=== PATIENT | female | born 1975 | race Caucasian/White ===

== ENCOUNTER 2017-02-06 17:07 | Outpatient (RCR) | payer MEDICARE, MEDICAID ==
[~2017-02-06 17:07] MED LIST: AML2.5T PO; ASP81TEC PO; ASPI-875 PO; CLON1TAB3 PO; CLON2TAB16; CLON2TAB3 PO; CODE-54 PO; DCS100C PO; DIVA250T2 PO; DIVA500T15 PO; DOXE25CA2 PO; DOXE25CA46 PO; DOXE50CA3 PO; DVL500TSR; DXPN25C PO; ESTROVEN PO; FLC1T PO; FURO20TA4 PO; HYDR-3454 PO; HYDR118S10 PO; IBUP800T26 PO; LORA1TAB PO; MELO-195 PO; MELO7.5T PO; MULT-974 PO; Nexium; OMEP20CA12 PO; OMEP20TA7 PO; OXYC-12 PO; PHEN120L2 MC; PNT40TEC PO; PREG225C PO; PREG75CA PO; PRM25T; PRM25T PO; RIZA10TA23 PO; SIMV10TA3 PO; SMT80CT PO; SMV10T PO; SUCR1TAB36 PO; TOPI100T PO; TPR100T; TRAM50TA2; TRAM50TA2 PO; TRAZ150T42; TRM50T PO; VNL37.5T PO
== END 2017-05-05 | disposition home or self-care (01) ==
LOC: LAB 17:07
PROVIDERS: ATTEND Family Medicine
DX: R19.7 Diarrhea, unspecified (principal)
CPT/HCPCS: 87449

== ENCOUNTER → 2017-02-07 | Outpatient (CLI) | payer MEDICARE, MEDICAID ==
[~2017-02-07] MED LIST changes: +BARIUM SUSPENSION 2.1% (VANILLA SILQ) 450 ML PO ONE; +CATHETER FLUSH 10 ML SYR IV PRN; +IOHEXOL 350 MG/ML 100 ML (OMNIPAQUE 350) VIAL IV ONE; +NS 100 ML (IVPB) BAG IV ONE
[2017-02-07 16:12] LABS: BLOOD UREA NITROGEN 11 MG/DL (7-18); BUN/CREATININE RATIO 13; CREATININE SERUM 0.85 MG/DL (0.60-1.30); GFR ESTIMATED > 60
--- NOTE | 2017-02-07 18:13 | Diagnostic Imaging Report ---
PROCEDURE: CT abdomen and pelvis with contrast. TECHNIQUE: Multiple contiguous axial images were obtained through the abdomen and pelvis after administration of intravenous contrast. INDICATION: Post bypass and hernia repair, pain. COMPARISON: Study compared to 01/16/2015. FINDINGS: The lung bases are nonacute. The liver is unremarkable. The gallbladder is surgically absent. No perihepatic fluid collection. Spleen is negative. There is no adrenal mass. The pancreas appears unremarkable. There are postoperative changes of a gastric bypass without evidence for a leak or obstruction. Enteric contrast media has reached the colon without extravasation. There is no ascites, abscess, hematoma, fluid collection, pneumatosis, or free air. Urinary tracts are unobstructed. The urinary bladder is unremarkable. No mesenteric or retroperitoneal adenopathy. No acute bony abnormality. IMPRESSION: No fluid collection, inflammatory process, obstructive features, hernia, or acute abnormalities identified. Dictated by: Dictated on workstation # [id number]
--- NOTE | 2017-02-08 15:10 | Physician Query-Final Dx ---
Clinic Account Progress/Dx Physician Query: Please give diagnosis Please specify the location of the patients abd pain (ie RUQ, LUQ, ect..) Date of Service Feb 07, 2017 at 15:29 BRENT LARSEN Feb 08, 2017 15:10
--- NOTE | 2017-02-09 14:32 | Physician Query-Final Dx ---
Clinic Account Progress/Dx Physician Query: Please specify the location of the pts abd pain thank you Date of Service Feb 07, 2017 at 15:29 BRENT LARSEN Feb 09, 2017 14:32
== END ==
LOC: RAD 15:29
PROVIDERS: ATTEND Family Medicine
DX: R10.9 Unspecified abdominal pain (principal); R11.10 Vomiting, unspecified; R19.7 Diarrhea, unspecified; N28.9 Disorder of kidney and ureter, unspecified
CPT/HCPCS: 36415; 74177; 82565; 84520

== ENCOUNTER → 2017-04-19 | Outpatient (CLI) | payer MEDICARE, MEDICAID ==
[~2017-04-19] MED LIST changes: +BARIUM SUSPENSION 105% (LIQUID POLIBAR PLUS) 240 ML/DOSE PO ONE; -BARIUM SUSPENSION 2.1% (VANILLA SILQ) 450 ML PO ONE; +BARIUM SUSPENSION 60% (LIQUID EZ PAQUE) 240 ML DOSE PO ONE; -CATHETER FLUSH 10 ML SYR IV PRN; -IOHEXOL 350 MG/ML 100 ML (OMNIPAQUE 350) VIAL IV ONE; -NS 100 ML (IVPB) BAG IV ONE
--- NOTE | 2017-04-19 11:30 | Diagnostic Imaging Report ---
EXAMINATION: Upper GI study, double contrast. Veneer Splicer image of the abdomen was performed. After the oral administration of gas forming granules, the patient drank thick and thin barium with visualization under fluoroscopy, with spot images taken over the esophagus, stomach and duodenum and followed by overhead images in the chest and abdomen. INDICATION: Abdominal pain. FLUOROSCOPY TIME: One minutes and 58 seconds. FINDINGS: Veneer Splicer images of the abdomen demonstrate small amount of fecal material. Surgical sutures in the upper left quadrant is seen. Surgical clips in the upper right quadrant are noted. The esophagus demonstrates normal caliber with no strictures. The mucosal pattern demonstrates no filling defects, diverticulum or ulceration. There is normal relaxation of the distal sphincter. There is no hiatal hernia. The stomach demonstrates postsurgical changes with a gastrojejunostomy that is widely patent. No filling defect to suggest a mass or evidence of ulcer seen. The jejunal loops are visualized appear unremarkable. IMPRESSION: Patent gastrojejunostomy. No definite abnormality. Dictated by: Dictated on workstation # [id number]
== END ==
LOC: RAD 09:30
PROVIDERS: ATTEND Family Medicine
DX: K21.9 Gastro-esophageal reflux disease without esophagitis (principal)
CPT/HCPCS: 74241

== ENCOUNTER → 2017-04-29 | Outpatient (CLI) | payer MEDICARE, MEDICAID ==
[~2017-04-29] MED LIST changes: -BARIUM SUSPENSION 105% (LIQUID POLIBAR PLUS) 240 ML/DOSE PO ONE; -BARIUM SUSPENSION 60% (LIQUID EZ PAQUE) 240 ML DOSE PO ONE
[2017-04-29 16:34] LABS: MEAN PLATELET VOLUME 11.7 FL (7.4-10.4); RED BLOOD COUNT 3.73 10^6/uL (4.35-5.85); RED CELL DISTRIBUTION WIDTH 13.9 % (10.0-14.5); WHITE BLOOD COUNT 4.9 10^3/uL (4.3-11.0)
[2017-04-29 17:13] LABS: ALANINE AMINOTRANSFERASE 11 U/L (0-55); ALBUMIN 3.3 GM/DL (3.2-4.5); ANION GAP 9 MMOL/L (5-14); ASPARTATE AMINO TRANSFERASE 10 U/L (5-34); BILIRUBIN,TOTAL 0.2 MG/DL (0.1-1.0); BLOOD UREA NITROGEN 15 MG/DL (7-18); BUN/CREATININE RATIO 19 (0-20); CALCIUM 8.2 MG/DL (8.5-10.1); CARBON DIOXIDE 26 MMOL/L (21-32); CHLORIDE 108 MMOL/L (98-107); CREATININE SERUM 0.81 MG/DL (0.60-1.30); GFR ESTIMATED > 60; GLUCOSE 77 MG/DL (70-105); HEMOLYSIS 10 (-100-29); ICTERUS 0.2 (-100-1.9); LIPEMIA 13 (-100-49); POTASSIUM 4.2 MMOL/L (3.6-5.0); SODIUM 143 MMOL/L (135-145); TOTAL PROTEIN 5.5 GM/DL (6.4-8.2)
[2017-04-29 17:32] LABS: THYROID STIMULATING HORMONE 0.22 UIU/ML (0.35-4.94)
== END ==
LOC: LAB 16:13
PROVIDERS: ATTEND Family Medicine
DX: R53.83 Other fatigue (principal)
CPT/HCPCS: 36415; 80053; 84443; 85027

== ENCOUNTER → 2017-05-02 | Outpatient (CLI) | payer MEDICARE, MEDICAID ==
[2017-05-02 16:08] LABS: THYROID STIMULATING HORMONE 0.35 UIU/ML (0.35-4.94)
== END ==
LOC: LAB 14:57
PROVIDERS: ATTEND Family Medicine
DX: E03.9 Hypothyroidism, unspecified (principal)
CPT/HCPCS: 36415; 84439; 84443

== ENCOUNTER → 2017-05-19 | Outpatient (CLI) | payer MEDICARE, MEDICAID ==
[2017-05-19 15:21] LABS: BASOPHILS % (AUTO) 0 % (0-10); EOSINOPHILS # (AUTO) 0.1 10^3/uL (0.0-0.3); EOSINOPHILS % (AUTO) 2 % (0-10); LYMPHOCYTES % (AUTO) 32 % (12-44); MEAN CORPUSCULAR HEMOGLOBIN 30 PG (25-34); MEAN CORPUSCULAR HGB CONC 32 G/DL (32-36); MEAN CORPUSCULAR VOLUME 93 FL (80-99); MEAN PLATELET VOLUME 10.3 FL (7.4-10.4); MONOCYTES # (AUTO) 0.5 X 10^3 (0.0-1.0); MONOCYTES % (AUTO) 8 % (0-12); NEUTROPHILS # (AUTO) 3.6 X 10^3 (1.8-7.8); NEUTROPHILS % (AUTO) 58 % (42-75); PLATELET COUNT 294 10^3/uL (130-400); RED BLOOD COUNT 3.46 10^6/uL (4.35-5.85); RED CELL DISTRIBUTION WIDTH 13.6 % (10.0-14.5); WHITE BLOOD COUNT 6.2 10^3/uL (4.3-11.0)
[2017-05-19 15:36] LABS: ANION GAP 9 MMOL/L (5-14); BLOOD UREA NITROGEN 11 MG/DL (7-18); BUN/CREATININE RATIO 14; CALCIUM 8.6 MG/DL (8.5-10.1); CARBON DIOXIDE 25 MMOL/L (21-32); CHLORIDE 105 MMOL/L (98-107); GFR ESTIMATED > 60; GLUCOSE 95 MG/DL (70-105); POTASSIUM 4.1 MMOL/L (3.6-5.0); SODIUM 139 MMOL/L (135-145)
--- NOTE | 2017-05-19 15:56 | Diagnostic Imaging Report ---
PA and lateral views of the chest. INDICATION: Cough. Weight loss. Congestion. FINDINGS: There is a nodular density seen anteriorly in the mid lung zone noted in the lateral projection. There is no definite correlate on the PA projection. There is a small pleural effusion on the left with left lower lobe infiltrate. The right lung is clear. The heart size is normal. The mediastinum and susy appear unremarkable. There is an old posterior seventh left rib fracture. IMPRESSION: 1. Left lower lobe infiltrate and small effusion. 2. A 1.2 cm nodular density projecting anteriorly is seen only on the lateral view. Further evaluation with CT scan of the chest is recommended. Report was called to Dr. Toni Ramirez at 4:09 p.m., by jeniffer (for MK). Dictated by: Dictated on workstation # [id number]
== END ==
LOC: RAD 14:53
PROVIDERS: ATTEND Family Medicine
DX: R91.8 Other nonspecific abnormal finding of lung field (principal); J90 Pleural effusion, not elsewhere classified
CPT/HCPCS: 36415; 71020; 80048; 85025

== ENCOUNTER → 2017-05-23 | Outpatient (CLI) | payer MEDICARE, MEDICAID ==
[~2017-05-23] MED LIST changes: +CATHETER FLUSH 10 ML SYR IV PRN; +IOHEXOL 350 MG/ML 100 ML (OMNIPAQUE 350) VIAL IV ONE; +NS 100 ML (IVPB) BAG IV ONE
--- NOTE | 2017-05-23 10:13 | Diagnostic Imaging Report ---
PROCEDURE: CT chest with contrast only. TECHNIQUE: Multiple contiguous axial images were obtained through the chest after administration of intravenous contrast. Indication: Followup left lung nodule. Comparison: Chest x-ray 05/19/[address] 04/24/2015. Discussion: Densely calcified granuloma is again noted within the anterior portion of the lingula which accounts for nodular density on the x-ray and is benign. However, there has been development of consolidation within the bilateral lung bases with associated air bronchograms which likely represents pneumonia, however, recommend followup to resolution after appropriate clinical treatment to exclude a true underlying pulmonary nodule, particularly on the right. The thoracic aorta is normal in caliber and configuration. Normal heart size. No pleural or pericardial fluid. The visualized upper abdomen is unremarkable. No pathologically enlarged lymph nodes identified. No acute osseous abnormality identified. Impression: 1. Calcified granuloma within the left lung accounts for nodular density on chest x-ray, benign. This is unchanged from the previous CT in 2014. 2. Dense consolidation is now present within the bilateral lower lungs, most consistent with pneumonia. However, recommend followup to resolution after appropriate clinical treatment to exclude an underlying pulmonary nodule. Dictated by: Dictated on workstation # [id number]
== END ==
LOC: RAD 08:54
PROVIDERS: ATTEND Family Medicine
DX: R91.8 Other nonspecific abnormal finding of lung field (principal); J84.10 Pulmonary fibrosis, unspecified
CPT/HCPCS: 71260

== ENCOUNTER → 2017-06-09 | Outpatient (CLI) | payer MEDICARE, MEDICAID ==
[~2017-06-09] MED LIST changes: +ACET-2469 PO; -CATHETER FLUSH 10 ML SYR IV PRN; +HYDR-3816 PO; -IOHEXOL 350 MG/ML 100 ML (OMNIPAQUE 350) VIAL IV ONE; -NS 100 ML (IVPB) BAG IV ONE; +PROP20TA5 PO
--- NOTE | 2017-06-09 17:10 | Diagnostic Imaging Report ---
INDICATION: Pneumonia. PA and lateral views of the chest are obtained. Comparison is made to study of 05/19/2017. FINDINGS: Heart size and pulmonary vascularity are within normal limits. There is no evidence of pneumothorax or consolidation. There has been apparent resolution of left basilar infiltrate when compared to previous study. Retrosternal calcification has a similar appearance. IMPRESSION: 1. Resolution of left basilar pneumonia since previous study. Calcification in the retrosternal region may be related to previous granulomatous disease or possible hamartoma. 2. There is no evidence of new abnormality. Dictated by: Dictated on workstation # [id number]
== END ==
LOC: RAD 14:46
PROVIDERS: ATTEND Family Medicine
DX: J18.9 Pneumonia, unspecified organism (principal)
CPT/HCPCS: 71020

== ENCOUNTER 2017-06-16 12:03 | Outpatient (CLI) | payer MEDICARE, MEDICAID ==
[~2017-06-16] VITALS: Ht 160 cm; Wt 50.8 kg
[~2017-06-16 12:03] MED LIST changes: -ACET-2469 PO; -HYDR-3816 PO; -PROP20TA5 PO
[2017-06-16 12:11] VITALS: BP 103/64
[2017-06-16] MEDS ORDERED: ACET-2469 PO (12:18)
[2017-06-16] MEDS ORDERED: PROP20TA5 PO (12:18)
== END 2017-06-16 12:30 | disposition home or self-care (01) ==
LOC: PREOP 12:03
PROVIDERS: ATTEND Orthopaedic Surgery
DX: Z01.818 Encounter for other preprocedural examination (principal); S83.241A Other tear of medial meniscus, current injury, right knee, initial encounter; X58.XXXA Exposure to other specified factors, initial encounter; Y99.8 Other external cause status
CPT/HCPCS: 87081

== ENCOUNTER 2017-06-22 07:00 | Day surgery (SDC) | payer MEDICARE, MEDICAID ==
--- NOTE | 2017-06-15 12:36 | HISTORY AND PHYSICAL ---
DATE OF SERVICE: 06/22/2017 HISTORY: The patient is a 42-year-old female with longstanding right knee pain. She reports progressive activity limitations because of the knee. She has a known arthrosis of her right knee, but does not desire total knee arthroplasty. She reports catching and locking. She reports no giving way. Due to functional impairment and failure to improve with conservative measures, the patient has elected to proceed with surgical intervention. REVIEW OF SYSTEMS: No chest pain, no shortness of breath, no dysuria. PAST MEDICAL HISTORY: Congestive heart failure, fibromyalgia, osteoarthritis, tension headaches, anemia, reflux. PAST SURGICAL HISTORY: Right knee arthroscopy, abdominal wall herniorrhaphy, bariatric surgery, cardiac catheterization, cholecystectomy, hysterectomy, tubal ligation, lipoma excision, cyst excision. FAMILY HISTORY: Significant for cancer and heart disease. PRIMARY CARE PROVIDER: Toni Ramirez DO MEDICATIONS: Depakote, Klonopin, tramadol, Lyrica, aspirin, omeprazole propranolol, ondansetron. ALLERGIES: TAPE. SOCIAL HISTORY: The patient is a regular smoker. She denies alcohol use. PHYSICAL EXAM: GENERAL: The patient is well-developed, well-nourished, in no acute distress. HEENT: Normocephalic, atraumatic. Pupils are equal, round and reactive to light. Oropharynx is clear. NECK: Supple. No lymphadenopathy. LUNGS: Clear to auscultation bilaterally. HEART: Regular rate and rhythm. ABDOMEN: Soft, nontender, nondistended. EXTREMITIES: The right knee demonstrates tenderness along her medial joint line. She has a moderate effusion. She has patellofemoral crepitus. She ambulates with an antalgic gait. She has pain medial and laterally with Alise's. No varus or valgus stress. Negative anterior and posterior drawer. 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 PLAN: Right knee arthroscopy, partial meniscectomy and chondroplasty. The risks, benefits, options, ramifications and recovery were discussed at length with the patient. She understands and wishes to proceed. Job ID: [id number] DocumentID: [id number] Dictated Date: 06/15/2017 12:09:33 Drill Press Operator Numerical Control Date: 06/15/2017 12:35:56 Dictated By: MASSIMO BERNAL MD
[~2017-06-22] VITALS: Ht 160 cm; Wt 50.8 kg
[2017-06-22 07:00] VITALS: BP 106/55
[~2017-06-22 07:00] MED LIST changes: +ACET-2469 PO; +PROP20TA5 PO
[2017-06-22] MEDS ORDERED: LACTATED RINGERS 1,000 ML IV PRN (07:09)
[2017-06-22] MEDS ORDERED: morphine PF (DURAMORPH) 10 MG/10 ML AMP ONE (07:12)
[2017-06-22] MEDS ORDERED: BUPIVACAINE 0.25% 30 ML (SENSORCAINE) VIAL ONE (07:12)
[2017-06-22] MEDS ORDERED: FAMOTIDINE 20MG/2ML IV (PEPCID) IV ONE (07:15)
[2017-06-22] MEDS ORDERED: HYDROcodone/APAP 7.5 MG/325 MG (LORTAB, LORCET PLUS) TABLET PO PRN (07:30)
[2017-06-22] MEDS ORDERED: ceFAZolin 1 GM/NS 50 ML IVPB IV ONE ×2 (07:30)
[2017-06-22] MEDS ORDERED: CATHETER FLUSH 10 ML SYR IV PRN (07:30)
[2017-06-22] MEDS ORDERED: fentaNYL INJECTION 100 MCG/2 ML AMP ONE (07:31)
[2017-06-22] MEDS ORDERED: proPOfol 200 MG/20 ML (DIPRIVAN) VIAL IV ONE (07:31)
[2017-06-22] MEDS ORDERED: MIDAZOLAM 2 MG/2 ML (VERSED) VIAL ONE (07:31)
--- NOTE | 2017-06-22 07:31 | Progress Note-Pre Operative ---
Pre-Operative Progress Note H&P Reviewed The H&P was reviewed, patient examined and no changes noted. Date Seen by Provider: Jun 22, 2017 Time Seen by Provider: 07:25 Date H&P Reviewed: Jun 22, 2017 Time H&P Reviewed: 05:36 Pre-Operative Diagnosis: right knee medial and lateral meniscus tears and chondromalacia MASSIMO BERNAL MD Jun 22, 2017 07:31
--- NOTE | 2017-06-22 07:32 | Progress Note-Post Operative ---
Post-Operative Progess Note Surgeon (s)/Web Design Intern (s) Surgeon MASSIMO BERNAL MD Web Design Intern: Bentley Justice Pre-Operative Diagnosis right knee medial and lateral meniscus tears and chondromalacia Post-Operative Diagnosis right knee medial and lateral meniscus tears and chondromalacia of the medial femoral condyle, medial tibial plateau, patella and trochlea Procedure & Operative Findings Date of Procedure 06/22/17 Procedure Performed/Findings right knee arthroscopic partial medial and lateral meniscectomies and chondroplasty of the medial femoral condyle, medial tibial plateau, patella and trochlea Anesthesia Type GETA Estimated Blood Loss Estimated blood loss (mL): minimal Specimens/Packing Specimens Removed none Packing: none MASSIMO BERNAL MD Jun 22, 2017 07:32
[2017-06-22] MEDS ORDERED: DEXAMETHASONE PF 10 MG/ML (DECADRON) VIAL ONE (08:12)
[2017-06-22] MEDS ORDERED: LACTATED RINGERS 1,000 ML IV ONE (08:16)
[2017-06-22] MEDS ORDERED: SEVOFLURANE (ULTANE) 15 ML INHAL SOLN ONE ×3 (08:16→08:44)
[2017-06-22] MEDS ORDERED: ONDANSETRON 4 MG/2 ML (SDV) Z0FRAN ONE (08:47)
[2017-06-22] MEDS ORDERED: morphine INJ 10 MG/ML 1ML (SYR OR VIAL) IVP PRN (09:15)
[2017-06-22] MEDS ORDERED: morphine INJ 10 MG/ML 1ML (SYR OR VIAL) ONE (09:36)
[2017-06-22 10:05] VITALS: BP 106/55
[2017-06-22] MEDS ORDERED: HYDR-3816 PO (10:26)
[2017-06-22 10:35] VITALS: BP 98/58
--- NOTE | 2017-06-22 11:14 | OPERATIVE REPORT ---
DATE OF SERVICE: PREOPERATIVE DIAGNOSIS: 1. Right knee medial meniscal tear. 2. Right knee lateral meniscal tear. 3. Right knee chondromalacia of the medial femoral condyle. 4. Right knee chondromalacia of the patella. POSTOPERATIVE DIAGNOSIS: 1. Right knee medial meniscal tear. 2. Right knee lateral meniscal tear. 3. Right knee chondromalacia of the medial femoral condyle. 4. Right knee chondromalacia of the patella. 5. Right knee chondromalacia of the medial tibial plateau. 6. Right chondromalacia of the trochlea. PROCEDURES: 1. Right knee arthroscopic partial medial meniscectomy. 2. Right knee arthroscopic partial lateral meniscectomy. 3. Right knee arthroscopic chondroplasty of the medial femoral condyle. 4. Right knee arthroscopic chondroplasty of the medial tibial plateau. 5. Right knee arthroscopic chondroplasty of the patella. 6. Right knee arthroscopic chondroplasty of the trochlea. SURGEON: Erlin Bernal MD. BOILER MAKER: Bentley Justice, who assisted throughout the procedure and closed the incisions. ANESTHESIA: General endotracheal by Dr. Mccabe. TOURNIQUET TIME: Not applicable. ESTIMATED BLOOD LOSS: Minimal. DRAINS: None. COMPLICATIONS: None. POSTOPERATIVE PLAN: Routine arthroscopy protocol. The patient was transported to the recovery room awake and in stable condition. STATEMENT OF MEDICAL NECESSITY: The patient is a 42-year-old female with complaints of right medial and lateral knee pain. The patient underwent an MRI which showed a medial and lateral meniscal tear. In addition, she had arthrosis noted in all 3 compartments. The patient did not desire total knee arthroplasty. She understood that arthroscopy would help with her mechanical symptoms, but would not alleviate her arthritic symptoms and due to functional impairment and failure to improve with conservative measures, the patient elected to proceed with surgical intervention. Examination under anesthesia revealed range of motion 0/0/130. Negative Alondra, negative anterior drawer, negative posterior drawer. No varus or valgus laxity and a negative pivot shift. ARTHROSCOPIC FINDINGS: The patella demonstrated grade 2 chondral flap, essentially a 10 x 10 area. The trochlea demonstrated grade 4 chondral loss in the central portion of the 1:58 OF an 8 x 15 area with surrounding grade 3 chondral flaps at the periphery. The medial and lateral gutters were clear. The ACL was absent. The PCL was intact. The intracondylar notch demonstrated an osteophyte, which was providing stability. The medial compartment demonstrated a degenerative tear of the body of the remnant of the medial meniscus. In addition, there were grade 3 chondral flaps in the femoral condyle in a 15 x 15 area centrally and over the central portion of the tibial plateau in a 15 x 15 area grade 3 chondral flaps. The lateral compartment demonstrated a tear of the body of the lateral meniscus around approximately one-third of the body. There was grade 4 chondral loss over the anterior aspect of the lateral femoral condyle in a 15 x 15 area. PROCEDURE: After risks and benefits of the procedure were discussed and questions were answered, an informed consent was signed and placed on the chart. The operative site was confirmed in the preoperative holding area and initialled by the surgeon. The patient was then transferred to the operating room and after adequate levels of general endotracheal anesthetic were obtained, a timeout was called confirming the operative site. An examination under anesthesia was performed with the above findings noted. The right lower extremity was then prepped and draped in the usual sterile fashion. The knee was injected with 60 mL of fluid and a standard inferolateral portal was placed with the arthroscope under direct visualization. An inferior medial port was created. The menisci and cruciates were carefully probed with the above findings. The unstable chondral flaps on the patella and trochlea were debrided back to a stable edge. The scope was redirected into the lateral compartment where the unstable lateral meniscal tear was debrided with the biter and shaver, removing the proximal one-third of the body. This was carefully probed with no further tear or instability noted. The scope was then redirected into the medial compartment where the unstable chondral flaps of the medial femoral condyle and medial tibial plateau were debrided with a shaver back to a stable edge and the medial meniscus body was debrided with a shaver back to a stable edge. This was carefully probed with no further tearing or instability noted. The knee was copiously irrigated and port sites were closed with 3-0 nylon in simple interrupted fashion. The knee was injected with Duramorph. The portal sites were infiltrated with plan Marcaine. A soft dressing was applied and the patient was transported to the recovery room in awake and stable condition. Job ID: [id number] DocumentID: [id number] Dictated Date: 06/22/2017 08:59:46 Research Development Manager Date: 06/22/2017 11:13:48 Dictated By: ERLIN BERNAL MD
[2017-06-22 11:15] VITALS: BP 110/57
[2017-06-22 11:35] VITALS: BP 110/57
--- NOTE | 2017-06-22 12:11 | Physical Therapy Ortho Eval ---
PT Orthopedic Evaluation Type of Surgery Knee Scope (right) Prior Level of Function Current Living Status: Spouse Subjective Subjective Reports her back has been bothering her so she would like to use a walker. Reports she has had other knee scopes in the past. Entry Into Home: Stairs Without Railing Steps Into Home: 3 Motor Control Motor Control: Motor Control WNL ROM ROM: WFL, except focal deficit (right knee flexion slightly limited) Strength Strength: Gen Weak,No Focal Deficit (right LE grossly 4-/5 ) Transfer Transfers (B, C, W/C) (FIM): 5 Mod indep post treatment. Gait Gait Assistive Device: FWW Weight Bearing Restriction: Weight Bearing/Tolerated Location Restriction: R LE Gait (FIM): 5 Distance (FIM): 3=150 ft Summary/Comments Mod indepw ith FWW post treatment. Education on stairs as well. Education on sequencing and safety on stairs. Treatment Rendered Treatment: Therapeutic Exercises, Gait Train, Step Train Exercise Instruction: Quad Sets, Straight Leg Raise, Heel Slides Assessment/Goals Goal Time Frame: 1 Visit Understands HEP: Yes Safe Ambulation: Yes Plan Treatment Plan: Discharge PT/Family Agrees to Plan: Yes Time Time In: 1115 Time Out: 1135 Total Billed Treatment Time: 20 Billed Treatment Time visit EVL 20 Yes PT/OT Therapy GCodes Therapy Functional Limitation: Physical Therapy Test(s)/Tool used to determine: Level of Assistance Scale Functional Limitation-Current Charge Code: MOBCUR Modifier: CJ Functional Limitation-Goal Charge Code: MOBGOAL Modifier: CI Functional Limitation-D/C Charge Codes: MOBDC Modifier: CI EZEQUIEL LECHUGA PT Jun 22, 2017 12:11
== END 2017-06-22 11:35 | disposition home or self-care (01) ==
LOC: SDC 07:00
PROVIDERS: ATTEND Orthopaedic Surgery
DX: M23.8X1 Other internal derangements of right knee (principal); M22.41 Chondromalacia patellae, right knee; I50.9 Heart failure, unspecified; K21.9 Gastro-esophageal reflux disease without esophagitis; M79.1 Myalgia; Z79.899 Other long term (current) drug therapy

== ENCOUNTER → 2017-06-27 | Outpatient (CLI) | payer MEDICARE, MEDICAID ==
[~2017-06-27] MED LIST changes: +HYDR-3816 PO
--- NOTE | 2017-06-27 17:13 | Diagnostic Imaging Report ---
EXAMINATION: Lumbar spine at 5:12 p.m. INDICATION: Back pain. AP, lateral, and spot lateral views were obtained. There are no previous lumbar spine examinations available for comparison. FINDINGS: On the lateral view, the upper two lumbar vertebrae are obscured by bowel gas and fecal material. There is no sign of a fracture of these vertebrae on the AP view. The other lumbar vertebrae appear to be within normal limits. The intervertebral spaces are fairly well maintained. There is mild narrowing of the disc space at L5-S1. There is no sign of a paraspinal mass. There is sclerosis of both sacroiliac joints. This appearance is similar to the CT abdomen/pelvis exam performed on 02/07/2017. The soft tissues are unremarkable. IMPRESSION: There is no evidence for an acute bony abnormality, although the upper lumbar vertebrae were not well visualized on the lateral view. If concern regarding an underlying abnormality persists, then MRI would be recommended for further study. Dictated by: Dictated on workstation # [id number]
== END ==
LOC: RAD 16:26
PROVIDERS: ATTEND Family Medicine
DX: M54.5 Low back pain (principal)
CPT/HCPCS: 72100

== ENCOUNTER → 2017-08-08 | Outpatient (CLI) | payer MEDICARE, MEDICAID | LOC: LAB 17:51 | PROVIDERS: ATTEND Family Medicine | DX: F31.9 Bipolar disorder, unspecified (principal); F33.9 Major depressive disorder, recurrent, unspecified | CPT/HCPCS: 36415; 80164 ==

== ENCOUNTER → 2017-12-22 | Outpatient (CLI) | payer MEDICARE, MEDICAID ==
[~2017-12-22] MED LIST changes: +HYDR-34 PO; -HYDR-3816 PO
--- NOTE | 2017-12-22 14:12 | Diagnostic Imaging Report ---
INDICATION: Fall with right foot injury. TIME OF EXAM: 02:13 p.m. FINDINGS: There is generalized demineralization of the right foot. The metatarsals appear intact. The phalanges are intact. Mid foot and hind foot are unremarkable. No fractures are seen. IMPRESSION: Generalized demineralization. No acute fracture is detected. Dictated by: Dictated on workstation # [id number]
== END ==
LOC: RAD 13:43
PROVIDERS: ATTEND Family Medicine
DX: S99.921A Unspecified injury of right foot, initial encounter (principal); M81.8 Other osteoporosis without current pathological fracture; W19.XXXA Unspecified fall, initial encounter
CPT/HCPCS: 73630

== ENCOUNTER 2018-08-03 12:55 | Observation (INO) | payer MEDICARE, MEDICAID ==
[~2018-08-03] VITALS: Ht 160 cm; Wt 60.3 kg
[2018-08-03 13:42] LABS: BASOPHILS # (AUTO) 0.1 10^3/uL (0.0-0.1); BASOPHILS % (AUTO) 1 % (0-10); EOSINOPHILS # (AUTO) 0.1 10^3/uL (0.0-0.3); EOSINOPHILS % (AUTO) 3 % (0-10); HEMATOCRIT 32 % (35-52); HEMOGLOBIN 10.1 G/DL (11.5-16.0); LYMPHOCYTES # (AUTO) 1.8 X 10^3 (1.0-4.0); LYMPHOCYTES % (AUTO) 42 % (12-44); MEAN CORPUSCULAR HEMOGLOBIN 29 PG (25-34); MEAN CORPUSCULAR HGB CONC 32 G/DL (32-36); MEAN CORPUSCULAR VOLUME 91 FL (80-99); MONOCYTES # (AUTO) 0.4 X 10^3 (0.0-1.0); MONOCYTES % (AUTO) 9 % (0-12); NEUTROPHILS % (AUTO) 45 % (42-75); PLATELET COUNT 214 10^3/uL (130-400); RED BLOOD COUNT 3.48 10^6/uL (4.35-5.85); RED CELL DISTRIBUTION WIDTH 14.7 % (10.0-14.5); WHITE BLOOD COUNT 4.4 10^3/uL (4.3-11.0)
[2018-08-03 13:57] LABS: FIBRIN DEGRADATION PRODUCTS 0.41 UG/ML (0.00-0.49); INR 0.9 (0.8-1.4); PROTHROMBIN TIME PATIENT 11.9 SEC (12.2-14.7)
[2018-08-03 14:02] LABS: BUN/CREATININE RATIO 14; CALCIUM 8.6 MG/DL (8.5-10.1); CARBON DIOXIDE 29 MMOL/L (21-32); CHLORIDE 106 MMOL/L (98-107); CREATININE SERUM 0.99 MG/DL (0.60-1.30); GFR ESTIMATED > 60; GLUCOSE 91 MG/DL (70-105); MAGNESIUM 2.3 MG/DL (1.8-2.4); POTASSIUM 4.4 MMOL/L (3.6-5.0); SODIUM 140 MMOL/L (135-145)
[2018-08-03 14:03] LABS: ALANINE AMINOTRANSFERASE 10 U/L (0-55); ALBUMIN 3.8 GM/DL (3.2-4.5); ALKALINE PHOSPHATASE 63 U/L (40-136); BILIRUBIN,TOTAL 0.2 MG/DL (0.1-1.0); TOTAL PROTEIN 5.7 GM/DL (6.4-8.2)
[2018-08-03 14:09] LABS: MYOGLOBIN SERUM 33.9 NG/ML (10.0-92.0)
--- NOTE | 2018-08-03 14:23 | Diagnostic Imaging Report ---
INDICATION: Syncope and tremor. PA view of the chest is obtained with comparison made to study of 06/09/2017. FINDINGS: Heart size and pulmonary vascularity are within normal limits, and the lungs are clear, bilaterally. IMPRESSION: Unremarkable chest. Dictated by: Dictated on workstation # [id number]
--- NOTE | 2018-08-03 14:26 | Diagnostic Imaging Report ---
Indication: "Chest pain" Study compared with exam 04/23/2014. There is no intracranial hemorrhage, hydrocephalus, edema, mass, mass effect or evidence for elevated intracranial pressures. Basilar cisterns patent. No sulcal effacement. Orbits, sinuses and calvarium within normal limits. Impression: Stable, unremarkable CT. Dictated by: Dictated on workstation # [id number]
--- NOTE | 2018-08-03 15:50 | ED Chest Pain ---
General Chief Complaint: Chest Pain Stated Complaint: CHEST PAIN Nursing Triage Note: Pt states that she has been having chest pain for the last two days. Pt denies the pain radiates, nausea, or SOB. Pt states that she called her MD and he wanted her seen in the ED. Nursing Sepsis Screen: No Definite Risk Source: patient, old records Exam Limitations: no limitations History of Present Illness Date Seen by Provider: Aug 03, 2018 Time Seen by Provider: 12:58 Initial Comments This patient presents to emergency room with complaint of chest pain. She also reports having an episode of altered mental status and possibly near-syncope on Tuesday. She took a bus to the [employer] when she had this episode. She reports a lapse of memory around the episode. She reports EMS was contacted and advised she be transported to the hospital. She declined transport at that time. For the past week or 2 she has been having intermittent chest pain and has chest pain at present. She also reports having an episode of numbness in her right extremities. That is better now. Patient has a history of NSTEMI. Chart review shows a cardiac catheterization in 2012 demonstrating no obstructive disease. She also had a stress test in 2014 which was normal. Patient continues to smoke. Allergies and Home Medications Allergies Coded Allergies: No Known Drug Allergies (Unverified , 10/26/13) Home Medications Acetaminophen/Diphenhydramine 1 Each Tablet, 2 TAB PO HS PRN for SLEEP, ( Reported) Albuterol Sulfate 18 Gm Hfa.aer.ad, 2 PUFF INH TID PRN for WHEEZING, (Reported) Aspirin 81 Mg Tablet.dr, 81 MG PO HS, (Reported) Clonazepam 1 Mg Tablet, 1 MG PO TID PRN for ANXIETY, (Reported) Cyclobenzaprine HCl 10 Mg Tablet, 10 MG PO TID PRN for MUSCLE SPASMS, (Reported) Divalproex Sodium 250 Mg Tablet.dr, 250 MG PO 1300, (Reported) Divalproex Sodium 500 Mg Tab.er.24h, 500 MG PO BID, (Reported) Escitalopram Oxalate 10 Mg Tablet, 10 MG PO DAILY, (Reported) Gabapentin 300 Mg Capsule, 300 MG PO BID, (Reported) Omeprazole 20 Mg Capsule.dr, 20 MG PO DAILY PRN for HEARTBURN, (Reported) Propranolol HCl 20 Mg Tablet, 20 MG PO TID, (Reported) Tramadol HCl 50 Mg Tablet, 50 MG PO BID PRN for PAIN-MODERATE, (Reported) Patient Home Medication List Home Medication List Reviewed: Yes Review of Systems Review of Systems Constitutional: see HPI EENTM: No Symptoms Reported Respiratory: See HPI Cardiovascular: See HPI Gastrointestinal: No Symptoms Reported Genitourinary: No Symptoms Reported Musculoskeletal: no symptoms reported Skin: no symptoms reported Psychiatric/Neurological: See HPI Endocrine: No Symptoms Reported Hematologic/Lymphatic: No Symptoms Reported Past Vlonnpz-Azbspj-Arseue Hx Past Med/Social Hx: Reviewed and Corrections made Patient Social History Alcohol Use: Denies Use Recreational Drug Use: Yes (THC-OCCASIONAL) Smoking Status: Current Everyday Smoker Type Used: Cigarettes Former Smoker, Quit: Jun 16, 2017 2nd Hand Smoke Exposure: No Recent Foreign Travel: No Contact w/Someone Who Travel: No Recent Infectious Disease Expo: No Recent Hopitalizations: Yes Physical Abuse: No Sexual Abuse: No Mistreated: No Fear: No Immunizations Up To Date Tetanus Booster (TDap): Unknown Date of Pneumonia Vaccine: Sep 17, 2014 Date of Influenza Vaccine: Dec 18, 2015 Seasonal Allergies Seasonal Allergies: No Past Medical History Surgeries: Yes (GASTRIC BYPASS, R knee surgery x4, cyst from scalp, breast lumpectomy) Abdominal (and gastric bypass), Cardiac (cardiac catheterization 2012 with no obstructive disease), Hysterectomy, Tubal Ligation Respiratory: Yes (recent pneumonia xray clear on 06/09) Cardiac: Yes (NEGATIVE HEART CATH, PR JUL 2014 AND APRIL 2015) Heart Attack (NSTEMI) Neurological: Yes (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 CHILDBIRTH IN , OCCASIONAL MEMORY LOSS) Reproductive Disorders: No KILN TENDER History: Hysterectomy Gastrointestinal: Yes Gastroesophageal Reflux Musculoskeletal: Yes (CHRONIC GENERALIZED PAIN) Degenerate Disk Disease, Arthritis, Fibromyalgia Endocrine: No Loss of Vision: Bilateral Hearing Impairment: Denies Cancer: No Psychosocial: Yes Anxiety, Bipolar Integumentary: No Blood Disorders: Yes ("MEDITERRANEAN"--"IRON TRANSFUSION" Q 3 MONTHS, NONE FOR 6 YR) Adverse Reaction/Blood Tranf: No Family Medical History Cancer 03 MOTHER Chest pain 03 FATHER Congestive heart failure 03 MOTHER 09 SISTER Family history: Arthritis 09 SISTER Family history: Cardiovascular disease 03 FATHER 03 MOTHER Family history: Diabetes mellitus 03 FATHER Heart disease 03 MOTHER History of - respiratory disease 03 MOTHER History of drug abuse 03 FATHER Kidney disease 03 FATHER 03 MOTHER 09 SISTER Myocardial infarction 03 FATHER Psychotic disorder 03 FATHER 09 SISTER Heart Disease, CAD Over 55 Years Old Physical Exam Vital Signs Vital Signs - First Documented 08/03/18 12:56 Temp 98.3 Pulse 80 Resp 12 B/P (MAP) 118/77 (91) Pulse Ox 100 O2 Delivery Room Air Capillary Refill : Less Than 3 Seconds Height, Weight, BMI Height: 5'3.00" Weight: 133lbs. 0.0oz. 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, 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 Norm as Tested Skin: Normal Color, Warm/Dry Progress/Results/Core Measures Results/Orders Lab Results Laboratory Tests Test 08/03/18 13:08 Range/Units White Blood Count 4.4 4.3-11.0 10^3/uL Red Blood Count 3.48 L 4.35-5.85 10^6/uL Hemoglobin 10.1 L 11.5-16.0 G/DL Hematocrit 32 L 35-52 % Mean Corpuscular Volume 91 80-99 FL Mean Corpuscular Hemoglobin 29 25-34 PG Mean Corpuscular Hemoglobin Concent 32 32-36 G/DL Red Cell Distribution Width 14.7 H 10.0-14.5 % Platelet Count 214 130-400 10^3/uL Mean Platelet Volume 11.0 H 7.4-10.4 FL Neutrophils (%) (Auto) 45 42-75 % Lymphocytes (%) (Auto) 42 12-44 % Monocytes (%) (Auto) 9 0-12 % Eosinophils (%) (Auto) 3 0-10 % Basophils (%) (Auto) 1 0-10 % Neutrophils # (Auto) 2.0 1.8-7.8 X 10^3 Lymphocytes # (Auto) 1.8 1.0-4.0 X 10^3 Monocytes # (Auto) 0.4 0.0-1.0 X 10^3 Eosinophils # (Auto) 0.1 0.0-0.3 10^3/uL Basophils # (Auto) 0.1 0.0-0.1 10^3/uL Prothrombin Time 11.9 L 12.2-14.7 SEC INR Comment 0.9 0.8-1.4 Activated Partial Thromboplast Time 28 24-35 SEC D-Dimer 0.41 0.00-0.49 UG/ML Sodium Level 140 135-145 MMOL/L Potassium Level 4.4 3.6-5.0 MMOL/L Chloride Level 106 98-107 MMOL/L Carbon Dioxide Level 29 21-32 MMOL/L Anion Gap 5 5-14 MMOL/L Blood Urea Nitrogen 14 7-18 MG/DL Creatinine 0.99 0.60-1.30 MG/DL Estimat Glomerular Filtration Rate > 60 BUN/Creatinine Ratio 14 Glucose Level 91 70-105 MG/DL Calcium Level 8.6 8.5-10.1 MG/DL Corrected Calcium 8.8 8.5-10.1 MG/DL Magnesium Level 2.3 1.8-2.4 MG/DL Total Bilirubin 0.2 0.1-1.0 MG/DL Aspartate Amino Transf (AST/SGOT) 11 5-34 U/L Alanine Aminotransferase (ALT/SGPT) 10 0-55 U/L Alkaline Phosphatase 63 40-136 U/L Myoglobin 33.9 10.0-92.0 NG/ML Troponin I < 0.30 <0.30 NG/ML Total Protein 5.7 L 6.4-8.2 GM/DL Albumin 3.8 3.2-4.5 GM/DL My Orders Orders - DENNYS LE MD Cbc With Automated Diff (08/03/18 13:22) Magnesium (08/03/18 13:22) Chest 1 View, Ap/Pa Only (08/03/18 13:22) Ekg Tracing (08/03/18 13:22) Cardiac Profile 1 (08/03/18 13:22) Comprehensive Metabolic Panel (08/03/18 13:22) Myoglobin Serum (08/03/18 13:22) Protime With Inr (08/03/18 13:22) Partial Thromboplastin Time (08/03/18 13:22) O2 (08/03/18 13:22) Monitor-Rhythm Ecg Trace Only (08/03/18 13:22) Lipid Panel (08/04/18 06:00) Saline Lock/Iv-Start (08/03/18 13:22) Ct Head Wo-R/O Stroke (08/03/18 13:22) Fibrin Degradation Products (08/03/18 13:08) Vital Signs/I&O 08/03/18 12:56 Temp 98.3 Pulse 80 Resp 12 B/P (MAP) 118/77 (91) Pulse Ox 100 O2 Delivery Room Air Blood Pressure Mean: 91 Progress Progress Note : Progress Note Because of the reported near syncopal episode with lapse of memory and right- sided numbness episode she had a few days ago, a CT scan of the head was obtained in addition to the chest pain protocol. CT demonstrated no abnormalities. Patient's chest pain resolved during the course of her ER stay. Nitroglycerin was not administered as her blood pressure was in the low normal range. Patient had taken aspirin 81 mg 5 at home. Because of patient' s history of NSTEMI and her constellation of symptoms over the last couple weeks , admission for observation was felt appropriate. Case was discussed with Dr. García and Dr. Hernandez. Initial ECG Impression Date: Aug 03, 2018 Initial ECG Impression Time: 12:59 Initial ECG Rate: 81 Initial ECG Rhythm: Normal Sinus Initial ECG Impression: Normal Comment Normal sinus rhythm with no ST elevation or depression. No abnormal intervals or axis deviation. Diagnostic Imaging Diagonstic Imaging: Xray Plain Films/CT/US/NM/MRI: chest Comments NAME: ZULEYKA CLRAK [facility] REC#: [id number] PT STATUS: REG ER : 1975 PHYSICIAN: DENNYS LE MD ADMIT DATE: 08/03/18/ER Signed Date of Exam: 08/03/18 CHEST 1 VIEW, AP/PA ONLY INDICATION: Syncope and tremor. PA view of the chest is obtained with comparison made to study of 06/09/2017. FINDINGS: Heart size and pulmonary vascularity are within normal limits, and the lungs are clear, bilaterally. IMPRESSION: Unremarkable chest. Dictated by: Dictated on workstation # [id number] Dict: 08/03/18 1421 Trans: 08/03/18 142 Interpreted by: ADOLPH IBANEZ MD Electronically signed by: ADOLPH IBANEZ MD 08/03/18 1429 Diagonstic Imaging: CT Plain Films/CT/US/NM/MRI: head Comments NAME: ZULEYKA CLARK [facility] REC#: [id number] PT STATUS: REG ER : 1975 PHYSICIAN: DENNYS LE MD ADMIT DATE: 08/03/18/ER Draft Date of Exam:08/03/18 CT HEAD WO-R/O STROKE Indication: "Chest pain" Study compared with exam 04/23/2014. There is no intracranial hemorrhage, hydrocephalus, edema, mass, mass effect or evidence for elevated intracranial pressures. Basilar cisterns patent. No sulcal effacement. Orbits, sinuses and calvarium within normal limits. Impression: Stable, unremarkable CT. Dictated on workstation # [id number] Dict: 08/03/18 1416 Trans: 08/03/18 1425 [facility] [id number] Interpreted by: ADOLPH NIELSON Departure Communication (Admissions) Time/Spoke to Admitting Phy: 15:35 Dr. García Time/Spoke to Consulting Phy: 15:30 Dr. Hernandez Impression Primary Impression: Chest pain Additional Impressions: Right sided numbness recent altered mental status Disposition: ADMITTED INPATIENT Condition: Improved Admissions Decision to Admit Reason: Admit from ER (General) Decision to Admit/Date: Aug 03, 2018 Time/Decision to Admit Time: 15:35 Departure-Patient Inst. Referrals: DEANN GARCÍA DO (PCP/Family) Primary Care Physician Copy Copies To 1: DEANN GARCÍA DO Copies To 2: ORA HERNANDEZ MD [facility] DENNYS LE MD Aug 03, 2018 15:50
--- NOTE | 2018-08-03 15:57 | Consultation-Cardiology ---
HPI-Cardiology Cardiology Consultation: Date of Consultation 08/03/18 Time Seen by a Provider: 16:00 Date of Admission 08-03-18 Attending Physician Admitting Physician Toni Ramirez DO Consulting Physician Juju Hernandez MD HPI: Chief Complaint: Chest pain Ms. Clark is a 43 year old female who has been seen in the ED. She reports she has chronic chest pain and generalized body pain d/t fibromyalgia for which she uses marijuana for breakthrough pain. She reports Tuesday she got on a bus for [employer]. She reports she was told she "passed out" for approx 45 minutes while she was on the bus. She states she does not recall receiving any instructions from the business continuity coordinator regarding her meal voucher and free play. She reports when they got to the [facility] they were unable to "wake her up" . She states they called [facility] to evaluate her. She reports they advised her to go to the hospital, but she refused d/t concerns with transportation home from the hospital. She states she stayed at the [facility], but felt unsteady all day. She reports she was having localized ACW pain, which is mid-sternal and at times would shoot a sharp pain up her chest to her collar bone. She reports once she got home she continued to have the pain. She reports she took her Klonopin and went to bed. She states the pain persisted all day yesterday. No other associated symptoms. She reports she felt tired all day yesterday and just wanted to sleep. Last night she took all her medications including one her husbands muscle relaxers, but she was not able to sleep d/t chest pain. She waited several hours and took another one of his muscle relaxers early this morning. She states she also took 5 baby ASA. She reports her spouse had a difficult time getting her to wake up for her appt with her PCP this morning, but once he was able to wake her up she was having chest pain again. She states she was directed by her PCP to be evaluated in the ED today. She continues to have chest pain which is somewhat worse with palpation of her chest. No syncope, near syncope, dyspnea or LE edema. No n/v/d. No fever or chills. Review of Systems-Cardiology Review of Systems Constitutional: No chills, No fever Eyes: No vision change Ears/Nose/Throat: No epistaxis; throat pain (a) Respiratory: As described under HPI Cardiovascular: As described under HPI Gastrointestinal: No constipation, No diarrhea, No nausea, No vomiting Genitourinary: No dysuria, No hematuria Musculoskeletal: muscle pain Skin: No rash, No ulcerations Psychiatric/Neurological: anxiety; No seizure, No focal weakness, No syncope Hematologic: No bleeding abnormalities [id number] Hx Patient Social History Alcohol Use: Denies Use Recreational Drug Use: Yes (THC-OCCASIONAL) Smoking Status: Current Everyday Smoker Type Used: Cigarettes 2nd Hand Smoke Exposure: No Recent Foreign Travel: No Recent Infectious Disease Expo: No Hospitalization with Isolation: Denies Immunizations Up To Date Tetanus Booster (TDap): Unknown Date of Pneumonia Vaccine: Sep 17, 2014 Date of Influenza Vaccine: Dec 18, 2015 Past Medical History PMH As described under Assessment. Family Medical History Family Medical History: She reports a family history of early coronary artery disease Family History: Cancer 03 MOTHER Chest pain 03 FATHER Congestive heart failure 03 MOTHER 09 SISTER Family history: Arthritis 09 SISTER Family history: Cardiovascular disease 03 FATHER 03 MOTHER Family history: Diabetes mellitus 03 FATHER Heart disease 03 MOTHER History of - respiratory disease 03 MOTHER History of drug abuse 03 FATHER Kidney disease 03 FATHER 03 MOTHER 09 SISTER Myocardial infarction 03 FATHER Psychotic disorder 03 FATHER 09 SISTER Allergies and Home Medications Allergies Coded Allergies: No Known Drug Allergies (Unverified , 10/26/13) Home Medications Acetaminophen/Diphenhydramine 1 Each Tablet, 2 TAB PO HS PRN for SLEEP, ( Reported) Albuterol Sulfate 18 Gm Hfa.aer.ad, 2 PUFF INH TID PRN for WHEEZING, (Reported) Aspirin 81 Mg Tablet.dr, 81 MG PO HS, (Reported) Clonazepam 1 Mg Tablet, 1 MG PO TID PRN for ANXIETY, (Reported) Cyclobenzaprine HCl 10 Mg Tablet, 10 MG PO TID PRN for MUSCLE SPASMS, (Reported) Divalproex Sodium 250 Mg Tablet.dr, 250 MG PO 1300, (Reported) Divalproex Sodium 500 Mg Tab.er.24h, 500 MG PO BID, (Reported) Escitalopram Oxalate 10 Mg Tablet, 10 MG PO DAILY, (Reported) Gabapentin 300 Mg Capsule, 300 MG PO BID, (Reported) Omeprazole 20 Mg Capsule.dr, 20 MG PO DAILY PRN for HEARTBURN, (Reported) Propranolol HCl 20 Mg Tablet, 20 MG PO TID, (Reported) Tramadol HCl 50 Mg Tablet, 50 MG PO BID PRN for PAIN-MODERATE, (Reported) Physical Exam-Cardiology Physical Exam Vital Signs/I&O 08/04/18 08/04/18 08/04/18 08/04/18 04:00 07:00 08:00 08:00 Temp 98.9 97.4 Pulse 69 71 70 Resp 18 16 B/P (MAP) /66 115/66 (82) Pulse Ox 96 99 O2 Delivery Room Air Room Air 08/04/18 00:00 Intake Total 500 ml Balance 500 ml Capillary Refill : Less Than 3 Seconds Constitutional: AAO x 3, well-developed, well-nourished HEENT: PERRL, hearing is well preserved, oral hygience is good Neck: No carotid bruit; carotid pulses are 2 + bilaterally Respiratory: No accessory muscle use, No respiratory distress; chest expansion is symmetric, chest is bilaterally symmetric, lungs clear to auscultation Cardiovascular: regular rate-rhythm; No JVD; S1 and S2 Gastrointestinal: No tender; soft, round, audible bowel sounds Rectal: deferred Extremities: no lower extremity edema bilateral Neurologic/Psychiatric: grossly intact, power is 5/5 both on sides Skin: No rash, No ulcerations Data Review Labs Laboratory Tests 08/03/18 18:30: Troponin I < 0.30 08/04/18 05:50: Troponin I < 0.30, White Blood Count 4.6, Red Blood Count 3.47L, Hemoglobin 10.3L, Hematocrit 32L, Mean Corpuscular Volume 91, Mean Corpuscular Hemoglobin 30, Mean Corpuscular Hemoglobin Concent 33, Red Cell Distribution Width 14.4, Platelet Count 197, Mean Platelet Volume 11.3H, Sodium Level 140, Potassium Level 4.6, Chloride Level 106, Carbon Dioxide Level 26, Anion Gap 8, Blood Urea Nitrogen 13, Creatinine 0.84, Estimat Glomerular Filtration Rate > 60, BUN/ Creatinine Ratio 15, Glucose Level 92, Calcium Level 8.6, Triglycerides Level 100, Cholesterol Level 124, LDL Cholesterol Direct 60, VLDL Cholesterol 20, HDL Cholesterol 48 Radiology NAME: ZULEYKA CLARK [facility] REC#: [id number] PT STATUS: REG ER : 1975 PHYSICIAN: DENNYS LE MD ADMIT DATE: 08/03/18/ER Draft Date of Exam:08/03/18 CT HEAD WO-R/O STROKE Indication: "Chest pain" Study compared with exam 04/23/2014. There is no intracranial hemorrhage, hydrocephalus, edema, mass, mass effect or evidence for elevated intracranial pressures. Basilar cisterns patent. No sulcal effacement. Orbits, sinuses and calvarium within normal limits. Impression: Stable, unremarkable CT. Dictated on workstation # [id number] Dict: 08/03/18 1416 Trans: 08/03/18 1425 CVB [id number] Interpreted by: ADOLPH NIELSON Electronically signed by: NAME: ZULEYKA CLARK [facility] REC#: [id number] PT STATUS: REG ER : 1975 PHYSICIAN: DENNYS LE MD ADMIT DATE: 08/03/18/ER Signed Date of Exam: 08/03/18 CHEST 1 VIEW, AP/PA ONLY INDICATION: Syncope and tremor. PA view of the chest is obtained with comparison made to study of 06/09/2017. FINDINGS: Heart size and pulmonary vascularity are within normal limits, and the lungs are clear, bilaterally. IMPRESSION: Unremarkable chest. Dictated by: Dictated on workstation # [id number] Dict: 08/03/18 1421 Trans: 08/03/18 142 Interpreted by: ADOLPH IBANEZ MD Electronically signed by: ADOLPH IBANEZ MD 08/03/18 1429 ECG Impression ECG Initial ECG Rhythm: Normal Sinus A/P-Cardiology Assessment/Admission Diagnosis Chest pain of undetermined etiology - no evidence of ACS thus far Angiographically normal coronary arteries. Small, acute non-ST elevation myocardial infarction, possible due to a transient coronary spasm, per cardiac cath from July 2013. MPI of August 2015: No evidence of significant myocardial ischemia or infarction. Normal regional wall motion. LVEF 58% Normal global left ventricular systolic function with an ejection fraction of 60 %. Elevated left ventricular diastolic pressure indicative of diastolic dysfunction of the left ventricle per cardiac cath from July 2013. Chronic pain syndrome Chronic migraines Bi-polar disorder Anxiety Tobaccoism- cessation advised Marijuana usage History of gastric bypass surgery several years ago, which was complicated by incisional hernia which required further repair. 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 Nunez of hematology services Normal ventricular systolic function with a LVEF of 55-60%. Mild mitral and tricuspid regurgitation. PASP 30 mmHg per echocardiogram from July 2013. CT Angio of the chest from July 2013 showed heterogenous appearance of left thyroid lobe. We have advised follow up with her primary care physician. Reports history of CVA at the time of chidbir when she was in her 30's. No residual LIZET ROPER Aug 03, 2018 15:57
--- OUTSIDE RECORDS SUMMARY | 2018-08-03 17:02 | XMS REPORT ---
Author Author IVY SALDAÑA [facility] Address [address] [place] [address] Care Team Providers Care Wood Piler Name Role Phone IVY SALDAÑA Unavailable PROBLEMS Type Condition ICD9-CM Code WNI68-RG Code Onset Dates Condition Status SNOMED Code Problem Encounter for long-term (current) use of other medications V58.69 Active 792701767 Problem Abdominal pain, left upper quadrant 789.02 Active 210209421 Problem Diarrhea 787.91 Active 92809749 Problem Painful respiration 786.52 Active 24948295 Problem Acute bronchitis 466.0 Active 46051354 Problem Chest pain, unspecified 786.50 Active 28091101 Problem Acute upper respiratory infections of unspecified site 465.9 Active 23634212 Problem Cough 786.2 Active 26994678 Problem Acute pharyngitis 462 Active 262652431 Problem Unspecified otalgia 388.70 Active 89999857 Problem Acute sinusitis, unspecified 461.9 Active 16178486 Problem Bipolar disorder, unspecified F31.9 Active 62096284 Problem Generalized anxiety disorder F41.1 Active 77965906 Problem Syncope and collapse 780.2 Active 485073919 Problem Other malaise and fatigue 780.79 Active 382000924 Problem Rash and other nonspecific skin eruption 782.1 Active 487897897 Problem Psychic factors associated with diseases classified elsewhere 316 Active 504567628 Problem Dysfunction of Eustachian tube 381.81 Active 38185156 Problem Bipolar disorder, unspecified 296.80 Active 47078451 Problem Other dysfunctions of sleep stages or arousal from sleep 307.47 Active 392875270 Problem Unspecified symptom associated with female genital organs 625.9 Active 175447021 Problem Urinary tract infection, site not specified 599.0 Active 18383584 Problem 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 Active 553978336 Problem Unspecified arthropathy, site unspecified 716.90 Active 653036536 Problem Reflux esophagitis 530.11 Active 768903387 Problem Chronic airway obstruction, not elsewhere classified 496 Active 89001336 Problem Unspecified disorder of kidney and ureter 593.9 Active 317440797 Problem Other and unspecified noninfectious gastroenteritis and colitis 558.9 Active 51323828 ALLERGIES No Information SOCIAL HISTORY Never Assessed PLAN OF CARE Activity Details Follow Up 3 Weeks Reason:BH F/U VITAL SIGNS MEDICATIONS Unknown Medications RESULTS No Results PROCEDURES Procedure Date Ordered Result Body Site [facility] VISIT MENTAL HEALTH ESTAB PT March 28, 2017 Psychotherapy, patient &/family, 30 minutes, established patient March 28, 2017 IMMUNIZATIONS No Known Immunizations
--- OUTSIDE RECORDS SUMMARY | 2018-08-03 17:02 | XMS REPORT ---
Author Author TARI Cifuentes Organization [facility] Address [address] [place] [address] Care Team Providers Care Site Operations Manager Name Role Phone TARI Cifuentes Unavailable PROBLEMS Type Condition ICD9-CM Code QSO14-EO Code Onset Dates Condition Status SNOMED Code Problem Encounter for long-term (current) use of other medications V58.69 Active 221622408 Problem Abdominal pain, left upper quadrant 789.02 Active 615955584 Problem Diarrhea 787.91 Active 75468536 Problem Painful respiration 786.52 Active 16540527 Problem Acute bronchitis 466.0 Active 24975902 Problem Chest pain, unspecified 786.50 Active 78459793 Problem Acute upper respiratory infections of unspecified site 465.9 Active 05033069 Problem Cough 786.2 Active 55899157 Problem Acute pharyngitis 462 Active 452999954 Problem Unspecified otalgia 388.70 Active 29363378 Problem Acute sinusitis, unspecified 461.9 Active 41339383 Problem Bipolar disorder, unspecified F31.9 Active 09956268 Problem Generalized anxiety disorder F41.1 Active 98045083 Problem Syncope and collapse 780.2 Active 710159120 Problem Other malaise and fatigue 780.79 Active 088954520 Problem Rash and other nonspecific skin eruption 782.1 Active 230433369 Problem Psychic factors associated with diseases classified elsewhere 316 Active 255912406 Problem Dysfunction of Eustachian tube 381.81 Active 09988119 Problem Bipolar disorder, unspecified 296.80 Active 17478941 Problem Other dysfunctions of sleep stages or arousal from sleep 307.47 Active 240548001 Problem Unspecified symptom associated with female genital organs 625.9 Active 766088987 Problem Urinary tract infection, site not specified 599.0 Active 06997959 Problem 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 Active 355745061 Problem Unspecified arthropathy, site unspecified 716.90 Active 904194209 Problem Reflux esophagitis 530.11 Active 866355352 Problem Chronic airway obstruction, not elsewhere classified 496 Active 38124133 Problem Unspecified disorder of kidney and ureter 593.9 Active 044919885 Problem Other and unspecified noninfectious gastroenteritis and colitis 558.9 Active 80186001 ALLERGIES No Known Allergies ENCOUNTERS Encounter Location Date Diagnosis [facility] [id number] [place] [address] May, Discomfort of both eyes H57.13 [facility] [id number] [place] [address] 96275[address] 1749 March, Bipolar disorder, unspecified F31.9 and Generalized anxiety disorder F41.1 [facility] [id number] [place] [address]06- 0127 March, Bipolar disorder, unspecified F31.9 and Generalized anxiety disorder F41.1 [facility] [address] [address] Feb, Bipolar disorder, unspecified F31.9 and Generalized anxiety disorder F41.1 [facility] [id number] [place] [address] 99432- 5078 Feb, [facility] [id number] [place] [address]99- 0015 Feb, [facility] [id number] [place] [address] 59899- 2049 Feb, [facility] [id number] [place] [address]61- 4884 Jan, [facility] [id number] [place] [address]75- 6087 Jan, [facility] [id number] [place] [address] 96048- 8628 Jan, [facility] [id number] [place] [address] 49[address]- 6810 Jan, [facility] [id number] [place] [address]30- 7443 18 Jan, 2015 [facility] [place] [facility] [address] [id number] [place] [address] 1600 18 Jan, 2015 [facility] [place] [facility] [address] [facility] [id number] [place] [address] 2185 16 Jan, 2015 [facility] [place] [facility] [address] [facility] [id number] [place] [address] 7867 16 Jan, 2014 [facility] [place] [facility] [address] [facility] [id number] [place] [address]- 0782 10 Jan, 2015 [facility] [place] [facility] [address] [id number] [place] [address]- 2162 10 Jan, 2015 [facility] [place] [facility] [address] [facility] [id number] [place] [address]- 5173 Jan, [facility] [place] [facility] [address] [id number] [place] [address]- 4811 Jan, [facility] [place] [facility] [address] [facility] [id number] [place] [address]- 0583 Dec, 2014 [facility] [place] [facility] [address] [id number] [place] [address]- 8440 Dec, 2014 [facility] [place] [facility] [address] [id number] [place] [address]- 4566 Dec, 2014 [facility] [place] [facility] [address] [id number] [place] [address]- 7279 Dec, 2014 [facility] [place] [facility] [address] [facility] [id number] [place] [address]- 5660 Dec, 2014 [facility] [place] [facility] [address] [facility] [id number] [place] [address]- 5040 Dec, 2014 [facility] [place] [facility] [address] [facility] [id number] [place] [address]- 8536 Nov, [facility] [place] [facility] [address] [facility] [id number] [place] [address]- 4610 Nov, [facility] [place] [facility] [address] [id number] [place] [address]- 6158 Nov, [facility] [place] [facility] [address] [id number] [place] [address]- 2817 Nov, [facility] [place] [facility] [address] [id number] [place] [address]- 1677 Nov, [facility] [place] [facility] [address] [id number] [place] [address]- 0211 Nov, [facility] [place] [facility] [address] [id number] [place] [address]- 5803 Nov, [facility] [place] [facility] [address] [id number] [place] [address]- 5750 Nov, [facility] [place] [facility] [address] [id number] [place] [address]- 8855 Nov, [facility] [place] [facility] [address] [id number] [place] [address]- 6662 Nov, [facility] [place] [facility] [address] [id number] [place] [address]- 9046 Oct, [facility] [place] [facility] [address] [id number] [place] [address]- 9413 Oct, [facility] [place] [facility] [address] [id number] [place] [address]- 7143 Oct, [facility] [place] [facility] [address] [id number] [place] [address]- 9341 Oct, [facility] [place] [facility] [address] [id number] [place] [address]- 7006 Oct, [facility] [place] [facility] [address] [id number] [place] Oct, [facility] [place] [facility] [address] [id number] [place] [address]- 5570 15 Oct, 2014 [facility] [place] [facility] [address] [id number], [place] [address]- 5244 15 Oct, 2014 [facility] [place] [facility] [address] [id number] [place] [address]- 3342 Oct, [facility] [place] [facility] [address] [id number] [place] 3920 Oct, [facility] [place] [facility] [address] [id number] [place] [address]- 0711 Oct, [facility] [place] [facility] [address] [id number] [place] [address]- 6786 Oct, [facility] [place] [facility] [address] [id number] [place] [address]- 2636 Oct, [facility] [place] [facility] [address] [id number] [place] [address]- 1634 Oct, [facility] [place] [facility] [address] [id number] [place] [address]- 0906 Sep, [facility] [place] [facility] [address] [id number] [place] [address]- 3473 14 Sep, 2014 [facility] [place] [facility] [address] [id number] [place] [address]- 6468 14 Sep, 2014 [facility] [place] [facility] [address] [id number] [place] [address]- 6633 14 Sep, 2014 [facility] [place] [facility] [address] [id number], [place] [address]- 4276 Sep, [facility] [place] [facility] [address] [id number], [place] [address]- 8267 Aug, [facility] [place] [facility] [address] [id number] [place] [address]- 6068 28 Aug, 2014 [facility] [place] [facility] [address] [id number] [place] [address]- 3466 16 Aug, 2014 [facility] [place] [facility] [address] [id number] [place] [address]- 7138 16 Aug, 2014 [facility] [place] [facility] [address] [id number] [place] [address]- 0784 14 Aug, 2014 [facility] [place] [facility] [address] [id number] [place] [address]- 4535 14 Aug, 2014 [facility] [place] [facility] [address] [id number] [place] [address]- 6318 13 Aug, 2014 [facility] [place] [facility] [address] [id number] [place] [address]- 9238 13 Aug, 2014 [facility] [place] [facility] [address] [id number] [place] [address]- 8854 13 Aug, 2014 [facility] [place] [facility] [address] [id number] [place] [address]- 3818 13 Aug, 2014 [facility] [place] [facility] [address] [id number] [place] [address]- 4438 27 Jul, 2013 [facility] [place] [facility] [address] [id number] [place] [address]- 3741 27 Jul, 2013 [facility] [place] [facility] [address] [id number] [place] [address]- 4900 24 Jul, 2013 [facility] [place] [facility] [address] [id number] [place] [address]- 7911 24 Jul, 2013 [facility] [place] [facility] [address] [id number] [place] [address]- 4059 22 Jul, 2013 [facility] [place] [facility] [address] [id number] [place] [address]- 2541 22 Jul, 2013 [facility] [place] [facility] [address] [id number] [place] [address]- 2544 13 Jul, 2013 [facility] [place] [facility] [address] [id number] [place] [address]- 2546 13 Jul, 2013 [facility] [place] [facility] [address] [id number] [place] [address]- 2549 12 Jul, 2013 [facility] [place] [facility] [address] [id number] [place] [address]- 6247 12 Jul, 2013 [facility] [place] [facility] [address] [id number] [place] [address]- 0089 12 Jul, 2013 [facility] [place] [facility] [address] [id number] [place] [address]- 6547 Jul, 2013 [facility] [place] [facility] [address] [id number] [place] [address]- 7418 Jul, 2013 [facility] [place] [facility] [address] [id number] [place] [address]- 0517 Jul, 2013 [facility] [place] [facility] [address] [id number] [place] [address]- 4104 Jul, 2013 [facility] [place] [facility] [address] [id number] [place] [address]- 7653 Jul, 2013 [facility] [place] [facility] [address] [id number] [place] [address]- 8917 Jul, [facility] [place] [facility] [address] [id number] [place] [address]- 4038 Jul, [facility] [place] [facility] [address] [id number] [place] [address]- 1810 Jun, [facility] [place] [facility] [address] [id number] [place] [address]- 7788 Jun, [facility] [place] [facility] [address] [id number] [place] [address]- 3596 Jun, [facility] [place] [facility] [address] [id number] [place] [address]- 3968 Jun, [facility] [place] [facility] [address] [id number] [place] [address]- 0630 Jun, [facility] [place] [facility] [address] [id number] [place] [address]- 5791 Jun, [facility] [place] [facility] [address] [id number] [place] [address]- 0627 Jun, [facility] [place] [facility] [address] [id number] [place] [address]- 4303 Jun, [facility] [place] [facility] [address] [id number] [place] [address]- 8774 May, [facility] [place] [facility] [address] [id number] [place] [address]- 2013 May, [facility] [place] [facility] [address] [id number] [place] [address]- 3844 May, [facility] [place] [facility] [address] [id number] [place] [address]- 3592 May, [facility] [place] [facility] [address] [id number] [place] [address]- 9149 May, [facility] [place] [facility] [address] [id number] [place] [address]- 9984 May, [facility] [place] [facility] [address] [id number] [place] [address]- 0227 Apr, [facility] [place] [facility] [address] [id number] [place] [address]- 0139 Apr, [facility] [place] [facility] [address] [id number] [place] [address]- 3995 Apr, [facility] [place] [facility] [address] [id number] [place] [address]- 4993 Apr, [facility] [place] [facility] [address] [id number] [place] [address]- 0956 Apr, [facility] [place] [facility] [address] [id number] [place] [address]- 0927 Apr, [facility] [place] [facility] [address] [id number] [place] [address]- 0573 Apr, [facility] [place] [facility] [address] [id number] [place] [address]- 2762 Apr, [facility] [place] [facility] [address] [id number] [place] [address]- 9181 March, [facility] [place] [facility] [address] [id number] [place] [address]- 9415 March, [facility] [place] [facility] [address] [id number] [place] [address]- 6238 March, [facility] [place] [facility] [address] [id number] [place] [address]- 7594 March, [facility] [place] [facility] [address] [id number] [place] [address]- 8622 March, [facility] [place] [facility] [address] [id number] [place] [address]- 2843 March, [facility] [place] [facility] [address] [id number] [place] [address]- 9184 March, [facility] [place] [facility] [address] [id number] [place] [address]- 8219 March, [facility] [place] [facility] [address] [id number] [place] [address]- 6753 March, [facility] [place] [facility] [address] [id number] [place] [address]- 4807 March, [facility] [place] [facility] [address] [id number] [place] [address]- 0002 Feb, [facility] [place] [facility] [address] [id number] [place] [address]- 1933 Feb, [facility] [place] [facility] [address] [id number] [place] [address]- 1814 Feb, [facility] [place] [facility] [address] [id number] [place] [address]- 2707 Jan, [facility] [place] [facility] [address] [id number] [place] [address]- 0379 Jan, [facility] [place] [facility] [address] [id number] [place] [address]- 3241 Jan, [facility] [place] [facility] [address] [id number] [place] [address]- 1505 Jan, [facility] [address] [facility] [id number] Dec [facility] [address] [id number] [place] [address]- 4636 Dec, [facility] [address] [id number] [place] [address]- 4316 Dec, [facility] [address] [id number] [place] [address]- 0047 Dec, [facility] [address] [id number] [place] [address]- 6242 Dec, [facility] [address] [id number] [place] [address]- 1029 Dec, [facility] [address] [id number] [place] [address]- 0336 Dec, [facility] [address] [id number] [place] [address]- 2621 Dec, [facility] [address] [id number] [place] [address]- 2755 Nov, [facility] [address] [id number] [place] [address]- 4947 Nov, [facility] [address] [id number] [place] [address]- 5904 Nov, [facility] [place] [facility] [address] [id number] [place] [address]- 2866 Nov, [facility] [place] [facility] [address] [id number] [place] [address]- 9935 Nov, [facility] [place] [facility] [address] [id number] [place] [address]- 4644 Nov, [facility] [place] [facility] [address] [id number] [place] [address]- 2508 Nov, [facility] [address] [id number] [place] [address]- 7529 13 Nov, 2013 [facility] [address] [id number] [place] [address]- 1089 13 Nov, 2013 [facility] [address] [id number] [place] [address]- 5031 27 Oct, 2013 [facility] [address] [id number] [place] [address]- 5684 Oct, [facility] [address] [id number] [place] [address]- 6157 24 Oct, 2013 [facility] [address] [id number] [place] [address]- 3796 24 Oct, 2013 [facility] [address] [id number] [place] [address]- 7052 Oct, [facility] [address] [id number] [place] [address]- 3781 16 Oct, 2013 [facility] [address] [id number] [place] [address]- 1790 16 Oct, 2013 [facility] [address] [id number] [place] [address]- 8163 05 Oct, 2013 [facility] [address] [id number] [place] [address]- 5393 05 Oct, 2013 [facility] [address] [id number] [place] [address]- 7868 Oct, [facility] [address] [id number] [place] [address]- 6257 Sep, [facility] [address] [id number] [place] [address]- 2798 Sep, [facility] [address] [id number] [place] [address]- 2922 Sep, [facility] [address] [id number] [place] [address]- 5811 Sep, [facility] [place] [facility] [address] [id number] [place] [address]- 4650 Sep, [facility] [place] [facility] [address] [id number] [place] [address]- 1069 Sep, [facility] [place] [facility] [address] [id number] [place] [address]- 7601 Aug, [facility] [place] [facility] [address] [id number] [place] [address]- 7875 Aug, [facility] [place] [facility] [address] [id number] [place] [address]- 8764 Aug, [facility] [place] [facility] [address] [id number] [place] [address]- 3943 Aug, [facility] [place] [facility] [address] [id number] [place] [address]- 0858 Aug, [facility] [place] [facility] [address] [id number] [place] [address]- 1759 Aug, [facility] [place] [facility] [address] [id number] [place] [address]- 7378 Aug, [facility] [place] [facility] [address] [id number], [place] [address]- 0637 Aug, [facility] [place] [facility] [address] [id number], [place] [address]- 1994 18 Aug, 2013 [facility] [place] [facility] [address] [id number], [place] [address]- 7714 14 Aug, 2013 [facility] [place] [facility] [address] [id number], [place] [address]- 4635 14 Aug, 2013 [facility] [place] [facility] [address] [id number], [place] [address]- 8075 08 Aug, 2013 [facility] [place] [facility] [address] [id number] 9012 07 Aug, 2013 [facility] [place] [facility] [address] [id number], [place] [address]- 7133 Aug, [facility] [place] [facility] [address] [id number] [place] [address] Aug, [facility] [place] [facility] [address] [id number] [place] [address] Jul, [facility] [place] [facility] [address] [id number] [place] [address] Jul, [facility] [place] [facility] [address] [id number] [place] [address] Jul, [facility] [place] [facility] [address] [id number] [place] [address] Jun, [facility] [place] [facility] [address] [id number] [place] [address] Jun, [facility] [place] [facility] [address] [id number] [place] [address] Jun, [facility] [place] [facility] [address] [id number] [place] [address] Jun, [facility] [place] [facility] [address] [id number] [place] [address] May, [facility] [place] [facility] [address] [id number] [place] [address] May, [facility] [place] [facility] [address] [id number] [place] [address] May, [facility] [place] [facility] [address] [id number] [place] [address] May, [facility] [place] [facility] [address] [id number] [place] [address] May, [facility] [place] [facility] [address] [id number] [place] [address] Apr, [facility] [place] [facility] [address] [id number] [place] [address] Apr, [facility] [place] [facility] [address] [id number] [place] [address] Apr, [facility] [address] [id number] [place] [address] Apr, [facility] [address] [id number] [place] [address] March, [facility] [address] [id number] [place] [address] March, [facility] [address] [id number] [place] [address] March, [facility] [address] [id number] [place] [address] March, [facility] [address] [id number] [place] [address] Feb, [facility] [address] [id number] [place] [address] 39[address] Feb, [facility] [address] [id number] [place] [address] Feb, [facility] [address] [id number] [place] [address] Feb, [facility] [address] [id number] [place] [address] Feb, [facility] [address] [id number] [place] [address]298 Feb, [facility] [address] [id number] [place] [address] 39[address] Jan, [facility] [address] [id number] [place] [address] Jan, [facility] [address] [id number] [place] [address] Jan, [facility] [address] [id number] [place] [address] Jan, [facility] [address] [id number] [place] [address]3 21 Jan, 2013 [facility] [place] [facility] [address] [id number] [place] [address] 07 Jan, 2013 [facility] [place] [facility] [address] [id number] [place] [address]- [address] 07 Jan, 2013 [facility] [place] [facility] [address] [id number] [place] [address]- [address] 07 Jan, 2013 [facility] [place] [facility] [address] [id number] [place] [address]- [address] 28 Dec, 2012 [facility] [place] [facility] [address] [id number] [place] [address]- [address] 14 Dec, 2012 [facility] [place] [facility] [address] [id number] [place] [address]- [address] 11 Dec, 2012 [facility] [place] [facility] [address] [id number] [place] [address]- [address] 07 Dec, 2012 [facility] [place] [facility] [address] [id number] [place] [address]- [address] 07 Dec, 2012 [facility] [place] [facility] [address] [id number] [place] [address] 18 Nov, 2012 [facility] [place] [facility] [address] [id number] [place] [address]- [address] 15 Nov, 2012 [facility] [place] [facility] [address] [id number] [place] [address]- [address] Nov, [facility] [place] [facility] [address] [id number] [place] [address] Oct, [facility] [place] [facility] [address] [id number] [place] [address] Oct, [facility] [place] [facility] [address] [facility] [id number] [place] [address] Oct, [facility] [place] [facility] [address] [id number] [place] [address] Oct, [facility] [address] [id number] [place] [address] Sep, [facility] [place] [facility] [address] [id number] [place] [address]- [address]180 Sep, [facility] [address] [id number] [place] [address] 4872 Sep, [facility] [place] [facility] [address] [id number] [place] [address] 1532 Sep, [facility] [place] [facility] [address] [id number] [place] [address]- [address] Sep, [facility] [place] [facility] [address] [id number] [place] [address]- [address] Sep, [facility] [place] [facility] [address] [id number] [place] [address]689 Sep, [facility] [place] [facility] [address] [id number] [place] [address]- [address] Sep, [facility] [place] [facility] [address] [id number] [place] [address]- 1495 Sep, [facility] [place] [facility] [address] [id number] [place] [address] Sep, [facility] [place] [facility] [address] [id number] [place] [address] Sep, [facility] [place] [facility] [address] [id number] [place] [address] Sep, [facility] [place] [facility] [address] [id number] [place] [address] Sep, [facility] [place] [facility] [address] [id number] [place] [address]990 Sep, [facility] [place] [facility] [address] [id number] [place] [address] Sep, [facility] [place] [facility] [address] [id number] [place] [address] 9568 Sep, [facility] [place] [facility] [address] [id number] [place] [address]15 Sep, [facility] [place] [facility] [address] [id number] [place] [address] 1404 Sep, [facility] [place] [facility] [address] [id number] [place] [address] Sep, [facility] [place] [facility] [address] [id number] [place] [address] Sep, [facility] [place] [facility] [address] [id number] [place] [address]097 Aug, [facility] [place] [facility] [address] [facility] [id number] [place] [address] 3416 24 Aug, 2012 [facility] [place] [facility] [address] [id number], [place] [address] Aug, [facility] [place] [facility] [address] [facility] [id number], [place] [address] 24[address] Aug, [facility] [place] [facility] [address] [facility] [id number], [place] [address] Aug, [facility] [place] [facility] [address] [facility] [id number], [place] [address] 18 Aug, 2012 [facility] [place] [facility] [address] [id number], [place] [address] 16 Aug, 2012 [facility] [place] [facility] [address] [facility] [id number], [place] [address] 1510 15 Aug, 2012 [facility] [place] [facility] [address] [facility] [id number], [place] [address] 8938 15 Aug, 2012 [facility] [place] [facility] [address] [facility] [id number][place] [address] 09 Aug, 2012 [facility] [place] [facility] [address] [id number], [place] [address] 08 Aug, 2012 [facility] [place] [facility] [address] [id number] [place] [address]856 20 Jul, 2012 [facility] [place] [facility] [address] [id number] [place] [address]116 07 Jul, 2012 [facility] [place] [facility] [address] [id number] [place] [address] 8366 06 Jul, 2012 [facility] [place] [facility] [address] [id number] [place] [address]- 3788 23 Jun, 2012 [facility] [place] [facility] [address] [id number] [place] [address] 3688 Jun, [facility] [place] [facility] [address] [id number] [place] [address]793 Jun, [facility] [place] [facility] [address] [id number] [place] [address] 0967 Jun, [facility] [place] [facility] [address] [id number] [place] [address] 6[address] 30 May, 2012 [facility] [place] [facility] [address] [id number] [place] [address] 2594 18 May, 2012 [facility] [place] [facility] [address] [id number] [place] [address] 9179 16 May, 2012 [facility] [place] [facility] [address] [id number] [place] [address] 9110 14 May, 2012 [facility] [place] [facility] [address] [id number] [place] [address]- 8485 13 May, 2012 [facility] [place] [facility] [address] [id number] [place] [address]- 9577 11 May, 2012 [facility] [place] [facility] [address] [id number] [place] [address] 5543 09 May, 2012 [facility] [place] [facility] [address] [facility] [id number] [place] [address] 2025 07 Apr, 2012 [facility] [place] [facility] [address] [id number] [place] [address]- 9925 07 Apr, 2012 [facility] [place] [facility] [address] [id number] [place] [address] 0009 Apr, [facility] [place] [facility] [address] [id number] [place] [address] 4149 Apr, [facility] [place] [facility] [address] [id number] [place] [address]- 5769 Apr, [facility] [place] [facility] [address] [id number] [place] [address]- 0022 Apr, [facility] [place] [facility] [address] [id number] [place] [address] 9126 Apr, [facility] [place] [facility] [address] [facility] [id number] [place] [address] 1360 March, [facility] [place] [facility] [address] [id number] [place] [address] 2957 March, [facility] [place] [facility] [address] [id number] [place] [address] 3695 March, [facility] [place] [facility] [address] [id number] [place] [address] 4492 Jan, [facility] [place] [facility] [address] [facility] [id number] [place] [address] 5352 Dec, [facility] [place] [facility] [address] [id number] [place] [address] 1253 Dec, [facility] [place] [facility] [address] [id number] [place] [address]- 3164 Dec, [facility] [place] [facility] [address] [id number] [place] [address]- 6173 Dec, [facility] [place] [facility] [address] [id number] [place] [address] 9018 14 Dec, 2011 [facility] [place] [facility] [address] [id number] [place] [address] 2546 Dec, [facility] [address] [id number] [place] [address] 2655 Nov, [facility] [place] [facility] [address] [id number] [place] [address]- 5306 Nov, [facility] [place] [facility] [address] [id number] [place] [address]- 0099 Nov, [facility] [place] [facility] [address] [id number] [place] [address] 7662 Nov, [facility] [place] [facility] [address] [id number] [place] [address]- 7269 Nov, [facility] [place] [facility] [address] [id number] [place] [address] 5230 Nov, [facility] [address] [id number] [place] [address] 0171 Oct, [facility] [place] [facility] [address] [id number] [place] [address]- 7488 Oct, [facility] [place] [facility] [address] [id number] [place] [address]- 5437 Oct, [facility] [place] [facility] [address] [id number] [place] [address]- 4418 Oct, [facility] [place] [facility] [address] [id number], [place] [address] 1095 Oct, [facility] [place] [facility] [address] [id number] [place] [address]- 2011 Sep, [facility] [place] [facility] [address] [id number] [place] [address]- 7199 Sep, [facility] [place] [facility] [address] [id number] [place] [address]- 4449 Sep, [facility] [place] [facility] [address] [id number] [place] [address]- 5523 Sep, [facility] [place] [facility] [address] [id number] [place] [address]- 6657 15 Sep, 2011 [facility] [place] [facility] [address] [id number] [place] [address]- 8332 15 Sep, 2011 [facility] [place] [facility] [address] [id number] [place] [address]- 7755 Sep, [facility] [place] [facility] [address] [id number] [place] [address]- 1605 Aug, [facility] [place] [facility] [address] [id number] [place] [address]- 5818 Aug, [facility] [place] [facility] [address] [id number] [place] [address], [place] [address]- 9296 Aug, [facility] [place] [facility] [address] [id number] [place] [address]- 8951 Aug, [facility] [place] [facility] [address] [id number] [place] [address]- 4139 Aug, [facility] [place] [facility] [address] [id number] [place] [address]- 2973 14 Aug, 2011 [facility] [place] [facility] [address] [id number] [place] [address]- 9288 Jul, [facility] [place] [facility] [address] [id number] [place] [address]- 4821 15 Jun, 2011 [facility] [place] [facility] [address] [id number] [place] [address]- 9995 Jun, [facility] [place] [facility] [address] [id number] [place] [address]- 0544 Feb, [facility] [place] [facility] [address] [id number] [place] [address]- 9048 Nov, [facility] [place] [facility] [address] [id number] [place] [address]- 9256 Oct, [facility] [place] [facility] [address] [id number] [place] [address]- 5957 Oct, [facility] [address] [id number] [place] [address]- 8942 13 Oct, 2010 [facility] [place] [facility] [address] [id number] [place] [address]- 1816 17 Sep, 2010 [facility] [place] [facility] [address] [id number] [place] [address] 2546 08 Sep, 2010 [facility] [place] [facility] [address] [id number] [place] [address] 2546 18 Aug, 2010 [facility] [place] [facility] [address] [id number] [place] [address]- 7717 May, [facility] [place] [facility] [address] [id number] [place] [address]- 1606 Feb, [facility] [place] [facility] [address] [id number] [place] [address]- 0296 30 Oct, 2009 [facility] [place] [facility] [address] [id number] [place] [address]- 5298 29 Oct, 2009 [facility] [place] [facility] [address] [id number] [place] [address]- 8367 Oct, [facility] [place] [facility] [address] [id number] [place] [address]- 3673 Oct, [facility] [place] [facility] [address] [id number] [place] [address] 2540 Oct, [facility] [place] [facility] [address] [id number] [place] [address] 2546 Oct, [facility] [place] [facility] [address] [id number] [place] [address] 2546 Oct, [facility] [place] [facility] [address] [id number] [place] [address] 2546 24 Sep, 2009 [facility] [place] [facility] [address] [id number] [place] [address] 2547 Sep, [facility] [place] [facility] [address] [id number], [place] [address]- [address]396 Sep, [facility] [address] [facility] [id number], [place] [address] 3148 Aug, [facility] [address] [facility] [id number], [place] [address]- 7967 Aug, [facility] [address] [facility] [id number], [place] [address]- 3420 Aug, [facility] [address] [facility] [id number], [place] [address]- 6272 Aug, [facility] [address] [facility] [id number][place] [address] Aug, [facility] [address] [facility] [id number][place] [address] Jun, IMMUNIZATIONS No Known Immunizations SOCIAL HISTORY Never Assessed REASON FOR VISIT eye infection x3 months has has mrsa in eyes JStrasserRN PLAN OF CARE Activity Details Follow Up prn Reason: VITAL SIGNS Height 64 in 2018-05-25 Temperature 97.9 degrees Fahrenheit 2018-05-25 Heart Rate 72 bpm 2018-05-25 Respiratory Rate 20 2018-05-25 Blood pressure systolic 90 mmHg 2018-05-25 Blood pressure diastolic 60 mmHg 2018-05-25 MEDICATIONS Medication Instructions Dosage Frequency Start Date End Date Duration Status Klonopin 1 mg 1 tablet by Oral route 3 times per day PRN anxiety Nov Active Cane Aug, Active Omeprazole 20 mg take 1 capsule (20 mg) by oral route once daily before a meal Jan, Active Depakote 500 mg 1 tablet by Oral route 2 times per day Oct, Active Lyrica 75 mg 1 capsule by Oral route 3 times per day Jan, Active Omeprazole 20 MG TAKE 1 CAPSULE (20 MG) BY ORAL ROUTE ONCE DAILY BEFORE A MEAL Active Depakote 500 MG 1 TABLET BY ORAL ROUTE 2 TIMES PER DAY Active RESULTS No Results PROCEDURES Procedure Date Ordered Result Body Site [facility] VISIT ESTABLISHED PATIENT May 25, 2018 INSTRUCTIONS MEDICATIONS ADMINISTERED No Known Medications
--- OUTSIDE RECORDS SUMMARY | 2018-08-03 17:06 | XMS REPORT | Continuity of Care Document ---
Author Author [facility] Address Unknown Phone Unavailable Allergies Active Description Code Type Severity Reaction Onset Reported/Identified Relationship to Patient Clinical Status Yes NO KNOWN DRUG ALLERGIES UNKNOWN NO KNOWN DRUG ALLERG Yes hydrocodone Drug Allergy 02/12/2009 Yes hydrocodone Drug Allergy N/A N/A 02/12/2009 Yes No Known Drug Allergies [id number] Drug Allergy Unknown N/A 10/26/2013 Medications There is no data. Problems Date Dx Coded Attending Type Code Diagnosis Diagnosed By 05/22/2008 ANDREINA JOHNS MD 296.80 Mo Bipolar Nos 05/22/2008 ANDREINA JOHNS MD 305.1 TOBACCO ABUSE 05/22/2008 ANDREINA JOHNS MD V25.41 Surveillance Of Contraceptive Pill 05/22/2008 296.80 Mo Bipolar Nos 05/22/2008 305.1 TOBACCO ABUSE 05/22/2008 V25.41 Surveillance Of Contraceptive Pill 05/22/2008 ANDREINA JOHNS MD 296.80 Mo Bipolar Nos 05/22/2008 ANDREINA JOHNS MD 305.1 TOBACCO ABUSE 05/22/2008 ANDREINA JOHNS MD V25.41 Surveillance Of Contraceptive Pill 05/22/2008 WOOD GARCIA DO 296.80 Mo Bipolar Nos 05/22/2008 WOOD GARCIA DO 305.1 TOBACCO ABUSE 05/22/2008 WOOD GARCIA DO V25.41 Surveillance Of Contraceptive Pill 05/22/2008 296.80 Mo Bipolar Nos 05/22/2008 305.1 TOBACCO ABUSE 05/22/2008 V25.41 Surveillance Of Contraceptive Pill 05/22/2008 WOOD GARCIA DO 296.80 Mo Bipolar Nos 05/22/2008 WOOD GARCIA DO 305.1 TOBACCO ABUSE 05/22/2008 WOOD GARCIA DO V25.41 Surveillance Of Contraceptive Pill 05/22/2008 PIPER PRADHAN, IVY Huynh 296.80 Mo Bipolar Nos 05/22/2008 IVY SALDAÑA PHD 305.1 TOBACCO ABUSE 05/22/2008 PIPER PHD, IVY Huynh V25.41 Surveillance Of Contraceptive Pill 05/22/2008 296.80 Mo Bipolar Nos 05/22/2008 305.1 TOBACCO ABUSE 05/22/2008 V25.41 Surveillance Of Contraceptive Pill 05/22/2008 296.80 Mo Bipolar Nos 05/22/2008 305.1 TOBACCO ABUSE 05/22/2008 V25.41 Surveillance Of Contraceptive Pill 05/22/2008 296.80 Mo Bipolar Nos 05/22/2008 305.1 TOBACCO ABUSE 05/22/2008 V25.41 Surveillance Of Contraceptive Pill 05/22/2008 296.80 Mo Bipolar Nos 05/22/2008 305.1 TOBACCO ABUSE 05/22/2008 V25.41 Surveillance Of Contraceptive Pill 05/22/2008 ANDREINA JOHNS MD 296.80 Mo Bipolar Nos 05/22/2008 ANDREINA JOHNS MD 305.1 TOBACCO ABUSE 05/22/2008 ANDREINA JOHNS MD V25.41 Surveillance Of Contraceptive Pill 05/22/2008 WERDER ANGELES SANTANAEN F 296.80 Mo Bipolar Nos 05/22/2008 WERANGELES DOMINGUEZ DOEN F 305.1 TOBACCO ABUSE 05/22/2008 WERANGELES DOMINGUEZ DOEN F V25.41 Surveillance Of Contraceptive Pill 05/22/2008 EM FINE MD 296.80 Mo Bipolar Nos 05/22/2008 EM FINE MD 305.1 TOBACCO ABUSE 05/22/2008 EM FINE MD V25.41 Surveillance Of Contraceptive Pill 05/22/2008 ANDREINA JOHNS MD 296.80 Mo Bipolar Nos 05/22/2008 ANDREINA JOHNS MD 305.1 TOBACCO ABUSE 05/22/2008 ANDREINA JOHNS MD V25.41 Surveillance Of Contraceptive Pill 05/22/2008 ANDREINA JOHNS MD 296.80 Mo Bipolar Nos 05/22/2008 ANDREINA JOHNS MD 305.1 TOBACCO ABUSE 05/22/2008 ANDREINA JOHNS MD V25.41 Surveillance Of Contraceptive Pill 05/22/2008 BRUNO DO CHASE K 296.80 Mo Bipolar Nos 05/22/2008 BRUNO DO CHASE K 305.1 TOBACCO ABUSE 05/22/2008 BRUNO DO CHASE K V25.41 Surveillance Of Contraceptive Pill 05/22/2008 ANDREINA JOHNS MD 296.80 Mo Bipolar Nos 05/22/2008 ANDREINA JOHNS MD 305.1 TOBACCO ABUSE 05/22/2008 ANDREINA JOHNS MD V25.41 Surveillance Of Contraceptive Pill 05/22/2008 EM FINE MD 296.80 Mo Bipolar Nos 05/22/2008 EM FINE MD 305.1 TOBACCO ABUSE 05/22/2008 EM FINE MD V25.41 Surveillance Of Contraceptive Pill 05/22/2008 SABINA BRADSHAW APRN 296.80 Mo Bipolar Nos 05/22/2008 SABINA BRADSHAW APRN 305.1 TOBACCO ABUSE 05/22/2008 SABINA BRADSHAW APRN V25.41 Surveillance Of Contraceptive Pill 05/22/2008 PEPE GROVER APRN R 296.80 Mo Bipolar Nos 05/22/2008 JONATAN GROVER APRNINA R 305.1 TOBACCO ABUSE 05/22/2008 JONATAN GROVER APRNINA R V25.41 Surveillance Of Contraceptive Pill 05/22/2008 ANDREINA JOHNS MD 296.80 Mo Bipolar Nos 05/22/2008 ANDREINA JOHNS MD 305.1 TOBACCO ABUSE 05/22/2008 ANDREINA JOHNS MD V25.41 Surveillance Of Contraceptive Pill 05/22/2008 ANDREINA JOHNS MD 296.80 Mo Bipolar Nos 05/22/2008 ANDREINA JOHNS MD 305.1 TOBACCO ABUSE 05/22/2008 ANDREINA JOHNS MD V25.41 Surveillance Of Contraceptive Pill 05/22/2008 SABINA BRADSHAW APRN 296.80 Mo Bipolar Nos 05/22/2008 SABINA BRADSHAW APRN 305.1 TOBACCO ABUSE 05/22/2008 SABINA BRADSHAW APRN V25.41 Surveillance Of Contraceptive Pill 05/22/2008 KASANDRA JURADO APRN 296.80 Mo Bipolar Nos 05/22/2008 KASANDRA JURADO APRN 305.1 TOBACCO ABUSE 05/22/2008 KASANDRA JURADO APRN V25.41 Surveillance Of Contraceptive Pill 05/22/2008 KASANDRA JURADO APRN 296.80 Mo Bipolar Nos 05/22/2008 KASANDRA JURADO APRN 305.1 TOBACCO ABUSE 05/22/2008 KASANDRA JURADO APRN V25.41 Surveillance Of Contraceptive Pill 05/22/2008 ANDREINA JOHNS MD 296.80 Mo Bipolar Nos 05/22/2008 ANDREINA JOHNS MD 305.1 TOBACCO ABUSE 05/22/2008 ANDREINA JOHNS MD V25.41 Surveillance Of Contraceptive Pill 05/22/2008 CHASE BRUNO DO 296.80 Mo Bipolar Nos 05/22/2008 CHASE BRUNO DO 305.1 TOBACCO ABUSE 05/22/2008 CHASE BRUNO DO V25.41 Surveillance Of Contraceptive Pill 06/26/2008 ANDREINA JOHNS MD 285.9 Anemia Unspecified 06/26/2008 ANDREINA JOHNS MD 611.72 Lump Or Mass In Breast 06/26/2008 285.9 Anemia Unspecified 06/26/2008 611.72 Lump Or Mass In Breast 06/26/2008 ANDREINA JOHNS MD 285.9 Anemia Unspecified 06/26/2008 ANDREINA JOHNS MD 611.72 Lump Or Mass In Breast 06/26/2008 WOOD GARCIA DO F 285.9 Anemia Unspecified 06/26/2008 WOOD GARCIA DO 611.72 Lump Or Mass In Breast 06/26/2008 285.9 Anemia Unspecified 06/26/2008 611.72 Lump Or Mass In Breast 06/26/2008 WOOD GARCIA DO F 285.9 Anemia Unspecified 06/26/2008 WOOD GARCIA DO 611.72 Lump Or Mass In Breast 06/26/2008 PIPER PHD, IVY Huynh 285.9 Anemia Unspecified 06/26/2008 PIPER PHD, IVY Huynh 611.72 Lump Or Mass In Breast 06/26/2008 285.9 Anemia Unspecified 06/26/2008 611.72 Lump Or Mass In Breast 06/26/2008 285.9 Anemia Unspecified 06/26/2008 611.72 Lump Or Mass In Breast 06/26/2008 285.9 Anemia Unspecified 06/26/2008 611.72 Lump Or Mass In Breast 06/26/2008 285.9 Anemia Unspecified 06/26/2008 611.72 Lump Or Mass In Breast 06/26/2008 ANDREINA JOHNS MD 285.9 Anemia Unspecified 06/26/2008 ANDREINA JOHNS MD 611.72 Lump Or Mass In Breast 06/26/2008 WOOD GARCIA DO F 285.9 Anemia Unspecified 06/26/2008 WOOD GARCIA DO 611.72 Lump Or Mass In Breast 06/26/2008 EM FINE MD 285.9 Anemia Unspecified 06/26/2008 EM FINE MD 611.72 Lump Or Mass In Breast 06/26/2008 ANDREINA JOHNS MD 285.9 Anemia Unspecified 06/26/2008 ANDREINA JOHNS MD 611.72 Lump Or Mass In Breast 06/26/2008 ANDREINA JOHNS MD 285.9 Anemia Unspecified 06/26/2008 ANDREINA JOHNS MD 611.72 Lump Or Mass In Breast 06/26/2008 BRUNO DOCHASE K 285.9 Anemia Unspecified 06/26/2008 BRUNO DOCHASE K 611.72 Lump Or Mass In Breast 06/26/2008 ANDREINA JOHNS MD 285.9 Anemia Unspecified 06/26/2008 ANDREINA JOHNS MD 611.72 Lump Or Mass In Breast 06/26/2008 EM FINE MD 285.9 Anemia Unspecified 06/26/2008 EM FINE MD 611.72 Lump Or Mass In Breast 06/26/2008 SABINA BRADSHAW APRN 285.9 Anemia Unspecified 06/26/2008 SABINA BRADSHAW APRN 611.72 Lump Or Mass In Breast 06/26/2008 JONATAN GROVER APRNINA R 285.9 Anemia Unspecified 06/26/2008 REILLY SEGOVIA PEPE R 611.72 Lump Or Mass In Breast 06/26/2008 ANDREINA JOHNS MD 285.9 Anemia Unspecified 06/26/2008 ANDREINA JOHNS MD 611.72 Lump Or Mass In Breast 06/26/2008 ANDREINA JOHNS MD 285.9 Anemia Unspecified 06/26/2008 ANDREINA JOHNS MD 611.72 Lump Or Mass In Breast 06/26/2008 SABINA BRADSHAW APRN 285.9 Anemia Unspecified 06/26/2008 SABINA BRADSHAW APRN 611.72 Lump Or Mass In Breast 06/26/2008 KASANDRA JURADO APRN 285.9 Anemia Unspecified 06/26/2008 KASANDRA JURADO APRN 611.72 Lump Or Mass In Breast 06/26/2008 RHIANNON EXECUTIVE SERVICES ADMINISTRATOR, KASANDRA T 285.9 Anemia Unspecified 06/26/2008 RHIANNON LOTTN, KASANDRA T 611.72 Lump Or Mass In Breast 06/26/2008 ANDREINA JOHNS MD 285.9 Anemia Unspecified 06/26/2008 ANDREINA JOHNS MD 611.72 Lump Or Mass In Breast 06/26/2008 BRUNO DO, CHASE K 285.9 Anemia Unspecified 06/26/2008 BRUNO DO, CHASE K 611.72 Lump Or Mass In Breast 07/12/2008 ANDREINA JOHNS MD 346.90 Migraine Unspecified Without Intractable Migraine 07/12/2008 346.90 Migraine Unspecified Without Intractable Migraine 07/12/2008 ANDREINA JOHNS MD 346.90 Migraine Unspecified Without Intractable Migraine 07/12/2008 WOOD GARCAI DO 346.90 Migraine Unspecified Without Intractable Migraine 07/12/2008 346.90 Migraine Unspecified Without Intractable Migraine 07/12/2008 WOOD GARCIA DO 346.90 Migraine Unspecified Without Intractable Migraine 07/12/2008 PIPER PHD, IVY Huynh 346.90 Migraine Unspecified Without Intractable Migraine 07/12/2008 346.90 Migraine Unspecified Without Intractable Migraine 07/12/2008 346.90 Migraine Unspecified Without Intractable Migraine 07/12/2008 346.90 Migraine Unspecified Without Intractable Migraine 07/12/2008 346.90 Migraine Unspecified Without Intractable Migraine 07/12/2008 ANDREINA JOHNS MD 346.90 Migraine Unspecified Without Intractable Migraine 07/12/2008 WOOD GARCIA DO 346.90 Migraine Unspecified Without Intractable Migraine 07/12/2008 EM FINE MD 346.90 Migraine Unspecified Without Intractable Migraine 07/12/2008 ANDREINA JOHNS MD 346.90 Migraine Unspecified Without Intractable Migraine 07/12/2008 ANDREINA JOHNS MD 346.90 Migraine Unspecified Without Intractable Migraine 07/12/2008 SONNY BRUNO DOA K 346.90 Migraine Unspecified Without Intractable Migraine 07/12/2008 ANDREINA JOHNS MD 346.90 Migraine Unspecified Without Intractable Migraine 07/12/2008 EM FINE MD 346.90 Migraine Unspecified Without Intractable Migraine 07/12/2008 AUGUSTINE LOTTN, SABINA BETHEA 346.90 Migraine Unspecified Without Intractable Migraine 07/12/2008 REILLY EXECUTIVE SERVICES ADMINISTRATOR, PEPE Lopez 346.90 Migraine Unspecified Without Intractable Migraine 07/12/2008 NAT CRUZ, ANDREINA 346.90 Migraine Unspecified Without Intractable Migraine 07/12/2008 ANDREINA JOHNS MD 346.90 Migraine Unspecified Without Intractable Migraine 07/12/2008 AUGUSTINE SEGOVIA, SABINA BETHEA 346.90 Migraine Unspecified Without Intractable Migraine 07/12/2008 RHIANNON SEGOVIA, KASANDRA Aaron 346.90 Migraine Unspecified Without Intractable Migraine 07/12/2008 KASANDRA JURADO APRN 346.90 Migraine Unspecified Without Intractable Migraine 07/12/2008 ANDREINA JOHNS MD 346.90 Migraine Unspecified Without Intractable Migraine 07/12/2008 CHASE BRUNO DO 346.90 Migraine Unspecified Without Intractable Migraine 07/17/2008 ANDREINA JOHNS MD 784.0 headache 07/17/2008 784.0 headache 07/17/2008 NAT CRUZ, ANDREINA 784.0 headache 07/17/2008 WOOD GARCIA DO F 784.0 headache 07/17/2008 784.0 headache 07/17/2008 WOOD GARCIA DO F 784.0 headache 07/17/2008 PIPER PHD, IVY A 784.0 headache 07/17/2008 784.0 headache 07/17/2008 784.0 headache 07/17/2008 784.0 headache 07/17/2008 784.0 headache 07/17/2008 NAT CRUZ, ANDRIENA 784.0 headache 07/17/2008 WOOD GARCIA DO F 784.0 headache 07/17/2008 EM FINE MD 784.0 headache 07/17/2008 NAT CRUZ, ANDREINA 784.0 headache 07/17/2008 NAT CRUZ, ANDREINA 784.0 headache 07/17/2008 CHASE BRUNO DO 784.0 headache 07/17/2008 NAT CRUZ, ANDREINA 784.0 headache 07/17/2008 EM FINE MD 784.0 headache 07/17/2008 AUGUSTINE SEGOVIA, SABINA TINEOH 784.0 headache 07/17/2008 REILLY SEGOVIA, PEPE R 784.0 headache 07/17/2008 ANDREINA JOHNS MD 784.0 headache 07/17/2008 NAT CRUZ, ANDREINA 784.0 headache 07/17/2008 AUGUSTINE SEGOVIA, SABINA BETHEA 784.0 headache 07/17/2008 KASANDRA JURADO APRN T 784.0 headache 07/17/2008 KASANDRA JURADO APRN 784.0 headache 07/17/2008 ANDREINA JOHNS MD 784.0 headache 07/17/2008 CHASE BRUNO DO 784.0 headache 07/18/2008 ANDREINA JOHNS MD V58.69 Medication High Risk 07/18/2008 V58.69 Medication High Risk 07/18/2008 ANDREINA JOHNS MD V58.69 Medication High Risk 07/18/2008 WOOD GARCIA DO V58.69 Medication High Risk 07/18/2008 V58.69 Medication High Risk 07/18/2008 WOOD GARCIA DO F V58.69 Medication High Risk 07/18/2008 PIPER [facility], IVY Huynh V58.69 Medication High Risk 07/18/2008 V58.69 Medication High Risk 07/18/2008 V58.69 Medication High Risk 07/18/2008 V58.69 Medication High Risk 07/18/2008 V58.69 Medication High Risk 07/18/2008 ANDREINA JOHNS MD V58.69 Medication High Risk 07/18/2008 WOOD GARCIA DO V58.69 Medication High Risk 07/18/2008 EM FINE MD V58.69 Medication High Risk 07/18/2008 ANDREINA JOHNS MD V58.69 Medication High Risk 07/18/2008 ANDREINA JOHNS MD V58.69 Medication High Risk 07/18/2008 CHASE BRUNO DO V58.69 Medication High Risk 07/18/2008 ANDREINA JOHNS MD V58.69 Medication High Risk 07/18/2008 EM FINE MD V58.69 Medication High Risk 07/18/2008 AUGUSTINE SEGOVIA SABINA TINEOH V58.69 Medication High Risk 07/18/2008 PEPE GROVER APRN R V58.69 Medication High Risk 07/18/2008 ANDREINA JOHNS MD V58.69 Medication High Risk 07/18/2008 ANDREINA JOHNS MD V58.69 Medication High Risk 07/18/2008 AUGUSTINE SEGOVIA SABINA TINEOH V58.69 Medication High Risk 07/18/2008 KASANDRA JURADO APRN V58.69 Medication High Risk 07/18/2008 KASANDRA JURADO APRN V58.69 Medication High Risk 07/18/2008 ANDREINA JOHNS MD V58.69 Medication High Risk 07/18/2008 CHASE BRUNO DO V58.69 Medication High Risk 08/05/2008 ANDREINA JOHNS MD 599.0 URINARY TRACT INFECTION 08/05/2008 599.0 URINARY TRACT INFECTION 08/05/2008 ANDREINA JOHNS MD 599.0 URINARY TRACT INFECTION 08/05/2008 WOOD GARCIA DO F 599.0 URINARY TRACT INFECTION 08/05/2008 599.0 URINARY TRACT INFECTION 08/05/2008 WOOD GARCIA DO F 599.0 URINARY TRACT INFECTION 08/05/2008 PIPER PRADHAN, IVY Huynh 599.0 URINARY TRACT INFECTION 08/05/2008 599.0 URINARY TRACT INFECTION 08/05/2008 599.0 URINARY TRACT INFECTION 08/05/2008 599.0 URINARY TRACT INFECTION 08/05/2008 599.0 URINARY TRACT INFECTION 08/05/2008 ANDREINA JOHNS MD 599.0 URINARY TRACT INFECTION 08/05/2008 WOOD GARCIA DO F 599.0 URINARY TRACT INFECTION 08/05/2008 EM FINE MD 599.0 URINARY TRACT INFECTION 08/05/2008 ANDREINA JOHNS MD 599.0 URINARY TRACT INFECTION 08/05/2008 ANDREINA JOHNS MD 599.0 URINARY TRACT INFECTION 08/05/2008 CHASE BRUNO DO K 599.0 URINARY TRACT INFECTION 08/05/2008 ANDREINA JOHNS MD 599.0 URINARY TRACT INFECTION 08/05/2008 EM FINE MD 599.0 URINARY TRACT INFECTION 08/05/2008 AUGUSTINE SEGOVIA, SABINA BETHEA 599.0 URINARY TRACT INFECTION 08/05/2008 REILLY SEGOVIA, PEPE Lopez 599.0 URINARY TRACT INFECTION 08/05/2008 ANDREINA JOHNS MD 599.0 URINARY TRACT INFECTION 08/05/2008 ANDREINA JOHNS MD 599.0 URINARY TRACT INFECTION 08/05/2008 AUGUSTINE SEGOVIA, SABINA [place] 599.0 URINARY TRACT INFECTION 08/05/2008 KASANDRA JURADO APRN 599.0 URINARY TRACT INFECTION 08/05/2008 KASANDRA JURADO APRN 599.0 URINARY TRACT INFECTION 08/05/2008 ANDREINA JOHNS MD 599.0 URINARY TRACT INFECTION 08/05/2008 CHASE BRUNO DO 599.0 URINARY TRACT INFECTION 09/24/2008 ANDREINA JOHNS MD 465.9 UPPER RESPIRATORY INFECTION 09/24/2008 465.9 UPPER RESPIRATORY INFECTION 09/24/2008 ANDREINA JOHNS MD 465.9 UPPER RESPIRATORY INFECTION 09/24/2008 WOOD GARCIA DO F 465.9 UPPER RESPIRATORY INFECTION 09/24/2008 465.9 UPPER RESPIRATORY INFECTION 09/24/2008 ANGELES GARCIA DOEN F 465.9 UPPER RESPIRATORY INFECTION 09/24/2008 PIPER PRADHAN, IVY Huynh 465.9 UPPER RESPIRATORY INFECTION 09/24/2008 465.9 UPPER RESPIRATORY INFECTION 09/24/2008 465.9 UPPER RESPIRATORY INFECTION 09/24/2008 465.9 UPPER RESPIRATORY INFECTION 09/24/2008 465.9 UPPER RESPIRATORY INFECTION 09/24/2008 ANDREINA JOHNS MD 465.9 UPPER RESPIRATORY INFECTION 09/24/2008 WOOD GARCIA DO F 465.9 UPPER RESPIRATORY INFECTION 09/24/2008 EM FINE MD 465.9 UPPER RESPIRATORY INFECTION 09/24/2008 ANDREINA JOHNS MD 465.9 UPPER RESPIRATORY INFECTION 09/24/2008 ANDREINA JOHNS MD 465.9 UPPER RESPIRATORY INFECTION 09/24/2008 CHASE BRUNO DO 465.9 UPPER RESPIRATORY INFECTION 09/24/2008 ANDREINA JOHNS MD 465.9 UPPER RESPIRATORY INFECTION 09/24/2008 EM FINE MD 465.9 UPPER RESPIRATORY INFECTION 09/24/2008 SABINA BRADSHAW APRN 465.9 UPPER RESPIRATORY INFECTION 09/24/2008 PEPE GROVER APRN R 465.9 UPPER RESPIRATORY INFECTION 09/24/2008 ANDREINA JOHNS MD 465.9 UPPER RESPIRATORY INFECTION 09/24/2008 ANDREINA JOHNS MD 465.9 UPPER RESPIRATORY INFECTION 09/24/2008 SABINA BRADSHAW APRN 465.9 UPPER RESPIRATORY INFECTION 09/24/2008 KASANDRA JURADO APRN 465.9 UPPER RESPIRATORY INFECTION 09/24/2008 KASANDRA JURADO APRN 465.9 UPPER RESPIRATORY INFECTION 09/24/2008 ANDREINA JOHNS MD 465.9 UPPER RESPIRATORY INFECTION 09/24/2008 CHASE BRUNO DO K 465.9 UPPER RESPIRATORY INFECTION 10/10/2008 ANDREINA JOHNS MD 266.2 B12 DEF W/O ANEMIA 10/10/2008 ANDREINA JOHNS MD V01.9 CONTACT WITH OR EXPOSURE TO UNSPECIFIED COMMUNICABLE DISEASE 10/10/2008 266.2 B12 DEF W/O ANEMIA 10/10/2008 V01.9 CONTACT WITH OR EXPOSURE TO UNSPECIFIED COMMUNICABLE DISEASE 10/10/2008 ANDREINA JOHNS MD 266.2 B12 DEF W/O ANEMIA 10/10/2008 ANDREINA JOHNS MD V01.9 CONTACT WITH OR EXPOSURE TO UNSPECIFIED COMMUNICABLE DISEASE 10/10/2008 WOOD GARCIA DO 266.2 B12 DEF W/O ANEMIA 10/10/2008 WOOD GARCIA DO V01.9 CONTACT WITH OR EXPOSURE TO UNSPECIFIED COMMUNICABLE DISEASE 10/10/2008 266.2 B12 DEF W/O ANEMIA 10/10/2008 V01.9 CONTACT WITH OR EXPOSURE TO UNSPECIFIED COMMUNICABLE DISEASE 10/10/2008 WOOD GARCIA DO 266.2 B12 DEF W/O ANEMIA 10/10/2008 WOOD GARCIA DO V01.9 CONTACT WITH OR EXPOSURE TO UNSPECIFIED COMMUNICABLE DISEASE 10/10/2008 PIPER PRADHAN, IVY Huynh 266.2 B12 DEF W/O ANEMIA 10/10/2008 PIPER PRADHAN, IVY Huynh V01.9 CONTACT WITH OR EXPOSURE TO UNSPECIFIED COMMUNICABLE DISEASE 10/10/2008 266.2 B12 DEF W/O ANEMIA 10/10/2008 V01.9 CONTACT WITH OR EXPOSURE TO UNSPECIFIED COMMUNICABLE DISEASE 10/10/2008 266.2 B12 DEF W/O ANEMIA 10/10/2008 V01.9 CONTACT WITH OR EXPOSURE TO UNSPECIFIED COMMUNICABLE DISEASE 10/10/2008 266.2 B12 DEF W/O ANEMIA 10/10/2008 V01.9 CONTACT WITH OR EXPOSURE TO UNSPECIFIED COMMUNICABLE DISEASE 10/10/2008 266.2 B12 DEF W/O ANEMIA 10/10/2008 V01.9 CONTACT WITH OR EXPOSURE TO UNSPECIFIED COMMUNICABLE DISEASE 10/10/2008 ANDREINA JOHNS MD 266.2 B12 DEF W/O ANEMIA 10/10/2008 ANDREINA JOHNS MD V01.9 CONTACT WITH OR EXPOSURE TO UNSPECIFIED COMMUNICABLE DISEASE 10/10/2008 WOOD GARCIA DO 266.2 B12 DEF W/O ANEMIA 10/10/2008 WOOD GARCIA DO V01.9 CONTACT WITH OR EXPOSURE TO UNSPECIFIED COMMUNICABLE DISEASE 10/10/2008 EM FINE MD 266.2 B12 DEF W/O ANEMIA 10/10/2008 EM FINE MD V01.9 CONTACT WITH OR EXPOSURE TO UNSPECIFIED COMMUNICABLE DISEASE 10/10/2008 ANDREINA JOHNS MD 266.2 B12 DEF W/O ANEMIA 10/10/2008 ANDREINA JOHNS MD V01.9 CONTACT WITH OR EXPOSURE TO UNSPECIFIED COMMUNICABLE DISEASE 10/10/2008 ANDREINA JOHNS MD 266.2 B12 DEF W/O ANEMIA 10/10/2008 ANDREINA JOHNS MD V01.9 CONTACT WITH OR EXPOSURE TO UNSPECIFIED COMMUNICABLE DISEASE 10/10/2008 BRUNO DO, CHASE K 266.2 B12 DEF W/O ANEMIA 10/10/2008 BRUNO DO, CHASE K V01.9 CONTACT WITH OR EXPOSURE TO UNSPECIFIED COMMUNICABLE DISEASE 10/10/2008 ANDREINA JOHNS MD 266.2 B12 DEF W/O ANEMIA 10/10/2008 ANDREINA JOHNS MD V01.9 CONTACT WITH OR EXPOSURE TO UNSPECIFIED COMMUNICABLE DISEASE 10/10/2008 EM FINE MD 266.2 B12 DEF W/O ANEMIA 10/10/2008 EM FINE MD V01.9 CONTACT WITH OR EXPOSURE TO UNSPECIFIED COMMUNICABLE DISEASE 10/10/2008 SABINA BRADSHAW APRN 266.2 B12 DEF W/O ANEMIA 10/10/2008 SABINA BRADSHAW APRN V01.9 CONTACT WITH OR EXPOSURE TO UNSPECIFIED COMMUNICABLE DISEASE 10/10/2008 PEPE GROVER APRN R 266.2 B12 DEF W/O ANEMIA 10/10/2008 PEPE GROVER APRN R V01.9 CONTACT WITH OR EXPOSURE TO UNSPECIFIED COMMUNICABLE DISEASE 10/10/2008 ANDREINA JOHNS MD 266.2 B12 DEF W/O ANEMIA 10/10/2008 ANDREINA JOHNS MD V01.9 CONTACT WITH OR EXPOSURE TO UNSPECIFIED COMMUNICABLE DISEASE 10/10/2008 ANDREINA JOHNS MD 266.2 B12 DEF W/O ANEMIA 10/10/2008 ANDREINA JOHNS MD V01.9 CONTACT WITH OR EXPOSURE TO UNSPECIFIED COMMUNICABLE DISEASE 10/10/2008 SABINA BRADSHAW APRN 266.2 B12 DEF W/O ANEMIA 10/10/2008 SABINA BRADSHAW APRN V01.9 CONTACT WITH OR EXPOSURE TO UNSPECIFIED COMMUNICABLE DISEASE 10/10/2008 KASANDRA JURADO APRN T 266.2 B12 DEF W/O ANEMIA 10/10/2008 KASANDRA JURADO APRN T V01.9 CONTACT WITH OR EXPOSURE TO UNSPECIFIED COMMUNICABLE DISEASE 10/10/2008 KASANDRA JURADO APRN T 266.2 B12 DEF W/O ANEMIA 10/10/2008 KASANDRA JURADO APRN T V01.9 CONTACT WITH OR EXPOSURE TO UNSPECIFIED COMMUNICABLE DISEASE 10/10/2008 ANDREINA JOHNS MD 266.2 B12 DEF W/O ANEMIA 10/10/2008 ANDREINA JOHNS MD V01.9 CONTACT WITH OR EXPOSURE TO UNSPECIFIED COMMUNICABLE DISEASE 10/10/2008 BRUNO DO, CHASE K 266.2 B12 DEF W/O ANEMIA 10/10/2008 BRUNO DO, CHASE K V01.9 CONTACT WITH OR EXPOSURE TO UNSPECIFIED COMMUNICABLE DISEASE 12/04/2008 ANDREINA JOHNS MD 054.10 Herpes Simplex Type Ii 12/04/2008 ANDREINA JOHNS MD 461.9 SINUSITIS ACUTE 12/04/2008 054.10 Herpes Simplex Type Ii 12/04/2008 461.9 SINUSITIS ACUTE 12/04/2008 ANDREINA JOHNS MD 054.10 Herpes Simplex Type Ii 12/04/2008 ANDREINA JOHNS MD 461.9 SINUSITIS ACUTE 12/04/2008 WOOD GARCIA DO 054.10 Herpes Simplex Type Ii 12/04/2008 WOOD GARCIA DO 461.9 SINUSITIS ACUTE 12/04/2008 054.10 Herpes Simplex Type Ii 12/04/2008 461.9 SINUSITIS ACUTE 12/04/2008 WOOD GARCIA DO 054.10 Herpes Simplex Type Ii 12/04/2008 WOOD GARCIA DO 461.9 SINUSITIS ACUTE 12/04/2008 PIPER PRADHAN, IVY Huynh 054.10 Herpes Simplex Type Ii 12/04/2008 IVY SALDAÑA PHD 461.9 SINUSITIS ACUTE 12/04/2008 054.10 Herpes Simplex Type Ii 12/04/2008 461.9 SINUSITIS ACUTE 12/04/2008 054.10 Herpes Simplex Type Ii 12/04/2008 461.9 SINUSITIS ACUTE 12/04/2008 054.10 Herpes Simplex Type Ii 12/04/2008 461.9 SINUSITIS ACUTE 12/04/2008 054.10 Herpes Simplex Type Ii 12/04/2008 461.9 SINUSITIS ACUTE 12/04/2008 ANDREINA JOHNS MD 054.10 Herpes Simplex Type Ii 12/04/2008 ANDREINA JOHNS MD 461.9 SINUSITIS ACUTE 12/04/2008 WOOD GARCIA DO F 054.10 Herpes Simplex Type Ii 12/04/2008 WOOD GARCIA DO F 461.9 SINUSITIS ACUTE 12/04/2008 RODY CRUZ, EM Salgado 054.10 Herpes Simplex Type Ii 12/04/2008 RODY CRUZ, EM Salgado 461.9 SINUSITIS ACUTE 12/04/2008 ANDREINA JOHNS MD 054.10 Herpes Simplex Type Ii 12/04/2008 ANDREINA JOHNS MD 461.9 SINUSITIS ACUTE 12/04/2008 ANDREINA JOHNS MD 054.10 Herpes Simplex Type Ii 12/04/2008 ANDREINA JOHNS MD 461.9 SINUSITIS ACUTE 12/04/2008 CHASE BRUNO DO 054.10 Herpes Simplex Type Ii 12/04/2008 CHASE BRUNO DO 461.9 SINUSITIS ACUTE 12/04/2008 ANDREINA JOHNS MD 054.10 Herpes Simplex Type Ii 12/04/2008 ANDREINA JOHNS MD 461.9 SINUSITIS ACUTE 12/04/2008 EM FINE MD 054.10 Herpes Simplex Type Ii 12/04/2008 EM FINE MD 461.9 SINUSITIS ACUTE 12/04/2008 SABNIA BRADSHAW APRN 054.10 Herpes Simplex Type Ii 12/04/2008 SABINA BRADSHAW APRN 461.9 SINUSITIS ACUTE 12/04/2008 PEPE GROVER APRN R 054.10 Herpes Simplex Type Ii 12/04/2008 PEPE GROVER APRN R 461.9 SINUSITIS ACUTE 12/04/2008 ANDREINA JOHNS MD 054.10 Herpes Simplex Type Ii 12/04/2008 ANDREINA JOHNS MD 461.9 SINUSITIS ACUTE 12/04/2008 ANDREINA JOHNS MD 054.10 Herpes Simplex Type Ii 12/04/2008 ANDREINA JOHNS MD 46Lilian.9 SINUSITIS ACUTE 12/04/2008 AUGUSTINE SEGOVIA SABINA BETHEA 054.10 Herpes Simplex Type Ii 12/04/2008 BRADSHAW LUCA, SABINA BETHEA 461.9 SINUSITIS ACUTE 12/04/2008 RHIANNON SEGOVIA, KASANDRA T 054.10 Herpes Simplex Type Ii 12/04/2008 KASANDRA JURADO APRN T 461.9 SINUSITIS ACUTE 12/04/2008 RHIANNON SEGOVIA, KASANDRA T 054.10 Herpes Simplex Type Ii 12/04/2008 KASANDRA JURADO APRN T 461.9 SINUSITIS ACUTE 12/04/2008 ANDREINA JOHNS MD 054.10 Herpes Simplex Type Ii 12/04/2008 ANDREINA JOHNS MD 461.9 SINUSITIS ACUTE 12/04/2008 CHASE BRUNO DO 054.10 Herpes Simplex Type Ii 12/04/2008 CHASE BRUNO DO 461.9 SINUSITIS ACUTE 02/12/2009 ANDREINA JOHNS MD 845.10 SPRAIN/STRAIN FOOT 02/12/2009 845.10 SPRAIN/ STRAIN FOOT 02/12/2009 ANDREINA JOHNS MD 845.10 SPRAIN/STRAIN FOOT 02/12/2009 WOOD GARCIA DO 845.10 SPRAIN/STRAIN FOOT 02/12/2009 845.10 SPRAIN/ STRAIN FOOT 02/12/2009 WOOD GARCIA DO 845.10 SPRAIN/STRAIN FOOT 02/12/2009 PIPER PHD, IVY Huynh 845.10 SPRAIN/STRAIN FOOT 02/12/2009 845.10 SPRAIN/ STRAIN FOOT 02/12/2009 845.10 SPRAIN/ STRAIN FOOT 02/12/2009 845.10 SPRAIN/ STRAIN FOOT 02/12/2009 845.10 SPRAIN/ STRAIN FOOT 02/12/2009 ANDREINA JOHNS MD 845.10 SPRAIN/STRAIN FOOT 02/12/2009 WOOD GARCIA DO 845.10 SPRAIN/STRAIN FOOT 02/12/2009 EM FINE MD 845.10 SPRAIN/STRAIN FOOT 02/12/2009 ANDREINA JOHNS MD 845.10 SPRAIN/STRAIN FOOT 02/12/2009 ANDREINA JOHNS MD 845.10 SPRAIN/STRAIN FOOT 02/12/2009 CHASE BRUNO DO 845.10 SPRAIN/STRAIN FOOT 02/12/2009 ANDREINA JOHNS MD 845.10 SPRAIN/STRAIN FOOT 02/12/2009 EM FINE MD 845.10 SPRAIN/STRAIN FOOT 02/12/2009 AUGUSTINE SEGOVIA, SABINA BETHEA 845.10 SPRAIN/STRAIN FOOT 02/12/2009 REILLY SEGOVIA, PEPE Lopez 845.10 SPRAIN/STRAIN FOOT 02/12/2009 ANDREINA JOHNS MD 845.10 SPRAIN/STRAIN FOOT 02/12/2009 ANDREINA JOHNS MD 845.10 SPRAIN/STRAIN FOOT 02/12/2009 AUGUSTINE SEGOVIA, SABINA BETHEA 845.10 SPRAIN/STRAIN FOOT 02/12/2009 RHIANNON SEGOVIA, KASANDRA Aaron 845.10 SPRAIN/STRAIN FOOT 02/12/2009 KASANDRA JURADO APRN 845.10 SPRAIN/STRAIN FOOT 02/12/2009 ANDREINA JOHNS MD 845.10 SPRAIN/STRAIN FOOT 02/12/2009 CHASE BRUNO DO 845.10 SPRAIN/STRAIN FOOT 03/14/2009 ANDREINA JOHNS MD 466.0 ACUTE BRONCHITIS 03/14/2009 466.0 ACUTE BRONCHITIS 03/14/2009 NAT CRUZ, ANDREINA 466.0 ACUTE BRONCHITIS 03/14/2009 WOOD GARCIA DO F 466.0 ACUTE BRONCHITIS 03/14/2009 466.0 ACUTE BRONCHITIS 03/14/2009 WOOD GARCIA DO F 466.0 ACUTE BRONCHITIS 03/14/2009 PIPER PHD, IVY Huynh 466.0 ACUTE BRONCHITIS 03/14/2009 466.0 ACUTE BRONCHITIS 03/14/2009 466.0 ACUTE BRONCHITIS 03/14/2009 466.0 ACUTE BRONCHITIS 03/14/2009 466.0 ACUTE BRONCHITIS 03/14/2009 NAT CRUZ, ANDREINA 466.0 ACUTE BRONCHITIS 03/14/2009 WOOD GARCIA DO F 466.0 ACUTE BRONCHITIS 03/14/2009 EM FINE MD 466.0 ACUTE BRONCHITIS 03/14/2009 ANDREINA JOHNS MD 466.0 ACUTE BRONCHITIS 03/14/2009 ANDREINA JOHNS MD 466.0 ACUTE BRONCHITIS 03/14/2009 CHASE BRUNO DO 466.0 ACUTE BRONCHITIS 03/14/2009 NAT CRUZ, ANDREINA 466.0 ACUTE BRONCHITIS 03/14/2009 RODY MD, EM M 466.0 ACUTE BRONCHITIS 03/14/2009 BRADSHAW EXECUTIVE SERVICES ADMINISTRATOR, SABINA BETHEA 466.0 ACUTE BRONCHITIS 03/14/2009 REILLY EXECUTIVE SERVICES ADMINISTRATOR, PEPE R 466.0 ACUTE BRONCHITIS 03/14/2009 ANDREINA JOHNS MD 466.0 ACUTE BRONCHITIS 03/14/2009 ANDREINA JOHNS MD 466.0 ACUTE BRONCHITIS 03/14/2009 BRADSHAW EXECUTIVE SERVICES ADMINISTRATOR, SABINA BETHEA 466.0 ACUTE BRONCHITIS 03/14/2009 RHIANNON EXECUTIVE SERVICES ADMINISTRATOR, KASANDRA T 466.0 ACUTE BRONCHITIS 03/14/2009 RHIANNON SEGOVIA, KASANDRA T 466.0 ACUTE BRONCHITIS 03/14/2009 ANDREINA JOHNS MD 466.0 ACUTE BRONCHITIS 03/14/2009 KIANA DO, CHASE K 466.0 ACUTE BRONCHITIS 04/23/2009 ANDREINA JOHNS MD 296.50 MO BIPOLAR I DEPRESSED UNSPECIFIED 04/23/2009 ANDREINA JOHNS MD 300.21 AN PANIC DIS W AGORA 04/23/2009 ANDREINA JONHS MD 316 Pf Psychic Factors Med Cond 04/23/2009 296.50 MO BIPOLAR I DEPRESSED UNSPECIFIED 04/23/2009 300.21 AN PANIC DIS W AGORA 04/23/2009 316 Pf Psychic Factors Med Cond 04/23/2009 ANDREINA JOHNS MD 296.50 MO BIPOLAR I DEPRESSED UNSPECIFIED 04/23/2009 ANDREINA JOHNS MD 300.21 AN PANIC DIS W AGORA 04/23/2009 ANDREINA JOHNS MD 316 Pf Psychic Factors Med Cond 04/23/2009 WOOD GARCIA DO 296.50 MO BIPOLAR I DEPRESSED UNSPECIFIED 04/23/2009 WOOD GARCIA DO 300.21 AN PANIC DIS W AGORA 04/23/2009 WOOD GARCIA DO 316 Pf Psychic Factors Med Cond 04/23/2009 296.50 MO BIPOLAR I DEPRESSED UNSPECIFIED 04/23/2009 300.21 AN PANIC DIS W AGORA 04/23/2009 316 Pf Psychic Factors Med Cond 04/23/2009 WOOD GARCIA DO F 296.50 MO BIPOLAR I DEPRESSED UNSPECIFIED 04/23/2009 WOOD GARCIA DO F 300.21 AN PANIC DIS W AGORA 04/23/2009 WOOD GARCIA DO F 316 Pf Psychic Factors Med Cond 04/23/2009 PIPER PRADHAN, IVY Huynh 296.50 MO BIPOLAR I DEPRESSED UNSPECIFIED 04/23/2009 PIPER PRADHAN, IVY Huynh 300.21 AN PANIC DIS W AGORA 04/23/2009 PIPER PRADHAN, IVY A 316 Pf Psychic Factors Med Cond 04/23/2009 296.50 MO BIPOLAR I DEPRESSED UNSPECIFIED 04/23/2009 300.21 AN PANIC DIS W AGORA 04/23/2009 316 Pf Psychic Factors Med Cond 04/23/2009 296.50 MO BIPOLAR I DEPRESSED UNSPECIFIED 04/23/2009 300.21 AN PANIC DIS W AGORA 04/23/2009 316 Pf Psychic Factors Med Cond 04/23/2009 296.50 MO BIPOLAR I DEPRESSED UNSPECIFIED 04/23/2009 300.21 AN PANIC DIS W AGORA 04/23/2009 316 Pf Psychic Factors Med Cond 04/23/2009 296.50 MO BIPOLAR I DEPRESSED UNSPECIFIED 04/23/2009 300.21 AN PANIC DIS W AGORA 04/23/2009 316 Pf Psychic Factors Med Cond 04/23/2009 ANDREINA JOHNS MD 296.50 MO BIPOLAR I DEPRESSED UNSPECIFIED 04/23/2009 ANDREINA JOHNS MD 300.21 AN PANIC DIS W AGORA 04/23/2009 ANDREINA JOHNS MD 316 Pf Psychic Factors Med Cond 04/23/2009 WOOD GARCIA DO F 296.50 MO BIPOLAR I DEPRESSED UNSPECIFIED 04/23/2009 WOOD GARCIA DO F 300.21 AN PANIC DIS W AGORA 04/23/2009 WOOD GARCIA DO F 316 Pf Psychic Factors Med Cond 04/23/2009 EM FINE MD 296.50 MO BIPOLAR I DEPRESSED UNSPECIFIED 04/23/2009 EM FINE MD 300.21 AN PANIC DIS W AGORA 04/23/2009 EM FINE MD 316 Pf Psychic Factors Med Cond 04/23/2009 ANDREINA JOHNS MD 296.50 MO BIPOLAR I DEPRESSED UNSPECIFIED 04/23/2009 ANDREINA JOHNS MD 300.21 AN PANIC DIS W AGORA 04/23/2009 ANDREINA JOHNS MD 316 Pf Psychic Factors Med Cond 04/23/2009 ANDREINA JOHNS MD 296.50 MO BIPOLAR I DEPRESSED UNSPECIFIED 04/23/2009 ANDREINA JOHNS MD 300.21 AN PANIC DIS W AGORA 04/23/2009 ANDREINA JOHNS MD 316 Pf Psychic Factors Med Cond 04/23/2009 BRUNO DO, CHASE K 296.50 MO BIPOLAR I DEPRESSED UNSPECIFIED 04/23/2009 BRUNO DO, CHASE K 300.21 AN PANIC DIS W AGORA 04/23/2009 KIANA SANTANA, CHASE K 316 Pf Psychic Factors Med Cond 04/23/2009 ANDREINA JOHNS MD 296.50 MO BIPOLAR I DEPRESSED UNSPECIFIED 04/23/2009 ANDREINA JOHNS MD 300.21 AN PANIC DIS W AGORA 04/23/2009 ANDREINA JOHNS MD 316 Pf Psychic Factors Med Cond 04/23/2009 EM FINE MD 296.50 MO BIPOLAR I DEPRESSED UNSPECIFIED 04/23/2009 EM FINE MD 300.21 AN PANIC DIS W AGORA 04/23/2009 EM FINE MD 316 Pf Psychic Factors Med Cond 04/23/2009 SABINA BRADSHAW APRN 296.50 MO BIPOLAR I DEPRESSED UNSPECIFIED 04/23/2009 SABINA BRADSHAW APRN 300.21 AN PANIC DIS W AGORA 04/23/2009 SABINA BRADSHAW APRN 316 Pf Psychic Factors Med Cond 04/23/2009 PEPE GROVER APRN R 296.50 MO BIPOLAR I DEPRESSED UNSPECIFIED 04/23/2009 JONATAN GROVER APRNINA R 300.21 AN PANIC DIS W AGORA 04/23/2009 JONATAN GROVER APRNINA R 316 Pf Psychic Factors Med Cond 04/23/2009 ANDREINA JOHNS MD 296.50 MO BIPOLAR I DEPRESSED UNSPECIFIED 04/23/2009 ANDREINA JOHNS MD 300.21 AN PANIC DIS W AGORA 04/23/2009 ANDREINA JOHNS MD 316 Pf Psychic Factors Med Cond 04/23/2009 ANDREINA JOHNS MD 296.50 MO BIPOLAR I DEPRESSED UNSPECIFIED 04/23/2009 ANDREINA JOHNS MD 300.21 AN PANIC DIS W AGORA 04/23/2009 ANDREINA JOHNS MD 316 Pf Psychic Factors Med Cond 04/23/2009 SABINA BRADSHAW APRN 296.50 MO BIPOLAR I DEPRESSED UNSPECIFIED 04/23/2009 SABINA BRADSHAW APRN 300.21 AN PANIC DIS W AGORA 04/23/2009 SABINA BRADSHAW APRN 316 Pf Psychic Factors Med Cond 04/23/2009 KASANDRA JURADO APRN 296.50 MO BIPOLAR I DEPRESSED UNSPECIFIED 04/23/2009 KASANDRA JURADO APRN 300.21 AN PANIC DIS W AGORA 04/23/2009 KASANDRA JURADO APRN 316 Pf Psychic Factors Med Cond 04/23/2009 KASANDRA JURADO APRN 296.50 MO BIPOLAR I DEPRESSED UNSPECIFIED 04/23/2009 KASANDRA JURADO APRN 300.21 AN PANIC DIS W AGORA 04/23/2009 KASANDRA JURADO APRN 316 Pf Psychic Factors Med Cond 04/23/2009 ANDREINA JOHNS MD 296.50 MO BIPOLAR I DEPRESSED UNSPECIFIED 04/23/2009 ANDREINA JOHNS MD 300.21 AN PANIC DIS W AGORA 04/23/2009 ANDREINA JOHNS MD 316 Pf Psychic Factors Med Cond 04/23/2009 BRUNO , CHASE K 296.50 MO BIPOLAR I DEPRESSED UNSPECIFIED 04/23/2009 BRUNO DO, CHASE K 300.21 AN PANIC DIS W AGORA 04/23/2009 BRUNO DO, CHASE K 316 Pf Psychic Factors Med Cond 05/14/2009 ANDREINA JOHNS MD 719.41 PAIN IN JOINT INVOLVING SHOULDER REGION 05/14/2009 ANDREINA JOHNS MD 724.5 BACKACHE UNSPECIFIED 05/14/2009 719.41 PAIN IN JOINT INVOLVING SHOULDER REGION 05/14/2009 724.5 BACKACHE UNSPECIFIED 05/14/2009 ANDREINA JOHNS MD 719.41 PAIN IN JOINT INVOLVING SHOULDER REGION 05/14/2009 ANDREINA JOHNS MD 724.5 BACKACHE UNSPECIFIED 05/14/2009 WOOD GARCIA DO 719.41 PAIN IN JOINT INVOLVING SHOULDER REGION 05/14/2009 WOOD GARCIA DO 724.5 BACKACHE UNSPECIFIED 05/14/2009 719.41 PAIN IN JOINT INVOLVING SHOULDER REGION 05/14/2009 724.5 BACKACHE UNSPECIFIED 05/14/2009 WOOD GARCIA DO 719.41 PAIN IN JOINT INVOLVING SHOULDER REGION 05/14/2009 WOOD GARCIA DO 724.5 BACKACHE UNSPECIFIED 05/14/2009 PIPER PRADHAN, IVY Huynh 719.41 PAIN IN JOINT INVOLVING SHOULDER REGION 05/14/2009 PIPER PRADHAN, IVY Huynh 724.5 BACKACHE UNSPECIFIED 05/14/2009 719.41 PAIN IN JOINT INVOLVING SHOULDER REGION 05/14/2009 724.5 BACKACHE UNSPECIFIED 05/14/2009 719.41 PAIN IN JOINT INVOLVING SHOULDER REGION 05/14/2009 724.5 BACKACHE UNSPECIFIED 05/14/2009 719.41 PAIN IN JOINT INVOLVING SHOULDER REGION 05/14/2009 724.5 BACKACHE UNSPECIFIED 05/14/2009 719.41 PAIN IN JOINT INVOLVING SHOULDER REGION 05/14/2009 724.5 BACKACHE UNSPECIFIED 05/14/2009 ANDREINA JOHNS MD 719.41 PAIN IN JOINT INVOLVING SHOULDER REGION 05/14/2009 ANDREINA JOHNS MD 724.5 BACKACHE UNSPECIFIED 05/14/2009 WOOD GARCIA DO 719.41 PAIN IN JOINT INVOLVING SHOULDER REGION 05/14/2009 WOOD GARCIA DO 724.5 BACKACHE UNSPECIFIED 05/14/2009 EM FINE MD 719.41 PAIN IN JOINT INVOLVING SHOULDER REGION 05/14/2009 EM FINE MD 724.5 BACKACHE UNSPECIFIED 05/14/2009 ANDREINA JOHNS MD 719.41 PAIN IN JOINT INVOLVING SHOULDER REGION 05/14/2009 ANDREINA JOHNS MD 724.5 BACKACHE UNSPECIFIED 05/14/2009 ANDREINA JOHNS MD 719.41 PAIN IN JOINT INVOLVING SHOULDER REGION 05/14/2009 ANDREINA JOHNS MD 724.5 BACKACHE UNSPECIFIED 05/14/2009 CHASE BRUNO DO 719.41 PAIN IN JOINT INVOLVING SHOULDER REGION 05/14/2009 CHASE BRUNO DO 724.5 BACKACHE UNSPECIFIED 05/14/2009 ANDREINA JOHNS MD 719.41 PAIN IN JOINT INVOLVING SHOULDER REGION 05/14/2009 ANDREINA JOHNS MD 724.5 BACKACHE UNSPECIFIED 05/14/2009 EM FINE MD 719.41 PAIN IN JOINT INVOLVING SHOULDER REGION 05/14/2009 EM FINE MD 724.5 BACKACHE UNSPECIFIED 05/14/2009 SABINA BRADSHAW APRN 719.41 PAIN IN JOINT INVOLVING SHOULDER REGION 05/14/2009 SABINA BRADSHAW APRN 724.5 BACKACHE UNSPECIFIED 05/14/2009 PEPE GROVER APRN 719.41 PAIN IN JOINT INVOLVING SHOULDER REGION 05/14/2009 PEPE GROVER APRN 724.5 BACKACHE UNSPECIFIED 05/14/2009 ANDREINA JOHNS MD 719.41 PAIN IN JOINT INVOLVING SHOULDER REGION 05/14/2009 ANDREINA JOHNS MD 724.5 BACKACHE UNSPECIFIED 05/14/2009 ANDREINA JOHNS MD 719.41 PAIN IN JOINT INVOLVING SHOULDER REGION 05/14/2009 ADNREINA JOHNS MD 724.5 BACKACHE UNSPECIFIED 05/14/2009 AUGUSTINE SEGOVIA SABINA LAKE 719.41 PAIN IN JOINT INVOLVING SHOULDER REGION 05/14/2009 AUGUSTINE SEGOVIA SABINA BETHEA 724.5 BACKACHE UNSPECIFIED 05/14/2009 KASANDRA JURADO APRN 719.41 PAIN IN JOINT INVOLVING SHOULDER REGION 05/14/2009 KASANDRA JURADO APRN 724.5 BACKACHE UNSPECIFIED 05/14/2009 KASANDRA JURADO APRN 719.41 PAIN IN JOINT INVOLVING SHOULDER REGION 05/14/2009 KASANDRA JURADO APRN 724.5 BACKACHE UNSPECIFIED 05/14/2009 ANDREINA JOHNS MD 719.41 PAIN IN JOINT INVOLVING SHOULDER REGION 05/14/2009 ANDREINA JOHNS MD 724.5 BACKACHE UNSPECIFIED 05/14/2009 CHASE BRUNO DO 719.41 PAIN IN JOINT INVOLVING SHOULDER REGION 05/14/2009 CHASE BRUNO DO 724.5 BACKACHE UNSPECIFIED 06/17/2009 ANDREINA JOHNS MD 535.50 GASTRITIS UNSPEC 06/17/2009 535.50 GASTRITIS UNSPEC 06/17/2009 ANDREINA JOHNS MD 535.50 GASTRITIS UNSPEC 06/17/2009 WOOD GARCIA DO 535.50 GASTRITIS UNSPEC 06/17/2009 535.50 GASTRITIS UNSPEC 06/17/2009 WOOD GARCIA DO 535.50 GASTRITIS UNSPEC 06/17/2009 PIPER PHD, IVY Huynh 535.50 GASTRITIS UNSPEC 06/17/2009 535.50 GASTRITIS UNSPEC 06/17/2009 535.50 GASTRITIS UNSPEC 06/17/2009 535.50 GASTRITIS UNSPEC 06/17/2009 535.50 GASTRITIS UNSPEC 06/17/2009 ANDREINA JOHNS MD 535.50 GASTRITIS UNSPEC 06/17/2009 WOOD GARCIA DO 535.50 GASTRITIS UNSPEC 06/17/2009 RODY CRUZ, EM Salgado 535.50 GASTRITIS UNSPEC 06/17/2009 ANDREINA JOHNS MD 535.50 GASTRITIS UNSPEC 06/17/2009 ANDREINA JOHNS MD 535.50 GASTRITIS UNSPEC 06/17/2009 CHASE BRUNO DO 535.50 GASTRITIS UNSPEC 06/17/2009 ANDREINA JOHNS MD 535.50 GASTRITIS UNSPEC 06/17/2009 RODY CRUZ, EM Salgado 535.50 GASTRITIS UNSPEC 06/17/2009 AUGUSTINE SEGOVIA, SABINA BETHEA 535.50 GASTRITIS UNSPEC 06/17/2009 REILLY SEGOVIA, PEPE R 535.50 GASTRITIS UNSPEC 06/17/2009 ANDREINA JOHNS MD 535.50 GASTRITIS UNSPEC 06/17/2009 ANDREINA JOHNS MD 535.50 GASTRITIS UNSPEC 06/17/2009 AUGUSTINE SEGOVIA, SABINA BETHEA 535.50 GASTRITIS UNSPEC 06/17/2009 RHIANNON SEGOVIA, KASANDRA Aaron 535.50 GASTRITIS UNSPEC 06/17/2009 RHIANNON SEGOVIA, KASANDRA Aaron 535.50 GASTRITIS UNSPEC 06/17/2009 ANDREINA JOHNS MD 535.50 GASTRITIS UNSPEC 06/17/2009 KIANA DOCHASE 535.50 GASTRITIS UNSPEC 07/04/2009 ANDREINA JOHNS MD 296.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 I MIXED UNSPECIFIED 07/04/2009 296.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 I MIXED UNSPECIFIED 07/04/2009 ANDREINA JOHNS MD 296.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 I MIXED UNSPECIFIED 07/04/2009 WOOD GARCIA DO 296.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 I MIXED UNSPECIFIED 07/04/2009 296.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 I MIXED UNSPECIFIED 07/04/2009 WOOD GARCIA DO 296.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 I MIXED UNSPECIFIED 07/04/2009 [facility] PHD, IVY Huynh 296.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 I MIXED UNSPECIFIED 07/04/2009 296.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 I MIXED UNSPECIFIED 07/04/2009 296.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 I MIXED UNSPECIFIED 07/04/2009 296.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 I MIXED UNSPECIFIED 07/04/2009 296.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 I MIXED UNSPECIFIED 07/04/2009 ANDREINA JOHNS MD 296.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 I MIXED UNSPECIFIED 07/04/2009 WOOD GARCIA DO 296.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 I MIXED UNSPECIFIED 07/04/2009 EM FINE MD 296.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 I MIXED UNSPECIFIED 07/04/2009 ANDREINA JOHNS MD 296.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 I MIXED UNSPECIFIED 07/04/2009 ANDREINA JOHNS MD 296.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 I MIXED UNSPECIFIED 07/04/2009 BRUNO DO, CHASE K 296.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 I MIXED UNSPECIFIED 07/04/2009 ANDREINA JOHNS MD 296.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 I MIXED UNSPECIFIED 07/04/2009 EM FINE MD 296.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 I MIXED UNSPECIFIED 07/04/2009 AUGUSTINE EXECUTIVE SERVICES ADMINISTRATOR, SABINA BETHEA 296.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 I MIXED UNSPECIFIED 07/04/2009 REILLY EXECUTIVE SERVICES ADMINISTRATOR, PEPE R 296.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 I MIXED UNSPECIFIED 07/04/2009 ANDREINA JOHNS MD 296.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 I MIXED UNSPECIFIED 07/04/2009 ANDREINA JOHNS MD 296.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 I MIXED UNSPECIFIED 07/04/2009 AUGUSTINE SEGOVIA, SABINA BETHEA 296.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 I MIXED UNSPECIFIED 07/04/2009 RHIANNON EXECUTIVE SERVICES ADMINISTRATOR, KASANDRA T 296.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 I MIXED UNSPECIFIED 07/04/2009 KASANDRA JURADO APRN 296.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 I MIXED UNSPECIFIED 07/04/2009 ANDREINA JOHNS MD 296.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 I MIXED UNSPECIFIED 07/04/2009 CHASE BRUNO DO K 296.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 I MIXED UNSPECIFIED 08/06/2009 ANDREINA JOHNS MD 296.9 MOOD DIS NOS 08/06/2009 ANDREINA JOHNS MD 338.4 Chronic Pain Syndrome 08/06/2009 296.9 MOOD DIS NOS 08/06/2009 338.4 Chronic Pain Syndrome 08/06/2009 ANDREINA JOHNS MD 296.9 MOOD DIS NOS 08/06/2009 ANDREINA JOHNS MD 338.4 Chronic Pain Syndrome 08/06/2009 WOOD GARCIA DO 296.9 MOOD DIS NOS 08/06/2009 WOOD GARCIA DO 338.4 Chronic Pain Syndrome 08/06/2009 296.9 MOOD DIS NOS 08/06/2009 338.4 Chronic Pain Syndrome 08/06/2009 WOOD GARCIA DO 296.9 MOOD DIS NOS 08/06/2009 WOOD GARCIA DO F 338.4 Chronic Pain Syndrome 08/06/2009 PIPER PRADHAN, IVY Huynh 296.9 MOOD DIS NOS 08/06/2009 PIPER PRADHAN, IVY Huynh 338.4 Chronic Pain Syndrome 08/06/2009 296.9 MOOD DIS NOS 08/06/2009 338.4 Chronic Pain Syndrome 08/06/2009 296.9 MOOD DIS NOS 08/06/2009 338.4 Chronic Pain Syndrome 08/06/2009 296.9 MOOD DIS NOS 08/06/2009 338.4 Chronic Pain Syndrome 08/06/2009 296.9 MOOD DIS NOS 08/06/2009 338.4 Chronic Pain Syndrome 08/06/2009 ANDREINA JOHNS MD 296.9 MOOD DIS NOS 08/06/2009 ANDREINA JOHNS MD 338.4 Chronic Pain Syndrome 08/06/2009 WERDER DO, WOOD F 296.9 MOOD DIS NOS 08/06/2009 WERDER DO, WOOD F 338.4 Chronic Pain Syndrome 08/06/2009 EM FINE MD 296.9 MOOD DIS NOS 08/06/2009 EM FINE MD 338.4 Chronic Pain Syndrome 08/06/2009 ANDREINA JOHNS MD 296.9 MOOD DIS NOS 08/06/2009 ANDREINA JOHNS MD 338.4 Chronic Pain Syndrome 08/06/2009 ANDREINA JOHNS MD 296.9 MOOD DIS NOS 08/06/2009 ANDREINA JOHNS MD 338.4 Chronic Pain Syndrome 08/06/2009 BRUNO DO, CHASE K 296.9 MOOD DIS NOS 08/06/2009 BRUNO DO, CHASE K 338.4 Chronic Pain Syndrome 08/06/2009 ANDREINA JOHNS MD 296.9 MOOD DIS NOS 08/06/2009 ANDREINA JOHNS MD 338.4 Chronic Pain Syndrome 08/06/2009 EM FINE MD 296.9 MOOD DIS NOS 08/06/2009 EM FINE MD 338.4 Chronic Pain Syndrome 08/06/2009 SABINA BRADSHAW APRN 296.9 MOOD DIS NOS 08/06/2009 BRADSHAW APRN, SABINA BETHEA 338.4 Chronic Pain Syndrome 08/06/2009 REILLY SEGOVIA PEPE R 296.9 MOOD DIS NOS 08/06/2009 REILLY SEGOVIA PEPE R 338.4 Chronic Pain Syndrome 08/06/2009 ANDREINA JOHNS MD 296.9 MOOD DIS NOS 08/06/2009 ANDREINA JOHNS MD 338.4 Chronic Pain Syndrome 08/06/2009 ANDREINA JOHNS MD 296.9 MOOD DIS NOS 08/06/2009 ANDREINA JOHNS MD 338.4 Chronic Pain Syndrome 08/06/2009 AUGUSTINE LOTTN, SABINA BETHEA 296.9 MOOD DIS NOS 08/06/2009 AUGUSTINE EXECUTIVE SERVICES ADMINISTRATOR, SABINA BETHEA 338.4 Chronic Pain Syndrome 08/06/2009 RHIANNON EXECUTIVE SERVICES ADMINISTRATOR, KASANDRA T 296.9 MOOD DIS NOS 08/06/2009 RHIANNON EXECUTIVE SERVICES ADMINISTRATOR, KASANDRA T 338.4 Chronic Pain Syndrome 08/06/2009 RHIANNON EXECUTIVE SERVICES ADMINISTRATOR, KASANDRA T 296.9 MOOD DIS NOS 08/06/2009 RHIANNON EXECUTIVE SERVICES ADMINISTRATOR, KASANDRA T 338.4 Chronic Pain Syndrome 08/06/2009 ANDREINA JOHNS MD 296.9 MOOD DIS NOS 08/06/2009 ANDREINA JOHNS MD 338.4 Chronic Pain Syndrome 08/06/2009 BRUNO DO, CHASE K 296.9 MOOD DIS NOS 08/06/2009 BRUNO DO, CHASE K 338.4 Chronic Pain Syndrome 08/27/2009 ANDREINA JOHNS MD 719.40 Joint Pain, Localized 08/27/2009 719.40 Joint Pain, Localized 08/27/2009 ANDREINA JOHNS MD 719.40 Joint Pain, Localized 08/27/2009 WOOD GARCIA DO F 719.40 Joint Pain, Localized 08/27/2009 719.40 Joint Pain, Localized 08/27/2009 ANGELES GARCIA DOEN F 719.40 Joint Pain, Localized 08/27/2009 PIPER PHD, IVY Huynh 719.40 Joint Pain, Localized 08/27/2009 719.40 Joint Pain, Localized 08/27/2009 719.40 Joint Pain, Localized 08/27/2009 719.40 Joint Pain, Localized 08/27/2009 719.40 Joint Pain, Localized 08/27/2009 ANDREINA JOHNS MD 719.40 Joint Pain, Localized 08/27/2009 WOOD GARCIA DO F 719.40 Joint Pain, Localized 08/27/2009 EM FINE MD 719.40 Joint Pain, Localized 08/27/2009 ANDREINA JOHNS MD 719.40 Joint Pain, Localized 08/27/2009 ANDREINA JOHNS MD 719.40 Joint Pain, Localized 08/27/2009 BRUNO DO, CHASE K 719.40 Joint Pain, Localized 08/27/2009 ANDREINA JOHNS MD 719.40 Joint Pain, Localized 08/27/2009 EM FINE MD 719.40 Joint Pain, Localized 08/27/2009 BRADSHAW EXECUTIVE SERVICES ADMINISTRATOR, SABINA BETHEA 719.40 Joint Pain, Localized 08/27/2009 REILLY SEGOVIA, PEPE Lopez 719.40 Joint Pain, Localized 08/27/2009 ANDREINA JOHNS MD 719.40 Joint Pain, Localized 08/27/2009 ANDREINA JOHNS MD 719.40 Joint Pain, Localized 08/27/2009 BRADSHAW EXECUTIVE SERVICES ADMINISTRATOR, SABINA BETHEA 719.40 Joint Pain, Localized 08/27/2009 RHIANNON EXECUTIVE SERVICES ADMINISTRATOR, KASANDRA T 719.40 Joint Pain, Localized 08/27/2009 RHIANNON EXECUTIVE SERVICES ADMINISTRATOR, KASANDRA T 719.40 Joint Pain, Localized 08/27/2009 ANDREINA JOHNS MD 719.40 Joint Pain, Localized 08/27/2009 CHASE BRUNO DO 719.40 Joint Pain, Localized 11/11/2009 Ot 719.41 11/11/2009 Ot 729.1 11/11/2009 Ot V57.1 12/15/2009 ANDREINA JOHNS MD 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 12/15/2009 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 12/15/2009 ANDREINA JOHNS MD 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 12/15/2009 WOOD GARCIA DO 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 12/15/2009 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 12/15/2009 WOOD GARCIA DO 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 12/15/2009 PIPER PHD, IVY Huynh 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 12/15/2009 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 12/15/2009 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 12/15/2009 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 12/15/2009 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 12/15/2009 ANDREINA JOHNS MD 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 12/15/2009 WOOD GARCIA DO 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 12/15/2009 EM FINE MD 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 12/15/2009 ANDREINA JOHNS MD 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 12/15/2009 ANDREINA JOHNS MD 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 12/15/2009 BRUNO DO, CHASE K 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 12/15/2009 ANDREINA JOHNS MD 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 12/15/2009 RODY CRUZ, EM Salgado 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 12/15/2009 BRADSHAW EXECUTIVE SERVICES ADMINISTRATOR, SABINA BETHEA 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 12/15/2009 REILLY EXECUTIVE SERVICES ADMINISTRATOR, PEPE R 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 12/15/2009 ANDREINA JOHNS MD 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 12/15/2009 ANDREINA JOHNS MD 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 12/15/2009 AUGUSTINE EXECUTIVE SERVICES ADMINISTRATOR, SABINA BETHEA 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 12/15/2009 RHIANNON EXECUTIVE SERVICES ADMINISTRATOR, KASANDRA Aaron 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 12/15/2009 RHIANNON SEGOVIA, KASANDRA Aaron 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 12/15/2009 ANDREINA JOHNS MD 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 12/15/2009 BRUNO DO, CHASE Morris 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 02/12/2010 ANDREINA JOHNS MD 300.01 AN PANIC DIS W/O AGORA 02/12/2010 300.01 AN PANIC DIS W/O AGORA 02/12/2010 ANDREINA JOHNS MD 300.01 AN PANIC DIS W/O AGORA 02/12/2010 WOOD GARCIA DO 300.01 AN PANIC DIS W/O AGORA 02/12/2010 300.01 AN PANIC DIS W/O AGORA 02/12/2010 WOOD GARCIA DO 300.01 AN PANIC DIS W/O AGORA 02/12/2010 PIPER PHD, IVY A 300.01 AN PANIC DIS W/O AGORA 02/12/2010 300.01 AN PANIC DIS W/O AGORA 02/12/2010 300.01 AN PANIC DIS W/O AGORA 02/12/2010 300.01 AN PANIC DIS W/O AGORA 02/12/2010 300.01 AN PANIC DIS W/O AGORA 02/12/2010 ANDREINA JOHNS MD 300.01 AN PANIC DIS W/O AGORA 02/12/2010 WOOD GARCIA DO 300.01 AN PANIC DIS W/O AGORA 02/12/2010 EM FINE MD 300.01 AN PANIC DIS W/O AGORA 02/12/2010 ANDREINA JOHNS MD 300.01 AN PANIC DIS W/O AGORA 02/12/2010 ANDREINA JOHNS MD 300.01 AN PANIC DIS W/O AGORA 02/12/2010 CHASE BRUNO DO 300.01 AN PANIC DIS W/O AGORA 02/12/2010 ANDREINA JOHNS MD 300.01 AN PANIC DIS W/O AGORA 02/12/2010 EM FINE MD 300.01 AN PANIC DIS W/O AGORA 02/12/2010 SBAINA BRADSHAW APRN 300.01 AN PANIC DIS W/O AGORA 02/12/2010 PEPE GROVER APRN 300.01 AN PANIC DIS W/O AGORA 02/12/2010 ANDREINA JOHNS MD 300.01 AN PANIC DIS W/O AGORA 02/12/2010 ANDREINA JOHNS MD 300.01 AN PANIC DIS W/O AGORA 02/12/2010 SABINA BRADSHAW APRN 300.01 AN PANIC DIS W/O AGORA 02/12/2010 KASANDRA JURADO APRN 300.01 AN PANIC DIS W/O AGORA 02/12/2010 KASANDRA JURADO APRN 300.01 AN PANIC DIS W/O AGORA 02/12/2010 ANDREINA JOHNS MD 300.01 AN PANIC DIS W/O AGORA 02/12/2010 CHASE BRUNO DO K 300.01 AN PANIC DIS W/O AGORA 02/16/2010 ANDREINA JOHNS MD 715.16 Osteoarthritis Localized Primary - Knee Right 02/16/2010 715.16 Osteoarthritis Localized Primary - Knee Right 02/16/2010 ANDREINA JOHNS MD 715.16 Osteoarthritis Localized Primary - Knee Right 02/16/2010 WOOD GARCIA DO 715.16 Osteoarthritis Localized Primary - Knee Right 02/16/2010 715.16 Osteoarthritis Localized Primary - Knee Right 02/16/2010 WOOD GARCIA DO 715.16 Osteoarthritis Localized Primary - Knee Right 02/16/2010 PIPER PRADHAN, IVY Huynh 715.16 Osteoarthritis Localized Primary - Knee Right 02/16/2010 715.16 Osteoarthritis Localized Primary - Knee Right 02/16/2010 715.16 Osteoarthritis Localized Primary - Knee Right 02/16/2010 715.16 Osteoarthritis Localized Primary - Knee Right 02/16/2010 715.16 Osteoarthritis Localized Primary - Knee Right 02/16/2010 ANDREINA JOHNS MD 715.16 Osteoarthritis Localized Primary - Knee Right 02/16/2010 WOOD GARCIA DO 715.16 Osteoarthritis Localized Primary - Knee Right 02/16/2010 EM FINE MD 715.16 Osteoarthritis Localized Primary - Knee Right 02/16/2010 ANDREINA JOHNS MD.16 Osteoarthritis Localized Primary - Knee Right 02/16/2010 ANDREINA JOHNS MD5.16 Osteoarthritis Localized Primary - Knee Right 02/16/2010 CHASE BRUNO DO 715.16 Osteoarthritis Localized Primary - Knee Right 02/16/2010 ANDREINA JOHNS MD5.16 Osteoarthritis Localized Primary - Knee Right 02/16/2010 EM FINE MD 715.16 Osteoarthritis Localized Primary - Knee Right 02/16/2010 SABINA BRADSHAW APRN 715.16 Osteoarthritis Localized Primary - Knee Right 02/16/2010 PEPE GROVER APRN 715.16 Osteoarthritis Localized Primary - Knee Right 02/16/2010 ANDREINA JOHNS MD.16 Osteoarthritis Localized Primary - Knee Right 02/16/2010 ANDREINA JOHNS MD.16 Osteoarthritis Localized Primary - Knee Right 02/16/2010 SABINA BRADSHAW APRN 715.16 Osteoarthritis Localized Primary - Knee Right 02/16/2010 KASANDRA JURADO APRN 715.16 Osteoarthritis Localized Primary - Knee Right 02/16/2010 KASANDRA JURADO APRN 715.16 Osteoarthritis Localized Primary - Knee Right 02/16/2010 ANDREINA JOHNS MD 715.16 Osteoarthritis Localized Primary - Knee Right 02/16/2010 CHASE BRUNO DO 715.16 Osteoarthritis Localized Primary - Knee Right 04/27/2010 ANDREINA JOHNS MD 729.1 FIBROMYALGIA 04/27/2010 729.1 FIBROMYALGIA 04/27/2010 ANDREINA JOHNS MD 729.1 FIBROMYALGIA 04/27/2010 WOOD GARCIA DO 729.1 FIBROMYALGIA 04/27/2010 729.1 FIBROMYALGIA 04/27/2010 WOOD GARCIA DO 729.1 FIBROMYALGIA 04/27/2010 PIPER PHD, IVY Huynh 729.1 FIBROMYALGIA 04/27/2010 729.1 FIBROMYALGIA 04/27/2010 729.1 FIBROMYALGIA 04/27/2010 729.1 FIBROMYALGIA 04/27/2010 729.1 FIBROMYALGIA 04/27/2010 NAT CRUZ, ANDREINA 729.1 FIBROMYALGIA 04/27/2010 WOOD GARCIA DO 729.1 FIBROMYALGIA 04/27/2010 EM FINE MD 729.1 FIBROMYALGIA 04/27/2010 NAT CRUZ, ANDREINA 729.1 FIBROMYALGIA 04/27/2010 NAT CRUZ, ANDREINA 729.1 FIBROMYALGIA 04/27/2010 CHASE BRUNO DO 729.1 FIBROMYALGIA 04/27/2010 NAT CRUZ, ANDREINA 729.1 FIBROMYALGIA 04/27/2010 EM FINE MD 729.1 FIBROMYALGIA 04/27/2010 AUGUSTINE SEGOVIA, SABINA BETHEA 729.1 FIBROMYALGIA 04/27/2010 PEPE GROVER APRN 729.1 FIBROMYALGIA 04/27/2010 NAT CRUZ, ANDREINA 729.1 FIBROMYALGIA 04/27/2010 NAT CRUZ, ANDREINA 729.1 FIBROMYALGIA 04/27/2010 AUGUSTINE SEGOVIA, SABINA BETHEA 729.1 FIBROMYALGIA 04/27/2010 KASANDRA JURADO APRN 729.1 FIBROMYALGIA 04/27/2010 KASANDRA JURADO APRN 729.1 FIBROMYALGIA 04/27/2010 NAT CRUZ, ANDREINA 729.1 FIBROMYALGIA 04/27/2010 CHASE BRUNO DO 729.1 FIBROMYALGIA 07/20/2010 ANDREINA JOHNS MD 599.70 Hematuria, Unspecified 07/20/2010 599.70 Hematuria, Unspecified 07/20/2010 ANDREINA JOHNS MD 599.70 Hematuria, Unspecified 07/20/2010 WOOD GARCIA DO 599.70 Hematuria, Unspecified 07/20/2010 599.70 Hematuria, Unspecified 07/20/2010 WOOD GARCIA DO 599.70 Hematuria, Unspecified 07/20/2010 PIPER PHD, IVY Huynh 599.70 Hematuria, Unspecified 07/20/2010 599.70 Hematuria, Unspecified 07/20/2010 599.70 Hematuria, Unspecified 07/20/2010 599.70 Hematuria, Unspecified 07/20/2010 599.70 Hematuria, Unspecified 07/20/2010 NAT CRUZ, ANDREINA 599.70 Hematuria, Unspecified 07/20/2010 WOOD GARCIA DO 599.70 Hematuria, Unspecified 07/20/2010 RODY CRUZ, EM Salgado 599.70 Hematuria, Unspecified 07/20/2010 ANDREINA JOHNS MD 599.70 Hematuria, Unspecified 07/20/2010 ANDREINA JOHNS MD 599.70 Hematuria, Unspecified 07/20/2010 CHASE BRUNO DO 599.70 Hematuria, Unspecified 07/20/2010 ANDREINA JOHNS MD 599.70 Hematuria, Unspecified 07/20/2010 RODY CRUZ, EM Salgado 599.70 Hematuria, Unspecified 07/20/2010 AUGUSTINE SEGOVIA, SABINA [place] 599.70 Hematuria, Unspecified 07/20/2010 REILLY SEGOVIA, PEPE Lopez 599.70 Hematuria, Unspecified 07/20/2010 ANDREINA JOHNS MD 599.70 Hematuria, Unspecified 07/20/2010 ANDREINA JOHNS MD 599.70 Hematuria, Unspecified 07/20/2010 AUGUSTINE SEGOVIA, SABINA BETHEA 599.70 Hematuria, Unspecified 07/20/2010 KASANDRA JURADO APRN 599.70 Hematuria, Unspecified 07/20/2010 KASANDRA JURADO APRN 599.70 Hematuria, Unspecified 07/20/2010 ANDREINA JOHNS MD 599.70 Hematuria, Unspecified 07/20/2010 CHASE BRUNO DO 599.70 Hematuria, Unspecified 11/21/2010 Ot 285.9 11/21/2010 Ot 780.79 11/21/2010 Ot 782.0 11/23/2010 ANDREINA JOHNS MD 287.5 Thrombocytopenia Unspecified 11/23/2010 ANDREINA JOHNS MD 784.59 Other Speech Disturbance 11/23/2010 287.5 Thrombocytopenia Unspecified 11/23/2010 784.59 Other Speech Disturbance 11/23/2010 ANDREINA JOHNS MD 287.5 Thrombocytopenia Unspecified 11/23/2010 ANDREINA JOHNS MD 784.59 Other Speech Disturbance 11/23/2010 WERDER DO, WOOD F 287.5 Thrombocytopenia Unspecified 11/23/2010 WERDER DO, WOOD F 784.59 Other Speech Disturbance 11/23/2010 287.5 Thrombocytopenia Unspecified 11/23/2010 784.59 Other Speech Disturbance 11/23/2010 WERDER DO, WOOD F 287.5 Thrombocytopenia Unspecified 11/23/2010 WERDER DO, WOOD F 784.59 Other Speech Disturbance 11/23/2010 IVY SALDAÑA PHD 287.5 Thrombocytopenia Unspecified 11/23/2010 PIPER PRADHAN, IVY Huynh 784.59 Other Speech Disturbance 11/23/2010 287.5 Thrombocytopenia Unspecified 11/23/2010 784.59 Other Speech Disturbance 11/23/2010 287.5 Thrombocytopenia Unspecified 11/23/2010 784.59 Other Speech Disturbance 11/23/2010 287.5 Thrombocytopenia Unspecified 11/23/2010 784.59 Other Speech Disturbance 11/23/2010 287.5 Thrombocytopenia Unspecified 11/23/2010 784.59 Other Speech Disturbance 11/23/2010 ANDREINA JOHNS MD 287.5 Thrombocytopenia Unspecified 11/23/2010 ANDREINA JOHNS MD 784.59 Other Speech Disturbance 11/23/2010 WERANGELICA DO, WOOD F 287.5 Thrombocytopenia Unspecified 11/23/2010 WERANGELICA DO, WOOD F 784.59 Other Speech Disturbance 11/23/2010 EM FINE MD 287.5 Thrombocytopenia Unspecified 11/23/2010 EM FINE MD 784.59 Other Speech Disturbance 11/23/2010 ANDREINA JOHNS MD 287.5 Thrombocytopenia Unspecified 11/23/2010 ANDREINA JOHNS MD 784.59 Other Speech Disturbance 11/23/2010 ANDREINA JOHNS MD 287.5 Thrombocytopenia Unspecified 11/23/2010 ANDREINA JOHNS MD 784.59 Other Speech Disturbance 11/23/2010 BRUNO DO, CHASE K 287.5 Thrombocytopenia Unspecified 11/23/2010 BRUNO DO, CHASE K 784.59 Other Speech Disturbance 11/23/2010 ANDREINA JOHNS MD 287.5 Thrombocytopenia Unspecified 11/23/2010 ANDREINA JOHNS MD 784.59 Other Speech Disturbance 11/23/2010 EM FINE MD 287.5 Thrombocytopenia Unspecified 11/23/2010 EM FINE MD 784.59 Other Speech Disturbance 11/23/2010 BRADSHAW EXECUTIVE SERVICES ADMINISTRATOR, SABINA BETHEA 287.5 Thrombocytopenia Unspecified 11/23/2010 BRADSHAW EXECUTIVE SERVICES ADMINISTRATOR, SABINA BETHEA 784.59 Other Speech Disturbance 11/23/2010 REILLY EXECUTIVE SERVICES ADMINISTRATOR, PEPE R 287.5 Thrombocytopenia Unspecified 11/23/2010 REILLY EXECUTIVE SERVICES ADMINISTRATOR, PEPE R 784.59 Other Speech Disturbance 11/23/2010 ANDREINA JOHNS MD 287.5 Thrombocytopenia Unspecified 11/23/2010 ANDREINA JOHNS MD 784.59 Other Speech Disturbance 11/23/2010 ANDREINA JOHNS MD 287.5 Thrombocytopenia Unspecified 11/23/2010 ANDREINA JOHNS MD 784.59 Other Speech Disturbance 11/23/2010 AUGUSTINE EXECUTIVE SERVICES ADMINISTRATOR, SABINA BETHEA 287.5 Thrombocytopenia Unspecified 11/23/2010 BRADSHAW EXECUTIVE SERVICES ADMINISTRATOR, SABINA BETHEA 784.59 Other Speech Disturbance 11/23/2010 RHIANNON SEGOVIA KASANDRA T 287.5 Thrombocytopenia Unspecified 11/23/2010 RHIANNON SEGOVIA KASANDRA T 784.59 Other Speech Disturbance 11/23/2010 RHIANNON SEGOVIA KASANDRA T 287.5 Thrombocytopenia Unspecified 11/23/2010 RHIANNON SEGOVIA KASANDRA T 784.59 Other Speech Disturbance 11/23/2010 ANDREINA JOHNS MD 287.5 Thrombocytopenia Unspecified 11/23/2010 ANDREINA JOHNS MD 784.59 Other Speech Disturbance 11/23/2010 BRUNO DO, CHASE K 287.5 Thrombocytopenia Unspecified 11/23/2010 BRUNO DO, CHASE K 784.59 Other Speech Disturbance 01/29/2011 Ot 780.79 01/29/2011 Ot 784.59 01/29/2011 Ot V57.21 02/09/2011 ANDREINA JOHNS MD 703.0 NAIL INGROWN 02/09/2011 703.0 NAIL INGROWN 02/09/2011 ANDREINA JOHNS MD 703.0 NAIL INGROWN 02/09/2011 WOOD GARCIA DO 703.0 NAIL INGROWN 02/09/2011 703.0 NAIL INGROWN 02/09/2011 WOOD GARCIA DO 703.0 NAIL INGROWN 02/09/2011 PIPER PHD, IVY Huynh 703.0 NAIL INGROWN 02/09/2011 703.0 NAIL INGROWN 02/09/2011 703.0 NAIL INGROWN 02/09/2011 703.0 NAIL INGROWN 02/09/2011 703.0 NAIL INGROWN 02/09/2011 NAT CRUZ, ANDREINA 703.0 NAIL INGROWN 02/09/2011 WOOD GARCIA DO 703.0 NAIL INGROWN 02/09/2011 RODY CRUZ, EM Salgado 703.0 NAIL INGROWN 02/09/2011 NAT CRUZ, ANDREINA 703.0 NAIL INGROWN 02/09/2011 NAT CRUZ, ANDREINA 703.0 NAIL INGROWN 02/09/2011 CHASE BRUNO DO 703.0 NAIL INGROWN 02/09/2011 NAT CRUZ, ANDREINA 703.0 NAIL INGROWN 02/09/2011 RODY CRUZ, EM Salgado 703.0 NAIL INGROWN 02/09/2011 BRADSHAW EXECUTIVE SERVICES ADMINISTRATOR, SABINA TINEOH 703.0 NAIL INGROWN 02/09/2011 REILLY EXECUTIVE SERVICES ADMINISTRATOR, PEPE Lopez 703.0 NAIL INGROWN 02/09/2011 NAT CRUZ, ANDREINA 703.0 NAIL INGROWN 02/09/2011 NAT CRUZ, ANDREINA 703.0 NAIL INGROWN 02/09/2011 BRADSHAW EXECUTIVE SERVICES ADMINISTRATOR, SABINA TINEOH 703.0 NAIL INGROWN 02/09/2011 RHIANNON SEGOVIA, KASANDRA Aaron 703.0 NAIL INGROWN 02/09/2011 RHIANNON SEGOVIA, KASANDRA Aaron 703.0 NAIL INGROWN 02/09/2011 NAT CRUZ, ANDREINA 703.0 NAIL INGROWN 02/09/2011 KIANA SANTANA, CHASE Morris 703.0 NAIL INGROWN 03/10/2011 ANDREINA JOHNS MD 682.9 CELLULITIS AND ABSCESS OF UNSPECIFIED SITES 03/10/2011 682.9 CELLULITIS AND ABSCESS OF UNSPECIFIED SITES 03/10/2011 ANDREINA JOHNS MD 682.9 CELLULITIS AND ABSCESS OF UNSPECIFIED SITES 03/10/2011 WOOD GARCIA DO 682.9 CELLULITIS AND ABSCESS OF UNSPECIFIED SITES 03/10/2011 682.9 CELLULITIS AND ABSCESS OF UNSPECIFIED SITES 03/10/2011 WOOD GARCIA DO 682.9 CELLULITIS AND ABSCESS OF UNSPECIFIED SITES 03/10/2011 PIPER PHD, IVY Huynh 682.9 CELLULITIS AND ABSCESS OF UNSPECIFIED SITES 03/10/2011 682.9 CELLULITIS AND ABSCESS OF UNSPECIFIED SITES 03/10/2011 682.9 CELLULITIS AND ABSCESS OF UNSPECIFIED SITES 03/10/2011 682.9 CELLULITIS AND ABSCESS OF UNSPECIFIED SITES 03/10/2011 682.9 CELLULITIS AND ABSCESS OF UNSPECIFIED SITES 03/10/2011 ANDREINA JOHNS MD 682.9 CELLULITIS AND ABSCESS OF UNSPECIFIED SITES 03/10/2011 WOOD GARCIA DO 682.9 CELLULITIS AND ABSCESS OF UNSPECIFIED SITES 03/10/2011 EM FINE MD 682.9 CELLULITIS AND ABSCESS OF UNSPECIFIED SITES 03/10/2011 ANDREINA JOHNS MD 682.9 CELLULITIS AND ABSCESS OF UNSPECIFIED SITES 03/10/2011 ANDREINA JOHNS MD 682.9 CELLULITIS AND ABSCESS OF UNSPECIFIED SITES 03/10/2011 CHASE BRUNO DO 682.9 CELLULITIS AND ABSCESS OF UNSPECIFIED SITES 03/10/2011 ANDREINA JOHNS MD 682.9 CELLULITIS AND ABSCESS OF UNSPECIFIED SITES 03/10/2011 EM FINE MD 682.9 CELLULITIS AND ABSCESS OF UNSPECIFIED SITES 03/10/2011 SABINA BRADSHAW APRN 682.9 CELLULITIS AND ABSCESS OF UNSPECIFIED SITES 03/10/2011 PEPE GROVER APRN 682.9 CELLULITIS AND ABSCESS OF UNSPECIFIED SITES 03/10/2011 ANDREINA JOHNS MD 682.9 CELLULITIS AND ABSCESS OF UNSPECIFIED SITES 03/10/2011 ANDREINA JOHNS MD 682.9 CELLULITIS AND ABSCESS OF UNSPECIFIED SITES 03/10/2011 SABINA BRADSHAW APRN 682.9 CELLULITIS AND ABSCESS OF UNSPECIFIED SITES 03/10/2011 KASANDRA JURADO APRN 682.9 CELLULITIS AND ABSCESS OF UNSPECIFIED SITES 03/10/2011 KASANDRA JURADO APRN 682.9 CELLULITIS AND ABSCESS OF UNSPECIFIED SITES 03/10/2011 ANDREINA JOHNS MD 682.9 CELLULITIS AND ABSCESS OF UNSPECIFIED SITES 03/10/2011 CHASE BRUNO DO 682.9 CELLULITIS AND ABSCESS OF UNSPECIFIED SITES 04/25/2011 Ot 280.9 IRON DEFIC ANEMIA NOS 06/17/2011 ANDREINA JOHNS MD 782.3 EDEMA 06/17/2011 782.3 EDEMA 06/17/2011 NAT CRUZ, ANDREINA 782.3 EDEMA 06/17/2011 WOOD GARCIA DO 782.3 Edema 06/17/2011 782.3 Edema 06/17/2011 RADHA SANTANA, WOOD F 782.3 Edema 06/17/2011 PIPER PHD, IVY Huynh 782.3 Edema 06/17/2011 782.3 Edema 06/17/2011 782.3 Edema 06/17/2011 782.3 Edema 06/17/2011 782.3 Edema 06/17/2011 NAT CRUZ, ANDREINA 782.3 Edema 06/17/2011 WOOD GARCIA DO 782.3 Edema 06/17/2011 RODY CRUZ, EM Salgado 782.3 Edema 06/17/2011 NAT CRUZ, ANDREINA 782.3 Edema 06/17/2011 NAT CRUZ, ANDREINA 782.3 Edema 06/17/2011 CHASE BRUNO DO 782.3 Edema 06/17/2011 NAT CRUZ, ANDREINA 782.3 Edema 06/17/2011 EM FINE MD 782.3 Edema 06/17/2011 AUGUSTINE SEGOVIA, SABINA BETHEA 782.3 Edema 06/17/2011 PEPE GROVER APRN 782.3 Edema 06/17/2011 ANDREINA JOHNS MD 782.3 Edema 06/17/2011 ANDREINA JOHNS MD 782.3 Edema 06/17/2011 AUGUSTINE SEGOVIA, SABINA BETHEA 782.3 Edema 06/17/2011 KASANDRA JURADO APRN 782.3 Edema 06/17/2011 KASANDRA JURADO APRN 782.3 Edema 06/17/2011 ANDREINA JOHNS MD 782.3 Edema 06/17/2011 BRUNO DOCHASE 782.3 Edema 06/17/2011 Ot 729.5 PAIN IN LIMB 06/17/2011 Ot 782.3 EDEMA 07/19/2011 ANDREINA JOHNS MD 462 ACUTE PHARYNGITIS 07/19/2011 462 ACUTE PHARYNGITIS 07/19/2011 ANDREINA JOHNS MD 462 ACUTE PHARYNGITIS 07/19/2011 WOOD GARCIA DO 462 ACUTE PHARYNGITIS 07/19/2011 462 ACUTE PHARYNGITIS 07/19/2011 WOOD GARCIA DO 462 ACUTE PHARYNGITIS 07/19/2011 PIPER PHD, IVY Huynh 462 ACUTE PHARYNGITIS 07/19/2011 462 ACUTE PHARYNGITIS 07/19/2011 462 ACUTE PHARYNGITIS 07/19/2011 462 ACUTE PHARYNGITIS 07/19/2011 462 ACUTE PHARYNGITIS 07/19/2011 ANDREINA JOHNS MD 462 ACUTE PHARYNGITIS 07/19/2011 WOOD GARCIA DO 462 ACUTE PHARYNGITIS 07/19/2011 RODY CRUZ, EM Salgado 462 ACUTE PHARYNGITIS 07/19/2011 NAT CRUZ, ANDREINA 462 ACUTE PHARYNGITIS 07/19/2011 ANDREINA JOHNS MD 462 ACUTE PHARYNGITIS 07/19/2011 CHASE BRUNO DO 462 ACUTE PHARYNGITIS 07/19/2011 ANDREINA JOHNS MD 462 ACUTE PHARYNGITIS 07/19/2011 EM FINE MD 462 ACUTE PHARYNGITIS 07/19/2011 AUGUSTINE SEGOVIA, SABINA BETHEA 462 ACUTE PHARYNGITIS 07/19/2011 JONATAN GROVER APRNINA R 462 ACUTE PHARYNGITIS 07/19/2011 ANDREINA JOHNS MD 462 ACUTE PHARYNGITIS 07/19/2011 ANDREINA JOHNS MD 462 ACUTE PHARYNGITIS 07/19/2011 AUGUSTINE SEGOVIA, SABINA BETHEA 462 ACUTE PHARYNGITIS 07/19/2011 KASANDRA JURADO APRN 46Martha ACUTE PHARYNGITIS 07/19/2011 KASANDRA JURADO APRN 46Martha ACUTE PHARYNGITIS 07/19/2011 ANDREINA JOHNS MD 462 ACUTE PHARYNGITIS 07/19/2011 CHASE BRUNO DO 462 ACUTE PHARYNGITIS 08/29/2011 Ot 280.9 IRON DEFIC ANEMIA NOS 09/21/2011 ANDREINA JOHNS MD 346.00 Migraine With Aura Without Mention Of Intractable Migraine Without Mention Of Status Migrainosus 09/21/2011 ANDREINA JOHNS MD 466.0 Acute Bronchitis 09/21/2011 346.00 Migraine With Aura Without Mention Of Intractable Migraine Without Mention Of Status Migrainosus 09/21/2011 466.0 Acute Bronchitis 09/21/2011 ANDREINA JOHNS MD 346.00 Migraine With Aura Without Mention Of Intractable Migraine Without Mention Of Status Migrainosus 09/21/2011 ANDREINA JOHNS MD 466.0 Acute Bronchitis 09/21/2011 WOOD GARCIA DO F 346.00 Migraine With Aura Without Mention Of Intractable Migraine Without Mention Of Status Migrainosus 09/21/2011 WOOD GARCIA DO F 466.0 Acute Bronchitis 09/21/2011 346.00 Migraine With Aura Without Mention Of Intractable Migraine Without Mention Of Status Migrainosus 09/21/2011 466.0 Acute Bronchitis 09/21/2011 WOOD GARCIA DO F 346.00 Migraine With Aura Without Mention Of Intractable Migraine Without Mention Of Status Migrainosus 09/21/2011 WOOD GARCIA DO F 466.0 Acute Bronchitis 09/21/2011 IVY SALDAÑA PHD 346.00 Migraine With Aura Without Mention Of Intractable Migraine Without Mention Of Status Migrainosus 09/21/2011 IVY SALDAÑA PHD 466.0 Acute Bronchitis 09/21/2011 346.00 Migraine With Aura Without Mention Of Intractable Migraine Without Mention Of Status Migrainosus 09/21/2011 466.0 Acute Bronchitis 09/21/2011 346.00 Migraine With Aura Without Mention Of Intractable Migraine Without Mention Of Status Migrainosus 09/21/2011 466.0 Acute Bronchitis 09/21/2011 346.00 Migraine With Aura Without Mention Of Intractable Migraine Without Mention Of Status Migrainosus 09/21/2011 466.0 Acute Bronchitis 09/21/2011 346.00 Migraine With Aura Without Mention Of Intractable Migraine Without Mention Of Status Migrainosus 09/21/2011 466.0 Acute Bronchitis 09/21/2011 ANDREINA JOHNS MD 346.00 Migraine With Aura Without Mention Of Intractable Migraine Without Mention Of Status Migrainosus 09/21/2011 ANDREINA JOHNS MD 466.0 Acute Bronchitis 09/21/2011 WOOD GARCIA DO F 346.00 Migraine With Aura Without Mention Of Intractable Migraine Without Mention Of Status Migrainosus 09/21/2011 WOOD GARCIA DO F 466.0 Acute Bronchitis 09/21/2011 EM FINE MD 346.00 Migraine With Aura Without Mention Of Intractable Migraine Without Mention Of Status Migrainosus 09/21/2011 EM FINE MD 466.0 Acute Bronchitis 09/21/2011 ANDREINA JOHNS MD 346.00 Migraine With Aura Without Mention Of Intractable Migraine Without Mention Of Status Migrainosus 09/21/2011 NAT CRUZ, ANDREINA 466.0 Acute Bronchitis 09/21/2011 NAT CRUZ, ANDREINA 346.00 Migraine With Aura Without Mention Of Intractable Migraine Without Mention Of Status Migrainosus 09/21/2011 ANDREINA JOHNS MD 466.0 Acute Bronchitis 09/21/2011 BRUNO DO, CHASE K 346.00 Migraine With Aura Without Mention Of Intractable Migraine Without Mention Of Status Migrainosus 09/21/2011 BRUNO DO, CHASE K 466.0 Acute Bronchitis 09/21/2011 ANDREINA JOHNS MD 346.00 Migraine With Aura Without Mention Of Intractable Migraine Without Mention Of Status Migrainosus 09/21/2011 ANDREINA JOHNS MD 466.0 Acute Bronchitis 09/21/2011 EM FINE MD 346.00 Migraine With Aura Without Mention Of Intractable Migraine Without Mention Of Status Migrainosus 09/21/2011 EM FINE MD 466.0 Acute Bronchitis 09/21/2011 AUGUSTINE SEGOVIA SABINA TINEOH 346.00 Migraine With Aura Without Mention Of Intractable Migraine Without Mention Of Status Migrainosus 09/21/2011 SABINA BRADSHAW APRN 466.0 Acute Bronchitis 09/21/2011 REILLY SEGOVIA, PEPE R 346.00 Migraine With Aura Without Mention Of Intractable Migraine Without Mention Of Status Migrainosus 09/21/2011 REILLY SEGOVIA, PEPE R 466.0 Acute Bronchitis 09/21/2011 ANDREINA JOHNS MD 346.00 Migraine With Aura Without Mention Of Intractable Migraine Without Mention Of Status Migrainosus 09/21/2011 ANDREINA JOHNS MD 466.0 Acute Bronchitis 09/21/2011 ANDREINA JOHNS MD 346.00 Migraine With Aura Without Mention Of Intractable Migraine Without Mention Of Status Migrainosus 09/21/2011 ANDREINA JOHNS MD 466.0 Acute Bronchitis 09/21/2011 AUGUSTINE SEGOVIA SABINA TINEOH 346.00 Migraine With Aura Without Mention Of Intractable Migraine Without Mention Of Status Migrainosus 09/21/2011 SABINA BRADSHAW APRN 466.0 Acute Bronchitis 09/21/2011 KASANDRA JURADO APRN T 346.00 Migraine With Aura Without Mention Of Intractable Migraine Without Mention Of Status Migrainosus 09/21/2011 KASANDRA JURADO APRN T 466.0 Acute Bronchitis 09/21/2011 KASANDRA JURADO APRN 346.00 Migraine With Aura Without Mention Of Intractable Migraine Without Mention Of Status Migrainosus 09/21/2011 KASANDRA JURADO APRN Galen 466.0 Acute Bronchitis 09/21/2011 ANDREINA JOHNS MD 346.00 Migraine With Aura Without Mention Of Intractable Migraine Without Mention Of Status Migrainosus 09/21/2011 ANDREINA JOHNS MD 466.0 Acute Bronchitis 09/21/2011 KIANA CHASE K 346.00 Migraine With Aura Without Mention Of Intractable Migraine Without Mention Of Status Migrainosus 09/21/2011 BRUNO CHASE 466.0 Acute Bronchitis 10/15/2011 Ot 530.81 ESOPHAGEAL REFLUX 10/15/2011 Ot 564.00 UNSPEC CONSTIPATION 10/15/2011 Ot V12.72 PERSONAL HISTORY OF COLONIC POLYPS 10/15/2011 Ot V45.86 BARIATRIC SURGERY STATUS 10/15/2011 Ot V64.3 NO PROC FOR REASONS NEC 10/15/2011 Ot V76.51 SCREEN MAL NEOP-COLON 12/20/2011 Ot 311 DEPRESSIVE DISORDER NEC 12/20/2011 Ot 536.8 STOMACH FUNCTION DIS NEC 12/20/2011 Ot 704.41 PILAR CYST 12/20/2011 Ot 706.2 SEBACEOUS CYST 12/20/2011 Ot 716.90 ARTHROPATHY NOS-UNSPEC 12/20/2011 Ot 780.39 OTHER CONVULSIONS 12/20/2011 Ot 787.02 NAUSEA ALONE 12/20/2011 Ot 787.99 OTHER GI SYSTEM SYMPTOMS 12/20/2011 Ot V58.69 OTH MED,LT, CURRENT USE 12/26/2011 Ot 280.9 IRON DEFIC ANEMIA NOS 01/03/2012 ANDREINA JOHNS MD 780.79 Other Malaise And Fatigue 01/03/2012 780.79 Other Malaise And Fatigue 01/03/2012 ANDREINA JOHNS MD 780.79 Other Malaise And Fatigue 01/03/2012 WOOD GARCIA DO 780.79 Other Malaise And Fatigue 01/03/2012 780.79 Other Malaise And Fatigue 01/03/2012 WOOD GARCIA DO 780.79 Other Malaise And Fatigue 01/03/2012 PIPER PHD, IVY Huynh 780.79 Other Malaise And Fatigue 01/03/2012 780.79 Other Malaise And Fatigue 01/03/2012 780.79 Other Malaise And Fatigue 01/03/2012 780.79 Other Malaise And Fatigue 01/03/2012 780.79 Other Malaise And Fatigue 01/03/2012 ANDREINA JOHNS MD 780.79 Other Malaise And Fatigue 01/03/2012 WOOD GARCIA DO 780.79 Other Malaise And Fatigue 01/03/2012 EM FINE MD 780.79 Other Malaise And Fatigue 01/03/2012 ANDREINA JOHNS MD 780.79 Other Malaise And Fatigue 01/03/2012 ANDREINA JOHNS MD 780.79 Other Malaise And Fatigue 01/03/2012 CHASE BRUNO DO 780.79 Other Malaise And Fatigue 01/03/2012 ANDREINA JOHNS MD 780.79 Other Malaise And Fatigue 01/03/2012 EM FINE MD 780.79 Other Malaise And Fatigue 01/03/2012 SABINA BRADSHAW APRN 780.79 Other Malaise And Fatigue 01/03/2012 PEPE GROVER APRN 780.79 Other Malaise And Fatigue 01/03/2012 ANDREINA JOHNS MD 780.79 Other Malaise And Fatigue 01/03/2012 ANDREINA JOHNS MD 780.79 Other Malaise And Fatigue 01/03/2012 SABINA BRADSHAW APRN 780.79 Other Malaise And Fatigue 01/03/2012 KASANDRA JURADO APRN 780.79 Other Malaise And Fatigue 01/03/2012 KASANDRA JURADO APRN 780.79 Other Malaise And Fatigue 01/03/2012 ANDREINA JOHNS MD 780.79 Other Malaise And Fatigue 01/03/2012 CHASE BRUNO DO 780.79 Other Malaise And Fatigue 04/19/2012 Ot 280.9 IRON DEFIC ANEMIA NOS 05/19/2012 ANDREINA JOHNS MD 780.2 Syncope And Collapse 05/19/2012 780.2 Syncope And Collapse 05/19/2012 ANDREINA JOHNS MD 780.2 Syncope And Collapse 05/19/2012 WOOD GARCIA DO 780.2 Syncope And Collapse 05/19/2012 780.2 Syncope And Collapse 05/19/2012 WOOD GARCIA DO 780.2 Syncope And Collapse 05/19/2012 PIPER PRADHAN, IVY Huynh 780.2 Syncope And Collapse 05/19/2012 780.2 Syncope And Collapse 05/19/2012 780.2 Syncope And Collapse 05/19/2012 780.2 Syncope And Collapse 05/19/2012 780.2 Syncope And Collapse 05/19/2012 ANDREINA JOHNS MD 780.2 Syncope And Collapse 05/19/2012 WOOD GARCIA DO 780.2 Syncope And Collapse 05/19/2012 EM FINE MD 780.2 Syncope And Collapse 05/19/2012 ANDREINA JOHNS MD 780.2 Syncope And Collapse 05/19/2012 ANDREINA JOHNS MD 780.2 Syncope And Collapse 05/19/2012 CHASE BRUNO DO 780.2 Syncope And Collapse 05/19/2012 ANDREINA JOHNS MD 780.2 Syncope And Collapse 05/19/2012 EM FINE MD 780.2 Syncope And Collapse 05/19/2012 SABINA BRADSHAW APRN 780.2 Syncope And Collapse 05/19/2012 PEPE GROVER APRN 780.2 Syncope And Collapse 05/19/2012 ANDREINA JOHNS MD 780.2 Syncope And Collapse 05/19/2012 ANDREINA JOHNS MD 780.2 Syncope And Collapse 05/19/2012 SABINA BRADSHAW APRN 780.2 Syncope And Collapse 05/19/2012 KASANDRA JURADO APRN 780.2 Syncope And Collapse 05/19/2012 KASANDRA JURADO APRN 780.2 Syncope And Collapse 05/19/2012 ANDREINA JOHNS MD 780.2 Syncope And Collapse 05/19/2012 CHASE BRUNO DO 780.2 Syncope And Collapse 06/27/2012 Ot 327.26 SLEEP RELATED HYPOVENTILATION/HYPOXEMIA 06/27/2012 Ot 347.00 NARCOLEPSY, WITHOUT CATAPLEXY 08/25/2012 ANDREINA JOHNS MD 599.0 URINARY TRACT INFECTION SITE NOT SPECIFIED 08/25/2012 599.0 URINARY TRACT INFECTION SITE NOT SPECIFIED 08/25/2012 ANDREINA JOHNS MD 599.0 URINARY TRACT INFECTION SITE NOT SPECIFIED 08/25/2012 WOOD GARCIA DO F 599.0 Urinary Tract Infection Site Not Specified 08/25/2012 599.0 Urinary Tract Infection Site Not Specified 08/25/2012 WOOD GARCIA DO F 599.0 Urinary Tract Infection Site Not Specified 08/25/2012 PIPER PRADHAN, IVY Huynh 599.0 Urinary Tract Infection Site Not Specified 08/25/2012 599.0 Urinary Tract Infection Site Not Specified 08/25/2012 599.0 Urinary Tract Infection Site Not Specified 08/25/2012 599.0 Urinary Tract Infection Site Not Specified 08/25/2012 599.0 Urinary Tract Infection Site Not Specified 08/25/2012 ANDREINA JOHNS MD 599.0 Urinary Tract Infection Site Not Specified 08/25/2012 WOOD GARCIA DO F 599.0 Urinary Tract Infection Site Not Specified 08/25/2012 EM FINE MD 599.0 Urinary Tract Infection Site Not Specified 08/25/2012 ANDREINA JOHNS MD 599.0 Urinary Tract Infection Site Not Specified 08/25/2012 ANDREINA JOHNS MD 599.0 Urinary Tract Infection Site Not Specified 08/25/2012 CHASE BRUNO DO 599.0 Urinary Tract Infection Site Not Specified 08/25/2012 ANDREINA JOHNS MD 599.0 Urinary Tract Infection Site Not Specified 08/25/2012 EM FINE MD 599.0 Urinary Tract Infection Site Not Specified 08/25/2012 SABINA BRADSHAW APRN 599.0 Urinary Tract Infection Site Not Specified 08/25/2012 PEPE GROVER APRN 599.0 Urinary Tract Infection Site Not Specified 08/25/2012 ANDREINA JOHNS MD 599.0 Urinary Tract Infection Site Not Specified 08/25/2012 ANDREINA JOHNS MD 599.0 Urinary Tract Infection Site Not Specified 08/25/2012 SABINA BRADSHAW APRN 599.0 Urinary Tract Infection Site Not Specified 08/25/2012 KASANDRA JURADO APRN 599.0 Urinary Tract Infection Site Not Specified 08/25/2012 KASANDRA JURADO APRN 599.0 Urinary Tract Infection Site Not Specified 08/25/2012 ANDREINA JOHNS MD 599.0 Urinary Tract Infection Site Not Specified 08/25/2012 CHASE BRUNO DO 599.0 Urinary Tract Infection Site Not Specified 08/27/2012 Ot 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 08/27/2012 Ot 280.9 IRON DEFIC ANEMIA NOS 08/27/2012 Ot 585.3 CHRONIC KIDNEY DISEASE, STAGE III (MODER 08/27/2012 Ot V45.86 BARIATRIC SURGERY STATUS 08/27/2012 Ot V58.69 OTH MED,LT, CURRENT USE 10/02/2012 ANDREINA JOHNS MD 316 PF PSYCHIC FACTORS MED COND 10/02/2012 316 PF PSYCHIC FACTORS MED COND 10/02/2012 ANDREINA JOHNS MD 316 PF PSYCHIC FACTORS MED COND 10/02/2012 WOOD GARCIA DO F 316 PF PSYCHIC FACTORS MED COND 10/02/2012 316 PF PSYCHIC FACTORS MED COND 10/02/2012 WOOD GARCIA DO F 316 PF PSYCHIC FACTORS MED COND 10/02/2012 PIPER PRADHAN, IVY Huynh 316 PF PSYCHIC FACTORS MED COND 10/02/2012 316 PF PSYCHIC FACTORS MED COND 10/02/2012 316 PF PSYCHIC FACTORS MED COND 10/02/2012 316 PF PSYCHIC FACTORS MED COND 10/02/2012 316 PF PSYCHIC FACTORS MED COND 10/02/2012 ANDREINA JOHNS MD 316 PF PSYCHIC FACTORS MED COND 10/02/2012 WOOD GARCIA DO F 316 PF PSYCHIC FACTORS MED COND 10/02/2012 EM FINE MD 316 PF PSYCHIC FACTORS MED COND 10/02/2012 ANDREINA JOHNS MD 316 PF PSYCHIC FACTORS MED COND 10/02/2012 ANDREINA JOHNS MD 316 PF PSYCHIC FACTORS MED COND 10/02/2012 KIANA SANTANA CHASE K 316 PF PSYCHIC FACTORS MED COND 10/02/2012 ANDREINA JOHNS MD 316 PF PSYCHIC FACTORS MED COND 10/02/2012 EM FINE MD 316 PF PSYCHIC FACTORS MED COND 10/02/2012 SABINA BRADSHAW APRN 316 PF PSYCHIC FACTORS MED COND 10/02/2012 PEPE GROVER APRN 316 PF PSYCHIC FACTORS MED COND 10/02/2012 ANDREINA JOHNS MD 316 PF PSYCHIC FACTORS MED COND 10/02/2012 ANDREINA JOHNS MD 316 PF PSYCHIC FACTORS MED COND 10/02/2012 SABINA BRADSHAW APRN 316 PF PSYCHIC FACTORS MED COND 10/02/2012 KASANDRA JURADO APRN 316 PF PSYCHIC FACTORS MED COND 10/02/2012 KASANDRA JURADO APRN 316 PF PSYCHIC FACTORS MED COND 10/02/2012 ANDREINA JOHNS MD 316 PF PSYCHIC FACTORS MED COND 10/02/2012 CHASE BRUNO DO 316 PF PSYCHIC FACTORS MED COND 12/04/2012 Ot 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 12/04/2012 Ot 280.9 IRON DEFIC ANEMIA NOS 12/04/2012 Ot 585.3 CHRONIC KIDNEY DISEASE, STAGE III (MODER 12/04/2012 Ot V45.86 BARIATRIC SURGERY STATUS 12/04/2012 Ot V58.69 OTH MED,LT, CURRENT USE 12/14/2012 WOOD GARCIA DO 558.9 OTHER AND UNSPECIFIED NONINFECTIOUS GASTROENTERITIS AND COLITIS 12/14/2012 558.9 OTHER AND UNSPECIFIED NONINFECTIOUS GASTROENTERITIS AND COLITIS 12/14/2012 WOOD GARCIA DO 558.9 OTHER AND UNSPECIFIED NONINFECTIOUS GASTROENTERITIS AND COLITIS 12/14/2012 PIPER PHD, IVY Huynh 558.9 OTHER AND UNSPECIFIED NONINFECTIOUS GASTROENTERITIS AND COLITIS 12/14/2012 558.9 OTHER AND UNSPECIFIED NONINFECTIOUS GASTROENTERITIS AND COLITIS 12/14/2012 558.9 OTHER AND UNSPECIFIED NONINFECTIOUS GASTROENTERITIS AND COLITIS 12/14/2012 558.9 OTHER AND UNSPECIFIED NONINFECTIOUS GASTROENTERITIS AND COLITIS 12/14/2012 558.9 OTHER AND UNSPECIFIED NONINFECTIOUS GASTROENTERITIS AND COLITIS 12/14/2012 ANDREINA JOHNS MD 558.9 OTHER AND UNSPECIFIED NONINFECTIOUS GASTROENTERITIS AND COLITIS 12/14/2012 WOOD GARCIA DO 558.9 OTHER AND UNSPECIFIED NONINFECTIOUS GASTROENTERITIS AND COLITIS 12/14/2012 EM FINE MD 558.9 OTHER AND UNSPECIFIED NONINFECTIOUS GASTROENTERITIS AND COLITIS 12/14/2012 ANDREINA JOHNS MD8.9 OTHER AND UNSPECIFIED NONINFECTIOUS GASTROENTERITIS AND COLITIS 12/14/2012 ANDREINA JOHNS MD8.9 OTHER AND UNSPECIFIED NONINFECTIOUS GASTROENTERITIS AND COLITIS 12/14/2012 CHASE BRUNO DO 558.9 OTHER AND UNSPECIFIED NONINFECTIOUS GASTROENTERITIS AND COLITIS 12/14/2012 ANDREINA JOHNS MD 558.9 OTHER AND UNSPECIFIED NONINFECTIOUS GASTROENTERITIS AND COLITIS 12/14/2012 EM FINE MD 558.9 OTHER AND UNSPECIFIED NONINFECTIOUS GASTROENTERITIS AND COLITIS 12/14/2012 AUGUSTINE SEGOVIA, SABINA [place] 558.9 OTHER AND UNSPECIFIED NONINFECTIOUS GASTROENTERITIS AND COLITIS 12/14/2012 PEPE GROVER APRN 558.9 OTHER AND UNSPECIFIED NONINFECTIOUS GASTROENTERITIS AND COLITIS 12/14/2012 ANDREINA JOHNS MD 558.9 OTHER AND UNSPECIFIED NONINFECTIOUS GASTROENTERITIS AND COLITIS 12/14/2012 ANDREINA JOHNS MD 558.9 OTHER AND UNSPECIFIED NONINFECTIOUS GASTROENTERITIS AND COLITIS 12/14/2012 AUGUSTINE SEGOVIA, SABINA TINEOH 558.9 OTHER AND UNSPECIFIED NONINFECTIOUS GASTROENTERITIS AND COLITIS 12/14/2012 KASANDRA JURADO APRN 558.9 OTHER AND UNSPECIFIED NONINFECTIOUS GASTROENTERITIS AND COLITIS 12/14/2012 KASANDRA JURADO APRN 558.9 OTHER AND UNSPECIFIED NONINFECTIOUS GASTROENTERITIS AND COLITIS 12/14/2012 ANDREINA JOHNS MD 558.9 OTHER AND UNSPECIFIED NONINFECTIOUS GASTROENTERITIS AND COLITIS 12/14/2012 CHASE BRUNO DO 558.9 OTHER AND UNSPECIFIED NONINFECTIOUS GASTROENTERITIS AND COLITIS 01/11/2013 WOOD GARCIA DO 307.47 SI DYSSOMNIA NOS 01/11/2013 PIPER PHD, IVY Huynh 307.47 SI DYSSOMNIA NOS 01/11/2013 307.47 SI DYSSOMNIA NOS 01/11/2013 307.47 SI DYSSOMNIA NOS 01/11/2013 307.47 SI DYSSOMNIA NOS 01/11/2013 307.47 SI DYSSOMNIA NOS 01/11/2013 ANDREINA JOHNS MD 307.47 SI DYSSOMNIA NOS 01/11/2013 WOOD GARCIA DO 307.47 SI DYSSOMNIA NOS 01/11/2013 EM FINE MD 307.47 SI DYSSOMNIA NOS 01/11/2013 ANDREINA JOHNS MD 307.47 SI DYSSOMNIA NOS 01/11/2013 ANDREINA JOHNS MD 307.47 SI DYSSOMNIA NOS 01/11/2013 CHASE BRUNO DO 307.47 SI DYSSOMNIA NOS 01/11/2013 ANDREINA JOHNS MD 307.47 SI DYSSOMNIA NOS 01/11/2013 EM FINE MD 307.47 SI DYSSOMNIA NOS 01/11/2013 SABINA BRADSHAW APRN 307.47 SI DYSSOMNIA NOS 01/11/2013 PEPE GROVER APRN R 307.47 SI DYSSOMNIA NOS 01/11/2013 ANDREINA JOHNS MD 307.47 SI DYSSOMNIA NOS 01/11/2013 ANDREINA JOHNS MD 307.47 SI DYSSOMNIA NOS 01/11/2013 SABINA BRADSHAW APRN 307.47 SI DYSSOMNIA NOS 01/11/2013 KASANDRA JURADO APRN 307.47 SI DYSSOMNIA NOS 01/11/2013 KASANDRA JURADO APRN 307.47 SI DYSSOMNIA NOS 01/11/2013 ANDREINA JOHNS MD 307.47 SI DYSSOMNIA NOS 01/11/2013 CHASE BRUNO DO 307.47 SI DYSSOMNIA NOS 01/25/2013 PIPER PHD, IVY A 296.80 MO BIPOLAR NOS 01/25/2013 296.80 MO BIPOLAR NOS 01/25/2013 296.80 MO BIPOLAR NOS 01/25/2013 296.80 MO BIPOLAR NOS 01/25/2013 296.80 MO BIPOLAR NOS 01/25/2013 ANDREINA JOHNS MD 296.80 MO BIPOLAR NOS 01/25/2013 WOOD GARCIA DO 296.80 MO BIPOLAR NOS 01/25/2013 EM FINE MD 296.80 MO BIPOLAR NOS 01/25/2013 ANDREINA JOHNS MD 296.80 MO BIPOLAR NOS 01/25/2013 ANDREINA JOHNS MD 296.80 MO BIPOLAR NOS 01/25/2013 CHASE BRUNO DO 296.80 MO BIPOLAR NOS 01/25/2013 ANDREINA JOHNS MD 296.80 MO BIPOLAR NOS 01/25/2013 EM FINE MD 296.80 MO BIPOLAR NOS 01/25/2013 SABINA BRADSHAW APRN 296.80 MO BIPOLAR NOS 01/25/2013 PEPE GROVER APRN R 296.80 MO BIPOLAR NOS 01/25/2013 ANDREINA JOHNS MD 296.80 MO BIPOLAR NOS 01/25/2013 ANDREINA JOHNS MD 296.80 MO BIPOLAR NOS 01/25/2013 SABINA BRADSHAW APRN 296.80 MO BIPOLAR NOS 01/25/2013 KASANDRA JURADO APRN 296.80 MO BIPOLAR NOS 01/25/2013 KASANDRA JURADO APRN 296.80 MO BIPOLAR NOS 01/25/2013 ANDREINA JOHNS MD 296.80 MO BIPOLAR NOS 01/25/2013 CHASE BRUNO DO 296.80 MO BIPOLAR NOS 04/01/2013 Ot 280.9 IRON DEFIC ANEMIA NOS 06/12/2013 388.70 OTALGIA UNSPECIFIED 06/12/2013 388.70 OTALGIA UNSPECIFIED 06/12/2013 388.70 OTALGIA UNSPECIFIED 06/12/2013 ANDREINA JOHNS MD 388.70 OTALGIA UNSPECIFIED 06/12/2013 WOOD GARCIA DO 388.70 OTALGIA UNSPECIFIED 06/12/2013 RODY CRUZ, EM Salgado 388.70 OTALGIA UNSPECIFIED 06/12/2013 ANDREINA JOHNS MD 388.70 OTALGIA UNSPECIFIED 06/12/2013 ANDREINA JOHNS MD 388.70 OTALGIA UNSPECIFIED 06/12/2013 CHASE BRUNO DO 388.70 OTALGIA UNSPECIFIED 06/12/2013 ANDREINA JOHNS MD 388.70 OTALGIA UNSPECIFIED 06/12/2013 EM FINE MD 388.70 OTALGIA UNSPECIFIED 06/12/2013 AUGUSTINE SEGOVIA, SABINA BETHEA 388.70 OTALGIA UNSPECIFIED 06/12/2013 PEPE GROVER APRN 388.70 OTALGIA UNSPECIFIED 06/12/2013 ANDREINA JOHNS MD 388.70 OTALGIA UNSPECIFIED 06/12/2013 ANDREINA JOHNS MD 388.70 OTALGIA UNSPECIFIED 06/12/2013 SABINA BRADSHAW APRN 388.70 OTALGIA UNSPECIFIED 06/12/2013 KASANDRA JURADO APRN 388.70 OTALGIA UNSPECIFIED 06/12/2013 KASANDRA JURADO APRN 388.70 OTALGIA UNSPECIFIED 06/12/2013 ANDREINA JOHNS MD 388.70 OTALGIA UNSPECIFIED 06/12/2013 CHASE BRUNO DO 388.70 OTALGIA UNSPECIFIED 06/25/2013 593.9 UNSPECIFIED DISORDER OF KIDNEY AND URETER 06/25/2013 593.9 UNSPECIFIED DISORDER OF KIDNEY AND URETER 06/25/2013 ANDREINA JOHNS MD 593.9 UNSPECIFIED DISORDER OF KIDNEY AND URETER 06/25/2013 WOOD GARCIA DO 593.9 UNSPECIFIED DISORDER OF KIDNEY AND URETER 06/25/2013 EM FINE MD 593.9 UNSPECIFIED DISORDER OF KIDNEY AND URETER 06/25/2013 ANDREINA JOHNS MD 593.9 UNSPECIFIED DISORDER OF KIDNEY AND URETER 06/25/2013 ANDREINA JOHNS MD 593.9 UNSPECIFIED DISORDER OF KIDNEY AND URETER 06/25/2013 CHASE BRUNO DO 593.9 UNSPECIFIED DISORDER OF KIDNEY AND URETER 06/25/2013 ANDREINA JOHNS MD 593.9 UNSPECIFIED DISORDER OF KIDNEY AND URETER 06/25/2013 EM FINE MD 593.9 UNSPECIFIED DISORDER OF KIDNEY AND URETER 06/25/2013 SABINA BRADSHAW APRN 593.9 UNSPECIFIED DISORDER OF KIDNEY AND URETER 06/25/2013 PEPE GROVER APRN 593.9 UNSPECIFIED DISORDER OF KIDNEY AND URETER 06/25/2013 ANDREINA JOHNS MD 593.9 UNSPECIFIED DISORDER OF KIDNEY AND URETER 06/25/2013 ANDREINA JOHNS MD 593.9 UNSPECIFIED DISORDER OF KIDNEY AND URETER 06/25/2013 SABINA BRADSHAW APRN 593.9 UNSPECIFIED DISORDER OF KIDNEY AND URETER 06/25/2013 KASANDRA JURADO APRN 593.9 UNSPECIFIED DISORDER OF KIDNEY AND URETER 06/25/2013 KASANDRA JURADO APRN 593.9 UNSPECIFIED DISORDER OF KIDNEY AND URETER 06/25/2013 ANDREINA JOHNS MD 593.9 UNSPECIFIED DISORDER OF KIDNEY AND URETER 06/25/2013 CHASE BRUNO DO 593.9 UNSPECIFIED DISORDER OF KIDNEY AND URETER 07/11/2013 V58.69 MEDICATION HIGH RISK 07/11/2013 ANDREINA JOHNS MD V58.69 MEDICATION HIGH RISK 07/11/2013 WOOD GARCIA DO V58.69 MEDICATION HIGH RISK 07/11/2013 EM FINE MD V58.69 MEDICATION HIGH RISK 07/11/2013 ANDREINA JOHNS MD V58.69 MEDICATION HIGH RISK 07/11/2013 ANDREINA JOHNS MD V58.69 MEDICATION HIGH RISK 07/11/2013 CHASE BRUNO DO V58.69 MEDICATION HIGH RISK 07/11/2013 NAT CRUZ, ANDREINA V58.69 MEDICATION HIGH RISK 07/11/2013 RODY CRUZ, EM Salgado V58.69 MEDICATION HIGH RISK 07/11/2013 AUGUSTINE SEGOVIA, SABINA BETHEA V58.69 MEDICATION HIGH RISK 07/11/2013 REILLY SEGOVIA, PEPE Jessica V58.69 MEDICATION HIGH RISK 07/11/2013 NAT CRUZ, ANDREINA V58.69 MEDICATION HIGH RISK 07/11/2013 ANDREINA JOHNS MD V58.69 MEDICATION HIGH RISK 07/11/2013 AUGUSTINE SEGOVIA, SABINA BETHEA V58.69 MEDICATION HIGH RISK 07/11/2013 RHIANNON SEGOVIA, KASANDRA Aaron V58.69 MEDICATION HIGH RISK 07/11/2013 KASANDRA JURADO APRN V58.69 MEDICATION HIGH RISK 07/11/2013 NAT CRUZ, ANDREINA V58.69 MEDICATION HIGH RISK 07/11/2013 KIANA SANTANA, CHASE Morris V58.69 MEDICATION HIGH RISK 07/31/2013 ANDREINA JOHNS MD Ot 276.1 HYPOSMOLALITY 07/31/2013 ANDREINA JOHNS MD Ot 296.80 BIPOLAR DISORDER, UNSPECIFIED 07/31/2013 ANDREINA JOHNS MD Ot 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 07/31/2013 ANDREINA JOHNS MD Ot 305.1 TOBACCO USE DISORDER 07/31/2013 ANDREINA JOHNS MD Ot 305.20 CANNABIS ABUSE-UNSPEC 07/31/2013 ANDREINA JOHNS MD Ot 346.90 MIGRAINE UNSPECIFIED W/O INTRACT MGRN W/ 07/31/2013 ANDREINA JOHNS MD Ot 401.9 HYPERTENSION NOS 07/31/2013 ANDREINA JOHNS MD Ot 410.71 AC MYOCARDIAL INFARCT,SUBENDO INFARCT,IN 07/31/2013 ANDREINA JOHNS MD Ot 413.9 ANGINA PECTORIS NEC/NOS 07/31/2013 ANDREINA JOHNS MD Ot 427.89 CARDIAC DYSRHYTHMIAS NEC 07/31/2013 ANDREINA JOHNS MD Ot 428.0 CONGESTIVE HEART FAILURE NOS 07/31/2013 ANDREINA JOHNS MD Ot 428.31 ACUTE DIASTOLIC HRT FAILURE 07/31/2013 ANDREINA JOHNS MD Ot 530.81 ESOPHAGEAL REFLUX 07/31/2013 ANDREINA JOHNS MD Ot 729.1 MYALGIA AND MYOSITIS NOS 07/31/2013 ANDREINA JOHNS MD Ot V03.82 PROPHYLACTIC VACC AGAINST STREPTOCOCCUS 07/31/2013 ANDREINA JOHNS MD Ot V45.86 BARIATRIC SURGERY STATUS 08/14/2013 EM FINE MD CHRONIC AIRWAY OBSTRUCTION NOT ELSEWHERE CLASSIFIED 08/14/2013 EM FINE MD 786.50 CHEST PAIN 08/14/2013 ANDREINA JOHNS MD CHRONIC OBSTRUCTIVE PULMONARY DISEASE 08/14/2013 ANDREINA JOHNS MD 786.50 CHEST PAIN 08/14/2013 ANDREINA JOHNS MD CHRONIC OBSTRUCTIVE PULMONARY DISEASE 08/14/2013 ANDREINA JOHNS MD 786.50 CHEST PAIN 08/14/2013 BRUNO DOSONNYA K 496 CHRONIC OBSTRUCTIVE PULMONARY DISEASE 08/14/2013 BRUNO DO, CHASE K 786.50 CHEST PAIN 08/14/2013 ANDREINA JOHNS MD CHRONIC OBSTRUCTIVE PULMONARY DISEASE 08/14/2013 ANDREINA JOHNS MD 786.50 CHEST PAIN 08/14/2013 EM FINE MD [id number] CHRONIC OBSTRUCTIVE PULMONARY DISEASE 08/14/2013 EM FINE MD 786.50 CHEST PAIN 08/14/2013 SABINA BRADSHAW APRN 496 CHRONIC OBSTRUCTIVE PULMONARY DISEASE 08/14/2013 SABINA BRADSHAW APRN 786.50 CHEST PAIN 08/14/2013 PEPE GROVER APRN R 496 CHRONIC OBSTRUCTIVE PULMONARY DISEASE 08/14/2013 PEPE GROVER APRN R 786.50 CHEST PAIN 08/14/2013 ANDREINA JOHNS MD CHRONIC OBSTRUCTIVE PULMONARY DISEASE 08/14/2013 ANDREINA JOHNS MD 786.50 CHEST PAIN 08/14/2013 ANDREINA JOHNS MD CHRONIC OBSTRUCTIVE PULMONARY DISEASE 08/14/2013 ANDREINA JOHNS MD 786.50 CHEST PAIN 08/14/2013 SABINA BRADSHAW APRN 496 CHRONIC OBSTRUCTIVE PULMONARY DISEASE 08/14/2013 SABINA BRADSHAW APRN 786.50 CHEST PAIN 08/14/2013 KASANDRA JURADO APRN 496 CHRONIC OBSTRUCTIVE PULMONARY DISEASE 08/14/2013 KASANDRA JURADO APRN 786.50 CHEST PAIN 08/14/2013 KASANDRA JURADO APRN 496 CHRONIC OBSTRUCTIVE PULMONARY DISEASE 08/14/2013 KASANDRA JURADO APRN 786.50 CHEST PAIN 08/14/2013 ANDREINA JOHNS MD 496 CHRONIC OBSTRUCTIVE PULMONARY DISEASE 08/14/2013 ANDREINA JOHNS MD 786.50 CHEST PAIN 08/14/2013 SONNY BRUNO DOAmina Morris 496 CHRONIC OBSTRUCTIVE PULMONARY DISEASE 08/14/2013 CHASE BRUNO DO K 786.50 CHEST PAIN 08/26/2013 KRISTI PARKS Ot 285.9 ANEMIA NOS 08/26/2013 KRISTI PARKS Ot 287.5 THROMBOCYTOPENIA NOS 09/26/2013 EM FINE MD Ot 282.40 THALASSEMIA, UNSPECIFIED 09/26/2013 EM FINE MD Ot 296.80 BIPOLAR DISORDER, UNSPECIFIED 09/26/2013 EM FINE MD Ot 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 09/26/2013 EM FINE MD Ot 305.1 TOBACCO USE DISORDER 09/26/2013 EM FINE MD Ot 305.20 CANNABIS ABUSE-UNSPEC 09/26/2013 EM FINE MD Ot 308.9 ACUTE STRESS REACT NOS 09/26/2013 EM FINE MD Ot 346.90 MIGRAINE UNSPECIFIED W/O INTRACT MGRN W/ 09/26/2013 EM FINE MD Ot 401.9 HYPERTENSION NOS 09/26/2013 EM FINE MD Ot 412 OLD MYOCARDIAL INFARCT 09/26/2013 EM FINE MD Ot 530.81 ESOPHAGEAL REFLUX 09/26/2013 EM FINE MD Ot 564.09 OTHER CONSTIPATION 09/26/2013 EM FINE MD Ot 593.9 RENAL URETERAL DIS NOS 09/26/2013 EM FINE MD Ot 625.3 DYSMENORRHEA 09/26/2013 EM FINE MD Ot 716.90 ARTHROPATHY NOS-UNSPEC 09/26/2013 EM FINE MD Ot 728.87 MUSCLE WEAKNESS (GENERALIZED) 09/26/2013 EM FINE MD Ot 729.1 MYALGIA AND MYOSITIS NOS 09/26/2013 EM FINE MD Ot 782.0 SKIN SENSATION DISTURB 09/26/2013 EM FINE MD Ot 786.05 SHORTNESS OF BREATH 09/26/2013 EM FINE MD Ot 786.50 CHEST PAIN NOS 09/26/2013 EM FINE MD Ot 789.03 ABDOMINAL PAIN, RIGHT LOWER QUADRANT 09/26/2013 EM FINE MD Ot 789.04 ABDOMINAL PAIN, LEFT LOWER QUADRANT 09/26/2013 EM FINE MD Ot V17.3 FAM HX-ISCHEM HEART DIS 09/26/2013 EM FINE MD Ot V45.86 BARIATRIC SURGERY STATUS 09/26/2013 EM FINE MD, Ot V58.66 LONG-TERM (CURRENT) USE OF ASPIRIN 09/27/2013 ANDREINA JOHNS MD 625.9 PELVIC PAIN 09/27/2013 ANDREINA JOHNS MD 625.9 PELVIC PAIN 09/27/2013 CHASE BRUNO DO 625.9 PELVIC PAIN 09/27/2013 ANDREINA JOHNS MD 625.9 PELVIC PAIN 09/27/2013 EM FINE MD 625.9 PELVIC PAIN 09/27/2013 SABINA BRADSHAW APRN 625.9 PELVIC PAIN 09/27/2013 PEPE GROVER APRN 625.9 PELVIC PAIN 09/27/2013 ANDREINA JOHNS MD 625.9 PELVIC PAIN 09/27/2013 ANDREINA JOHNS MD 625.9 PELVIC PAIN 09/27/2013 SABINA BRADSHAW APRN 625.9 PELVIC PAIN 09/27/2013 KASANDRA JURADO APRN 625.9 PELVIC PAIN 09/27/2013 KASANDRA JURADO APRN 625.9 PELVIC PAIN 09/27/2013 ANDREINA JOHNS MD 625.9 PELVIC PAIN 09/27/2013 CHASE BRUNO DO 625.9 PELVIC PAIN 10/25/2013 MASSIMO ZAMBRANO DO S Ot 620.1 CORPUS LUTEUM CYST 10/25/2013 MASSIMO ZAMBRANO DO Ot 620.2 OVARIAN CYST NEC/NOS 10/25/2013 MASSIMO ZAMBRANO DO Ot 625.9 FEM GENITAL SYMPTOMS NOS 10/25/2013 MASSIMO ZAMBRANO DO Ot 626.8 MENSTRUAL DISORDER NEC 10/26/2013 REY CRUZ, DENNYS Aaron Ot 338.18 OTHER ACUTE POSTOPERATIVE PAIN 11/19/2013 CHASE BRUNO DO 461.9 SINUSITIS ACUTE 11/19/2013 BRUNO DO, CHASE K 466.0 BRONCHITIS, ACUTE 11/19/2013 NAT CRUZ, ANDREINA 461.9 SINUSITIS ACUTE 11/19/2013 NAT CRUZ, ANDREINA 466.0 BRONCHITIS, ACUTE 11/19/2013 EM FINE MD 461.9 SINUSITIS ACUTE 11/19/2013 EM FINE MD 466.0 BRONCHITIS, ACUTE 11/19/2013 AUGUSTINE SEGOVIA, SABINA LAKE 461.9 SINUSITIS ACUTE 11/19/2013 AUGUSTINE SEGOVIA, SABINA BETHEA 466.0 BRONCHITIS, ACUTE 11/19/2013 REILLY SEGOVIA, PEPE R 461.9 SINUSITIS ACUTE 11/19/2013 REILLY SEGOVIA, PEPE R 466.0 BRONCHITIS, ACUTE 11/19/2013 NAT CRUZ, ANDREINA 461.9 SINUSITIS ACUTE 11/19/2013 ANDREINA JOHNS MD 466.0 BRONCHITIS, ACUTE 11/19/2013 NAT CRUZ, ANDREINA 461.9 SINUSITIS ACUTE 11/19/2013 ANDREINA JOHNS MD 466.0 BRONCHITIS, ACUTE 11/19/2013 AUGUSTINE SEGOVIA, SABINA BETHEA 461.9 SINUSITIS ACUTE 11/19/2013 AUGUSTINE SEGOVIA, SABINA BETHEA 466.0 BRONCHITIS, ACUTE 11/19/2013 KASANDRA JURADO APRN 461.9 SINUSITIS ACUTE 11/19/2013 KASANDRA JURADO APRN 466.0 BRONCHITIS, ACUTE 11/19/2013 KASANDRA JURADO APRN 461.9 SINUSITIS ACUTE 11/19/2013 KASANDRA JURADO APRN T 466.0 BRONCHITIS, ACUTE 11/19/2013 ANDREINA JOHNS MD 461.9 SINUSITIS ACUTE 11/19/2013 ANDREINA JOHNS MD 466.0 BRONCHITIS, ACUTE 11/19/2013 BRUNO DO, CHASE K 461.9 SINUSITIS ACUTE 11/19/2013 BRUNO DO, CHASE K 466.0 BRONCHITIS, ACUTE 11/30/2013 ANDREINA JOHNS MD 381.81 DYSFUNCTION OF EUSTACHIAN TUBE 11/30/2013 EM FINE MD 381.81 DYSFUNCTION OF EUSTACHIAN TUBE 11/30/2013 SABINA BRADSHAW APRN 381.81 DYSFUNCTION OF EUSTACHIAN TUBE 11/30/2013 PEPE GROVER APRN R 381.81 DYSFUNCTION OF EUSTACHIAN TUBE 11/30/2013 ANDREINA JOHNS MD 381.81 DYSFUNCTION OF EUSTACHIAN TUBE 11/30/2013 ANDREINA OJHNS MD 381.81 DYSFUNCTION OF EUSTACHIAN TUBE 11/30/2013 SABINA BRADSHAW APRN 381.81 DYSFUNCTION OF EUSTACHIAN TUBE 11/30/2013 KASANDRA JURADO APRN 381.81 DYSFUNCTION OF EUSTACHIAN TUBE 11/30/2013 KASANDRA JURADO APRN 381.81 DYSFUNCTION OF EUSTACHIAN TUBE 11/30/2013 ANDREINA JOHNS MD 381.81 DYSFUNCTION OF EUSTACHIAN TUBE 11/30/2013 KIANA CHASE Arturo 381.81 DYSFUNCTION OF EUSTACHIAN TUBE 12/22/2013 ENEIDA HINES MD Ot 786.50 CHEST PAIN NOS 12/22/2013 ENEIDA HINES MD Ot 786.52 PAINFUL RESPIRATION 01/30/2014 MASSIMO BERNAL MD Ot 296.80 BIPOLAR DISORDER, UNSPECIFIED 01/30/2014 MASSIMO BERNAL MD Ot 305.1 TOBACCO USE DISORDER 01/30/2014 MASSIMO BERNAL MD Ot 412 OLD MYOCARDIAL INFARCT 01/30/2014 MASSIMO BERNAL MD Ot 428.0 CONGESTIVE HEART FAILURE NOS 01/30/2014 MASSIMO BERNAL MD Ot 717.40 DERANG LAT MENISCUS NOS 01/30/2014 MASSIMO BERNAL MD Ot 717.7 CHONDROMALACIA PATELLAE 01/30/2014 MASSIMO BERNAL MD Ot 729.1 MYALGIA AND MYOSITIS NOS 01/30/2014 MASSIMO BERNAL MD Ot 733.92 CHONDROMALACIA 01/30/2014 MASSIMO BERNAL MD Ot V57.1 PHYSICAL THERAPY NEC 01/30/2014 MASSIMO BERNAL MD Ot V58.69 OT MED,LT,CURRENT USE 01/30/2014 MASSIMO BERNAL MD Ot V74.8 SCREEN-BACTERIAL DIS NEC 04/03/2014 PEPE GROVER APRN 786.2 COUGH 04/03/2014 ANDREINA JOHNS MD 786.2 COUGH 04/03/2014 ANDREINA JOHNS MD 786.2 COUGH 04/03/2014 SABINA BRADSHAW APRN 786.2 COUGH 04/03/2014 KASANDRA JURADO APRN 786.2 COUGH 04/03/2014 KASANDRA JRUADO APRN 786.2 COUGH 04/03/2014 ANDREINA JOHNS MD 786.2 COUGH 04/03/2014 BRUNO DO, CHASE K 786.2 COUGH 04/24/2014 ANDREINA JOHNS MD Ot 300.00 ANXIETY STATE NOS 04/24/2014 ANDREINA JOHNS MD Ot 305.1 TOBACCO USE DISORDER 04/24/2014 ANDREINA JOHNS MD Ot 311 DEPRESSIVE DISORDER NEC 04/24/2014 ANDREINA JOHNS MD Ot 564.00 UNSPEC CONSTIPATION 04/24/2014 ANDREINA JOHNS MD Ot 715.90 OSTEOARTHROS NOS-UNSPEC 04/24/2014 ANDREINA JOHNS MD Ot 729.1 MYALGIA AND MYOSITIS NOS 04/24/2014 ANDREINA JOHNS MD Ot 786.59 CHEST PAIN NEC 04/29/2014 ANDREINA JOHNS MD 530.11 REFLUX ESOPHAGITIS 04/29/2014 ANDREINA JOHNS MD 787.91 DIARRHEA 04/29/2014 ANDREINA JOHNS MD 530.11 REFLUX ESOPHAGITIS 04/29/2014 ANDREINA JOHNS MD 787.91 DIARRHEA 04/29/2014 SABINA BRADSHAW APRN 530.11 REFLUX ESOPHAGITIS 04/29/2014 SABINA BRADSHAW APRN 787.91 DIARRHEA 04/29/2014 KASANDRA JURADO APRN 530.11 REFLUX ESOPHAGITIS 04/29/2014 KASANDRA JURADO APRN 787.91 DIARRHEA 04/29/2014 KASANDRA JURADO APRN 530.11 REFLUX ESOPHAGITIS 04/29/2014 KASANDRA JURADO APRN 787.91 DIARRHEA 04/29/2014 ANDREINA JOHNS MD 530.11 REFLUX ESOPHAGITIS 04/29/2014 ANDREINA JOHNS MD7.91 DIARRHEA 04/29/2014 BRUNO DO, CHASE K 530.11 REFLUX ESOPHAGITIS 04/29/2014 BRUNO DO, CHASE K 787.91 DIARRHEA 07/15/2014 SABINA BRADSHAW APRN 465.9 ACUTE UPPER RESPIRATORY INFECTIONS OF UNSPECIFIED SITE 07/15/2014 SABINA BRADSHAW APRN 716.90 UNSPECIFIED ARTHROPATHY SITE UNSPECIFIED 07/15/2014 KASANDRA JURADO APRN 465.9 ACUTE UPPER RESPIRATORY INFECTIONS OF UNSPECIFIED SITE 07/15/2014 KASANDRA JURADO APRN 716.90 UNSPECIFIED ARTHROPATHY SITE UNSPECIFIED 07/15/2014 KASANDRA JURADO APRN 465.9 ACUTE UPPER RESPIRATORY INFECTIONS OF UNSPECIFIED SITE 07/15/2014 KASANDRA JURADO APRN 716.90 UNSPECIFIED ARTHROPATHY SITE UNSPECIFIED 07/15/2014 ANDRIENA JOHNS MD 465.9 ACUTE UPPER RESPIRATORY INFECTIONS OF UNSPECIFIED SITE 07/15/2014 ANDREINA JOHNS MD 716.90 UNSPECIFIED ARTHROPATHY SITE UNSPECIFIED 07/15/2014 CHASE BRUNO DO K 465.9 ACUTE UPPER RESPIRATORY INFECTIONS OF UNSPECIFIED SITE 07/15/2014 SONNY BRUNO DOA K 716.90 UNSPECIFIED ARTHROPATHY SITE UNSPECIFIED 07/20/2014 KASANDRA JURADO APRN 462 PHARYNGITIS ACUTE 07/20/2014 KASANDRA JURADO APRN 462 PHARYNGITIS ACUTE 07/20/2014 ANDREINA JOHNS MD 462 PHARYNGITIS ACUTE 07/20/2014 CHASE BRUNO DO K 462 PHARYNGITIS ACUTE 07/31/2014 KASANDRA JURADO APRN 782.1 RASH 07/31/2014 ANDREINA JOHNS MD 782.1 RASH 07/31/2014 KIANA SANTANA CHASE K 782.1 RASH 12/04/2014 KIANA SANTANA CHASE K 733.81 MALUNION OF FRACTURE 12/04/2014 KIANA SANTANA CHASE K 786.52 PAINFUL RESPIRATION 12/04/2014 KIANA SANTANA CHASE K 789.02 ABDOMINAL PAIN LEFT UPPER QUADRANT 02/06/2015 Ot 789.00 02/21/2015 Ot 789.00 04/11/2015 DEANN GARCÍA DO Ot V76.12 04/21/2015 REGINO CRUZ, AGUILAR Salgado Ot V12.72 PERSONAL HISTORY OF COLONIC POLYPS 04/21/2015 REGINO CRUZ, AGUILAR Salgado Ot V67.09 SURGERY FOLLOW-UP, OTHER SURGERY 04/24/2015 Ot 784.59 04/24/2015 Ot 285.9 04/24/2015 Ot 287.5 04/24/2015 Ot 300.4 04/24/2015 Ot 305.1 04/24/2015 Ot V45.86 04/24/2015 Ot V58.69 04/24/2015 Ot 270.4 04/24/2015 Ot 280.9 04/24/2015 Ot 285.9 04/24/2015 Ot 585.3 04/24/2015 Ot V45.86 04/24/2015 Ot V58.69 04/24/2015 Ot 729.5 04/24/2015 Ot 782.3 04/24/2015 KAVONSANDHYA PLANNING SUPERVISOR Ot 611.71 04/24/2015 KAVON SANDHYA Stephenson PLANNING SUPERVISOR Ot 611.79 04/24/2015 Ot 280.9 04/24/2015 FENECH DO, MASSIMO S Ot 617.9 04/24/2015 FENECH DO, MASSIMO S Ot 620.2 04/24/2015 FENECH DO, MASSIMO S Ot 625.9 04/24/2015 FENECH DO, MASSIMO S Ot 626.2 04/24/2015 FENECH DO, MASSIMO S Ot V72.63 04/24/2015 FENECH DO, MASSIMO S Ot V74.8 04/24/2015 DOLORES CRUZ, MASSIMO P Ot 717.7 04/24/2015 DOLORES CRUZ, MASSIMO Roca Ot V72.84 04/24/2015 Ot 789.00 04/24/2015 GELLENDER DEANN SANTANA Ot V76.12 04/24/2015 GELLENDER DODEANN Ot 285.9 04/24/2015 GELLENDER DEANN SANTANA Ot 716.90 04/24/2015 GELHERNANDODER DEANN SANTANA Ot 782.1 04/24/2015 REGINO CRUZ, AGUILAR Salgado Ot V72.84 04/25/2015 GELHERNANDODER DEANN SANTANA Ot 282.40 THALASSEMIA, UNSPECIFIED 04/25/2015 GELLENDER DEANN SANTANA Ot 296.80 BIPOLAR DISORDER, UNSPECIFIED 04/25/2015 GELLENDER DEANN SANTANA Ot 300.00 ANXIETY STATE NOS 04/25/2015 GELLENDER DEANN SANTANA Ot 305.1 TOBACCO USE DISORDER 04/25/2015 GELLENDER DEANN SANTANA Ot 305.20 CANNABIS ABUSE-UNSPEC 04/25/2015 DEANN GARCÍA DO Ot 338.4 CHRONIC PAIN SYNDROME 04/25/2015 DEANN GARCÍA DO Ot 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 04/25/2015 DEANN GARCÍA DO Ot 397.0 TRICUSPID VALVE DISEASE 04/25/2015 DEANN GARCÍA DO Ot 412 OLD MYOCARDIAL INFARCT 04/25/2015 GELLENDER DO, DEANN Huynh Ot 424.0 MITRAL VALVE DISORDER 04/25/2015 GELLENDER DO, DEANN Huynh Ot 729.1 MYALGIA AND MYOSITIS NOS 04/25/2015 GELLENDER DO, DEANN Huynh Ot 786.59 CHEST PAIN NEC 04/25/2015 GELLENDER DO, DEANN Huynh Ot 789.00 ABDOMINAL PAIN, UNSPECIFIED SITE 04/25/2015 GELLENDER DO, DEANN Huynh Ot V45.86 BARIATRIC SURGERY STATUS 04/30/2015 GELLENDER DO, DEANN Huynh Ot V76.12 05/01/2015 GELLENDER DO, DEANN Huynh Ot 285.9 05/01/2015 GELLENDER DO, DEANN Huynh Ot 716.90 05/01/2015 GELLENDER DO, DEANN uHynh Ot 782.1 05/01/2015 GELLENDER DO, DEANN Huynh Ot 285.9 05/01/2015 GELLENDER DO, DEANN Huynh Ot 716.90 05/01/2015 GELLENDER DO, DEANN Huynh Ot 782.1 05/13/2015 GELLENDER DO, DEANN Huynh Ot V76.12 07/07/2015 REGINO CRUZ, AGUILAR Salgado Ot 530.10 ESOPHAGITIS NOS 09/08/2015 IVELISSE CRUZ FACC, ALI FACP CCDS Ot D64.9 09/08/2015 IVELISSE MCFARLANEC, ALI FACP CCDS Ot F17.200 09/08/2015 IVELISSE MCFARLANEC, ALI FACP CCDS Ot F31.9 09/08/2015 IVELISSE CRUZ FACC, ALI FACP CCDS Ot I10 09/08/2015 IVELISSE MCFARLANEC, ALI FACP CCDS Ot I21.4 09/29/2015 IVELISSE MCFARLANEC, ALI FACP CCDS Ot D64.9 09/29/2015 IVELISSE CRUZ FACC, ALI FACP CCDS Ot F17.200 09/29/2015 IVELISSE CRUZ FACC, ALI FACP CCDS Ot F31.9 09/29/2015 IVELISSE MCFARLANEC, ALI FACP CCDS Ot I10 09/29/2015 IVELISSE MCFARLANEC, ALI FACP CCDS Ot I21.4 10/07/2015 IVELISSE MCFARLANEC, ALI FACP CCDS Ot D64.9 10/07/2015 IVELISSE MCFARLANEC, ALI FACP CCDS Ot F17.200 10/07/2015 IVELISSE CRUZ [facility] [place] [facility] CCDS Ot F31.9 10/07/2015 IVELISSE CRUZ [facility] Ot I10 10/07/2015 IVELISSE CRUZ [facility] Ot I21.4 12/18/2015 REGINO CRUZ, AGUILAR M Ot L72.9 12/18/2015 REGINO CRUZ, AGUILAR M Ot Z01.818 12/18/2015 REGINO CRUZ, AGUILAR M Ot L72.9 12/18/2015 REGINO CRUZ, AGUILAR M Ot Z01.818 12/19/2015 REGINO CRUZ, AGUILAR M Ot L72.3 SEBACEOUS CYST 08/30/2016 Ot 729.5 PAIN IN LIMB 08/30/2016 Ot 782.3 EDEMA 08/30/2016 SANDHYA JACOBSON PLANNING SUPERVISOR Ot 611.71 MASTODYNIA 08/30/2016 SANDHYA JACOBSON PLANNING SUPERVISOR Ot 611.79 SYMPTOMS IN BREAST NEC 08/30/2016 Ot 280.9 IRON DEFIC ANEMIA NOS 08/30/2016 MASSIMO ZAMBRANO DO Ot 617.9 ENDOMETRIOSIS NOS 08/30/2016 MASSIMO ZAMBRANO DO Ot 620.2 OVARIAN CYST NEC/NOS 08/30/2016 MASSIMO ZAMBRANO DO Ot 625.9 FEM GENITAL SYMPTOMS NOS 08/30/2016 MASSIMO ZAMBRANO DO Ot 626.2 EXCESSIVE MENSTRUATION 08/30/2016 MASSIMO ZAMBRANO DO Ot V72.63 PRE-PROCEDURAL LABORATORY EXAMINATION 08/30/2016 MASSIMO ZAMBRANO DO Ot V74.8 SCREEN-BACTERIAL DIS NEC 08/30/2016 DOLORES CRUZ, MASSIMO Roca Ot 717.7 CHONDROMALACIA PATELLAE 08/30/2016 DOLORES CRUZ, MASSIMO Roca Ot V72.84 EXAM PRE-OPERATIVE NOS 08/30/2016 Ot 789.00 ABDOMINAL PAIN, UNSPECIFIED SITE 08/30/2016 DEANN GARCÍA DO Ot V76.12 OTH SCREEN MAMMO-MALIGN NEOPLASM OF NICO 08/30/2016 DEANN GARCÍA DO Ot 285.9 ANEMIA NOS 08/30/2016 DEANN GARCÍA DO Ot 716.90 ARTHROPATHY NOS-UNSPEC 08/30/2016 DEANN GARCÍA DO Ot 782.1 NONSPECIF SKIN ERUPT NEC 08/30/2016 REGINO CRUZ, AGUILAR Salgado Ot V72.84 EXAM PRE-OPERATIVE NOS 08/30/2016 REGINO CRUZ, AGUILAR Salgado Ot V72.84 EXAM PRE-OPERATIVE NOS 08/30/2016 IVELISSE CRUZ FAC, ALI FAC CCDS Ot D64.9 ANEMIA, UNSPECIFIED 08/30/2016 IVELISSE CRUZ FACC, ALI FACP CCDS Ot F17.200 NICOTINE DEPENDENCE, UNSPECIFIED, UNCOMP 08/30/2016 IVELISSE CRUZ FAC, ALI FACP CCDS Ot F31.9 BIPOLAR DISORDER, UNSPECIFIED 08/30/2016 IVELISSE CRUZ FAC, ALI FACP CCDS Ot I10 ESSENTIAL (PRIMARY) HYPERTENSION 08/30/2016 IVELISSE CRU[facility] Ot I21.4 NON-ST ELEVATION (NSTEMI) MYOCARDIAL INF 08/30/2016 REGINO CRUZ, AGUILAR Salgado Ot L72.9 FOLLICULAR CYST OF THE SKIN AND SUBCUTAN 08/30/2016 REGINO CRUZ, AGUILAR Salgado Ot Z01.818 ENCOUNTER FOR OTHER PREPROCEDURAL EXAMIN 08/31/2016 GELLENDER DO, DEANN Huynh Ot R05 COUGH 08/31/2016 GELLENDER DO, DEANN Huynh Ot R50.9 FEVER, UNSPECIFIED 08/31/2016 GELLENDER DO, DEANN Huynh Ot R61 GENERALIZED HYPERHIDROSIS 09/21/2016 GELLENDER DO, DEANN Amina Ot R05 COUGH 09/21/2016 GELLENDER DO, DEANN Huynh Ot R50.9 FEVER, UNSPECIFIED 09/21/2016 GELLENDER DO, DEANN Huynh Ot R61 GENERALIZED HYPERHIDROSIS 09/27/2016 GELLENDER DO, DEANN Amina Ot R05 COUGH 09/27/2016 GELLENDER DO, DEANN Huynh Ot R50.9 FEVER, UNSPECIFIED 09/27/2016 GELLENDER DO, DEANN Huynh Ot R61 GENERALIZED HYPERHIDROSIS 10/28/2016 GELLENDER DO, DEANN Huynh Ot R10.9 UNSPECIFIED ABDOMINAL PAIN 11/19/2016 GELLENDER DO, DEANN Huynh Ot R10.9 UNSPECIFIED ABDOMINAL PAIN 11/26/2016 GELLENDER DO, DEANN Huynh Ot R10.9 UNSPECIFIED ABDOMINAL PAIN 02/07/2017 GELLENDER DO, DEANN Huynh Ot R19.7 DIARRHEA, UNSPECIFIED 02/10/2017 GELLENDER DO, DEANN Huynh Ot N28.9 DISORDER OF KIDNEY AND URETER, UNSPECIFI 02/10/2017 GELLENDER DO, DEANN Huynh Ot R10.9 UNSPECIFIED ABDOMINAL PAIN 02/10/2017 GELLENDER DO, DEANN Huynh Ot R11.10 VOMITING, UNSPECIFIED 02/10/2017 GELLENDER DO, DEANN Huynh Ot R19.7 DIARRHEA, UNSPECIFIED 03/14/2017 GELLENDER DO, DEANN Huynh Ot N28.9 DISORDER OF KIDNEY AND URETER, UNSPECIFI 03/14/2017 GELLENDER DO, DEANN A Ot R10.9 UNSPECIFIED ABDOMINAL PAIN 03/14/2017 GELLENDER DO, DEANN Huynh Ot R11.10 VOMITING, UNSPECIFIED 03/14/2017 GELLENDER DO, DEANN Huynh Ot R19.7 DIARRHEA, UNSPECIFIED 2017 GELLENDER DO, DEANN Huynh Ot R19.7 DIARRHEA, UNSPECIFIED 04/05/2017 GELLENDER DO, DEANN Huynh Ot N28.9 DISORDER OF KIDNEY AND URETER, UNSPECIFI 04/05/2017 GELLENDER DO, DEANN Huynh Ot R10.9 UNSPECIFIED ABDOMINAL PAIN 04/05/2017 GELLENDER DO, DEANN Huynh Ot R11.10 VOMITING, UNSPECIFIED 04/05/2017 GELLENDER DO, DEANN Huynh Ot R19.7 DIARRHEA, UNSPECIFIED 04/07/2017 GELLENDER DO, DEANN Huynh Ot R19.7 DIARRHEA, UNSPECIFIED 04/15/2017 SANDHYA JACOBSON PLANNING SUPERVISOR Ot 611.71 MASTODYNIA 04/15/2017 SANDHYA JACOBSON PLANNING SUPERVISOR Ot 611.79 SYMPTOMS IN BREAST NEC 04/15/2017 Ot 280.9 IRON DEFIC ANEMIA NOS 04/15/2017 MASSIMO ZAMBRANO DO Ot 617.9 ENDOMETRIOSIS NOS 04/15/2017 MASSIMO ZAMBRANO DO Ot 620.2 OVARIAN CYST NEC/NOS 04/15/2017 MASSIMO ZAMBRANO DO Ot 625.9 FEM GENITAL SYMPTOMS NOS 04/15/2017 MASSIMO ZAMBRANO DO Ot 626.2 EXCESSIVE MENSTRUATION 04/15/2017 MASSIMO ZAMBRANO DO Ot V72.63 PRE-PROCEDURAL LABORATORY EXAMINATION 04/15/2017 MASSIMO ZAMBRANO DO Ot V74.8 SCREEN-BACTERIAL DIS NEC 04/15/2017 DOLORES CRUZ, MASSIMO Roca Ot 717.7 CHONDROMALACIA PATELLAE 04/15/2017 DOLORES CRUZ, MASSIMO Roca Ot V72.84 EXAM PRE-OPERATIVE NOS 04/15/2017 Ot 789.00 ABDOMINAL PAIN, UNSPECIFIED SITE 04/15/2017 GELLENDER DO, DEANN Huynh Ot V76.12 OTH SCREEN MAMMO-MALIGN NEOPLASM OF NICO 04/15/2017 GELLENDER DO, DEANN Huynh Ot 285.9 ANEMIA NOS 04/15/2017 GELLENDER DO, DEANN Huynh Ot 716.90 ARTHROPATHY NOS-UNSPEC 04/15/2017 GELLENDER DO, DEANN Huynh Ot 782.1 NONSPECIF SKIN ERUPT NEC 04/15/2017 REGINO CRUZ, AGUILAR Salgado Ot V72.84 EXAM PRE-OPERATIVE NOS 04/15/2017 REGINO CRUZ, AGUILAR Salgado Ot V72.84 EXAM PRE-OPERATIVE NOS 04/15/2017 IVELISSE CRUZ FACC, ALI FACP CCDS Ot D64.9 ANEMIA, UNSPECIFIED 04/15/2017 IVELISSE CRUZ FACC, ALI FACP CCDS Ot F17.200 NICOTINE DEPENDENCE, UNSPECIFIED, UNCOMP 04/15/2017 IVELISSE CRUZ FACC, ALI FACP CCDS Ot F31.9 BIPOLAR DISORDER, UNSPECIFIED 04/15/2017 IVELISSE CRUZ FACC, ALI FACP CCDS Ot I10 ESSENTIAL (PRIMARY) HYPERTENSION 04/15/2017 IVELISSE CRUZ FACC, ALI FACP CCDS Ot I21.4 NON-ST ELEVATION (NSTEMI) MYOCARDIAL INF 04/15/2017 REGINO CRUZ, AGUILAR Salgado Ot L72.9 FOLLICULAR CYST OF THE SKIN AND SUBCUTAN 04/15/2017 REGINO CRUZ, AGUILAR Salgado Ot Z01.818 ENCOUNTER FOR OTHER PREPROCEDURAL EXAMIN 04/15/2017 GELLENDER DO, DEANN Huynh Ot R05 COUGH 04/15/2017 GELLENDER DODEANN Ot R50.9 FEVER, UNSPECIFIED 04/15/2017 GELLENDER DODEANN Ot R61 GENERALIZED HYPERHIDROSIS 04/15/2017 GELLENDER DODEANN Ot R10.9 UNSPECIFIED ABDOMINAL PAIN 04/15/2017 GELLENDER DODEANN Ot R19.7 DIARRHEA, UNSPECIFIED 04/15/2017 GELLENDER DODEANN Ot N28.9 DISORDER OF KIDNEY AND URETER, UNSPECIFI 04/15/2017 GELLENDER DODEANN Ot R10.9 UNSPECIFIED ABDOMINAL PAIN 04/15/2017 GELLENDER DO, DEANN Huynh Ot R11.10 VOMITING, UNSPECIFIED 04/15/2017 GELLENDER DO, DEANN Huynh Ot R19.7 DIARRHEA, UNSPECIFIED 04/21/2017 GELLENDER DO, DEANN Huynh Ot K21.9 GASTRO-ESOPHAGEAL REFLUX DISEASE WITHOUT 05/02/2017 GELLENDER DO, DEANN Huynh Ot R53.83 OTHER FATIGUE 05/05/2017 GELLENDER DO, DEANN Huynh Ot R19.7 DIARRHEA, UNSPECIFIED 05/05/2017 GELLENDER DO, DEANN Huynh Ot R53.83 OTHER FATIGUE 05/12/2017 GELLENDER DO, DEANN Huynh Ot K21.9 GASTRO-ESOPHAGEAL REFLUX DISEASE WITHOUT 05/17/2017 GELLENDER DO, DEANN Huynh Ot K21.9 GASTRO-ESOPHAGEAL REFLUX DISEASE WITHOUT 05/23/2017 GELLENDER DO, DEANN Huynh Ot R53.83 OTHER FATIGUE 05/25/2017 Brokob, Nga A 486 PNEUMONIA, ORGANISM UNSPECIFIED 05/25/2017 Brokob, Nga W 789.04 ABDOMINAL PAIN, LEFT LOWER QUADRANT 05/25/2017 Brokob, Nga A J18.9 PNEUMONIA, UNSPECIFIED ORGANISM 05/25/2017 Brokob, Nga W R10.32 LEFT LOWER QUADRANT PAIN 05/26/2017 GELLENDER DO, DEANN Huynh Ot E03.9 HYPOTHYROIDISM, UNSPECIFIED 05/30/2017 GELLENDER DO, DEANN Huynh Ot R53.83 OTHER FATIGUE 06/03/2017 GELLENDER DO, DEANN Huynh Ot E03.9 HYPOTHYROIDISM, UNSPECIFIED 06/13/2017 GELLENDER DO, DEANN Huynh Ot J90 PLEURAL EFFUSION, NOT ELSEWHERE CLASSIFI 06/13/2017 GELLENDER DO, DEANN Huynh Ot R91.8 OTHER NONSPECIFIC ABNORMAL FINDING OF JABARI 06/16/2017 GELLENDER DO, DEANN Huynh Ot J84.10 PULMONARY FIBROSIS, UNSPECIFIED 06/16/2017 GELLENDER DO, DEANN uHynh Ot R91.8 OTHER NONSPECIFIC ABNORMAL FINDING OF JABARI 06/16/2017 DOLORES CRUZ, MASSIMO Roca Ot S83.241A OTH TEAR OF MEDIAL MENISCUS, CURRENT INJ 06/16/2017 DOLORES CRUZ, MASSIMO Roca Ot X58.XXXA EXPOSURE TO OTHER SPECIFIED FACTORS, INI 06/16/2017 MASSIMO BERNAL MD Ot Y99.8 OTHER EXTERNAL CAUSE STATUS 06/16/2017 MASSIMO BERNAL MD Ot Z01.818 ENCOUNTER FOR OTHER PREPROCEDURAL EXAMIN 06/22/2017 MASSIMO BERNAL MD Ot I50.9 HEART FAILURE, UNSPECIFIED 06/22/2017 MASSIMO BERNAL MD Ot K21.9 GASTRO-ESOPHAGEAL REFLUX DISEASE WITHOUT 06/22/2017 MASSIMO BERNAL MD Ot M22.41 CHONDROMALACIA PATELLAE, RIGHT KNEE 06/22/2017 MASSIMO BERNAL MD Ot M23.8X1 OTHER INTERNAL DERANGEMENTS OF RIGHT KNE 06/22/2017 MASSIMO BERNAL MD Ot M79.1 MYALGIA 06/22/2017 MASSIMO BERNAL MD Ot Z79.899 OTHER [facility] (CURRENT) DRUG THERAPY 06/24/2017 MASSIMO BERNAL MD, Ot I50.9 HEART FAILURE, UNSPECIFIED 06/24/2017 MASSIMO BERNAL MD Ot K21.9 GASTRO-ESOPHAGEAL REFLUX DISEASE WITHOUT 06/24/2017 MASSIMO BERNAL MD Ot M22.41 CHONDROMALACIA PATELLAE, RIGHT KNEE 06/24/2017 MASSIMO BERNAL MD Ot M23.8X1 OTHER INTERNAL DERANGEMENTS OF RIGHT KNE 06/24/2017 MASSIMO BERNAL MD Ot M79.1 MYALGIA 06/24/2017 MASSIMO BERNAL MD Ot Z79.899 OTHER [facility] (CURRENT) DRUG THERAPY 07/01/2017 DEANN GARCÍA DO Ot J90 PLEURAL EFFUSION, NOT ELSEWHERE CLASSIFI 07/01/2017 DEANN GARCÍA DO Ot R91.8 OTHER NONSPECIFIC ABNORMAL FINDING OF JABARI 07/01/2017 DEANN GARCÍA DO Ot J84.10 PULMONARY FIBROSIS, UNSPECIFIED 07/01/2017 DEANN GARCÍA DO Ot R91.8 OTHER NONSPECIFIC ABNORMAL FINDING OF JABARI 07/05/2017 DEANN GARCÍA DO Ot J18.9 PNEUMONIA, UNSPECIFIED ORGANISM 07/06/2017 DEANN GARCÍA DO Ot J18.9 PNEUMONIA, UNSPECIFIED ORGANISM 07/19/2017 DEANN GARCÍA DO Ot M54.5 LOW BACK PAIN 07/26/2017 DEANN GARCÍA DO Ot M54.5 LOW BACK PAIN 08/09/2017 GELLENDER DO, DEANN A Ot F31.9 BIPOLAR DISORDER, UNSPECIFIED 08/09/2017 GELLENDER DO, DEANN A Ot F33.9 MAJOR DEPRESSIVE DISORDER, RECURRENT, UN 09/01/2017 GELLENDER DO, DEANN A Ot F31.9 BIPOLAR DISORDER, UNSPECIFIED 09/01/2017 GELLENDER DO, DEANN A Ot F33.9 MAJOR DEPRESSIVE DISORDER, RECURRENT, UN 09/13/2017 GELLENDER DO, DEANN Huynh Ot F31.9 BIPOLAR DISORDER, UNSPECIFIED 09/13/2017 GELLENDER DO, DEANN A Ot F33.9 MAJOR DEPRESSIVE DISORDER, RECURRENT, UN 12/22/2017 SANDHYA JACOBSON PLANNING SUPERVISOR Ot 611.71 MASTODYNIA 12/22/2017 SANDHYA JACOBSON PLANNING SUPERVISOR Ot 611.79 SYMPTOMS IN BREAST NEC 12/22/2017 Ot 280.9 IRON DEFIC ANEMIA NOS 12/22/2017 MASSIMO ZAMBRANO DO Ot 617.9 ENDOMETRIOSIS NOS 12/22/2017 MASSIMO ZAMBRANO DO Ot 620.2 OVARIAN CYST NEC/NOS 12/22/2017 MASSIMO ZAMBRANO DO Ot 625.9 FEM GENITAL SYMPTOMS NOS 12/22/2017 MASSIMO ZAMBRANO DO Ot 626.2 EXCESSIVE MENSTRUATION 12/22/2017 MASSIMO ZAMBRANO DO Ot V72.63 PRE-PROCEDURAL LABORATORY EXAMINATION 12/22/2017 MASSIMO ZAMBRANO DO Ot V74.8 SCREEN-BACTERIAL DIS NEC 12/22/2017 DOLORES CRUZ, MASSIMO Roca Ot 717.7 CHONDROMALACIA PATELLAE 12/22/2017 DOLORES CRUZ, MASSIMO Roca Ot V72.84 EXAM PRE-OPERATIVE NOS 12/22/2017 Ot 789.00 ABDOMINAL PAIN, UNSPECIFIED SITE 12/22/2017 RICKY SANTANA DEANN Amina Ot V76.12 OTH SCREEN MAMMO-MALIGN NEOPLASM OF NICO 12/22/2017 RICKY SANTANADEANN Ot 285.9 ANEMIA NOS 12/22/2017 SUSANDER DEANN Ot 716.90 ARTHROPATHY NOS-UNSPEC 12/22/2017 RICKY SANTANADEANN Ot 782.1 NONSPECIF SKIN ERUPT NEC 12/22/2017 REGINO CRUZ, AGUILAR Salgado Ot V72.84 EXAM PRE-OPERATIVE NOS 12/22/2017 REGINO CRUZ, AGUILAR Salgado Ot V72.84 EXAM PRE-OPERATIVE NOS 12/22/2017 IVELISSE CRUZ FAC, ALI FACP CCDS Ot D64.9 ANEMIA, UNSPECIFIED 12/22/2017 IVELISSE CRUZ FACC, ALI FACP CCDS Ot F17.200 NICOTINE DEPENDENCE, UNSPECIFIED, UNCOMP 12/22/2017 IVELISSE CRUZ FACC, ALI FACP CCDS Ot F31.9 BIPOLAR DISORDER, UNSPECIFIED 12/22/2017 IVELISSE CRUZ FACC, ALI FACP CCDS Ot I10 ESSENTIAL (PRIMARY) HYPERTENSION 12/22/2017 IVELISSE CRUZ [facility], ALI FACP CCDS Ot I21.4 NON-ST ELEVATION (NSTEMI) MYOCARDIAL INF 12/22/2017 REGINO CRUZ, AGUILAR Salgado Ot L72.9 FOLLICULAR CYST OF THE SKIN AND SUBCUTAN 12/22/2017 REGINO CRUZ, AGUILAR Salgado Ot Z01.818 ENCOUNTER FOR OTHER PREPROCEDURAL EXAMIN 12/22/2017 GELLENDER DO, DEANN Huynh Ot R05 COUGH 12/22/2017 GELLENDER DO, DEANN Huynh Ot R50.9 FEVER, UNSPECIFIED 12/22/2017 GELLENDER DO, DEANN Huynh Ot R61 GENERALIZED HYPERHIDROSIS 12/22/2017 GELLENDER DO, DEANN Huynh Ot R10.9 UNSPECIFIED ABDOMINAL PAIN 12/22/2017 GELLENDER DO, DEANN Huynh Ot N28.9 DISORDER OF KIDNEY AND URETER, UNSPECIFI 12/22/2017 GELLENDER DO, DEANN Huynh Ot R10.9 UNSPECIFIED ABDOMINAL PAIN 12/22/2017 GELLENDER DO, DEANN Huynh Ot R11.10 VOMITING, UNSPECIFIED 12/22/2017 GELLENDER DO, DEANN Huynh Ot R19.7 DIARRHEA, UNSPECIFIED 12/22/2017 GELLENDER DO, DEANN Huynh Ot K21.9 GASTRO-ESOPHAGEAL REFLUX DISEASE WITHOUT 12/22/2017 GELLENDER DO, DEANN Huynh Ot R53.83 OTHER FATIGUE 12/22/2017 GELLENDER DO, DEANN Huynh Ot E03.9 HYPOTHYROIDISM, UNSPECIFIED 12/22/2017 GELLENDER DO, DEANN Huynh Ot R19.7 DIARRHEA, UNSPECIFIED 12/22/2017 GELLENDER DO, DEANN Huynh Ot J90 PLEURAL EFFUSION, NOT ELSEWHERE CLASSIFI 12/22/2017 GELLENDER DO, DEANN Huynh Ot R91.8 OTHER NONSPECIFIC ABNORMAL FINDING OF JABARI 12/22/2017 GELLENDER DO, DEANN Huynh Ot J84.10 PULMONARY FIBROSIS, UNSPECIFIED 12/22/2017 GELLENDER DO, DEANN Huynh Ot R91.8 OTHER NONSPECIFIC ABNORMAL FINDING OF JABARI 12/22/2017 GELLENDER DO, DEANN Huynh Ot J18.9 PNEUMONIA, UNSPECIFIED ORGANISM 12/22/2017 GELLENDER DO, DEANN Huynh Ot M54.5 LOW BACK PAIN 12/22/2017 GELLENDER DO, DEANN Huynh Ot F31.9 BIPOLAR DISORDER, UNSPECIFIED 12/22/2017 GELLENDER DO, DEANN Huynh Ot F33.9 MAJOR DEPRESSIVE DISORDER, RECURRENT, UN 12/23/2017 GELLENDER DO, DEANN Huynh Ot M81.8 OTHER OSTEOPOROSIS WITHOUT CURRENT PATHO 12/23/2017 GELLENDER DO, DEANN Huynh Ot S99.921A UNSPECIFIED INJURY OF RIGHT FOOT, INITIA 12/23/2017 GELLENDER DO, DEANN Huynh Ot W19.XXXA UNSPECIFIED FALL, INITIAL ENCOUNTER 12/29/2017 GELLENDER DO, DEANN Huynh Ot M81.8 OTHER OSTEOPOROSIS WITHOUT CURRENT PATHO 12/29/2017 GELLENDER DO, DEANN Huynh Ot S99.921A UNSPECIFIED INJURY OF RIGHT FOOT, INITIA 12/29/2017 GELLENDER DO, DEANN Huynh Ot W19.XXXA UNSPECIFIED FALL, INITIAL ENCOUNTER 01/30/2018 GELLENDER DO, DEANN Huynh Ot M81.8 OTHER OSTEOPOROSIS WITHOUT CURRENT PATHO 01/30/2018 GELLENDER DO, DEANN Huynh Ot S99.921A UNSPECIFIED INJURY OF RIGHT FOOT, INITIA 01/30/2018 GELLENDER DO, DEANN Huynh Ot W19.XXXA UNSPECIFIED FALL, INITIAL ENCOUNTER 05/02/2018 GELLENDER DO, DEANN Huynh Ot S22.42XD MULTIPLE FX OF RIBS, LEFT SIDE, SUBS FOR 05/23/2018 GELLENDER DO, DEANN Huynh Ot S22.42XD MULTIPLE FX OF RIBS, LEFT SIDE, SUBS FOR 06/06/2018 GELLENDER DO, DEANN Huynh Ot S22.42XD MULTIPLE FX OF RIBS, LEFT SIDE, SUBS FOR Procedures Code Description [place] [address] ROUTINE VENIPUNCTURE 12/14/2012 49982 BMP 12/14/2012 [id number] GFR CALC (RESULT ONLY) 12/14/2012 78851 CBC 12/14/2012 62121 PSYTX PT&/FAMILY 45 MINUTES 01/29/2013 67098 URINE DRUG SCREEN (IN-HOUSE ) 06/25/2013 85639 UA LONG DIP 06/25/2013 37409 ROUTINE VENIPUNCTURE 07/11/2013 46297 URINE DRUG SCREEN (IN-HOUSE ) 07/11/2013 97724 CBC 07/11/2013 24551 CMP 07/11/2013 [id number] GFR CALC (RESULT ONLY) 07/11/2013 12817 VALPROIC ACID / DEPAKOTE 07/11/2013 37.22 LEFT HEART CARDIAC CATH 07/30/2013 88.53 LT HEART ANGIOCARDIOGRAM 07/30/2013 88.56 CORONAR ARTERIOGR-2 CATH 07/30/2013 Obstetric Jonan Justice 08/20/2013 25882 URINE DRUG SCREEN (IN-HOUSE ) 10/11/2013 83874 INFLUENZA A & B (IN-HOUSE) 11/19/2013 OTOLARYNMASSIMO CORTES 12/17/2013 65010 STREP A (IN-HOUSE) 07/20/2014 13623 ROUTINE VENIPUNCTURE 10/09/2014 [id number] GFR CALC (RESULT ONLY) 10/09/2014 88214 CMP 10/09/2014 21936 VALPROIC ACID / DEPAKOTE 10/09/2014 Results Test Result Range Complete blood count (CBC) with automated white blood cell (WBC) differential - 08/30/16 15:13 Blood leukocytes automated count (number/volume) 5.7 10*3/uL 4.3-11.0 Blood erythrocytes automated count (number/volume) 4.19 10*6/uL 4.35-5.85 Venous blood hemoglobin measurement (mass/volume) 12.7 g/dL 11.5-16.0 Blood hematocrit (volume fraction) 38 % 35-52 Automated erythrocyte mean corpuscular volume 91 [foz_us] 80-99 Automated erythrocyte mean corpuscular hemoglobin (mass per erythrocyte) 30 pg 25-34 Automated erythrocyte mean corpuscular hemoglobin concentration measurement ( mass/volume) 33 g/dL 32-36 Automated erythrocyte distribution width ratio 14.2 % 10.0-14.5 Automated blood platelet count (count/volume) 166 10*3/uL 130-400 Automated blood platelet mean volume measurement 11.2 [foz_us] 7.4-10.4 Automated blood neutrophils/100 leukocytes 41 % 42-75 Automated blood lymphocytes/100 leukocytes 49 % 12-44 Blood monocytes/100 leukocytes 6 % 0-12 Automated blood eosinophils/100 leukocytes 2 % 0-10 Automated blood basophils/100 leukocytes 2 % 0-10 Blood neutrophils automated count (number/volume) 2.3 10*3 1.8-7.8 Blood lymphocytes automated count (number/volume) 2.8 10*3 1.0-4.0 Blood monocytes automated count (number/volume) 0.3 10*3 0.0-1.0 Automated eosinophil count 0.1 10*3/uL 0.0-0.3 Automated blood basophil count (count/volume) 0.1 10*3/uL 0.0-0.1 Comprehensive metabolic panel - 08/30/16 15:13 Serum or plasma sodium measurement (moles/volume) 137 mmol/L 135-145 Serum or plasma potassium measurement (moles/volume) 4.3 mmol/L 3.6-5.0 Serum or plasma chloride measurement (moles/volume) 104 mmol/L 98-107 Carbon dioxide 22 mmol/L 21-32 Serum or plasma anion gap determination (moles/volume) 11 mmol/L 5-14 Serum or plasma urea nitrogen measurement (mass/volume) 12 mg/dL 7-18 Serum or plasma creatinine measurement (mass/volume) 0.93 mg/dL 0.60-1.30 Serum or plasma urea nitrogen/creatinine mass ratio 13 NRG Serum or plasma creatinine measurement with calculation of estimated glomerular filtration rate > NRG Serum or plasma glucose measurement (mass/volume) 152 mg/dL 70-105 Serum or plasma calcium measurement (mass/volume) 8.8 mg/dL 8.5-10.1 Serum or plasma total bilirubin measurement (mass/volume) 0.4 mg/dL 0.1-1.0 Serum or plasma alkaline phosphatase measurement (enzymatic activity/volume) 73 U/L 40-136 Serum or plasma aspartate aminotransferase measurement (enzymatic activity/ volume) 12 U/L 5-34 Serum or plasma alanine aminotransferase measurement (enzymatic activity/volume ) 11 U/L 0-55 Serum or plasma protein measurement (mass/volume) 6.5 g/dL 6.4-8.2 Serum or plasma albumin measurement (mass/volume) 4.0 g/dL 3.2-4.5 C DIFFICILE AG + TOXIN A/B. - 02/06/17 17:08 C DIFFICILE AG + TOXIN A/B. TNP [facility] [id number] - 02/07/17 15:42 Serum or plasma urea nitrogen measurement (mass/volume) 11 mg/dL 7-18 Serum or plasma creatinine measurement (mass/volume) 0.85 mg/dL 0.60-1.30 Serum or plasma urea nitrogen/creatinine mass ratio 13 NRG Serum or plasma creatinine measurement with calculation of estimated glomerular filtration rate > NRG Automated blood complete blood count (hemogram) panel - 04/29/17 16:30 Blood leukocytes automated count (number/volume) 4.9 10*3/uL 4.3-11.0 Blood erythrocytes automated count (number/volume) 3.73 10*6/uL 4.35-5.85 Venous blood hemoglobin measurement (mass/volume) 11.3 g/dL 11.5-16.0 Blood hematocrit (volume fraction) 35 % 35-52 Automated erythrocyte mean corpuscular volume 95 [foz_us] 80-99 Automated erythrocyte mean corpuscular hemoglobin (mass per erythrocyte) 30 pg 25-34 Automated erythrocyte mean corpuscular hemoglobin concentration measurement ( mass/volume) 32 g/dL 32-36 Automated erythrocyte distribution width ratio 13.9 % 10.0-14.5 Automated blood platelet count (count/volume) 127 10*3/uL 130-400 Automated blood platelet mean volume measurement 11.7 [foz_us] 7.4-10.4 Comprehensive metabolic panel - 04/29/17 16:30 Serum or plasma sodium measurement (moles/volume) 143 mmol/L 135-145 Serum or plasma potassium measurement (moles/volume) 4.2 mmol/L 3.6-5.0 Serum or plasma chloride measurement (moles/volume) 108 mmol/L 98-107 Carbon dioxide 26 mmol/L 21-32 Serum or plasma anion gap determination (moles/volume) 9 mmol/L 5-14 Serum or plasma urea nitrogen measurement (mass/volume) 15 mg/dL 7-18 Serum or plasma creatinine measurement (mass/volume) 0.81 mg/dL 0.60-1.30 Serum or plasma urea nitrogen/creatinine mass ratio 19 0 -20 Serum or plasma creatinine measurement with calculation of estimated glomerular filtration rate > NRG Serum or plasma glucose measurement (mass/volume) 77 mg/dL 70-105 Serum or plasma calcium measurement (mass/volume) 8.2 mg/dL 8.5-10.1 Serum or plasma total bilirubin measurement (mass/volume) 0.2 mg/dL 0.1-1.0 Serum or plasma alkaline phosphatase measurement (enzymatic activity/volume) 52 U/L 40-136 Serum or plasma aspartate aminotransferase measurement (enzymatic activity/ volume) 10 U/L 5-34 Serum or plasma alanine aminotransferase measurement (enzymatic activity/volume ) 11 U/L 0-55 Serum or plasma protein measurement (mass/volume) 5.5 g/dL 6.4-8.2 Serum or plasma albumin measurement (mass/volume) 3.3 g/dL 3.2-4.5 THYROID STIMULATING HORMONE - 04/29/17 16:30 THYROID STIMULATING HORMONE 0.22 u[iU]/mL 0.35-4.94 THYROID STIMULATING HORMONE - 05/02/17 15:10 THYROID STIMULATING HORMONE 0.35 u[iU]/mL 0.35-4.94 Serum or plasma thyroxine (T4) free measurement (mass/volume) - 05/02/17 15:10 Serum or plasma thyroxine (T4) free measurement (mass/volume) 1.13 ng/dL 0.70-1.48 Complete blood count (CBC) with automated white blood cell (WBC) differential - 05/19/17 15:15 Blood leukocytes automated count (number/volume) 6.2 10*3/uL 4.3-11.0 Blood erythrocytes automated count (number/volume) 3.46 10*6/uL 4.35-5.85 Venous blood hemoglobin measurement (mass/volume) 10.3 g/dL 11.5-16.0 Blood hematocrit (volume fraction) 32 % 35-52 Automated erythrocyte mean corpuscular volume 93 [foz_us] 80-99 Automated erythrocyte mean corpuscular hemoglobin (mass per erythrocyte) 30 pg 25-34 Automated erythrocyte mean corpuscular hemoglobin concentration measurement ( mass/volume) 32 g/dL 32-36 Automated erythrocyte distribution width ratio 13.6 % 10.0-14.5 Automated blood platelet count (count/volume) 294 10*3/uL 130-400 Automated blood platelet mean volume measurement 10.3 [foz_us] 7.4-10.4 Automated blood neutrophils/100 leukocytes 58 % 42-75 Automated blood lymphocytes/100 leukocytes 32 % 12-44 Blood monocytes/100 leukocytes 8 % 0-12 Automated blood eosinophils/100 leukocytes 2 % 0-10 Automated blood basophils/100 leukocytes 0 % 0-10 Blood neutrophils automated count (number/volume) 3.6 10*3 1.8-7.8 Blood lymphocytes automated count (number/volume) 2.0 10*3 1.0-4.0 Blood monocytes automated count (number/volume) 0.5 10*3 0.0-1.0 Automated eosinophil count 0.1 10*3/uL 0.0-0.3 Automated blood basophil count (count/volume) 0.0 10*3/uL 0.0-0.1 Whole blood basic metabolic panel - 05/19/17 15:15 Serum or plasma sodium measurement (moles/volume) 139 mmol/L 135-145 Serum or plasma potassium measurement (moles/volume) 4.1 mmol/L 3.6-5.0 Serum or plasma chloride measurement (moles/volume) 105 mmol/L 98-107 Carbon dioxide 25 mmol/L 21-32 Serum or plasma anion gap determination (moles/volume) 9 mmol/L 5-14 Serum or plasma urea nitrogen measurement (mass/volume) 11 mg/dL 7-18 Serum or plasma creatinine measurement (mass/volume) 0.80 mg/dL 0.60-1.30 Serum or plasma urea nitrogen/creatinine mass ratio 14 NRG Serum or plasma creatinine measurement with calculation of estimated glomerular filtration rate > NRG Serum or plasma glucose measurement (mass/volume) 95 mg/dL 70-105 Serum or plasma calcium measurement (mass/volume) 8.6 mg/dL 8.5-10.1 Mycoplasma - 05/25/17 14:48 Mycoplasma Negative Negative Methicillin resistant Staphylococcus aureus (MRSA) screening culture - 12:24 Methicillin resistant Staphylococcus aureus (MRSA) screening culture NEG NRG Valproic acid - 08/08/17 18:00 Valproic acid 43.7 ug/mL 50.0-100.0 Complete blood count (CBC) with automated white blood cell (WBC) differential - 08/03/18 13:08 Blood leukocytes automated count (number/volume) 4.4 10*3/uL 4.3-11.0 Blood erythrocytes automated count (number/volume) 3.48 10*6/uL 4.35-5.85 Venous blood hemoglobin measurement (mass/volume) 10.1 g/dL 11.5-16.0 Blood hematocrit (volume fraction) 32 % 35-52 Automated erythrocyte mean corpuscular volume 91 [foz_us] 80-99 Automated erythrocyte mean corpuscular hemoglobin (mass per erythrocyte) 29 pg 25-34 Automated erythrocyte mean corpuscular hemoglobin concentration measurement ( mass/volume) 32 g/dL 32-36 Automated erythrocyte distribution width ratio 14.7 % 10.0-14.5 Automated blood platelet count (count/volume) 214 10*3/uL 130-400 Automated blood platelet mean volume measurement 11.0 [foz_us] 7.4-10.4 Automated blood neutrophils/100 leukocytes 45 % 42-75 Automated blood lymphocytes/100 leukocytes 42 % 12-44 Blood monocytes/100 leukocytes 9 % 0-12 Automated blood eosinophils/100 leukocytes 3 % 0-10 Automated blood basophils/100 leukocytes 1 % 0-10 Blood neutrophils automated count (number/volume) 2.0 10*3 1.8-7.8 Blood lymphocytes automated count (number/volume) 1.8 10*3 1.0-4.0 Blood monocytes automated count (number/volume) 0.4 10*3 0.0-1.0 Automated eosinophil count 0.1 10*3/uL 0.0-0.3 Automated blood basophil count (count/volume) 0.1 10*3/uL 0.0-0.1 Comprehensive metabolic panel - 08/03/18 13:08 Serum or plasma sodium measurement (moles/volume) 140 mmol/L 135-145 Serum or plasma potassium measurement (moles/volume) 4.4 mmol/L 3.6-5.0 Serum or plasma chloride measurement (moles/volume) 106 mmol/L 98-107 Carbon dioxide 29 mmol/L 21-32 Serum or plasma anion gap determination (moles/volume) 5 mmol/L 5-14 Serum or plasma urea nitrogen measurement (mass/volume) 14 mg/dL 7-18 Serum or plasma creatinine measurement (mass/volume) 0.99 mg/dL 0.60-1.30 Serum or plasma urea nitrogen/creatinine mass ratio 14 NRG Serum or plasma creatinine measurement with calculation of estimated glomerular filtration rate > NRG Serum or plasma glucose measurement (mass/volume) 91 mg/dL 70-105 Serum or plasma calcium measurement (mass/volume) 8.6 mg/dL 8.5-10.1 Serum or plasma total bilirubin measurement (mass/volume) 0.2 mg/dL 0.1-1.0 Serum or plasma alkaline phosphatase measurement (enzymatic activity/volume) 63 U/L 40-136 Serum or plasma aspartate aminotransferase measurement (enzymatic activity/ volume) 11 U/L 5-34 Serum or plasma alanine aminotransferase measurement (enzymatic activity/volume ) 10 U/L 0-55 Serum or plasma protein measurement (mass/volume) 5.7 g/dL 6.4-8.2 Serum or plasma albumin measurement (mass/volume) 3.8 g/dL 3.2-4.5 CALCIUM CORRECTED 8.8 mg/dL 8.5-10.1 Magnesium - 08/03/18 13:08 Magnesium 2.3 mg/dL 1.8-2.4 Serum or plasma troponin i.cardiac measurement (mass/volume) - 08/03/18 13:08 Serum or plasma troponin i.cardiac measurement (mass/volume) < ng/ mL <0.30 PT panel in platelet poor plasma by coagulation assay - 08/03/18 13:08 Prothrombin time (PT) in platelet poor plasma by coagulation assay 11.9 s 12.2-14.7 INR in platelet poor plasma or blood by coagulation assay 0.9 0.8-1.4 Activated partial thromboplastin time (aPTT) in platelet poor plasma bycoagulation assay - 08/03/18 13:08 Activated partial thromboplastin time (aPTT) in platelet poor plasma bycoagulation assay 28 s 24-35 Fibrin D-dimer FEU measurement in platelet poor plasma (mass/volume) - 13:08 Fibrin D-dimer FEU measurement in platelet poor plasma (mass/volume) 0.41 ug/mL 0.00-0.49 Myoglobin, serum - 08/03/18 13:08 Myoglobin, serum 33.9 ng/mL 10.0-92.0 Encounters ACCT No. Visit Date/Time Discharge Status Pt. Type Provider Facility Loc./Unit Complaint [id number] 12/04/2014 15:17:00 12/04/2014 23:59:59 [facility] Outpatient HELENA CROWDER APRN [id number] 12/04/2014 15:17:00 12/04/2014 23:59:59 [facility] Outpatient CHASE BRUNO DO [id number] 10/09/2014 09:19:00 10/09/2014 23:59:59 [facility] Outpatient ANDREINA JOHNS MD [id number] 07/31/2014 18:09:00 07/31/2014 23:59:59 [facility] Outpatient KASANDRA JURADO APRN [id number] 07/20/2014 10:05:00 07/20/2014 23:59:59 [facility] Outpatient KASANDRA JURADO APRN [id number] 07/15/2014 11:48:00 07/15/2014 23:59:59 [facility] Outpatient SABINA BRADSHAW APRN [id number] 05/16/2014 01:01:00 05/16/2014 23:59:59 CLS Outpatient ANDREINA JOHNS MD [id number] 04/29/2014 14:34:00 04/29/2014 23:59:59 CLS Outpatient ANDREINA JOHNS MD [id number] 04/03/2014 14:49:00 04/03/2014 23:59:59 CLS Outpatient PEPE GROVER APRN Jessica [id number] 01/25/2014 09:01:00 01/25/2014 23:59:59 [facility] Outpatient SABINA BRADSHAW APRN [id number] 12/24/2013 09:07:00 12/24/2013 23:59:59 CLS Outpatient EM FINE MD [id number] 11/30/2013 10:33:00 11/30/2013 23:59:59 CLS Outpatient ANDREINA JOHNS MD [id number] 11/19/2013 18:19:00 11/19/2013 23:59:59 CLS Outpatient CHASE BRUNO DO [id number] 10/11/2013 11:14:00 10/11/2013 23:59:59 CLS Outpatient ANDREINA JOHNS MD [id number] 08/20/2013 15:30:00 08/20/2013 23:59:59 CLS Outpatient ANDREINA JOHNS MD [id number] 08/14/2013 11:29:00 08/14/2013 23:59:59 CLS Outpatient EM FINE MD [id number] 07/11/2013 10:52:00 07/11/2013 23:59:59 CLS Outpatient RADHA SANTANAWOOD [id number] 06/25/2013 14:43:00 06/25/2013 23:59:59 CLS Outpatient ANDREINA JOHNS MD [id number] 01/25/2013 15:47:00 01/25/2013 23:59:59 CLS Outpatient IVY SALDAÑA PHD [id number] 01/11/2013 11:27:00 01/11/2013 23:59:59 CLS Outpatient WOOD GARCIA DO [id number] 12/14/2012 11:48:00 12/14/2012 23:59:59 CLS Outpatient WOOD GARCIA DO [id number] 12/14/2012 10:56:00 12/14/2012 23:59:59 CLS Outpatient [id number] 10/02/2012 15:00:00 10/02/2012 23:59:59 CLS Outpatient [id number] 10/02/2012 15:00:00 10/02/2012 23:59:59 [place] [id number] 08/25/2012 15:28:00 08/25/2012 23:59:59 CLS Outpatient ANDREINA JOHNS MD [id number] 07/11/2013 10:52:00 Document Registration [id number] 06/25/2013 14:43:00 Document Registration [id number] 06/12/2013 14:07:00 Document Registration [id number] 02/19/2013 14:31:00 Document Registration [id number] 05/01/2018 14:29:00 05/01/2018 23:59:59 CLS Outpatient DEANN GARCÍA DO [facility] RAD TRAUMA [id number] 12/22/2017 13:43:00 12/22/2017 23:59:59 CLS Outpatient DEANN GARCÍA DO [facility] RAD FALL HURT RIGHT FOOT [id number] 08/08/2017 17:51:00 08/08/2017 23:59:59 CLS Outpatient DEANN GARCÍA DO [facility] LAB BIPOLAR,DEPRESSION [id number] 06/27/2017 16:26:00 06/27/2017 23:59:59 CLS Outpatient DEANN GARCÍA DO [facility] RAD BACK TRAUMA PAIN [id number] 06/22/2017 07:00:00 06/22/2017 11:35:00 DIS Outpatient DOLORES CRUZ, MASSIMO Roca [facility] SDC RIGHT TORN MEDIAL/ LATERAL MENICUS [id number] 06/16/2017 12:03:00 06/16/2017 12:30:00 DIS Outpatient MASSIMO BERNAL MD [facility] PREOP RIGHT TORN LATERAL/ MEDIAL MENICUS [id number] 06/09/2017 14:46:00 06/09/2017 23:59:59 CLS Outpatient DEANN GARCÍA DO [facility] RAD PNEUMONIA [id number] 06/01/2017 09:30:00 06/01/2017 23:59:59 CLS Preadmit MASSIMO BERNAL MD [facility] SDC RIGHT KNEE TORN MEDIAL/ LATERAL MENISCUS [id number] 05/23/2017 08:54:00 05/23/2017 23:59:59 CLS Outpatient DEANN GARCÍA DO Amina [facility] RAD PULMONARY NODULE [id number] 05/19/2017 14:53:00 05/19/2017 23:59:59 CLS Outpatient DEANN GARCÍA DO [facility] RAD COUGH [id number] 05/06/2017 00:13:00 05/06/2017 23:59:59 CLS Preadmit DEANN GARCÍA DO [facility] LAB DIARRHEA [id number] 02/06/2017 17:07:00 05/05/2017 00:01:00 DIS Outpatient DEANN GARCÍA DO [facility] LAB DIARRHEA [id number] 05/02/2017 14:57:00 05/02/2017 23:59:59 CLS Outpatient DEANN GARCÍA DO [facility] LAB HYPOTHYROID [id number] 04/29/2017 16:13:00 04/29/2017 23:59:59 CLS Outpatient DEANN GARCÍA DO [facility] LAB TIRED [id number] 04/19/2017 09:30:00 04/19/2017 23:59:59 CLS Outpatient DEANN GARCÍA DO [facility] RAD ABD PAIN [id number] 02/07/2017 15:29:00 02/07/2017 23:59:59 CLS Outpatient SUSANTAVARESDEANN Amina [facility] RAD ABD PAIN [id number] 10/28/2016 10:46:00 10/28/2016 23:59:59 CLS Outpatient DEANN GARCÍA DO [facility] RAD ABD PAIN ON LT SIDE [id number] 08/30/2016 15:09:00 08/30/2016 23:59:59 CLS Outpatient DEANN GARCÍA DO [facility] LAB FEVER,COUGH [id number] 12/19/2015 07:38:00 12/19/2015 11:00:00 DIS Outpatient AGUILAR LACY MD [facility] LESION TOP OF SCALP [id number] 12/18/2015 13:30:00 12/18/2015 23:59:59 CLS Outpatient AGUILAR LACY MD [facility] PREOP LESION TOP OF SCALP [id number] 09/04/2015 07:45:00 09/04/2015 23:59:59 CLS Outpatient IVELISSE CRUZ FACC, ORA COX CCDS [facility] CARD HTN,ANEMIA, NSTEMI [id number] 07/07/2015 07:08:00 07/07/2015 10:15:00 DIS Outpatient AGUILAR LACY MD [facility] NON CARDIAC PAIN; HX GASTRIC BYPASS SURGERY [id number] 07/02/2015 06:17:00 07/02/2015 23:59:59 CLS Outpatient AGUILAR LACY MD [facility] PREOP NON CARDIAC PAIN; HX GASTRIC BYPASS SURGERY [id number] 04/24/2015 15:50:00 04/25/2015 10:25:00 DIS Inpatient DEANN GARCÍA DO [facility] CSD CHEST PAIN [id number] 04/21/2015 06:34:00 04/21/2015 09:00:00 DIS Outpatient AGUILAR LACY MD [facility] HX POLYPS [id number] 04/17/2015 06:16:00 04/17/2015 23:59:59 CLS Outpatient AGUILAR ALCY MD [facility] PREOP HX POLYPS [id number] 04/10/2015 14:04:00 04/10/2015 23:59:59 CLS Outpatient DEANN GARCÍA DO Amina [facility] RAD SCREENING [id number] 03/27/2015 15:10:00 03/27/2015 23:59:59 CLS Outpatient LILIANEHERNANDOANGELICA DO DEANN Amina [facility] LAB BUTTERFLY RASH ON NOSE,ANEMIA, [id number] 06/05/2014 12:33:00 06/05/2014 23:59:59 CLS Outpatient [id number] 04/23/2014 18:15:00 04/24/2014 12:00:00 DIS Inpatient ANDREINA JOHNS MD [facility] CSD CHEST PAIN, FACIAL WEAKNESS [id number] 01/30/2014 06:00:00 01/30/2014 10:35:00 DIS Outpatient MASSIMO BERNAL MD [facility] CHONDROMALASIA [id number] 01/29/2014 07:18:00 01/29/2014 23:59:59 CLS Outpatient MASSIMO BERNAL MD [facility] PREOP CHONDROMALSIA [id number] 12/22/2013 09:04:00 12/22/2013 11:28:00 DIS Emergency FLORA CRUZ, ENEIDA Morris [facility] ER CHEST PAIN [id number] 10/26/2013 11:12:00 10/26/2013 13:13:00 DIS Emergency DENNYS LE MD [facility] ER POST OP VAG PAIN [id number] 10/25/2013 08:25:00 10/25/2013 18:55:00 DIS Out[facility] [id number] 10/19/2013 09:01:00 10/19/2013 23:59:59 CLS Outpatient MASSIMO ZAMBRANO DO [facility] PREOP PELVIC PAIN [id number] 09/25/2013 13:40:00 09/26/2013 09:54:00 DIS Inpatient EM FINE MD [facility] CSD CHEST PAIN,ARM NUMBNESS [id number] 05/28/2013 11:25:00 08/26/2013 00:01:00 DIS Outpatient KRISTI PARKS [facility] ONC OV [id number] 07/30/2013 08:45:00 07/31/2013 10:40:00 DIS Inpatient ANDREINA JOHNS MD [facility] ICU CHEST PAIN [id number] 04/11/2013 12:17:00 04/11/2013 23:59:59 CLS Outpatient SANDHYA JACOBSON [employer] [facility] RAD LT BREAST THICKENING [id number] 08/03/2018 13:45:00 Document Registration [id number] 04/24/2015 15:31:00 Document Registration [id number] 04/24/2015 15:31:00 Document Registration [id number] 04/24/2015 15:31:00 Document Registration [id number] 01/16/2015 15:31:00 Document Registration [id number] 08/27/2013 00:00:00 Document Registration [id number] 01/30/2013 14:45:00 Document Registration [id number] 09/11/2012 10:09:00 Document Registration [id number] 06/26/2012 19:51:00 Document Registration [id number] 06/05/2012 09:29:00 Document Registration [id number] 12/20/2011 08:08:00 Document Registration [id number] 10/15/2011 11:05:00 Document Registration [id number] 10/13/2011 13:01:00 Document Registration [id number] 06/18/2011 14:36:00 Document Registration [id number] 06/17/2011 11:47:00 Document Registration [id number] 05/31/2011 10:13:00 Document Registration [id number] 04/23/2011 10:08:00 Document Registration [id number] 01/20/2011 08:37:00 Document Registration [id number] 01/18/2011 13:17:00 Document Registration [id number] 12/17/2010 08:14:00 Document Registration [id number] 11/24/2010 15:59:00 Document Registration [id number] 11/21/2010 17:05:00 Document Registration [id number] 05/25/2017 13:16:00 05/25/2017 16:57:00 [facility] [id number] 05/25/2018 16:20:00 05/25/2018 23:59:59 CLS Outpatient LACEY [id number] 07/07/2015 20:57:10 ACT Document Registration
[2018-08-03 17:15] VITALS: BP 94/51
[2018-08-03] MEDS ORDERED: CATHETER FLUSH 10 ML SYR IV PRN (17:15)
--- NOTE | 2018-08-03 17:23 | Consultation-Cardiology ---
HPI-Cardiology Cardiology Consultation: Date of Consultation 08/03/18 Time Seen by a Provider: 17:00 Date of Admission Attending Physician Toni Ramirez DO Admitting Physician Toni Ramirez DO Consulting Physician ORA OVIEDO MD, MA, FACP, FACC, FSCAI, CCDS HPI: Chief Complaint: CC: Chest pain Ms. Nunes is a 43 year old female who has been seen in the ED. She reports she has chronic chest pain and generalized body pain d/t fibromyalgia for which she uses marijuana for breakthrough pain. She reports Tuesday she got on a bus for [place]. She reports she was told she "passed out" for approx 45 minutes while she was on the bus. She states she does not recall receiving any instructions from the transit bus operator regarding her meal voucher and free play. She reports when they got to the [facility] they were unable to "wake her up" . She states they called [facility] to evaluate her. She reports they advised her to go to the hospital, but she refused d/t concerns with transportation home from the hospital. She states she stayed at the [facility], but felt unsteady all day. She reports she was having localized ACW pain, which is mid-sternal and at times would shoot a sharp pain up her chest to her collar bone. She reports once she got home she continued to have the pain. She reports she took her Klonopin and went to bed. She states the pain persisted all day yesterday. No other associated symptoms. She reports she felt tired all day yesterday and just wanted to sleep. Last night she took all her medications including one her husbands muscle relaxers, but she was not able to sleep d/t chest pain. She waited several hours and took another one of his muscle relaxers early this morning. She states she also took 5 baby ASA. She reports her spouse had a difficult time getting her to wake up for her appt with her PCP this morning, but once he was able to wake her up she was having chest pain again. She states she was directed by her PCP to be evaluated in the ED today. She continues to have chest pain which is somewhat worse with palpation of her chest. No syncope, near syncope, dyspnea or LE edema. No n/v/d. No fever or chills. Review of Systems-Cardiology Review of Systems Constitutional: No chills, No fever Eyes: No vision change Ears/Nose/Throat: No epistaxis; throat pain (a) Respiratory: As described under HPI Cardiovascular: As described under HPI Gastrointestinal: No constipation, No diarrhea, No nausea, No vomiting Genitourinary: No dysuria, No hematuria Musculoskeletal: muscle pain Skin: No rash, No ulcerations Psychiatric/Neurological: anxiety; No seizure, No focal weakness, No syncope Hematologic: No bleeding abnormalities NNU-Yfzghr-Ubxsqo Hx Patient Social History Alcohol Use: Denies Use Recreational Drug Use: Yes (THC-OCCASIONAL) Smoking Status: Current Everyday Smoker Type Used: Cigarettes 2nd Hand Smoke Exposure: No Recent Foreign Travel: No Recent Infectious Disease Expo: No Hospitalization with Isolation: Denies Immunizations Up To Date Tetanus Booster (TDap): Unknown Date of Pneumonia Vaccine: Sep 17, 2014 Date of Influenza Vaccine: Dec 18, 2015 Past Medical History PMH As described under Assessment. Family Medical History Family Medical History: She reports a family history of early coronary artery disease Family History: Cancer 03 MOTHER Chest pain 03 FATHER Congestive heart failure 03 MOTHER 09 SISTER Family history: Arthritis 09 SISTER Family history: Cardiovascular disease 03 FATHER 03 MOTHER Family history: Diabetes mellitus 03 FATHER Heart disease 03 MOTHER History of - respiratory disease 03 MOTHER History of drug abuse 03 FATHER Kidney disease 03 FATHER 03 MOTHER 09 SISTER Myocardial infarction 03 FATHER Psychotic disorder 03 FATHER 09 SISTER Allergies and Home Medications Allergies Coded Allergies: No Known Drug Allergies (Unverified , 10/26/13) Home Medications Acetaminophen/Diphenhydramine 1 Each Tablet, 2 EACH PO HS, (Reported) Aspirin 81 Mg Tablet.dr, 81 MG PO HS, (Reported) Clonazepam 1 Mg Tablet, 1 MG PO TID PRN for ANXIETY, (Reported) Divalproex Sodium 500 Mg Tab.sr.24h, 500 MG PO BID, (Reported) Hydrocodone Bit/Acetaminophen 1 Each Tablet, 1-2 TAB PO Q4H Prescribed by: YADIRA HOLDER on 06/22/17 1026 Omeprazole 20 Mg Tablet.dr, 20 MG PO BID, (Reported) Pregabalin 75 Mg Capsule, 75 MG PO BID, (Reported) Propranolol HCl 20 Mg Tablet, 20 MG PO BID, (Reported) Tramadol Hcl 50 Mg Tab, 1 TAB PO Q6H PRN for PAIN, (Reported) Patient Home Medication List Home Medication List Reviewed: Yes Physical Exam-Cardiology Physical Exam Vital Signs/I&O 08/03/18 08/03/18 12:56 17:02 Temp 98.3 97.4 Pulse 80 78 Resp 12 18 B/P (MAP) 118/77 (91) 122/78 Pulse Ox 100 100 O2 Delivery Room Air Room Air Capillary Refill : Less Than 3 Seconds Constitutional: AAO x 3, well-developed, well-nourished HEENT: PERRL, hearing is well preserved, oral hygience is good Neck: No carotid bruit; carotid pulses are 2 + bilaterally Respiratory: No accessory muscle use, No respiratory distress; chest expansion is symmetric, chest is bilaterally symmetric, lungs clear to auscultation Cardiovascular: regular rate-rhythm; No JVD; S1 and S2 Gastrointestinal: No tender; soft, round, audible bowel sounds Rectal: deferred Extremities: no lower extremity edema bilateral Neurologic/Psychiatric: grossly intact, power is 5/5 both on sides Skin: No rash, No ulcerations Data Review Labs Laboratory Tests 08/03/18 13:08: White Blood Count 4.4, Red Blood Count 3.48L, Hemoglobin 10.1L, Hematocrit 32L, Mean Corpuscular Volume 91, Mean Corpuscular Hemoglobin 29, Mean Corpuscular Hemoglobin Concent 32, Red Cell Distribution Width 14.7H, Platelet Count 214, Mean Platelet Volume 11.0H, Neutrophils (%) (Auto) 45, Lymphocytes (%) (Auto) 42 , Monocytes (%) (Auto) 9, Eosinophils (%) (Auto) 3, Basophils (%) (Auto) 1, Neutrophils # (Auto) 2.0, Lymphocytes # (Auto) 1.8, Monocytes # (Auto) 0.4, Eosinophils # (Auto) 0.1, Basophils # (Auto) 0.1, Prothrombin Time 11.9L, INR Comment 0.9, Activated Partial Thromboplast Time 28, D-Dimer 0.41, Sodium Level 140, Potassium Level 4.4, Chloride Level 106, Carbon Dioxide Level 29, Anion Gap 5, Blood Urea Nitrogen 14, Creatinine 0.99, Estimat Glomerular Filtration Rate > 60, BUN/Creatinine Ratio 14, Glucose Level 91, Calcium Level 8.6, Corrected Calcium 8.8, Magnesium Level 2.3, Total Bilirubin 0.2, Aspartate Amino Transf (AST/SGOT) 11, Alanine Aminotransferase (ALT/SGPT) 10, Alkaline Phosphatase 63, Myoglobin 33.9, Troponin I < 0.30, Total Protein 5.7L, Albumin 3.8 A/P-Cardiology Assessment/Admission Diagnosis Chest pain of undetermined etiology - no evidence of ACS thus far Long episode of (nearly an hour) of syncope/drowsiness on 08/01/18 that may have been related to pain meds (took all her pain meds that day and some from her ) Cardiac cath of July 2013 following NSTEMI: Angiographically normal coronary arteries; small, acute non-ST elevation myocardial infarction, possible due to a transient coronary spasm. MPI of August 2015: No evidence of significant myocardial ischemia or infarction. Normal regional wall motion. LVEF 58% Normal global left ventricular systolic function with an ejection fraction of 60 %. Elevated left ventricular diastolic pressure indicative of diastolic dysfunction of the left ventricle per cardiac cath from July 2013. Chronic pain syndrome Chronic migraines Bi-polar disorder Anxiety Tobaccoism- cessation advised Marijuana usage History of gastric bypass surgery several years ago, which was complicated by incisional hernia which required further repair. 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 Nunez of hematology services Normal ventricular systolic function with a LVEF of 55-60%. Mild mitral and tricuspid regurgitation. PASP 30 mmHg per echocardiogram from July 2013. CT Angio of the chest from July 2013 showed heterogenous appearance of left thyroid lobe. We have advised follow up with her primary care physician. Reports history of CVA at the time of chidbir when she was in her 30's. No residual Discussion and Recomendations * Keep on tele * Serial ECGs and card enzymes * Further recs based on hosp course ORA OVIEDO MD FACP FAC CCDS Aug 03, 2018 17:23
[2018-08-03 17:25] VITALS: BP 107/63
--- OUTSIDE RECORDS SUMMARY | 2018-08-03 17:26 | XMS REPORT | Continuity of Care Document ---
Author Author [facility] Address Unknown Phone Unavailable Allergies Active Description Code Type Severity Reaction Onset Reported/Identified Relationship to Patient Clinical Status Yes NO KNOWN DRUG ALLERGIES UNKNOWN NO KNOWN DRUG ALLERG Yes hydrocodone Drug Allergy 02/12/2009 Yes hydrocodone Drug Allergy N/A N/A 02/12/2009 Yes No Known Drug Allergies [id number] Drug Allergy Unknown N/A 10/26/2013 Medications There [...] MD 296.80 Mo Bipolar Nos 05/22/2008 ANDREINA JOHSN MD 305.1 TOBACCO ABUSE 05/22/2008 ANDREINA JOHNS [...] Lump Or Mass In Breast 06/26/2008 RHIANNON SENIOR TELECOMMUNICATIONS CONSULTANT, KASANDRA T 285.9 Anemia Unspecified 06/26/2008 RHIANNON [...] Migraine Unspecified Without Intractable Migraine 07/12/2008 REILLY SENIOR TELECOMMUNICATIONS CONSULTANT, PEPE Lopez 346.90 Migraine Unspecified Without Intractable [...] WOOD GARCIA DO F 784.0 headache 07/17/2008 ME FINE MD 784.0 headache 07/17/2008 NAT CRUZ, [...] F V58.69 Medication High Risk 07/18/2008 [facility], IVY Huynh V58.69 Medication High Risk [...] EM FINE MD 461.9 SINUSITIS ACUTE 12/04/2008 SABINA BRADSHAW APRN 054.10 Herpes Simplex Type Ii [...] EM M 466.0 ACUTE BRONCHITIS 03/14/2009 BRADSHAW SENIOR TELECOMMUNICATIONS CONSULTANT, SABINA BETHEA 466.0 ACUTE BRONCHITIS 03/14/2009 REILLY SENIOR TELECOMMUNICATIONS CONSULTANT, PEPE R 466.0 ACUTE BRONCHITIS 03/14/2009 ANDREINA JOHNS MD 466.0 ACUTE BRONCHITIS 03/14/2009 ANDREINA JOHNS MD 466.0 ACUTE BRONCHITIS 03/14/2009 BRADSHAW SENIOR TELECOMMUNICATIONS CONSULTANT, SABINA BETHEA 466.0 ACUTE BRONCHITIS 03/14/2009 RHIANNON SENIOR TELECOMMUNICATIONS CONSULTANT, KASANDRA T 466.0 ACUTE BRONCHITIS 03/14/2009 RHIANNON [...] MO BIPOLAR I DEPRESSED UNSPECIFIED 04/23/2009 ANDREINA JONHS MD 300.21 AN PANIC DIS W AGORA [...] PANIC DIS W AGORA 04/23/2009 PIPER PRADHAN, VIY A 316 Pf Psychic Factors Med Cond [...] MO BIPOLAR I DEPRESSED UNSPECIFIED 04/23/2009 SABINA BARDSHAW APRN 300.21 AN PANIC DIS W AGORA [...] REGION 05/14/2009 724.5 BACKACHE UNSPECIFIED 05/14/2009 ANDREINA JOHSN MD 719.41 PAIN IN JOINT INVOLVING SHOULDER [...] ANDREINA JOHNS MD 724.5 BACKACHE UNSPECIFIED 05/14/2009 AUGUSTINE [...] 296.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 I MIXED UNSPECIFIED 07/04/2009 [facility] PHD, IVY Huynh 296.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 I [...] MO BIPOLAR I MIXED UNSPECIFIED 07/04/2009 AUGUSTINE SENIOR TELECOMMUNICATIONS CONSULTANT, SABINA BETHEA 296.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 I MIXED UNSPECIFIED 07/04/2009 REILLY SENIOR TELECOMMUNICATIONS CONSULTANT, PEPE R 296.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 I MIXED UNSPECIFIED 07/04/2009 ANDREINA JOHNS MD 296.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 I MIXED UNSPECIFIED 07/04/2009 ANDREINA JOHNS MD 296.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 I MIXED UNSPECIFIED 07/04/2009 AUGUSTINE SEGOVIA, SABINA BETHEA 296.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 I MIXED UNSPECIFIED 07/04/2009 RHIANNON SENIOR TELECOMMUNICATIONS CONSULTANT, KASANDRA T 296.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 I MIXED [...] BETHEA 296.9 MOOD DIS NOS 08/06/2009 AUGUSTINE SENIOR TELECOMMUNICATIONS CONSULTANT, SABINA BETHEA 338.4 Chronic Pain Syndrome 08/06/2009 RHIANNON SENIOR TELECOMMUNICATIONS CONSULTANT, KASANDRA T 296.9 MOOD DIS NOS 08/06/2009 RHIANNON SENIOR TELECOMMUNICATIONS CONSULTANT, KASANDRA T 338.4 Chronic Pain Syndrome 08/06/2009 RHIANNON SENIOR TELECOMMUNICATIONS CONSULTANT, KASANDRA T 296.9 MOOD DIS NOS 08/06/2009 RHIANNON SENIOR TELECOMMUNICATIONS CONSULTANT, KASANDRA T 338.4 Chronic Pain Syndrome 08/06/2009 [...] MD 719.40 Joint Pain, Localized 08/27/2009 BRADSHAW SENIOR TELECOMMUNICATIONS CONSULTANT, SABINA BETHEA 719.40 Joint Pain, Localized 08/27/2009 REILLY SEGOVIA, PEPE Lopez 719.40 Joint Pain, Localized 08/27/2009 ANDREINA JOHNS MD 719.40 Joint Pain, Localized 08/27/2009 ANDREINA JOHNS MD 719.40 Joint Pain, Localized 08/27/2009 BRADSHAW SENIOR TELECOMMUNICATIONS CONSULTANT, SABINA BETHEA 719.40 Joint Pain, Localized 08/27/2009 RHIANNON SENIOR TELECOMMUNICATIONS CONSULTANT, KASANDRA T 719.40 Joint Pain, Localized 08/27/2009 RHIANNON SENIOR TELECOMMUNICATIONS CONSULTANT, KASANDRA T 719.40 Joint Pain, Localized 08/27/2009 [...] Salgado 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 12/15/2009 BRADSHAW SENIOR TELECOMMUNICATIONS CONSULTANT, SABINA BETHEA 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 12/15/2009 REILLY SENIOR TELECOMMUNICATIONS CONSULTANT, PEPE R 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 12/15/2009 ANDREINA JOHNS MD 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 12/15/2009 ANDREINA JOHNS MD 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 12/15/2009 AUGUSTINE SENIOR TELECOMMUNICATIONS CONSULTANT, SABINA BETHEA 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 12/15/2009 RHIANNON SENIOR TELECOMMUNICATIONS CONSULTANT, KASANDRA Aaron 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 12/15/2009 [...] FINE MD 729.1 FIBROMYALGIA 04/27/2010 NAT CRUZ, ANDRIENA 729.1 FIBROMYALGIA 04/27/2010 NAT CRUZ, ANDREINA 729.1 [...] MD 784.59 Other Speech Disturbance 11/23/2010 BRADSHAW SENIOR TELECOMMUNICATIONS CONSULTANT, SABINA BETHEA 287.5 Thrombocytopenia Unspecified 11/23/2010 BRADSHAW SENIOR TELECOMMUNICATIONS CONSULTANT, SABINA BETHEA 784.59 Other Speech Disturbance 11/23/2010 REILLY SENIOR TELECOMMUNICATIONS CONSULTANT, PEPE R 287.5 Thrombocytopenia Unspecified 11/23/2010 REILLY SENIOR TELECOMMUNICATIONS CONSULTANT, PEPE R 784.59 Other Speech Disturbance 11/23/2010 ANDREINA JOHNS MD 287.5 Thrombocytopenia Unspecified 11/23/2010 ANDREINA JOHNS MD 784.59 Other Speech Disturbance 11/23/2010 ANDREINA JOHNS MD 287.5 Thrombocytopenia Unspecified 11/23/2010 ANDREINA JOHNS MD 784.59 Other Speech Disturbance 11/23/2010 AUGUSTINE SENIOR TELECOMMUNICATIONS CONSULTANT, SABINA BETHEA 287.5 Thrombocytopenia Unspecified 11/23/2010 BRADSHAW SENIOR TELECOMMUNICATIONS CONSULTANT, SABINA BETHEA 784.59 Other Speech Disturbance 11/23/2010 [...] EM Salgado 703.0 NAIL INGROWN 02/09/2011 BRADSHAW SENIOR TELECOMMUNICATIONS CONSULTANT, SABINA TINEOH 703.0 NAIL INGROWN 02/09/2011 REILLY SENIOR TELECOMMUNICATIONS CONSULTANT, PEPE Lopez 703.0 NAIL INGROWN 02/09/2011 NAT CRUZ, ANDREINA 703.0 NAIL INGROWN 02/09/2011 NAT CRUZ, ANDREINA 703.0 NAIL INGROWN 02/09/2011 BRADSHAW SENIOR TELECOMMUNICATIONS CONSULTANT, SABINA TINEOH 703.0 NAIL INGROWN 02/09/2011 RHIANNON [...] PF PSYCHIC FACTORS MED COND 10/02/2012 ANDREINA JOHSN MD 316 PF PSYCHIC FACTORS MED COND [...] SABINA BRADSHAW APRN 388.70 OTALGIA UNSPECIFIED 06/12/2013 KASNADRA JURADO APRN 388.70 OTALGIA UNSPECIFIED 06/12/2013 KASANDRA [...] MD CHRONIC OBSTRUCTIVE PULMONARY DISEASE 08/14/2013 ANDREINA OJHNS MD 786.50 CHEST PAIN 08/14/2013 EM FINE [...] JOHNS MD CHRONIC OBSTRUCTIVE PULMONARY DISEASE 08/14/2013 NADREINA JOHNS MD 786.50 CHEST PAIN 08/14/2013 SABINA [...] KASANDRA JURADO APRN 786.2 COUGH 04/03/2014 KASANDRA JURADO APRN 786.2 COUGH 04/03/2014 ANDREINA JOHNS MD [...] APRN 716.90 UNSPECIFIED ARTHROPATHY SITE UNSPECIFIED 07/15/2014 ANDREINA JOHNS MD 465.9 ACUTE UPPER RESPIRATORY INFECTIONS [...] Ot 729.5 04/24/2015 Ot 782.3 04/24/2015 KAVONSANDHYA SUPERVISOR ELECTRONIC TESTING Ot 611.71 04/24/2015 KAVON SANDHYA Stephenson SUPERVISOR ELECTRONIC TESTING Ot 611.79 04/24/2015 Ot 280.9 04/24/2015 FENECH [...] 05/01/2015 GELLENDER DO, DEANN Huynh Ot 782.1 05/01/2015 GELLENDER DO, DEANN Huynh [...] FACP CCDS Ot F17.200 10/07/2015 IVELISSE CRUZ [facility] CCDS Ot F31.9 10/07/2015 IVELISSE CRUZ [facility] CCDS Ot I10 10/07/2015 IVELISSE CRUZ [facility] CCD[facility] Ot I21.4 12/18/2015 REGINO CRUZ, AGUILAR M Ot L72.9 12/18/2015 REGINO CRUZ, AGUILAR M Ot Z01.818 12/18/2015 REGINO CRUZ, AGUILAR M Ot L72.9 12/18/2015 REGINO CRUZ, AGUILAR M Ot Z01.818 12/19/2015 REGINO CRUZ, AGUILAR M Ot L72.3 SEBACEOUS CYST 08/30/2016 Ot 729.5 PAIN IN LIMB 08/30/2016 Ot 782.3 EDEMA 08/30/2016 SANDHYA JACOBSON SUPERVISOR ELECTRONIC TESTING Ot 611.71 MASTODYNIA 08/30/2016 SANDHYA JACOBSON SUPERVISOR ELECTRONIC TESTING Ot 611.79 SYMPTOMS IN BREAST NEC 08/30/2016 [...] I10 ESSENTIAL (PRIMARY) HYPERTENSION 08/30/2016 IVELISSE CRUZ [facility] CCDS Ot I21.4 NON-ST ELEVATION (NSTEMI) [...] Ot R19.7 DIARRHEA, UNSPECIFIED 04/15/2017 SANDHYA JACOBSON SUPERVISOR ELECTRONIC TESTING Ot 611.71 MASTODYNIA 04/15/2017 SANDHYA JACOBSON SUPERVISOR ELECTRONIC TESTING Ot 611.79 SYMPTOMS IN BREAST NEC 04/15/2017 [...] PULMONARY FIBROSIS, UNSPECIFIED 06/16/2017 GELLENDER DO, DEANN Huyhn Ot R91.8 OTHER NONSPECIFIC ABNORMAL FINDING OF [...] 06/22/2017 MASSIMO BERNAL MD Ot Z79.899 OTHER SHELTER (CURRENT) DRUG THERAPY 06/24/2017 MASSIMO BERNAL MD, Ot I50.9 HEART FAILURE, UNSPECIFIED 06/24/2017 MASSIMO BERNAL MD Ot K21.9 GASTRO-ESOPHAGEAL REFLUX DISEASE WITHOUT 06/24/2017 MASSIMO BERNAL MD Ot M22.41 CHONDROMALACIA PATELLAE, RIGHT KNEE 06/24/2017 MASSIMO BERNAL MD Ot M23.8X1 OTHER INTERNAL DERANGEMENTS OF RIGHT KNE 06/24/2017 MASSIMO BERNAL MD Ot M79.1 MYALGIA 06/24/2017 MASSIMO BERNAL MD Ot Z79.899 OTHER SHELTER (CURRENT) DRUG THERAPY 07/01/2017 DEANN GARCÍA DO [...] DEPRESSIVE DISORDER, RECURRENT, UN 12/22/2017 SANDHYA JACOBSON SUPERVISOR ELECTRONIC TESTING Ot 611.71 MASTODYNIA 12/22/2017 SANDHYA JACOBSON SUPERVISOR ELECTRONIC TESTING Ot 611.79 SYMPTOMS IN BREAST NEC 12/22/2017 [...] I10 ESSENTIAL (PRIMARY) HYPERTENSION 12/22/2017 IVELISSE CRUZ [facility], ALI FACP CCDS Ot I21.4 NON-ST ELEVATION [...] R61 GENERALIZED HYPERHIDROSIS 12/22/2017 GELLENDER DO, DEANN Hunyh Ot R10.9 UNSPECIFIED ABDOMINAL PAIN 12/22/2017 GELLENDER [...] Procedures Code Description [place] [address] ROUTINE VENIPUNCTURE 12/14/2012 59577 BMP 12/14/2012 4936532 GFR CALC (RESULT ONLY) 12/14/2012 91862 CBC 12/14/2012 70227 PSYTX PT&/FAMILY 45 MINUTES 01/29/2013 50330 URINE DRUG SCREEN (IN-HOUSE ) 06/25/2013 01092 UA LONG DIP 06/25/2013 54329 ROUTINE VENIPUNCTURE 07/11/2013 61892 URINE DRUG SCREEN (IN-HOUSE ) 07/11/2013 65875 CBC 07/11/2013 58400 CMP 07/11/2013 1317930 GFR CALC (RESULT ONLY) 07/11/2013 30030 VALPROIC ACID / DEPAKOTE 07/11/2013 37.22 LEFT HEART CARDIAC CATH 07/30/2013 88.53 LT HEART ANGIOCARDIOGRAM 07/30/2013 88.56 CORONAR ARTERIOGR-2 CATH 07/30/2013 Obstetric Jonna Justice 08/20/2013 01602 URINE DRUG SCREEN (IN-HOUSE ) 10/11/2013 46512 INFLUENZA A & B (IN-HOUSE) 11/19/2013 OTOLARYNMASSIMO CORTES 12/17/2013 95124 STREP A (IN-HOUSE) 07/20/2014 24051 ROUTINE VENIPUNCTURE 10/09/2014 6371873 GFR CALC (RESULT ONLY) 10/09/2014 09054 CMP 10/09/2014 57446 VALPROIC ACID / DEPAKOTE 10/09/2014 Results Test [...] C DIFFICILE AG + TOXIN A/B. TNP [facility] [id number] - 02/07/17 15:42 Serum or plasma urea [...] Status Pt. Type Provider Facility Loc./Unit Complaint [id number] 12/04/2014 15:17:00 12/04/2014 23:59:59 [facility] Outpatient HELENA CROWDER APRN [id number] 12/04/2014 15:17:00 12/04/2014 23:59:59 [facility] Outpatient CHASE BRUNO DO [id number] 10/09/2014 09:19:00 10/09/2014 23:59:59 [facility] Outpatient ANDREINA JOHNS MD [id number] 07/31/2014 18:09:00 07/31/2014 23:59:59 [facility] Outpatient KASANDRA JURADO APRN [id number] 07/20/2014 10:05:00 07/20/2014 23:59:59 [facility] Outpatient KASANDRA JURADO APRN [id number] 07/15/2014 11:48:00 07/15/2014 23:59:59 [facility] Outpatient SABINA BRADSHAW APRN [id number] 05/16/2014 01:01:00 05/16/2014 23:59:59 CLS Outpatient ANDREINA JOHNS MD [id number] 04/29/2014 14:34:00 04/29/2014 23:59:59 CLS Outpatient ANDREINA JOHNS MD [id number] 04/03/2014 14:49:00 04/03/2014 23:59:59 CLS Outpatient PEPE GROVER APRN Jessica [id number] 01/25/2014 09:01:00 01/25/2014 23:59:59 [facility] Outpatient SABINA BRADSHAW APRN [id number] 12/24/2013 09:07:00 12/24/2013 23:59:59 CLS Outpatient EM FINE MD [id number] 11/30/2013 10:33:00 11/30/2013 23:59:59 CLS Outpatient ANDREINA JOHNS MD [id number] 11/19/2013 18:19:00 11/19/2013 23:59:59 CLS Outpatient CHASE BRUNO DO [id number] 10/11/2013 11:14:00 10/11/2013 23:59:59 CLS Outpatient ANDREINA JOHNS MD [id number] 08/20/2013 15:30:00 08/20/2013 23:59:59 CLS Outpatient ANDREINA JOHNS MD [id number] 08/14/2013 11:29:00 08/14/2013 23:59:59 CLS Outpatient EM FINE MD [id number] 07/11/2013 10:52:00 07/11/2013 23:59:59 CLS Outpatient RADHA SANTANAWOOD [id number] 06/25/2013 14:43:00 06/25/2013 23:59:59 CLS Outpatient ANDREINA JOHNS MD [id number] 01/25/2013 15:47:00 01/25/2013 23:59:59 CLS Outpatient IVY SALDAÑA PHD [id number] 01/11/2013 11:27:00 01/11/2013 23:59:59 CLS Outpatient WOOD GARCIA DO [id number] 12/14/2012 11:48:00 12/14/2012 23:59:59 CLS Outpatient WOOD GARCIA DO [id number] 12/14/2012 10:56:00 12/14/2012 23:59:59 CLS Outpatient [id number] 10/02/2012 15:00:00 10/02/2012 23:59:59 CLS Outpatient [id number] 10/02/2012 15:00:00 10/02/2012 23:59:59 [place] [id number] 08/25/2012 15:28:00 08/25/2012 23:59:59 CLS Outpatient ANDREINA JOHNS MD [id number] 07/11/2013 10:52:00 Document Registration [id number] 06/25/2013 14:43:00 Document Registration [id number] 06/12/2013 14:07:00 Document Registration [id number] 02/19/2013 14:31:00 Document Registration [id number] 05/01/2018 14:29:00 05/01/2018 23:59:59 CLS Outpatient DEANN GARCÍA DO Via [facility] RAD TRAUMA [id number] 12/22/2017 13:43:00 12/22/2017 23:59:59 CLS Outpatient DEANN GARCÍA DO [facility] RAD FALL HURT RIGHT FOOT [id number] 08/08/2017 17:51:00 08/08/2017 23:59:59 CLS Outpatient DEANN GARCÍA DO [facility] LAB BIPOLAR,DEPRESSION [id number] 06/27/2017 16:26:00 06/27/2017 23:59:59 CLS Outpatient DEANN GARCÍA DO [facility] RAD BACK TRAUMA PAIN [id number] 06/22/2017 07:00:00 06/22/2017 11:35:00 DIS Outpatient DOLORES CRUZ, MASSIMO Roca [facility] SDC RIGHT TORN MEDIAL/ LATERAL MENICUS [id number] 06/16/2017 12:03:00 06/16/2017 12:30:00 DIS Outpatient MASSIMO BERNAL MD [facility] PREOP RIGHT TORN LATERAL/ MEDIAL MENICUS [id number] 06/09/2017 14:46:00 06/09/2017 23:59:59 CLS Outpatient DEANN GARCÍA DO [facility] RAD PNEUMONIA [id number] 06/01/2017 09:30:00 06/01/2017 23:59:59 CLS Preadmit MASSIMO BERNAL MD Via [facility] SDC RIGHT KNEE TORN MEDIAL/ LATERAL MENISCUS [id number] 05/23/2017 08:54:00 05/23/2017 23:59:59 CLS Outpatient DEANN GARCÍA DO Amina [facility] RAD PULMONARY NODULE [id number] 05/19/2017 14:53:00 05/19/2017 23:59:59 CLS Outpatient DEANN GARCÍA DO [facility] RAD COUGH [id number] 05/06/2017 00:13:00 05/06/2017 23:59:59 CLS Preadmit DEANN GARCÍA DO [facility] LAB DIARRHEA [id number] 02/06/2017 17:07:00 05/05/2017 00:01:00 DIS Outpatient DEANN GARCÍA DO [facility] LAB DIARRHEA [id number] 05/02/2017 14:57:00 05/02/2017 23:59:59 CLS Outpatient DEANN GARCÍA DO [facility] LAB HYPOTHYROID [id number] 04/29/2017 16:13:00 04/29/2017 23:59:59 CLS Outpatient DEANN GARCÍA DO [facility] LAB TIRED [id number] 04/19/2017 09:30:00 04/19/2017 23:59:59 CLS Outpatient DEANN GARCÍA DO [facility] RAD ABD PAIN [id number] 02/07/2017 15:29:00 02/07/2017 23:59:59 CLS Outpatient SUSANTAVARESDEANN Amina [facility] RAD ABD PAIN [id number] 10/28/2016 10:46:00 10/28/2016 23:59:59 CLS Outpatient DEANN GARCÍA DO [facility] RAD ABD PAIN ON LT SIDE [id number] 08/30/2016 15:09:00 08/30/2016 23:59:59 CLS Outpatient DEANN GARCÍA DO [facility] LAB FEVER,COUGH [id number] 12/19/2015 07:38:00 12/19/2015 11:00:00 DIS Outpatient AGUILAR LACY MD Via [facility] LESION TOP OF SCALP [id number] 12/18/2015 13:30:00 12/18/2015 23:59:59 CLS Outpatient AGUILAR LACY MD [facility] PREOP LESION TOP OF SCALP [id number] 09/04/2015 07:45:00 09/04/2015 23:59:59 CLS Outpatient IVELISSE CRUZ FACC, ORA COX CCDS [facility] CARD HTN,ANEMIA, NSTEMI [id number] 07/07/2015 07:08:00 07/07/2015 10:15:00 DIS Outpatient AGUILAR LACY MD [facility] NON CARDIAC PAIN; HX GASTRIC BYPASS SURGERY [id number] 07/02/2015 06:17:00 07/02/2015 23:59:59 CLS Outpatient AGUILAR LACY MD [facility] PREOP NON CARDIAC PAIN; HX GASTRIC BYPASS SURGERY [id number] 04/24/2015 15:50:00 04/25/2015 10:25:00 DIS Inpatient DEANN GARCÍA DO [facility] CSD CHEST PAIN [id number] 04/21/2015 06:34:00 04/21/2015 09:00:00 DIS Outpatient AGUILAR LACY MD [facility] HX POLYPS [id number] 04/17/2015 06:16:00 04/17/2015 23:59:59 CLS Outpatient AGUILAR LACY MD [facility] PREOP HX POLYPS [id number] 04/10/2015 14:04:00 04/10/2015 23:59:59 CLS Outpatient DEANN GARCÍA DO Amina [facility] RAD SCREENING [id number] 03/27/2015 15:10:00 03/27/2015 23:59:59 CLS Outpatient LILIANEHERNANDOANGELICA DO DEANN Amina [facility] LAB BUTTERFLY RASH ON NOSE,ANEMIA, [id number] 06/05/2014 12:33:00 06/05/2014 23:59:59 CLS Outpatient [id number] 04/23/2014 18:15:00 04/24/2014 12:00:00 DIS Inpatient ANDREINA JOHNS MD [facility] CSD CHEST PAIN, FACIAL WEAKNESS [id number] 01/30/2014 06:00:00 01/30/2014 10:35:00 DIS Outpatient MASSIMO BERNAL MD [facility] CHONDROMALASIA [id number] 01/29/2014 07:18:00 01/29/2014 23:59:59 CLS Outpatient MASSIMO BERNAL MD [facility] PREOP CHONDROMALSIA [id number] 12/22/2013 09:04:00 12/22/2013 11:28:00 DIS Emergency FLORA CRUZ, ENEIDA Morris [facility] ER CHEST PAIN [id number] 10/26/2013 11:12:00 10/26/2013 13:13:00 DIS Emergency DENNYS LE MD Via [facility] ER POST OP VAG PAIN [id number] 10/25/2013 08:25:00 10/25/2013 18:55:00 DIS [facility] [id number] 10/19/2013 09:01:00 10/19/2013 23:59:59 CLS Outpatient MASSIMO ZAMBRANO DO [facility] PREOP PELVIC PAIN [id number] 09/25/2013 13:40:00 09/26/2013 09:54:00 DIS Inpatient EM FINE MD Via [facility] CSD CHEST PAIN,ARM NUMBNESS [id number] 05/28/2013 11:25:00 08/26/2013 00:01:00 DIS Outpatient KRISTI PARKS [facility] ONC OV [id number] 07/30/2013 08:45:00 07/31/2013 10:40:00 DIS Inpatient ANDREINA JOHNS MD Via [facility] ICU CHEST PAIN [id number] 04/11/2013 12:17:00 04/11/2013 23:59:59 CLS Outpatient SANDHYA JACOBSON Sachin SUPERVISOR ELECTRONIC TESTING Via [facility] RAD LT BREAST THICKENING [id number] 08/03/2018 13:45:00 Document Registration [id number] 04/24/2015 15:31:00 Document Registration [id number] 04/24/2015 15:31:00 Document Registration [id number] 04/24/2015 15:31:00 Document Registration [id number] 01/16/2015 15:31:00 Document Registration [id number] 08/27/2013 00:00:00 Document Registration [id number] 01/30/2013 14:45:00 Document Registration [id number] 09/11/2012 10:09:00 Document Registration [id number] 06/26/2012 19:51:00 Document Registration [id number] 06/05/2012 09:29:00 Document Registration [id number] 12/20/2011 08:08:00 Document Registration [id number] 10/15/2011 11:05:00 Document Registration [id number] 10/13/2011 13:01:00 Document Registration [id number] 06/18/2011 14:36:00 Document Registration [id number] 06/17/2011 11:47:00 Document Registration [id number] 05/31/2011 10:13:00 Document Registration [id number] 04/23/2011 10:08:00 Document Registration [id number] 01/20/2011 08:37:00 Document Registration [id number] 01/18/2011 13:17:00 Document Registration [id number] 12/17/2010 08:14:00 Document Registration [id number] 11/24/2010 15:59:00 Document Registration [id number] 11/21/2010 17:05:00 Document Registration [id number] 05/25/2017 13:16:00 05/25/2017 16:57:00 [facility] [place] [facility] [place] [id number] 05/25/2018 16:20:00 05/25/2018 23:59:59 CLS Outpatient [facility]ACE[id number] 07/07/2015 20:57:10 ACT Document Registration
--- NOTE | 2018-08-03 17:29 | History & Physicial ---
History of Present Illness History of Present Illness Reason for visit/HPI Patient came to the office today complaining of chest pain. Patient complained of numbness down the right hand. Patient stated that she had something sitting on my chest. Patient denied diaphoresis. Patient 2 days ago had a syncope episode downstream. Patient at 3 baby aspirins. Patient sent out to the emergency room and admitted for observation. Family history father age 53 of heart attack. Surgeries tubal ligation, gallbladder, hysterectomy, breast. In gastric bypass surgery. . Date of Admission Aug 03, 2018 at 16:42 Time Seen by a Provider: 17:25 I consulted on this patient on 08/03/18 17:25 Attending Physician Toni García DO Admitting Physician Toni García DO Consult Allergies and Home Medications Allergies Coded Allergies: No Known Drug Allergies (Unverified , 10/26/13) Home Medications Acetaminophen/Diphenhydramine 1 Each Tablet, 2 EACH PO HS, (Reported) Aspirin 81 Mg Tablet.dr, 81 MG PO HS, (Reported) Clonazepam 1 Mg Tablet, 1 MG PO TID PRN for ANXIETY, (Reported) Divalproex Sodium 500 Mg Tab.sr.24h, 500 MG PO BID, (Reported) Hydrocodone Bit/Acetaminophen 1 Each Tablet, 1-2 TAB PO Q4H Prescribed by: YADIRA HOLDER on 06/22/17 1026 Omeprazole 20 Mg Tablet.dr, 20 MG PO BID, (Reported) Pregabalin 75 Mg Capsule, 75 MG PO BID, (Reported) Propranolol HCl 20 Mg Tablet, 20 MG PO BID, (Reported) Tramadol Hcl 50 Mg Tab, 1 TAB PO Q6H PRN for PAIN, (Reported) Patient Home Medication List Home Medication List Reviewed: No Past Xfdyxxc-Seufzx-Dgljbu Hx Patient Social History Employed/Student: unemployed Alcohol Use: Denies Use Recreational Drug Use: Yes (THC-OCCASIONAL) Smoking Status: Current Everyday Smoker Former Smoker, Quit: Jun 16, 2017 Type Used: Cigarettes 2nd Hand Smoke Exposure: No Physical Abuse Screen: No Sexual Abuse: No Recent Foreign Travel: No Contact w/other who traveled: No Recent Hopitalizations: Yes Recent Infectious Disease Expo: No Immunizations Up To Date Tetanus Booster (TDap): Unknown Date of Pneumonia Vaccine: Sep 17, 2014 Date of Influenza Vaccine: Dec 18, 2015 Seasonal Allergies Seasonal Allergies: No Surgeries Yes (GASTRIC BYPASS, R knee surgery x4, cyst from scalp, breast lumpectomy) Hysterectomy, Tubal Ligation Respiratory Yes (recent pneumonia xray clear on 06/09) Currently Using CPAP: No Currently Using BIPAP: No Cardiovascular Yes (NEGATIVE HEART CATH, DC JUL 2014 AND APRIL 2015) Heart Attack Neurological Yes (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 CHILDBIRTH IN , OCCASIONAL MEMORY LOSS) Reproductive System Hx Reproductive Disorders: No 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 Genitourinary No Gastrointestinal Yes Gastroesophageal Reflux Musculoskeletal Yes (CHRONIC GENERALIZED PAIN) Degenerate Disk Disease, Arthritis, Fibromyalgia Endocrine History of Endocrine Disorders: No HEENT Loss of Vision: Bilateral Hearing Impairment: Denies Cancer No Psychosocial History of Psychiatric Problem: Yes Behavioral Health Disorders: Anxiety, Bipolar Integumentary History of Skin or Integumenta: No Blood Transfusions History of Blood Disorders: Yes ("MEDITERRANEAN"--"IRON TRANSFUSION" Q 3 MONTHS , NONE FOR 6 YR) Adverse Reaction to a Blood Tr: No Family Medical History Significant Family History: Heart Disease, CAD Over 55 Years Old Family Hx: Cancer 03 MOTHER Chest pain 03 FATHER Congestive heart failure 03 MOTHER 09 SISTER Family history: Arthritis 09 SISTER Family history: Cardiovascular disease 03 FATHER 03 MOTHER Family history: Diabetes mellitus 03 FATHER Heart disease 03 MOTHER History of - respiratory disease 03 MOTHER History of drug abuse 03 FATHER Kidney disease 03 FATHER 03 MOTHER 09 SISTER Myocardial infarction 03 FATHER Psychotic disorder 03 FATHER 09 SISTER Review of Systems Constitutional: no symptoms reported EENTM: no symptoms reported Respiratory: no symptoms reported Cardiovascular: chest pain Gastrointestinal: no symptoms reported Genitourinary: no symptoms reported : No Physical Exam Vital Signs Vital Signs - First Documented 08/03/18 12:56 Temp 98.3 Pulse 80 Resp 12 B/P (MAP) 118/77 (91) Pulse Ox 100 O2 Delivery Room Air Capillary Refill : Less Than 3 Seconds Height, Weight, BMI Height: 5'3.00" Weight: 133lbs. 0.0oz. [id number]; 19.8 BMI Method:Stated General Appearance: No Apparent Distress, Thin Eyes: Bilateral Eye Normal Inspection HEENT: Normal ENT Inspection Neck: Full Range of Motion, Normal Inspection Respiratory: Lungs Clear, Normal Breath Sounds, No Accessory Muscle Use, No Respiratory Distress, Decreased Breath Sounds Cardiovascular: Regular Rate, Rhythm, No Murmur Gastrointestinal: Non Tender, Soft Assessment/Plan Assessment and Plan Chest pain. Bipolar. Anxiety. Tobaccoism. Migraine headaches. Syncope 2 days ago. History of gastric bypass surgery. History of fibromyalgia Admission Diagnosis Admission Status: Observation Clinical Quality Measures DVT/VTE Risk/Contraindication: Risk Factor Score Per Nursin RFS Level Per Nursing on Admit: 4+=Very High TONI GARCÍA DO Aug 03, 2018 17:29
[2018-08-03] MEDS ORDERED: ENOXAPARIN 40 MG/0.4 ML (LOVENOX) SYR SC SCH (17:30)
[2018-08-03 17:40] VITALS: BP 96/60
[2018-08-03] MEDS ORDERED: FLU QUADRIvalent (5+ YOA) 2018-2019 (AFLURIA) 0.5 ML IM ONE (17:45)
[2018-08-03 17:55] VITALS: BP 111/72
[2018-08-03 18:10] VITALS: BP 105/70
[2018-08-03] MEDS: PROPRANOLOL 20 MG (INDERAL) TABLET PO SCH (20:06)
[2018-08-03 20:13] VITALS: BP 105/68
[2018-08-03] MEDS: CATHETER FLUSH 10 ML SYR IV SCH (21:55)
[2018-08-04] VITALS: BP 100/55
[2018-08-04 04:00] VITALS: BP_DIAS 66
[2018-08-04] MEDS: CATHETER FLUSH 10 ML SYR IV SCH (05:30)
[2018-08-04 06:32] LABS: CHOLESTEROL 124 MG/DL (< 200); HDL CHOLESTEROL 48 MG/DL (40-60); TRIGLYCERIDES 100 MG/DL (<150); VLDL CHOLESTEROL 20 MG/DL (5-40)
--- NOTE | 2018-08-04 06:55 | Progress Note (SOAP) ---
Subjective Time Seen by a Provider: 06:54 Subjective/Events-last exam Patient feeling better this morning. No chest pain this morning. Chest pain went away during the night. Objective Exam Vital Signs Date Time Temp Pulse Resp B/P (MAP) Pulse Ox O2 Delivery O2 Flow Rate FiO2 08/04/18 04:00 98.9 69 18 /66 96 08/04/18 01:00 62 08/04/18 00:00 97.8 66 18 100/55 (70) 97 Room Air 08/03/18 20:13 97.9 73 20 105/68 (80) 98 Room Air 08/03/18 19:00 72 08/03/18 18:10 105/70 (82) 08/03/18 17:55 111/72 (85) 08/03/18 17:40 96/60 (72) 08/03/18 17:25 107/63 (78) 08/03/18 17:15 96.5 76 20 94/51 (65) 97 Room Air 08/03/18 17:14 100 Room Air 08/03/18 17:02 97.4 78 18 122/78 100 Room Air 08/03/18 12:56 98.3 80 12 118/77 (91) 100 Room Air I & O 08/04/18 07:00 Intake Total 1480 ml Output Total 800 ml Balance 680 ml Capillary Refill : Less Than 3 Seconds General Appearance: No Apparent Distress, Thin HEENT: Normal ENT Inspection Neck: Full Range of Motion, Normal Inspection Respiratory: Lungs Clear, No Accessory Muscle Use, No Respiratory Distress Cardiovascular: Regular Rate, Rhythm, No Murmur Gastrointestinal: non tender, soft Results Lab Laboratory Tests 08/03/18 13:08 Laboratory Tests 08/03/18 13:08: White Blood Count 4.4, Red Blood Count 3.48L, Hemoglobin 10.1L, Hematocrit 32L, Mean Corpuscular Volume 91, Mean Corpuscular Hemoglobin 29, Mean Corpuscular Hemoglobin Concent 32, Red Cell Distribution Width 14.7H, Platelet Count 214, Mean Platelet Volume 11.0H, Neutrophils (%) (Auto) 45, Lymphocytes (%) (Auto) 42 , Monocytes (%) (Auto) 9, Eosinophils (%) (Auto) 3, Basophils (%) (Auto) 1, Neutrophils # (Auto) 2.0, Lymphocytes # (Auto) 1.8, Monocytes # (Auto) 0.4, Eosinophils # (Auto) 0.1, Basophils # (Auto) 0.1, Prothrombin Time 11.9L, INR Comment 0.9, Activated Partial Thromboplast Time 28, D-Dimer 0.41, Sodium Level 140, Potassium Level 4.4, Chloride Level 106, Carbon Dioxide Level 29, Anion Gap 5, Blood Urea Nitrogen 14, Creatinine 0.99, Estimat Glomerular Filtration Rate > 60, BUN/Creatinine Ratio 14, Glucose Level 91, Calcium Level 8.6, Corrected Calcium 8.8, Magnesium Level 2.3, Total Bilirubin 0.2, Aspartate Amino Transf (AST/SGOT) 11, Alanine Aminotransferase (ALT/SGPT) 10, Alkaline Phosphatase 63, Myoglobin 33.9, Troponin I < 0.30, Total Protein 5.7L, Albumin 3.8 08/03/18 18:30: Troponin I < 0.30 08/04/18 05:50: Triglycerides Level 100, Cholesterol Level 124, LDL Cholesterol Direct 60, VLDL Cholesterol 20, HDL Cholesterol 48 Assessment/Plan Assessment/Plan Assess & Plan/Chief Complaint Chest pain. Chest pain resolved this morning. 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 Bipolar. Anxiety. Tobaccoism. Migraine headaches. Syncope 2 days ago. History of gastric bypass surgery. History of fibromyalgia DVT/VTE Risk/Contraindication: Risk Factor Score Per Nursin RFS Level Per Nursing on Admit: 4+=Very High DEANN GARCÍA DO Aug 04, 2018 06:55
[2018-08-04] MEDS ORDERED: FLU QUADRIvalent (5+ YOA) 2018-2019 (AFLURIA) 0.5 ML IM ONE (07:58)
[2018-08-04 08:00] VITALS: BP 115/66
[2018-08-04 08:11] LABS: HEMOGLOBIN 10.3 G/DL (11.5-16.0); MEAN PLATELET VOLUME 11.3 FL (7.4-10.4); RED BLOOD COUNT 3.47 10^6/uL (4.35-5.85); RED CELL DISTRIBUTION WIDTH 14.4 % (10.0-14.5); WHITE BLOOD COUNT 4.6 10^3/uL (4.3-11.0)
[2018-08-04] MEDS: PROPRANOLOL 20 MG (INDERAL) TABLET PO SCH (08:15)
[2018-08-04 08:24] LABS: BUN/CREATININE RATIO 15; CALCIUM 8.6 MG/DL (8.5-10.1); CARBON DIOXIDE 26 MMOL/L (21-32); CHLORIDE 106 MMOL/L (98-107); CREATININE SERUM 0.84 MG/DL (0.60-1.30); GFR ESTIMATED > 60; GLUCOSE 92 MG/DL (70-105); POTASSIUM 4.6 MMOL/L (3.6-5.0); SODIUM 140 MMOL/L (135-145)
[2018-08-04] MEDS ORDERED: ASPIRIN E.C. 81 MG (ECOTRIN) TAB PO SCH (09:00)
--- NOTE | 2018-08-04 09:31 | Progress Note-Cardiology ---
Cardiology SOAP Progress Note Subjective: Feels well today. No cp or palp or syncope. No shortness of breath rest. She feels that the episode of 08/01/18 was only because she was exhausted Objective: I&O/Vital Signs 08/04/18 08/04/18 08/04/18 08/04/18 00:00 01:00 04:00 07:00 Temp 97.8 98.9 Pulse 66 62 69 71 Resp 18 18 B/P (MAP) 100/55 (70) /66 Pulse Ox 97 96 O2 Delivery Room Air 08/04/18 08:00 Temp 97.4 Pulse 70 Resp 16 B/P (MAP) 115/66 (82) Pulse Ox 99 O2 Delivery Room Air 08/04/18 00:00 Intake Total 500 ml Balance 500 ml Weight (Pounds): 133 Weight (Ounces): 0.0 Weight (Calculated Kilograms): [id number] Constitutional: AAO x 3, well-developed, well-nourished Respiratory: No accessory muscle use, No respiratory distress; chest expansion is symmetric, chest is bilaterally symmetric, lungs clear to auscultation Cardiovascular: regular rate-rhythm; No JVD; S1 and S2 Gastrointestional: No tender; soft, round, audible bowel sounds Extremities: no lower extremity edema bilateral Neurologic/Psychiatric: grossly intact, power is 5/5 both on sides Skin: No rash, No ulcerations Results/Procedures: Labs Laboratory Tests 08/03/18 13:08: White Blood Count 4.4, Red Blood Count 3.48L, Hemoglobin 10.1L, Hematocrit 32L, Mean Corpuscular Volume 91, Mean Corpuscular Hemoglobin 29, Mean Corpuscular Hemoglobin Concent 32, Red Cell Distribution Width 14.7H, Platelet Count 214, Mean Platelet Volume 11.0H, Neutrophils (%) (Auto) 45, Lymphocytes (%) (Auto) 42 , Monocytes (%) (Auto) 9, Eosinophils (%) (Auto) 3, Basophils (%) (Auto) 1, Neutrophils # (Auto) 2.0, Lymphocytes # (Auto) 1.8, Monocytes # (Auto) 0.4, Eosinophils # (Auto) 0.1, Basophils # (Auto) 0.1, Prothrombin Time 11.9L, INR Comment 0.9, Activated Partial Thromboplast Time 28, D-Dimer 0.41, Sodium Level 140, Potassium Level 4.4, Chloride Level 106, Carbon Dioxide Level 29, Anion Gap 5, Blood Urea Nitrogen 14, Creatinine 0.99, Estimat Glomerular Filtration Rate > 60, BUN/Creatinine Ratio 14, Glucose Level 91, Calcium Level 8.6, Corrected Calcium 8.8, Magnesium Level 2.3, Total Bilirubin 0.2, Aspartate Amino Transf (AST/SGOT) 11, Alanine Aminotransferase (ALT/SGPT) 10, Alkaline Phosphatase 63, Myoglobin 33.9, Troponin I < 0.30, Total Protein 5.7L, Albumin 3.8 08/03/18 18:30: Troponin I < 0.30 08/04/18 05:50: White Blood Count 4.6, Red Blood Count 3.47L, Hemoglobin 10.3L, Hematocrit 32L, Mean Corpuscular Volume 91, Mean Corpuscular Hemoglobin 30, Mean Corpuscular Hemoglobin Concent 33, Red Cell Distribution Width 14.4, Platelet Count 197, Mean Platelet Volume 11.3H, Sodium Level 140, Potassium Level 4.6, Chloride Level 106, Carbon Dioxide Level 26, Anion Gap 8, Blood Urea Nitrogen 13, Creatinine 0.84, Estimat Glomerular Filtration Rate > 60, BUN/Creatinine Ratio 15, Glucose Level 92, Calcium Level 8.6, Troponin I < 0.30, Triglycerides Level 100, Cholesterol Level 124, LDL Cholesterol Direct 60, VLDL Cholesterol 20, HDL Cholesterol 48 A/P: Assessment: Chest pain of undetermined etiology - no evidence of ACS Long episode of (nearly an hour) of syncope/drowsiness on 08/01/18 that may have been related to pain meds (took all her pain meds that day and some from her ) Cardiac cath of July 2013 following NSTEMI: Angiographically normal coronary arteries; small, acute non-ST elevation myocardial infarction, possible due to a transient coronary spasm. MPI of August 2015: No evidence of significant myocardial ischemia or infarction. Normal regional wall motion. LVEF 58% Normal global left ventricular systolic function with an ejection fraction of 60 %. Elevated left ventricular diastolic pressure indicative of diastolic dysfunction of the left ventricle per cardiac cath from July 2013. Chronic pain syndrome Chronic migraines Bi-polar disorder Anxiety Tobaccoism- cessation advised H/o marijuana usage, cessation advised History of gastric bypass surgery several years ago, which was complicated by incisional hernia which required further repair. 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 Nunez of hematology services Normal ventricular systolic function with a LVEF of 55-60%. Mild mitral and tricuspid regurgitation. PASP 30 mmHg per echocardiogram from July 2013. CT Angio of the chest from July 2013 showed heterogenous appearance of left thyroid lobe. We have advised follow up with her primary care physician. 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 No residual Plan: * Risk factor mod reviewed and advised * Outpt f/u advised * Advised to quit smoking immediately and completely * Return to ER in case of recurrent or new symptoms ORA OVIEDO MD FACP FAC CCDS Aug 04, 2018 09:31
[2018-08-04] MEDS ORDERED: ASPI-983 PO (10:01)
[2018-08-04] MEDS ORDERED: CLON1TAB13 PO (10:01)
[2018-08-04] MEDS ORDERED: GABA-488 PO (10:01)
[2018-08-04] MEDS ORDERED: OMEP20CA12 PO (10:01)
[2018-08-04] MEDS ORDERED: ALBU18HF2 INH (10:01)
[2018-08-04] MEDS ORDERED: DIVA-74 PO (10:01)
[2018-08-04] MEDS ORDERED: TRAM50TA2 PO (10:01)
[2018-08-04] MEDS ORDERED: CYCL10TA9 PO (10:01)
[2018-08-04] MEDS ORDERED: ESCI10TA55 PO (10:01)
[2018-08-04] MEDS ORDERED: DIVA500T15 PO (10:01)
--- NOTE | 2018-08-07 07:27 | Clinic Account Progress/Dx ---
Clinic Account Progress/Dx DIAGNOSIS: Time Seen by Provider: 07:26 Chest pain undetermined etiology. Syncope. Drowsiness. Chronic pain syndrome. Chronic migraine. Bipolar. History of gastric bypass surgery DEANN GARCÍA DO Aug 07, 2018 07:27
== END 2018-08-04 10:36 | disposition home or self-care (01) ==
LOC: EDUNIT# 12:55 → ER 12:56 → UNDOADMOB 16:42 → 4TH 16:42 → UNDODISOB 08-04 11:20
PROVIDERS: ADMIT Family Medicine; ATTEND Family Medicine
DX: R07.9 Chest pain, unspecified (principal); R55 Syncope and collapse; R40.0 Somnolence; G89.4 Chronic pain syndrome; G43.909 Migraine, unspecified, not intractable, without status migrainosus; F31.9 Bipolar disorder, unspecified; M79.7 Fibromyalgia; Z98.84 Bariatric surgery status; F17.210 Nicotine dependence, cigarettes, uncomplicated; F12.90 Cannabis use, unspecified, uncomplicated; Z86.73 Personal history of transient ischemic attack (TIA), and cerebral infarction without residual deficits; I25.2 Old myocardial infarction; F41.9 Anxiety disorder, unspecified
CPT/HCPCS: 36415; 70450; 71045; 80048; 80053; 80061; 83735; 83874; 84484; 85025; 85027; 85379; 85610; 85730; 90686; 93005; 93041; G0378

== ENCOUNTER 2018-12-05 07:37 | Day surgery (SDC) | payer MEDICARE, MEDICAID ==
[~2018-12-05] VITALS: Ht 160 cm; Wt 60.3 kg
[2018-12-05] VITALS (10 sets, daily range): BP systolic 106–128; BP diastolic 59–87
[~2018-12-05 07:37] MED LIST changes: +ALBU18HF2 INH; +ASPI-983 PO; +CLON1TAB13 PO; +CYCL10TA9 PO; +DIVA-74 PO; +ESCI10TA55 PO; +GABA-488 PO
[2018-12-05] MEDS ORDERED: LIDOCAINE 1% INJ 20 ML 20 ML VIAL ONE (07:44)
[2018-12-05] MEDS ORDERED: NS IV 1000 ML 1,000 ML ONE (07:44)
[2018-12-05] MEDS ORDERED: HEParin (CATH LAB) 2,000 ML IV ONE (07:44)
[2018-12-05] MEDS ORDERED: NS IV 1000 ML 1,000 ML IV SCH ×2 (07:45→09:53)
--- OUTSIDE RECORDS SUMMARY | 2018-12-05 07:57 | XMS REPORT | Continuity of Care Document ---
Author Author [facility] Address Unknown Phone Unavailable Allergies Active Description Code Type Severity Reaction Onset Reported/Identified Relationship to Patient Clinical Status Yes NO KNOWN DRUG ALLERGIES UNKNOWN NO KNOWN DRUG ALLERG Yes hydrocodone Drug Allergy 02/12/2009 Yes hydrocodone Drug Allergy N/A N/A 02/12/2009 Yes No Known Drug Allergies [id number] Drug Allergy Unknown N/A 10/26/2013 Medications There [...] MD 296.80 Mo Bipolar Nos 05/22/2008 ANDREINA JHONS MD 305.1 TOBACCO ABUSE 05/22/2008 ANDREINA JOHNS [...] 611.72 Lump Or Mass In Breast 06/26/2008 SABIAN BRADSHAW APRN 285.9 Anemia Unspecified 06/26/2008 SABINA BRADSHAW APRN 611.72 Lump Or Mass In Breast 06/26/2008 KASANDRA JURADO APRN 285.9 Anemia Unspecified 06/26/2008 KASANDRA JURADO APRN 611.72 Lump Or Mass In Breast 06/26/2008 RHIANNON TITLE I PARAPROFESSIONAL, KASANDRA T 285.9 Anemia Unspecified 06/26/2008 RHIANNON [...] Migraine Unspecified Without Intractable Migraine 07/12/2008 REILLY TITLE I PARAPROFESSIONAL, PEPE Lopez 346.90 Migraine Unspecified Without Intractable [...] MD 784.0 headache 07/17/2008 784.0 headache 07/17/2008 NTA CRUZ, ANDREINA 784.0 headache 07/17/2008 WOOD GARCIA [...] F V58.69 Medication High Risk 07/18/2008 [facility], IVY Huynh V58.69 Medication High Risk [...] APRN V58.69 Medication High Risk 07/18/2008 ANDREINA OJHNS MD V58.69 Medication High Risk 07/18/2008 CHASE [...] TO UNSPECIFIED COMMUNICABLE DISEASE 10/10/2008 BRUNO DO, CHAES K 266.2 B12 DEF W/O ANEMIA 10/10/2008 [...] BRUNO DO 845.10 SPRAIN/STRAIN FOOT 02/12/2009 ANDREINA JONHS MD 845.10 SPRAIN/STRAIN FOOT 02/12/2009 EM FINE [...] EM M 466.0 ACUTE BRONCHITIS 03/14/2009 BRADSHAW TITLE I PARAPROFESSIONAL, SABINA BETHEA 466.0 ACUTE BRONCHITIS 03/14/2009 REILLY TITLE I PARAPROFESSIONAL, PEPE R 466.0 ACUTE BRONCHITIS 03/14/2009 ANDREINA JOHNS MD 466.0 ACUTE BRONCHITIS 03/14/2009 ANDREINA JOHNS MD 466.0 ACUTE BRONCHITIS 03/14/2009 BRADSHAW TITLE I PARAPROFESSIONAL, SABINA BETHEA 466.0 ACUTE BRONCHITIS 03/14/2009 RHIANNON TITLE I PARAPROFESSIONAL, KASANDRA T 466.0 ACUTE BRONCHITIS 03/14/2009 RHIANNON [...] 296.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 I MIXED UNSPECIFIED 07/04/2009 [facility] PHD, IVY Huynh 296.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 I [...] 296.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 I MIXED UNSPECIFIED 07/04/2009 ADNREINA JOHNS MD 296.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 I MIXED UNSPECIFIED 07/04/2009 ANDREINA JOHNS MD 296.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 I MIXED UNSPECIFIED 07/04/2009 BRUNO DO, CHASE K 296.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 I MIXED UNSPECIFIED 07/04/2009 ANDREINA JOHNS MD 296.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 I MIXED UNSPECIFIED 07/04/2009 EM FINE MD 296.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 I MIXED UNSPECIFIED 07/04/2009 AUGUSTINE TITLE I PARAPROFESSIONAL, SABINA BETHEA 296.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 I MIXED UNSPECIFIED 07/04/2009 REILLY TITLE I PARAPROFESSIONAL, PEPE R 296.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 I MIXED UNSPECIFIED 07/04/2009 ANDREINA JOHNS MD 296.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 I MIXED UNSPECIFIED 07/04/2009 ANDREINA JOHNS MD 296.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 I MIXED UNSPECIFIED 07/04/2009 AUGUSTINE SEGOVIA, SABINA BETHEA 296.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 I MIXED UNSPECIFIED 07/04/2009 RHIANNON TITLE I PARAPROFESSIONAL, KASANDRA T 296.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 I MIXED [...] 08/06/2009 338.4 Chronic Pain Syndrome 08/06/2009 WOOD GACRIA DO 296.9 MOOD DIS NOS 08/06/2009 WOOD [...] BETHEA 296.9 MOOD DIS NOS 08/06/2009 AUGUSTINE TITLE I PARAPROFESSIONAL, SABINA BETHEA 338.4 Chronic Pain Syndrome 08/06/2009 RHIANNON TITLE I PARAPROFESSIONAL, KASANDRA T 296.9 MOOD DIS NOS 08/06/2009 RHIANNON TITLE I PARAPROFESSIONAL, KASANDRA T 338.4 Chronic Pain Syndrome 08/06/2009 RHIANNON TITLE I PARAPROFESSIONAL, KASANDRA T 296.9 MOOD DIS NOS 08/06/2009 RHIANNON TITLE I PARAPROFESSIONAL, KASANDRA T 338.4 Chronic Pain Syndrome 08/06/2009 [...] MD 719.40 Joint Pain, Localized 08/27/2009 BRADSHAW TITLE I PARAPROFESSIONAL, SABINA BETHEA 719.40 Joint Pain, Localized 08/27/2009 REILLY SEGOVIA, PEPE Lopez 719.40 Joint Pain, Localized 08/27/2009 ANDREINA JOHNS MD 719.40 Joint Pain, Localized 08/27/2009 ANDREINA JOHNS MD 719.40 Joint Pain, Localized 08/27/2009 BRADSHAW TITLE I PARAPROFESSIONAL, SABINA BETHEA 719.40 Joint Pain, Localized 08/27/2009 RHIANNON TITLE I PARAPROFESSIONAL, KASANDRA T 719.40 Joint Pain, Localized 08/27/2009 RHIANNON TITLE I PARAPROFESSIONAL, KASANDRA T 719.40 Joint Pain, Localized 08/27/2009 [...] EM Salgado 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 12/15/2009 RBADSHAW TITLE I PARAPROFESSIONAL, SABINA BETHEA 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 12/15/2009 REILLY TITLE I PARAPROFESSIONAL, PEPE R 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 12/15/2009 ANDREINA JOHNS MD 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 12/15/2009 ANDREINA JOHNS MD 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 12/15/2009 AUGUSTINE TITLE I PARAPROFESSIONAL, SABINA BETHEA 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 12/15/2009 RHIANNON TITLE I PARAPROFESSIONAL, KASANDRA Aaron 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 12/15/2009 [...] MD 784.59 Other Speech Disturbance 11/23/2010 BRADSHAW TITLE I PARAPROFESSIONAL, SABINA BETHEA 287.5 Thrombocytopenia Unspecified 11/23/2010 BRADSHAW TITLE I PARAPROFESSIONAL, SABINA BETHEA 784.59 Other Speech Disturbance 11/23/2010 REILLY TITLE I PARAPROFESSIONAL, PEPE R 287.5 Thrombocytopenia Unspecified 11/23/2010 REILLY TITLE I PARAPROFESSIONAL, PEPE R 784.59 Other Speech Disturbance 11/23/2010 ANDREINA JOHNS MD 287.5 Thrombocytopenia Unspecified 11/23/2010 ANDREINA JOHNS MD 784.59 Other Speech Disturbance 11/23/2010 ANDREINA JOHNS MD 287.5 Thrombocytopenia Unspecified 11/23/2010 ANDREINA JOHNS MD 784.59 Other Speech Disturbance 11/23/2010 AUGUSTINE TITLE I PARAPROFESSIONAL, SABINA BETHEA 287.5 Thrombocytopenia Unspecified 11/23/2010 BRADSHAW TITLE I PARAPROFESSIONAL, SAIBNA BETHEA 784.59 Other Speech Disturbance 11/23/2010 RHIANNON [...] EM Salgado 703.0 NAIL INGROWN 02/09/2011 BRADSHAW TITLE I PARAPROFESSIONAL, SABINA TINEOH 703.0 NAIL INGROWN 02/09/2011 REILLY TITLE I PARAPROFESSIONAL, PEPE Lopez 703.0 NAIL INGROWN 02/09/2011 NAT CRUZ, ANDREINA 703.0 NAIL INGROWN 02/09/2011 NAT CRUZ, ANDREINA 703.0 NAIL INGROWN 02/09/2011 BRADSHAW TITLE I PARAPROFESSIONAL, SABINA TINEOH 703.0 NAIL INGROWN 02/09/2011 RHIANNON [...] CELLULITIS AND ABSCESS OF UNSPECIFIED SITES 03/10/2011 ADNREINA JOHNS MD 682.9 CELLULITIS AND ABSCESS OF [...] NAT CRUZ, ANDREINA 782.3 Edema 06/17/2011 EM FNIE MD 782.3 Edema 06/17/2011 AUGUSTINE SEGOVIA, SABINA [...] MD Ot 786.50 CHEST PAIN NOS 09/26/2013 ME FINE MD Ot 789.03 ABDOMINAL PAIN, RIGHT [...] MD Ot 786.50 CHEST PAIN NOS 12/22/2013 NEEIDA HINES MD Ot 786.52 PAINFUL RESPIRATION 01/30/2014 [...] Ot 729.5 04/24/2015 Ot 782.3 04/24/2015 KAVONSANDHYA SPLITTER MACHINE Ot 611.71 04/24/2015 KAVON SANDHYA Stephenson SPLITTER MACHINE Ot 611.79 04/24/2015 Ot 280.9 04/24/2015 FENECH [...] FACP CCDS Ot F17.200 10/07/2015 IVELISSE CRUZ [facility] CCDS Ot F31.9 10/07/2015 IVELISSE CRUZ [facility] CCD[facility] Ot I10 10/07/2015 IVELISSE CRUZ [facility] CCD[facility] Ot I21.4 12/18/2015 REGINO CRUZ, AGUILAR M Ot L72.9 12/18/2015 REGINO CRUZ, AGUILAR M Ot Z01.818 12/18/2015 REGINO CRUZ, AGUILAR M Ot L72.9 12/18/2015 REGINO CRUZ, AGUILAR M Ot Z01.818 12/19/2015 REGINO CRUZ, AGUILAR M Ot L72.3 SEBACEOUS CYST 08/30/2016 Ot 729.5 PAIN IN LIMB 08/30/2016 Ot 782.3 EDEMA 08/30/2016 SANDHYA JACOBSON SPLITTER MACHINE Ot 611.71 MASTODYNIA 08/30/2016 SANDHYA JAOCBSON SPLITTER MACHINE Ot 611.79 SYMPTOMS IN BREAST NEC 08/30/2016 [...] I10 ESSENTIAL (PRIMARY) HYPERTENSION 08/30/2016 IVELISSE CRUZ [facility] CCD[facility] Ot I21.4 NON-ST ELEVATION (NSTEMI) [...] Ot R19.7 DIARRHEA, UNSPECIFIED 04/15/2017 SANDHYA JACOBSON SPLITTER MACHINE Ot 611.71 MASTODYNIA 04/15/2017 SANDHYA JACOBSON SPLITTER MACHINE Ot 611.79 SYMPTOMS IN BREAST NEC 04/15/2017 [...] PULMONARY FIBROSIS, UNSPECIFIED 06/16/2017 GELLENDER DO, DEANN Huynh Ot R91.8 OTHER [...] 06/22/2017 MASSIMO BERNAL MD Ot Z79.899 OTHER MCC (CURRENT) DRUG THERAPY 06/24/2017 MASSIMO BERNAL MD, Ot I50.9 HEART FAILURE, UNSPECIFIED 06/24/2017 MASSIMO BERNAL MD Ot K21.9 GASTRO-ESOPHAGEAL REFLUX DISEASE WITHOUT 06/24/2017 MASSIMO BERNAL MD Ot M22.41 CHONDROMALACIA PATELLAE, RIGHT KNEE 06/24/2017 MASSIMO BERNAL MD Ot M23.8X1 OTHER INTERNAL DERANGEMENTS OF RIGHT KNE 06/24/2017 MASSIMO BERNAL MD Ot M79.1 MYALGIA 06/24/2017 MASSIMO BERNAL MD Ot Z79.899 OTHER MCC (CURRENT) DRUG THERAPY 07/01/2017 DEANN GARCÍA DO [...] DEPRESSIVE DISORDER, RECURRENT, UN 12/22/2017 SANDHYA JACOBSON SPLITTER MACHINE Ot 611.71 MASTODYNIA 12/22/2017 SANDHYA JACOBSON SPLITTER MACHINE Ot 611.79 SYMPTOMS IN BREAST NEC 12/22/2017 [...] I10 ESSENTIAL (PRIMARY) HYPERTENSION 12/22/2017 IVELISSE CRUZ [facility], ALI FACP CCDS Ot I21.4 [...] PULMONARY FIBROSIS, UNSPECIFIED 12/22/2017 GELLENDER DO, DEANN Amina Ot R91.8 OTHER NONSPECIFIC ABNORMAL FINDING OF JABARI 12/22/2017 GELLENDER DO, DEANN Amina Ot J18.9 PNEUMONIA, UNSPECIFIED ORGANISM 12/22/2017 GELLENDER DO, DEANN Amina Ot M54.5 LOW BACK PAIN 12/22/2017 GELLENDER DO, DEANN Huynh Ot F31.9 BIPOLAR DISORDER, UNSPECIFIED 12/22/2017 GELLENDER DO, DEANN Huynh Ot F33.9 MAJOR DEPRESSIVE DISORDER, RECURRENT, UN 12/23/2017 GELLENDER DO, DEANN Huynh Ot M81.8 OTHER OSTEOPOROSIS WITHOUT CURRENT PATHO 12/23/2017 GELLENDER DO, DEANN Amina Ot S99.921A UNSPECIFIED INJURY OF RIGHT FOOT, INITIA 12/23/2017 GELLENDER DO, DEANN Amina Ot W19.XXXA UNSPECIFIED FALL, INITIAL ENCOUNTER 12/29/2017 GELLENDER DO, DEANN Huynh Ot M81.8 OTHER OSTEOPOROSIS WITHOUT CURRENT PATHO 12/29/2017 GELLENDER DO, DEANN Huynh Ot S99.921A UNSPECIFIED INJURY OF RIGHT FOOT, INITIA 12/29/2017 GELLENDER DO, DEANN Huynh Ot W19.XXXA UNSPECIFIED FALL, INITIAL ENCOUNTER 01/30/2018 GELLENDER DO, DEANN Huynh Ot M81.8 OTHER OSTEOPOROSIS WITHOUT CURRENT PATHO 01/30/2018 GELLENDER DO, DEANN Amina Ot S99.921A UNSPECIFIED INJURY OF RIGHT FOOT, INITIA 01/30/2018 GELLENDER DO, DEANN Huynh Ot W19.XXXA UNSPECIFIED FALL, INITIAL ENCOUNTER 05/02/2018 GELLENDER DO, DEANN Amina Ot S22.42XD MULTIPLE FX OF RIBS, LEFT SIDE, SUBS FOR 05/23/2018 GELLENDER DO, DEANN Amina Ot S22.42XD MULTIPLE FX OF RIBS, LEFT SIDE, SUBS FOR 06/06/2018 GELLENDER DO, DEANN Amina Ot S22.42XD MULTIPLE FX OF RIBS, LEFT SIDE, SUBS FOR 08/03/2018 SANDHYA JACOBSON SPLITTER MACHINE Ot 611.71 MASTODYNIA 08/03/2018 SANDHYA JACOBSON SPLITTER MACHINE Ot 611.79 SYMPTOMS IN BREAST NEC 08/03/2018 Ot 280.9 IRON DEFIC ANEMIA NOS 08/03/2018 FENECH DO, MASSIMO S Ot 617.9 ENDOMETRIOSIS NOS 08/03/2018 MASSIMO ZAMBRANO DO Ot 620.2 OVARIAN CYST NEC/NOS 08/03/2018 KENYA SANTANA MASSIMO Stephenson Ot 625.9 FEM GENITAL SYMPTOMS NOS 08/03/2018 MASSIMO ZAMBRANO DO Ot 626.2 EXCESSIVE MENSTRUATION 08/03/2018 KENYA SANTANA MASSIMO Stephenson Ot V72.63 PRE-PROCEDURAL LABORATORY EXAMINATION 08/03/2018 KENYA SANTANA MASSIMO Stephenson Ot V74.8 SCREEN-BACTERIAL DIS NEC 08/03/2018 MASSIMO BERNAL MD Ot 717.7 CHONDROMALACIA PATELLAE 08/03/2018 MASSIMO BERNAL MD Ot V72.84 EXAM PRE-OPERATIVE NOS 08/03/2018 Ot 789.00 ABDOMINAL PAIN, UNSPECIFIED SITE 08/03/2018 DEANN GARCÍA DO Ot V76.12 OTH SCREEN MAMMO-MALIGN NEOPLASM OF NICO 08/03/2018 DEANN GARCÍA DO Ot 285.9 ANEMIA NOS 08/03/2018 DEANN GARCÍA DO Ot 716.90 ARTHROPATHY NOS-UNSPEC 08/03/2018 DEANN GARCÍA DO Ot 782.1 NONSPECIF SKIN ERUPT NEC 08/03/2018 REGINO CRUZ, AGUILAR Salgado Ot V72.84 EXAM PRE-OPERATIVE NOS 08/03/2018 REGINO CRUZ, AGUILAR Salgado Ot V72.84 EXAM PRE-OPERATIVE NOS 08/03/2018 IVELISSE CRUZ FACC, ALI FACP CCDS Ot D64.9 ANEMIA, UNSPECIFIED 08/03/2018 IVELISSE CRUZ FACC, ALI FACP CCDS Ot F17.200 NICOTINE DEPENDENCE, UNSPECIFIED, UNCOMP 08/03/2018 IVELISSE CRUZ FACC, ALI FACP CCDS Ot F31.9 BIPOLAR DISORDER, UNSPECIFIED 08/03/2018 IVELISSE CRUZ FACC, ALI FACP CCDS Ot I10 ESSENTIAL (PRIMARY) HYPERTENSION 08/03/2018 IVELISSE CRUZ FACSamra, ALI FACP CCDS Ot I21.4 NON-ST ELEVATION (NSTEMI) MYOCARDIAL INF 08/03/2018 AGUILAR LACY MD Ot L72.9 FOLLICULAR CYST OF THE SKIN AND SUBCUTAN 08/03/2018 AGUILAR LACY MD Ot Z01.818 ENCOUNTER FOR OTHER PREPROCEDURAL EXAMIN 08/03/2018 DEANN GARCÍA DO Ot R05 COUGH 08/03/2018 GELLENDER DO, DEANN Huynh Ot R50.9 FEVER, UNSPECIFIED 08/03/2018 GELLENDER DO, DEANN Huynh Ot R61 GENERALIZED HYPERHIDROSIS 08/03/2018 GELLENDER DO, EDANN Huynh Ot R10.9 UNSPECIFIED ABDOMINAL PAIN 08/03/2018 GELLENDER DO, DEANN Huynh Ot N28.9 DISORDER OF KIDNEY AND URETER, UNSPECIFI 08/03/2018 GELLENDER DO, DEANN Huynh Ot R10.9 UNSPECIFIED ABDOMINAL PAIN 08/03/2018 GELLENDER DO, DEANN Huynh Ot R11.10 VOMITING, UNSPECIFIED 08/03/2018 GELLENDER DO, DEANN Huynh Ot R19.7 DIARRHEA, UNSPECIFIED 08/03/2018 GELLENDER DO, DEANN Huynh Ot K21.9 GASTRO-ESOPHAGEAL REFLUX DISEASE WITHOUT 08/03/2018 GELLENDER DO, DEANN Huynh Ot R53.83 OTHER FATIGUE 08/03/2018 GELLENDER DO, DEANN Huynh Ot E03.9 HYPOTHYROIDISM, UNSPECIFIED 08/03/2018 GELLENDER DO, DEANN Huynh Ot R19.7 DIARRHEA, UNSPECIFIED 08/03/2018 GELLENDER DO, DEANN Huynh Ot J90 PLEURAL EFFUSION, NOT ELSEWHERE CLASSIFI 08/03/2018 GELLENDER DO, DEANN Huynh Ot R91.8 OTHER NONSPECIFIC ABNORMAL FINDING OF JABARI 08/03/2018 GELLENDER DO, DEANN Huynh Ot J84.10 PULMONARY FIBROSIS, UNSPECIFIED 08/03/2018 GELLENDER DO, DEANN Huynh Ot R91.8 OTHER NONSPECIFIC ABNORMAL FINDING OF JABARI 08/03/2018 GELLENDER DO, DEANN Huynh Ot J18.9 PNEUMONIA, UNSPECIFIED ORGANISM 08/03/2018 GELLENDER DO, DEANN Huynh Ot M54.5 LOW BACK PAIN 08/03/2018 GELLENDER DO, DEANN Huynh Ot F31.9 BIPOLAR DISORDER, UNSPECIFIED 08/03/2018 GELLENDER DO, DEANN Huynh Ot F33.9 MAJOR DEPRESSIVE DISORDER, RECURRENT, UN 08/03/2018 GELLENDER DO, DEANN Huynh Ot M81.8 OTHER OSTEOPOROSIS WITHOUT CURRENT PATHO 08/03/2018 GELLENDER DO, DEANN Huynh Ot S99.921A UNSPECIFIED INJURY OF RIGHT FOOT, INITIA 08/03/2018 GELLENDER DO, DEANN Huynh Ot W19.XXXA UNSPECIFIED FALL, INITIAL ENCOUNTER 08/03/2018 DEANN GARCÍA DO Ot S22.42XD MULTIPLE FX OF RIBS, LEFT SIDE, SUBS FOR 08/03/2018 SANDHYA JACOBSON SPLITTER MACHINE Ot 611.71 MASTODYNIA 08/03/2018 SANDHYA JACOBSON SPLITTER MACHINE Ot 611.79 SYMPTOMS IN BREAST NEC 08/03/2018 Ot 280.9 IRON DEFIC ANEMIA NOS 08/03/2018 FENECH MASSIMO SANTANA S Ot 617.9 ENDOMETRIOSIS NOS 08/03/2018 MASSIMO ZAMBRANO DO Ot 620.2 OVARIAN CYST NEC/NOS 08/03/2018 MASSIMO ZAMBRANO DO S Ot 625.9 FEM GENITAL SYMPTOMS NOS 08/03/2018 KENYA DOMASSIMO S Ot 626.2 EXCESSIVE MENSTRUATION 08/03/2018 MASSIMO ZAMBRANO DO Ot V72.63 PRE-PROCEDURAL LABORATORY EXAMINATION 08/03/2018 MASSIMO ZAMBRANO DO Ot V74.8 SCREEN-BACTERIAL DIS NEC 08/03/2018 MASSIMO BERNAL MD Ot 717.7 CHONDROMALACIA PATELLAE 08/03/2018 MASSIMO BERNAL MD Ot V72.84 EXAM PRE-OPERATIVE NOS 08/03/2018 Ot 789.00 ABDOMINAL PAIN, UNSPECIFIED SITE 08/03/2018 RICKY SANTANADEANN Ot V76.12 OTH SCREEN MAMMO-MALIGN NEOPLASM OF NICO 08/03/2018 RICKY SANTANADEANN Ot 285.9 ANEMIA NOS 08/03/2018 RICKY SANTANADEANN Ot 716.90 ARTHROPATHY NOS-UNSPEC 08/03/2018 RICKY SANTANADEANN Ot 782.1 NONSPECIF SKIN ERUPT NEC 08/03/2018 AGUILAR LACY MD Ot V72.84 EXAM PRE-OPERATIVE NOS 08/03/2018 AGUILAR LACY MD Ot V72.84 EXAM PRE-OPERATIVE NOS 08/03/2018 IVELISSE CRUZ FACC, ALI FACP CCDS Ot D64.9 ANEMIA, UNSPECIFIED 08/03/2018 IVELISSE CRUZ FACC, ALI FACP CCDS Ot F17.200 NICOTINE DEPENDENCE, UNSPECIFIED, UNCOMP 08/03/2018 IVELISSE CRUZ FACC, ALI FACP CCDS Ot F31.9 BIPOLAR DISORDER, UNSPECIFIED 08/03/2018 IVELISSE CRUZ FACC, ALI FACP CCDS Ot I10 ESSENTIAL (PRIMARY) HYPERTENSION 08/03/2018 IVELISSE CRUZ FACC, ORA MCFARLANEP CCDS Ot I21.4 NON-ST ELEVATION (NSTEMI) MYOCARDIAL INF 08/03/2018 REGINO CRUZ, AGUILAR Salgado Ot L72.9 FOLLICULAR CYST OF THE SKIN AND SUBCUTAN 08/03/2018 REGINO CRUZ, AGUILAR Salgado Ot Z01.818 ENCOUNTER FOR OTHER PREPROCEDURAL EXAMIN 08/03/2018 GELLENDER DO, DEANN Huynh Ot R05 COUGH 08/03/2018 GELLENDER DO, DEANN Huynh Ot R50.9 FEVER, UNSPECIFIED 08/03/2018 GELLENDER DO, DEANN Huynh Ot R61 GENERALIZED HYPERHIDROSIS 08/03/2018 GELLENDER DO, DEANN Huynh Ot R10.9 UNSPECIFIED ABDOMINAL PAIN 08/03/2018 GELLENDER DO, DEANN Huynh Ot N28.9 DISORDER OF KIDNEY AND URETER, UNSPECIFI 08/03/2018 GELLENDER DO, DEANN Huynh Ot R10.9 UNSPECIFIED ABDOMINAL PAIN 08/03/2018 GELLENDER DO, DEANN Huynh Ot R11.10 VOMITING, UNSPECIFIED 08/03/2018 GELLENDER DO, DEANN Huynh Ot R19.7 DIARRHEA, UNSPECIFIED 08/03/2018 GELLENDER DO, DEANN Huynh Ot K21.9 GASTRO-ESOPHAGEAL REFLUX DISEASE WITHOUT 08/03/2018 GELLENDER DO, DEANN Huynh Ot R53.83 OTHER FATIGUE 08/03/2018 GELLENDER DO, DEANN Huynh Ot E03.9 HYPOTHYROIDISM, UNSPECIFIED 08/03/2018 GELLENDER DO, DEANN Huynh Ot R19.7 DIARRHEA, UNSPECIFIED 08/03/2018 GELLENDER DO, DEANN Huynh Ot J90 PLEURAL EFFUSION, NOT ELSEWHERE CLASSIFI 08/03/2018 GELLENDER DO, DEANN Huynh Ot R91.8 OTHER NONSPECIFIC ABNORMAL FINDING OF JABARI 08/03/2018 GELLENDER DO, DEANN Huynh Ot J84.10 PULMONARY FIBROSIS, UNSPECIFIED 08/03/2018 GELLENDER DO, DEANN Huynh Ot R91.8 OTHER NONSPECIFIC ABNORMAL FINDING OF JABARI 08/03/2018 GELLENDER DO, DEANN Huyhn Ot J18.9 PNEUMONIA, UNSPECIFIED ORGANISM 08/03/2018 GELLENDER DO, DEANN Huynh Ot M54.5 LOW BACK PAIN 08/03/2018 GELLENDER DO, DEANN Huynh Ot F31.9 BIPOLAR DISORDER, UNSPECIFIED 08/03/2018 GELLENDER DO, DEANN Huynh Ot F33.9 MAJOR DEPRESSIVE DISORDER, RECURRENT, UN 08/03/2018 [facility] DEANN Huynh Ot M81.8 OTHER OSTEOPOROSIS WITHOUT CURRENT PATHO 08/03/2018 [facility] , DEANN Huynh Ot S99.921A UNSPECIFIED INJURY OF RIGHT FOOT, INITIA 08/03/2018 [facility] DEANN Huynh Ot W19.XXXA UNSPECIFIED FALL, INITIAL ENCOUNTER 08/03/2018 RICKY SANTANA, DEANN Huynh Ot S22.42XD MULTIPLE FX OF RIBS, LEFT SIDE, SUBS FOR 08/04/2018 [facility] DEANN Huynh Ot F12.90 CANNABIS USE, UNSPECIFIED, UNCOMPLICATED 08/04/2018 [facility] , DEANN Huynh Ot F17.210 NICOTINE DEPENDENCE, CIGARETTES, UNCOMPL 08/04/2018 [facility], DEANN Huynh Ot F31.9 BIPOLAR DISORDER, UNSPECIFIED 08/04/2018 [facility], DEANN Huynh Ot F41.9 ANXIETY DISORDER, UNSPECIFIED 08/04/2018 [facility], DEANN Huynh Ot G43.909 MIGRAINE, UNSP, NOT INTRACTABLE, WITHOUT 08/04/2018 [facility], DEANN Huynh Ot G89.4 CHRONIC PAIN SYNDROME 08/04/2018 [facility], DEANN Huynh Ot I25.2 OLD MYOCARDIAL INFARCTION 08/04/2018 [facility], DEANN Huynh Ot M79.7 FIBROMYALGIA 08/04/2018 [facility], DEANN Huynh Ot R07.9 CHEST PAIN, UNSPECIFIED 08/04/2018 [facility], DEANN Huynh Ot R40.0 SOMNOLENCE 08/04/2018 [facility] Ot R55 SYNCOPE AND COLLAPSE 08/04/2018 [facility] Ot Z86.73 PRSNL HX OF TIA (TIA), AND CEREB INFRC W 08/04/2018 [facility], DEANN Huynh Ot Z98.84 BARIATRIC SURGERY STATUS 12/02/2018 Ot 280.9 IRON DEFIC ANEMIA NOS 12/02/2018 MASSIMO ZAMBRANO DO Ot 617.9 ENDOMETRIOSIS NOS 12/02/2018 MASSIMO ZAMBRANO DO Ot 620.2 OVARIAN CYST NEC/NOS 12/02/2018 MASSIMO ZAMBRANO DO Ot 625.9 FEM GENITAL SYMPTOMS NOS 12/02/2018 MASSIMO ZAMBRANO DO Ot 626.2 EXCESSIVE MENSTRUATION 12/02/2018 MASSIMO ZAMBRANO DO Ot V72.63 PRE-PROCEDURAL LABORATORY EXAMINATION 12/02/2018 KENYA SANTANA, MASSIMO Stephenson Ot V74.8 SCREEN-BACTERIAL DIS NEC 12/02/2018 DOLORES CRUZ, MASSIMO Roca Ot 717.7 CHONDROMALACIA PATELLAE 12/02/2018 MASSIMO BERNAL MD Ot V72.84 EXAM PRE-OPERATIVE NOS 12/02/2018 Ot 789.00 ABDOMINAL PAIN, UNSPECIFIED SITE 12/02/2018 LILIANEHERNANDODER DEANN SANTANA Ot V76.12 OTH SCREEN MAMMO-MALIGN NEOPLASM OF NICO 12/02/2018 SUSANDER DODEANN Ot 285.9 ANEMIA NOS 12/02/2018 LILIANELENDER DO, DEANN Huynh Ot 716.90 ARTHROPATHY NOS-UNSPEC 12/02/2018 SUSANDER DEANN SANTANA Ot 782.1 NONSPECIF SKIN ERUPT NEC 12/02/2018 REGINO CRUZ, AGUILAR Salgado Ot V72.84 EXAM PRE-OPERATIVE NOS 12/02/2018 REGINO CRUZ, AGUILAR Salgado Ot V72.84 EXAM PRE-OPERATIVE NOS 12/02/2018 IVELISSE CRUZ FACC, ALI FACP CCDS Ot D64.9 ANEMIA, UNSPECIFIED 12/02/2018 IVELISSE CRUZ FACC, ALI FACP CCDS Ot F17.200 NICOTINE DEPENDENCE, UNSPECIFIED, UNCOMP 12/02/2018 IVELISSE CRUZ FACC, ALI FACP CCDS Ot F31.9 BIPOLAR DISORDER, UNSPECIFIED 12/02/2018 IVELISSE CRUZ FACC, ALI FACP CCDS Ot I10 ESSENTIAL (PRIMARY) HYPERTENSION 12/02/2018 IVELISSE CRUZ FACC, ALI FACP CCDS Ot I21.4 NON-ST ELEVATION (NSTEMI) MYOCARDIAL INF 12/02/2018 REGINO CRUZ, AGUILAR Salgado Ot L72.9 FOLLICULAR CYST OF THE SKIN AND SUBCUTAN 12/02/2018 REGINO CRUZ, AGUILAR Salgado Ot Z01.818 ENCOUNTER FOR OTHER PREPROCEDURAL EXAMIN 12/02/2018 DEANN GARCÍA DO Ot R05 COUGH 12/02/2018 GELLENDER DODEANN Ot R50.9 FEVER, UNSPECIFIED 12/02/2018 GELLENDER DODEANN Ot R61 GENERALIZED HYPERHIDROSIS 12/02/2018 GELLENDER DODEANN Ot R10.9 UNSPECIFIED ABDOMINAL PAIN 12/02/2018 GELLENDER DO, DEANN Huynh Ot N28.9 DISORDER OF KIDNEY AND URETER, UNSPECIFI 12/02/2018 GELLENDER DO, DEANN Huynh Ot R10.9 UNSPECIFIED ABDOMINAL PAIN 12/02/2018 GELLENDER DO, DEANN Huynh Ot R11.10 VOMITING, UNSPECIFIED 12/02/2018 GELLENDER DO, DEANN Huynh Ot R19.7 DIARRHEA, UNSPECIFIED 12/02/2018 GELLENDER DO, DENAN Huynh Ot K21.9 GASTRO-ESOPHAGEAL REFLUX DISEASE WITHOUT 12/02/2018 GELLENDER DO, DEANN Huynh Ot R53.83 OTHER FATIGUE 12/02/2018 GELLENDER DO, DEANN Huynh Ot E03.9 HYPOTHYROIDISM, UNSPECIFIED 12/02/2018 GELLENDER DO, DEANN Huynh Ot R19.7 DIARRHEA, UNSPECIFIED 12/02/2018 GELLENDER DO, DEANN Huynh Ot J90 PLEURAL EFFUSION, NOT ELSEWHERE CLASSIFI 12/02/2018 GELLENDER DO, DEANN Huynh Ot R91.8 OTHER NONSPECIFIC ABNORMAL FINDING OF JABARI 12/02/2018 GELLENDER DO, DEANN Huynh Ot J84.10 PULMONARY FIBROSIS, UNSPECIFIED 12/02/2018 GELLENDER DO, DEANN Huynh Ot R91.8 OTHER NONSPECIFIC ABNORMAL FINDING OF JABARI 12/02/2018 GELLENDER DO, DEANN Huynh Ot J18.9 PNEUMONIA, UNSPECIFIED ORGANISM 12/02/2018 GELLENDER DO, DEANN Huynh Ot M54.5 LOW BACK PAIN 12/02/2018 GELLENDER DO, DEANN Huynh Ot F31.9 BIPOLAR DISORDER, UNSPECIFIED 12/02/2018 GELLENDER DO, DEANN Huynh Ot F33.9 MAJOR DEPRESSIVE DISORDER, RECURRENT, UN 12/02/2018 AD[facility] MEDICAL CENTERLENDER DO, DEANN Huynh Ot M81.8 OTHER OSTEOPOROSIS WITHOUT CURRENT PATHO 12/02/2018 GELLENDER DO, DEANN Huynh Ot S99.921A UNSPECIFIED INJURY OF RIGHT FOOT, INITIA 12/02/2018 GELLENDER DODEANN Ot W19.XXXA UNSPECIFIED FALL, INITIAL ENCOUNTER 12/02/2018 [facility]ANN Ot S22.42XD MULTIPLE FX OF RIBS, LEFT SIDE, SUBS FOR 12/02/2018 Ot 280.9 IRON DEFIC ANEMIA NOS 12/02/2018 FENMASSIMO DANIELS DO Ot 617.9 ENDOMETRIOSIS NOS 12/02/2018 MASSIMO ZAMBRANO DO Ot 620.2 OVARIAN CYST NEC/NOS 12/02/2018 KENYA SANTANA MASSIMO Stephenson Ot 625.9 FEM GENITAL SYMPTOMS NOS 12/02/2018 MASSIMO ZAMBRANO DO Ot 626.2 EXCESSIVE MENSTRUATION 12/02/2018 KENYA SANTANA MASSIMO Sachin Ot V72.63 PRE-PROCEDURAL LABORATORY EXAMINATION 12/02/2018 KENYA SANTANA MASSIMO Sachin Ot V74.8 SCREEN-BACTERIAL DIS NEC 12/02/2018 MASSIMO BERNAL MD Ot 717.7 CHONDROMALACIA PATELLAE 12/02/2018 MASSIMO BERNAL MD Ot V72.84 EXAM PRE-OPERATIVE NOS 12/02/2018 Ot 789.00 ABDOMINAL PAIN, UNSPECIFIED SITE 12/02/2018 DEANN GARCÍA DO Ot V76.12 OTH SCREEN MAMMO-MALIGN NEOPLASM OF NICO 12/02/2018 DEANN GARCÍA DO Ot 285.9 ANEMIA NOS 12/02/2018 DEANN GARCÍA DO Ot 716.90 ARTHROPATHY NOS-UNSPEC 12/02/2018 DEANN GARCÍA DO Ot 782.1 NONSPECIF SKIN ERUPT NEC 12/02/2018 REGINO CRUZ, AGUILAR Salgado Ot V72.84 EXAM PRE-OPERATIVE NOS 12/02/2018 AGUILAR LACY MD Ot V72.84 EXAM PRE-OPERATIVE NOS 12/02/2018 IVELISSE RCUZ FACC, ALI FACP CCDS Ot D64.9 ANEMIA, UNSPECIFIED 12/02/2018 IVELISSE CRUZ FACC, ALI FACP CCDS Ot F17.200 NICOTINE DEPENDENCE, UNSPECIFIED, UNCOMP 12/02/2018 IVELISSE CRUZ FACC, ALI FACP CCDS Ot F31.9 BIPOLAR DISORDER, UNSPECIFIED 12/02/2018 IVELISSE CRUZ FACC, ALI FACP CCDS Ot I10 ESSENTIAL (PRIMARY) HYPERTENSION 12/02/2018 IVELISSE CRUZ FACC, ALI FACP CCDS Ot I21.4 NON-ST ELEVATION (NSTEMI) MYOCARDIAL INF 12/02/2018 AGUILAR LACY MD Ot L72.9 FOLLICULAR CYST OF THE SKIN AND SUBCUTAN 12/02/2018 AGUILAR LACY MD Ot Z01.818 ENCOUNTER FOR OTHER PREPROCEDURAL EXAMIN 12/02/2018 DEANN GARCÍA DO Ot R05 COUGH 12/02/2018 DEANN GARCÍA DO Ot R50.9 FEVER, UNSPECIFIED 12/02/2018 GELLENDER DO, DEANN Huynh Ot R61 GENERALIZED HYPERHIDROSIS 12/02/2018 GELLENDER DO, DEANN Huynh Ot R10.9 UNSPECIFIED ABDOMINAL PAIN 12/02/2018 GELLENDER DO, DEANN Huynh Ot N28.9 DISORDER OF KIDNEY AND URETER, UNSPECIFI 12/02/2018 GELLENDER DO, DEANN Huynh Ot R10.9 UNSPECIFIED ABDOMINAL PAIN 12/02/2018 GELLENDER DO, DEANN Huynh Ot R11.10 VOMITING, UNSPECIFIED 12/02/2018 GELLENDER DO, DEANN Huynh Ot R19.7 DIARRHEA, UNSPECIFIED 12/02/2018 GELLENDER DO, DEANN Huynh Ot K21.9 GASTRO-ESOPHAGEAL REFLUX DISEASE WITHOUT 12/02/2018 GELLENDER DO, DEANN Huynh Ot R53.83 OTHER FATIGUE 12/02/2018 GELLENDER DO, DEANN Huynh Ot E03.9 HYPOTHYROIDISM, UNSPECIFIED 12/02/2018 GELLENDER DO, DEANN Huynh Ot R19.7 DIARRHEA, UNSPECIFIED 12/02/2018 GELLENDER DO, DEANN Huynh Ot J90 PLEURAL EFFUSION, NOT ELSEWHERE CLASSIFI 12/02/2018 GELLENDER DO, DEANN Huynh Ot R91.8 OTHER NONSPECIFIC ABNORMAL FINDING OF JABARI 12/02/2018 GELLENDER DO, DEANN Huynh Ot J84.10 PULMONARY FIBROSIS, UNSPECIFIED 12/02/2018 GELLENDER DO, DEANN Huynh Ot R91.8 OTHER NONSPECIFIC ABNORMAL FINDING OF JABARI 12/02/2018 GELLENDER DO, DEANN Huynh Ot J18.9 PNEUMONIA, UNSPECIFIED ORGANISM 12/02/2018 GELLENDER DO, DEANN Huynh Ot M54.5 LOW BACK PAIN 12/02/2018 GELLENDER DO, DEANN Huynh Ot F31.9 BIPOLAR DISORDER, UNSPECIFIED 12/02/2018 GELLENDER DO, DEANN Huynh Ot F33.9 MAJOR DEPRESSIVE DISORDER, RECURRENT, UN 12/02/2018 GELLENDER DO, DEANN Huynh Ot M81.8 OTHER OSTEOPOROSIS WITHOUT CURRENT PATHO 12/02/2018 GELLENDER DO, DEANN Huynh Ot S99.921A UNSPECIFIED INJURY OF RIGHT FOOT, INITIA 12/02/2018 GELLENDER DO, DEANN Huynh Ot W19.XXXA UNSPECIFIED FALL, INITIAL ENCOUNTER 12/02/2018 GELLENDER DO, DEANN Huynh Ot S22.42XD MULTIPLE FX OF RIBS, LEFT SIDE, SUBS FOR Procedures Code [place] [address] ROUTINE VENIPUNCTURE 12/14/2012 09787 BMP 12/14/2012 [id number] GFR CALC (RESULT ONLY) 12/14/2012 15876 CBC 12/14/2012 50833 PSYTX PT&/FAMILY 45 MINUTES 01/29/2013 91414 URINE DRUG SCREEN (IN-HOUSE ) 06/25/2013 24097 UA LONG DIP 06/25/2013 14255 ROUTINE VENIPUNCTURE 07/11/2013 77015 URINE DRUG SCREEN (IN-HOUSE ) 07/11/2013 27367 CBC 07/11/2013 12986 CMP 07/11/2013 [id number] GFR CALC (RESULT ONLY) 07/11/2013 38761 VALPROIC ACID / DEPAKOTE 07/11/2013 37.22 LEFT HEART CARDIAC CATH 07/30/2013 88.53 LT HEART ANGIOCARDIOGRAM 07/30/2013 88.56 CORONAR ARTERIOGR-2 CATH 07/30/2013 Obstetric Jonna Justice 08/20/2013 95944 URINE DRUG SCREEN (IN-HOUSE ) 10/11/2013 20154 INFLUENZA A & B (IN-HOUSE) 11/19/2013 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 TNP [facility] [id number] - 02/07/17 15:42 Serum or plasma urea [...] 08/03/18 13:08 Myoglobin, serum 33.9 ng/mL 10.0-92.0 Serum or plasma troponin i.cardiac measurement (mass/volume) - 08/03/18 18:30 Serum or plasma troponin i.cardiac measurement (mass/volume) < ng/ mL <0.30 Lipid 1996 panel - 08/04/18 05:50 Serum or plasma triglyceride measurement (mass/volume) 100 mg/dL <150 Serum or plasma cholesterol measurement (mass/volume) 124 mg/dL < 200 Serum or plasma cholesterol in HDL measurement (mass/volume) 48 mg/ dL 40-60 Cholesterol in LDL [mass/volume] in serum or plasma by direct assay 60 mg/dL 1-129 Serum or plasma cholesterol in VLDL measurement (mass/volume) 20 mg/ dL 5-40 Automated blood complete blood count (hemogram) panel - 08/04/18 05:50 Blood leukocytes automated count (number/volume) 4.6 10*3/uL 4.3-11.0 Blood erythrocytes automated count (number/volume) 3.47 10*6/uL 4.35-5.85 Venous blood hemoglobin measurement (mass/volume) 10.3 g/dL 11.5-16.0 Blood hematocrit (volume fraction) 32 % 35-52 Automated erythrocyte mean corpuscular volume 91 [foz_us] 80-99 Automated erythrocyte mean corpuscular hemoglobin (mass per erythrocyte) 30 pg 25-34 Automated erythrocyte mean corpuscular hemoglobin concentration measurement ( mass/volume) 33 g/dL 32-36 Automated erythrocyte distribution width ratio 14.4 % 10.0-14.5 Automated blood platelet count (count/volume) 197 10*3/uL 130-400 Automated blood platelet mean volume measurement 11.3 [foz_us] 7.4-10.4 Whole blood basic metabolic panel - 08/04/18 05:50 Serum or plasma sodium measurement (moles/volume) 140 mmol/L 135-145 Serum or plasma potassium measurement (moles/volume) 4.6 mmol/L 3.6-5.0 Serum or plasma chloride measurement (moles/volume) 106 mmol/L 98-107 Carbon dioxide 26 mmol/L 21-32 Serum or plasma anion gap determination (moles/volume) 8 mmol/L 5-14 Serum or plasma urea nitrogen measurement (mass/volume) 13 mg/dL 7-18 Serum or plasma creatinine measurement (mass/volume) 0.84 mg/dL 0.60-1.30 Serum or plasma urea nitrogen/creatinine mass ratio 15 NRG Serum or plasma creatinine measurement with calculation of estimated glomerular filtration rate > NRG Serum or plasma glucose measurement (mass/volume) 92 mg/dL 70-105 Serum or plasma calcium measurement (mass/volume) 8.6 mg/dL 8.5-10.1 Serum or plasma troponin i.cardiac measurement (mass/volume) - 08/04/18 05:50 Serum or plasma troponin i.cardiac measurement (mass/volume) < ng/ mL <0.30 Encounters ACCT No. Visit Date/Time Discharge Status Pt. Type Provider Facility Loc./Unit Complaint [id number] 12/04/2014 15:17:00 12/04/2014 23:59:59 CLS Outpatient HELENA CROWDER APRN [id number] 12/04/2014 15:17:00 12/04/2014 23:59:59 CLS Outpatient KIANA CHASE SANTANA [id number] 10/09/2014 09:19:00 10/09/2014 23:59:59 CLS Outpatient ANDREINA JOHNS MD [id number] 07/31/2014 18:09:00 07/31/2014 23:59:59 CLS Outpatient KASANDRA JURADO APRN [id number] 07/20/2014 10:05:00 07/20/2014 23:59:59 CLS Outpatient KASANDRA JURADO APRN [id number] 07/15/2014 11:48:00 07/15/2014 23:59:59 CLS Outpatient SABINA BRADSHAW APRN [id number] 05/16/2014 01:01:00 05/16/2014 23:59:59 CLS Outpatient ANDREINA JOHNS MD [id number] 04/29/2014 14:34:00 04/29/2014 23:59:59 CLS Outpatient ANDREINA JOHNS MD [id number] 04/03/2014 14:49:00 04/03/2014 23:59:59 CLS Outpatient PEPE GROVER APRN [id number] 01/25/2014 09:01:00 01/25/2014 23:59:59 CLS Outpatient SABINA BRADSHAW APRN [id number] 12/24/2013 09:07:00 12/24/2013 23:59:59 CLS Outpatient EM FINE MD [id number] 11/30/2013 10:33:00 11/30/2013 23:59:59 CLS Outpatient ANDREINA JOHNS MD [id number] 11/19/2013 18:19:00 11/19/2013 23:59:59 CLS Outpatient CHASE BRUNO DO [id number] 10/11/2013 11:14:00 10/11/2013 23:59:59 CLS Outpatient ANDREINA JOHNS MD [id number] 08/20/2013 15:30:00 08/20/2013 23:59:59 CLS Outpatient ANDREINA JOHNS MD [id number] 08/14/2013 11:29:00 08/14/2013 23:59:59 CLS Outpatient EM FINE MD [id number] 07/11/2013 10:52:00 07/11/2013 23:59:59 CLS Outpatient WOOD GARCIA DO [id number] 06/25/2013 14:43:00 06/25/2013 23:59:59 CLS Outpatient ANDREINA JOHNS MD [id number] 01/25/2013 15:47:00 01/25/2013 23:59:59 CLS Outpatient IVY SALDAÑA PHD [id number] 01/11/2013 11:27:00 01/11/2013 23:59:59 CLS Outpatient WOOD GARCIA DO [id number] 12/14/2012 11:48:00 12/14/2012 23:59:59 CLS Outpatient WOOD GARCIA DO [id number] 12/14/2012 10:56:00 12/14/2012 23:59:59 CLS Outpatient [id number] 10/02/2012 15:00:00 10/02/2012 23:59:59 CLS Outpatient [id number] 10/02/2012 15:00:00 10/02/2012 23:59:59 [place] [id number] 08/25/2012 15:28:00 08/25/2012 23:59:59 CLS Outpatient ANDREINA JOHNS MD [id number] 07/11/2013 10:52:00 Document Registration [id number] 06/25/2013 14:43:00 Document Registration [id number] 06/12/2013 14:07:00 Document Registration [id number] 02/19/2013 14:31:00 Document Registration [id number] 08/03/2018 16:42:00 08/04/2018 11:20:00 DIS Inpatient DEANN GARCÍA DO [facility] 4TH CHEST PAIN [id number] 05/01/2018 14:29:00 05/01/2018 23:59:59 CLS Outpatient RICKY SANTANA DEANN Amina [facility] RAD TRAUMA [id number] 12/22/2017 13:43:00 12/22/2017 23:59:59 CLS Outpatient DEANN GARCÍA DO [facility] RAD FALL HURT RIGHT FOOT [id number] 08/08/2017 17:51:00 08/08/2017 23:59:59 CLS Outpatient DEANN GARCÍA DO [facility] LAB BIPOLAR,DEPRESSION [id number] 06/27/2017 16:26:00 06/27/2017 23:59:59 CLS Outpatient DEANN GARCÍA DO [facility] RAD BACK TRAUMA PAIN [id number] 06/22/2017 07:00:00 06/22/2017 11:35:00 DIS Outpatient MASSIMO BERNAL MD [facility] SDC RIGHT TORN MEDIAL/ LATERAL MENICUS [id number] 06/16/2017 12:03:00 06/16/2017 12:30:00 DIS Outpatient MASSIMO BERNAL MD [facility] PREOP RIGHT TORN LATERAL/ MEDIAL MENICUS [id number] 06/09/2017 14:46:00 06/09/2017 23:59:59 CLS Outpatient DEANN GARCÍA DO [facility] RAD PNEUMONIA [id number] 06/01/2017 09:30:00 06/01/2017 23:59:59 CLS Preadmit MASSIMO BERNAL MD [facility] SDC RIGHT KNEE TORN MEDIAL/ LATERAL MENISCUS [id number] 05/23/2017 08:54:00 05/23/2017 23:59:59 CLS Outpatient DEANN GARCÍA DO [facility] RAD PULMONARY NODULE [id number] 05/19/2017 14:53:00 05/19/2017 23:59:59 CLS Outpatient DEANN GARCÍA DO [facility] RAD COUGH [id number] 05/06/2017 00:13:00 05/06/2017 23:59:59 CLS Preadmit DEANN GARCÍA DO [facility] LAB DIARRHEA [id number] 02/06/2017 17:07:00 05/05/2017 00:01:00 DIS Outpatient DEANN GARCÍA DO [facility] LAB DIARRHEA [id number] 05/02/2017 14:57:00 05/02/2017 23:59:59 CLS Outpatient DEANN GARCÍA DO [facility] LAB HYPOTHYROID [id number] 04/29/2017 16:13:00 04/29/2017 23:59:59 CLS Outpatient DEANN GARCÍA DO [facility] LAB TIRED [id number] 04/19/2017 09:30:00 04/19/2017 23:59:59 CLS Outpatient DEANN GARCÍA DO [facility] RAD ABD PAIN [id number] 02/07/2017 15:29:00 02/07/2017 23:59:59 CLS Outpatient DEANN GARCÍA DO [facility] RAD ABD PAIN [id number] 10/28/2016 10:46:00 10/28/2016 23:59:59 CLS Outpatient DEANN GARCÍA DO [facility] RAD ABD PAIN ON LT SIDE [id number] 08/30/2016 15:09:00 08/30/2016 23:59:59 CLS Outpatient DEANN GARCÍA DO [facility] LAB FEVER,COUGH [id number] 12/19/2015 07:38:00 12/19/2015 11:00:00 DIS Outpatient AGUILAR LACY MD [facility] SDC LESION TOP OF SCALP [id number] 12/18/2015 13:30:00 12/18/2015 23:59:59 CLS Outpatient AGUILAR LACY MD [facility] PREOP LESION TOP OF SCALP [id number] 09/04/2015 07:45:00 09/04/2015 23:59:59 CLS Outpatient IVELISSE CRUZ FACC, ORA COX CCDS [facility] CARD HTN,ANEMIA, NSTEMI [id number] 07/07/2015 07:08:00 07/07/2015 10:15:00 DIS Outpatient AGUILAR LACY MD [facility] NON CARDIAC PAIN; HX GASTRIC BYPASS SURGERY [id number] 07/02/2015 06:17:00 07/02/2015 23:59:59 CLS Outpatient AGUILAR LACY MD [facility] PREOP NON CARDIAC PAIN; HX GASTRIC BYPASS SURGERY [id number] 04/24/2015 15:50:00 04/25/2015 10:25:00 DIS Inpatient DEANN GARCÍA DO [facility] CSD CHEST PAIN [id number] 04/21/2015 06:34:00 04/21/2015 09:00:00 DIS Outpatient AGUILAR LACY MD [facility] HX POLYPS [id number] 04/17/2015 06:16:00 04/17/2015 23:59:59 CLS Outpatient AGUILAR LACY MD [facility] PREOP HX POLYPS [id number] 04/10/2015 14:04:00 04/10/2015 23:59:59 CLS Outpatient DEANN GARCÍA DO [facility] RAD SCREENING [id number] 03/27/2015 15:10:00 03/27/2015 23:59:59 CLS Outpatient DEANN GARCÍA DO [facility] LAB BUTTERFLY RASH ON NOSE,ANEMIA, [id number] 06/05/2014 12:33:00 06/05/2014 23:59:59 CLS Outpatient [id number] 04/23/2014 18:15:00 04/24/2014 12:00:00 DIS Inpatient ANDREINA JOHNS MD [facility] CSD CHEST PAIN, FACIAL WEAKNESS [id number] 01/30/2014 06:00:00 01/30/2014 10:35:00 DIS Outpatient MASSIMO BERNAL MD [facility] CHONDROMALASIA [id number] 01/29/2014 07:18:00 01/29/2014 23:59:59 CLS Outpatient MASSIMO BERNAL MD [facility] PREOP CHONDROMALSIA [id number] 12/22/2013 09:04:00 12/22/2013 11:28:00 DIS Emergency FLORA CRUZ, ENEIDA Morris [facility] ER CHEST PAIN [id number] 10/26/2013 11:12:00 10/26/2013 13:13:00 DIS Emergency REY CRUZ, DENNYS Aaron [facility] ER POST OP VAG PAIN [id number] 10/25/2013 08:25:00 10/25/2013 18:55:00 DIS Outpatient MASSIMO ZAMBRANO DO S [facility] SDC PELVIC PAIN [id number] 10/19/2013 09:01:00 10/19/2013 23:59:59 CLS Outpatient MASSIMO ZAMBRANO DO S [facility] PREOP PELVIC PAIN [id number] 09/25/2013 13:40:00 09/26/2013 09:54:00 DIS Inpatient RODY CRUZ, EM Salgado [facility] CSD CHEST PAIN,ARM NUMBNESS [id number] 05/28/2013 11:25:00 08/26/2013 00:01:00 DIS Outpatient KRISTI PARKS [facility] ONC OV [id number] 07/30/2013 08:45:00 07/31/2013 10:40:00 DIS Inpatient NAT CRUZ, ANDREINA English [facility] ICU CHEST PAIN [id number] 04/11/2013 12:17:00 04/11/2013 23:59:59 CLS Outpatient SANDHYA JACOBSON SPLITTER MACHINE [facility] RAD LT BREAST THICKENING [id number] 12/05/2018 10:00:00 LUCIA OVIEDO MD FACC, ORA COX CCDS [facility] CATH ANGINA,SOB,HTN,PALPITATIONS [id number] 04/24/2015 15:31:00 Document Registration [id number] 04/24/2015 15:31:00 Document Registration [id number] 04/24/2015 15:31:00 Document Registration [id number] 01/16/2015 15:31:00 Document Registration [id number] 08/27/2013 00:00:00 Document Registration [id number] 01/30/2013 14:45:00 Document Registration [id number] 09/11/2012 10:09:00 Document Registration [id number] 06/26/2012 19:51:00 Document Registration [id number] 06/05/2012 09:29:00 Document Registration [id number] 12/20/2011 08:08:00 Document Registration [id number] 10/15/2011 11:05:00 Document Registration [id number] 10/13/2011 13:01:00 Document Registration [id number] 06/18/2011 14:36:00 Document Registration [id number] 06/17/2011 11:47:00 Document Registration [id number] 05/31/2011 10:13:00 Document Registration [id number] 04/23/2011 10:08:00 Document Registration [id number] 01/20/2011 08:37:00 Document Registration [id number] 01/18/2011 13:17:00 Document Registration [id number] 12/17/2010 08:14:00 Document Registration [id number] 11/24/2010 15:59:00 Document Registration [id number] 11/21/2010 17:05:00 Document Registration [id number] 05/25/2017 13:16:00 05/25/2017 16:57:00 DIS Outpatient [facility] [place] [id number] 11/08/2018 16:00:00 11/08/2018 23:59:59 CLS Outpatient SHELLY CASSILACEY [id number] 07/07/2015 20:57:10 ACT Document Registration
[2018-12-05 08:36] LABS: HEMOGLOBIN 9.6 G/DL (11.5-16.0); RED CELL DISTRIBUTION WIDTH 15.5 % (10.0-14.5); WHITE BLOOD COUNT 4.8 10^3/uL (4.3-11.0)
[2018-12-05] MEDS ORDERED: PANT40TA3 PO (08:38)
[2018-12-05] MEDS ORDERED: MIDAZOLAM 5 MG/5 ML (VERSED) VIAL ONE (08:51)
[2018-12-05 08:52] LABS: PROTHROMBIN TIME PATIENT 12.8 SEC (12.2-14.7)
[2018-12-05] MEDS ORDERED: fentaNYL INJECTION 100 MCG/2 ML AMP ONE (08:52)
[2018-12-05 08:59] LABS: ALANINE AMINOTRANSFERASE 10 U/L (0-55); ALBUMIN 3.6 GM/DL (3.2-4.5); ALKALINE PHOSPHATASE 67 U/L (40-136); BILIRUBIN,TOTAL 0.3 MG/DL (0.1-1.0); BUN/CREATININE RATIO 20; CALCIUM 8.6 MG/DL (8.5-10.1); CARBON DIOXIDE 28 MMOL/L (21-32); CHLORIDE 102 MMOL/L (98-107); CHOLESTEROL 123 MG/DL (< 200); CREATININE SERUM 0.93 MG/DL (0.60-1.30); GFR ESTIMATED > 60; GLUCOSE 84 MG/DL (70-105); HDL CHOLESTEROL 46 MG/DL (40-60); POTASSIUM 5.1 MMOL/L (3.6-5.0); SODIUM 140 MMOL/L (135-145); TOTAL PROTEIN 5.9 GM/DL (6.4-8.2); TRIGLYCERIDES 103 MG/DL (<150); VLDL CHOLESTEROL 21 MG/DL (5-40)
--- NOTE | 2018-12-05 09:29 | Cardiac Procedure Note-CS/ASA ---
Pre-Procedure Note Pre-Op Procedure Note H&P Reviewed The H&P was reviewed, patient examined and no changes noted. Date H&P Reviewed: Dec 05, 2018 Time H&P Reviewed: 09:28 Conscious Sedation Pre-Proced Time 09:28 ASA Score 3 For ASA 3 and 4: Consider anesthesia and medical clearance. Also, for patients with a history of failed moderate sedation consider anesthesia. Airway Lungs Heart ASA score ASA 1: a normal healthy patient ASA 2: a patient with a mild systemic disease (mid diabetes, controlled hypertension, obesity ASA 3: a patient with a severe systemic disease that limits activity (angina , COPD, prior Myocardial infarction) ASA 4: a patient with an incapacitating disease that is a constant threat to life (CHF, renal failure) ASA 5: a moribund patient not expected to survive 24 hrs. (ruptured aneurysm) ASA 6: a declared brain patient whose organs are being harvested. For emergent operations, add the letter E after the classification Mallampati Classification Grade 2 Sedation Plan Analgesia, Amnesia, Plan communicated to team members, Discussed options with patient/fam, Discussed risks with patient/fam The patient is an appropriate candidate to undergo the planned procedure, sedation, and anesthesia. The patient immediately re-assessed prior to indication. ORA OVIEDO MD FACP FAC CCDS Dec 05, 2018 09:29
--- NOTE | 2018-12-05 09:58 | Discharge Inst-Post CATH ---
Discharge Inst-CATH/EP Post Cardiac Cath/EP D/C Inst Follow Up/Plan F/u with Dr Hernandez in 2 weeks CARDIAC CATH DISCHARGE INSTRUCTIONS *Hold Metformin for 48 hours post heart cath. ACTIVITY * Go Home directly and rest. * Limit activity of the leg (or wrist if it was used) for 7 days including aerobics, swimming, jogging, bicycling, etc. * Restrict stair-climbing for 7 days if possible, if not, climb up with your non -cath leg, then bring together on the same step. * Avoid lifting, pushing, pulling or excessive movement of the affected extremity for 7 days. * Customary sexual activity may be resumed after 2 days-use caution not to use a position that strains or causes pain to the affected extremity. * No driving for 24 hours. * NO SMOKING. * Avoid straining for bowel movements for 7 days. * Gentle walking on level ground is allowed. * Returning to work will depend on the type of procedure and the results. Your doctor will discuss this with you. CALL YOUR DOCTOR FOR ANY OF THE FOLLOWING: *If bleeding from the puncture site occurs- Apply gentle pressure to site with clean cloth and call your doctor or EMS. * If a knot or lump forms under the skin, increases in size, or causes pain. * If bruising appears to be worsening or moving further down your leg instead of disappearing. * Temperature above 101 F. CARE OF YOUR GROIN INCISION; * Bruising or purple discoloration of the skin near the puncture site is common. * You may shower only, no bathtub bathing for 5 days. Be careful to avoid slipping as your leg may feel stiff. * If a closure device was used on your femoral artery, please see the attached guide regarding care of the device and your leg. * Leave the dressing on, until removed by office staff. CARE OF YOUR WRIST INCISION; * Bruising or purple discoloration of the skin near the puncture site is common. * You may shower. * DO NOT submerge wrist. * Leave dressing on, until removed by office staff.. ORA HERNANDEZ MD [facility] CCDS Dec 05, 2018 09:58
--- NOTE | 2018-12-05 09:59 | Discharge Inst-Cardiology ---
Discharge Inst-Cardiac Discharge Medications Continued Medications: Acetaminophen/Diphenhydramine (Tylenol Pm Ex-Strength Caplet) 1 Each Tablet 2 TAB PO HS PRN for SLEEP, TAB Albuterol Sulfate (Ventolin Hfa) 18 Gm Hfa.aer.ad 2 PUFF INH TID PRN for WHEEZING, INHALER Aspirin (Aspirin EC) 81 Mg Tablet.dr 81 MG PO HS, TAB Clonazepam (Clonazepam) 1 Mg Tablet 1 MG PO TID PRN for ANXIETY, TAB Cyclobenzaprine HCl (Cyclobenzaprine HCl) 10 Mg Tablet 10 MG PO TID PRN for MUSCLE SPASMS, TAB Divalproex Sodium (Divalproex Sodium) 250 Mg Tablet.dr 250 MG PO 1300, TAB Divalproex Sodium (Divalproex Sodium ER) 500 Mg Tab.er.24h 500 MG PO BID, TAB Escitalopram Oxalate (Escitalopram Oxalate) 10 Mg Tablet 10 MG PO DAILY, TAB Gabapentin (Gabapentin) 300 Mg Capsule 300 MG PO BID, CAP Pantoprazole Sodium (Pantoprazole Sodium) 40 Mg Tablet.dr 40 MG PO DAILY, TAB Propranolol HCl (Propranolol HCl) 20 Mg Tablet 20 MG PO TID, TAB Tramadol HCl (Tramadol HCl) 50 Mg Tablet 50 MG PO BID PRN for PAIN-MODERATE, TAB ORA OVIEDO MD FACP FAC CCDS Dec 05, 2018 09:58
[2018-12-05] MEDS ORDERED: PATIENT MAY USE OWN MEDS, ALL PO SCH (10:00)
--- NOTE | 2018-12-05 10:03 | CARDIAC CATHETERIZATION ---
DATE OF SERVICE: 12/05/2018 CARDIAC CATHETERIZATION REPORT HISTORY OF PRESENT ILLNESS: The patient is a 43-year-old lady, who has multiple coronary artery disease risk factors and who has been experiencing chest discomfort suggestive of new onset angina. She has been quite concerned that the source of the symptoms is her heart. Cardiac catheterization was carried out today after having obtained informed consent. PROCEDURE IN DETAIL: She was brought to the cardiac catheterization laboratory in a fasting state. Right groin was prepared and draped in the usual sterile fashion. Lidocaine 1% was used for local anesthesia. Modified Seldinger technique was used to advance a 5-Zambian sheath in the right femoral artery, 5-Zambian JL4 catheter for left coronary angiography, a 5-Z[place]ian JR4 catheter for right coronary angiography. A 5-Zambian pigtail catheter was used for left heart catheterization and left ventricular angiography. A 5-Zambian pigtail catheter was pulled back to the ascending aorta and then removed. Angiography of the right femoral artery was carried out through the sheath. Mynx was used to achieve hemostasis. She tolerated the procedure well. HEMODYNAMICS: Left ventricular end-diastolic pressure following coronary angiography was 20 mmHg. There was no significant pressure gradient on pullback across the aortic valve. Ascending aortic pressure was 109/57 with a mean of 81 mmHg. CORONARY ANGIOGRAPHY: Left main coronary artery is free of significant disease. Left anterior descending, left circumflex, right coronary arteries are free of any angiographically significant coronary artery disease. Right coronary artery is dominant. LEFT VENTRICULAR ANGIOGRAPHY: Left ventricular angiography was carried out in the right anterior oblique projection. Global left ventricular systolic function was normal. No regional wall motion abnormalities are seen. Left ventricular ejection fraction was approximately 60%. There does not appear to be significant mitral regurgitation. No regional wall motion abnormalities were seen. CONCLUSIONS: 1. No angiographically significant coronary artery disease. 2. Normal global left ventricular systolic function with ejection fraction of approximately 60%. 3. Elevated left ventricular end-diastolic pressure. 4. No significant mitral regurgitation. DISCUSSION AND RECOMMENDATIONS: Based on the results of the study, it appears appropriate to continue a conservative approach. Focus of cardiovascular management is on risk factor modification. This was reviewed with her. She has been advised to quit smoking immediately and completely. Other risk factor modification has also been discussed. Outpatient followup is advised. Job ID: [id number] DocumentID: [id number] Dictated Date: 12/05/2018 09:47:55 [employer]ori Liaison Adviser Date: 12/05/2018 10:03:19 Dictated By: ORA OVIEDO MD, MA, FACP, FACC, MTDD
== END 2018-12-05 13:15 | disposition home or self-care (01) ==
LOC: CATH 07:37 → SDC 10:09 → CATH 13:15
PROVIDERS: ATTEND Internal Medicine Cardiovascular Disease
DX: R07.89 Other chest pain (principal); R06.02 Shortness of breath; I10 Essential (primary) hypertension; I08.1 Rheumatic disorders of both mitral and tricuspid valves; E87.1 Hypo-osmolality and hyponatremia; F17.210 Nicotine dependence, cigarettes, uncomplicated; D64.9 Anemia, unspecified; F41.9 Anxiety disorder, unspecified; F31.9 Bipolar disorder, unspecified; Z98.84 Bariatric surgery status; Z79.82 Long term (current) use of aspirin; Z79.899 Other long term (current) drug therapy
CPT/HCPCS: 36415; 80053; 80061; 85027; 85610; 85730; 87081; 93005; 93458

== ENCOUNTER → 2018-12-13 | Outpatient (CLI) | payer MEDICARE, MEDICAID ==
[~2018-12-13] MED LIST changes: +CATHETER FLUSH 10 ML SYR IV PRN; +IOHEXOL 350 MG/ML 100 ML (OMNIPAQUE 350) VIAL IV ONE; +NS 100 ML (IVPB) BAG IV ONE; +PANT40TA3 PO; +RECEIVED CONTRAST (Hold Metformin) IV SCH
--- NOTE | 2018-12-13 14:38 | Diagnostic Imaging Report ---
PROCEDURE: CT abdomen and pelvis with contrast. TECHNIQUE: Multiple contiguous axial images were obtained through the abdomen and pelvis after administration of intravenous contrast. INDICATION: Severe abdominal pain and constipation. COMPARISON: Comparison is made with prior CT from 02/07/2017. FINDINGS: Imaging through the lung bases does show some linear scarring or subsegmental atelectasis in the right middle lobe and left lower lobe. No discrete liver mass is identified. Gallbladder is surgically absent. No biliary ductal dilatation is seen. The pancreas and spleen are unremarkable. There are postsurgical changes to the stomach. No adrenal mass is identified. Kidneys are unremarkable. Aorta is nonaneurysmal. Evaluation of the bowel loops demonstrates the bowel loops to be normal in caliber. There is a target appearance noted in the left abdomen involving small bowel loops adjacent to the descending colon. Possibility of a small bowel to small bowel intussusception cannot be entirely excluded. There does not appear to be evidence of obstruction. No pneumatosis, free air, or fluid collection is seen. There is no ascites. The bladder is unremarkable. No lymphadenopathy in the abdomen or pelvis is seen. IMPRESSION: Target appearance in the left abdomen involving small bowel loops. Possibility of an entero-entero intussusception cannot be entirely excluded. This appears to be nonobstructing. Repeat CT after oral contrast or perhaps performance of a small bowel study could be performed for further evaluation. Remainder of the study is unremarkable. Dictated by: Dictated on workstation # [id number]
== END ==
LOC: RAD 13:03
PROVIDERS: ATTEND Family Medicine
DX: K59.00 Constipation, unspecified (principal); R10.9 Unspecified abdominal pain; Z90.49 Acquired absence of other specified parts of digestive tract; Z98.890 Other specified postprocedural states
CPT/HCPCS: 74177

== ENCOUNTER → 2018-12-20 | Outpatient (CLI) | payer MEDICARE, MEDICAID ==
[~2018-12-20] MED LIST changes: -CATHETER FLUSH 10 ML SYR IV PRN; +DIATRIZOATE MEGLUM/SODIUM 37% 120 ML (GASTROGRAFIN) PO ONE; -IOHEXOL 350 MG/ML 100 ML (OMNIPAQUE 350) VIAL IV ONE; -NS 100 ML (IVPB) BAG IV ONE; -RECEIVED CONTRAST (Hold Metformin) IV SCH
--- NOTE | 2018-12-20 12:09 | Diagnostic Imaging Report ---
Indication: Possible small bowel intussusception noted on recent CT study from 12/13/2018. Study is performed for further evaluation. Patient was given 120 mL of Gastrografin contrast with 120 mm water and serial radiographs over the abdomen were obtained. Preliminary radiographs of the abdomen shows surgical clips in the right upper quadrant. Bowel gas pattern is unremarkable. Initial images demonstrate postop changes of gastric bypass. There is prompt emptying of contrast into the small bowel loops. A normal progression of contrast through the small bowel is seen, without evidence of small bowel obstruction. Contrast reaches the colon at 45 minutes. The mucosal fold pattern is normal. No mass is identified. No definite intussusception is identified on today's study. Impression: Normal small bowel study. Dictated by: Dictated on workstation # [id number]
== END ==
LOC: RAD 08:43
PROVIDERS: ATTEND Family Medicine
DX: K56.1 Intussusception (principal); Z98.890 Other specified postprocedural states
CPT/HCPCS: 74250

== ENCOUNTER 2019-01-16 18:09 | Emergency (ER) | payer MEDICARE, MEDICAID ==
[~2019-01-16] VITALS: Ht 162.6 cm; Wt 65.8 kg
[~2019-01-16 18:09] MED LIST changes: -DIATRIZOATE MEGLUM/SODIUM 37% 120 ML (GASTROGRAFIN) PO ONE; -HYDR-3454 PO; +HYDR-3455 PO
[2019-01-16] MEDS ORDERED: NITROGLYCERIN 0.4 MG SL TABS BTL 25'S SL PRN (18:15)
[2019-01-16] MEDS ORDERED: ASPIRIN 81 MG CHEW (CHILDREN'S ASA) PO ONE (18:15)
--- OUTSIDE RECORDS SUMMARY | 2019-01-16 18:23 | XMS REPORT | Continuity of Care Document ---
Author Author [facility] Address Unknown Phone Unavailable Allergies Active Description Code Type Severity Reaction Onset Reported/Identified Relationship to Patient Clinical Status Yes NO KNOWN DRUG ALLERGIES UNKNOWN NO KNOWN DRUG ALLERG Yes hydrocodone Drug Allergy 02/12/2009 Yes hydrocodone Drug Allergy N/A N/A 02/12/2009 Yes No Known Drug Allergies [id number] Drug Allergy Unknown N/A 10/26/2013 Medications There [...] JURADO APRN 305.1 TOBACCO ABUSE 05/22/2008 KASANDRA UJRADO APRN V25.41 Surveillance Of Contraceptive Pill 05/22/2008 [...] Lump Or Mass In Breast 06/26/2008 RHIANNON BLOCK AND CASE MAKER, KASANDRA T 285.9 Anemia Unspecified 06/26/2008 RHIANNON [...] Migraine Unspecified Without Intractable Migraine 07/12/2008 REILLY BLOCK AND CASE MAKER, PEPE Lopez 346.90 Migraine Unspecified Without Intractable [...] F V58.69 Medication High Risk 07/18/2008 [facility], IVY Huynh V58.69 Medication High Risk 07/18/2008 [...] SEGOVIA, SABINA BETHEA 845.10 SPRAIN/STRAIN FOOT 02/12/2009 RHINANON SEGOVIA, KASANDRA Aaron 845.10 SPRAIN/STRAIN FOOT 02/12/2009 [...] EM M 466.0 ACUTE BRONCHITIS 03/14/2009 BRADSHAW BLOCK AND CASE MAKER, SABINA BETHEA 466.0 ACUTE BRONCHITIS 03/14/2009 REILLY BLOCK AND CASE MAKER, PEPE R 466.0 ACUTE BRONCHITIS 03/14/2009 ANDREINA JOHNS MD 466.0 ACUTE BRONCHITIS 03/14/2009 ANDREINA JOHNS MD 466.0 ACUTE BRONCHITIS 03/14/2009 BRADSHAW BLOCK [employer] CASE MAKER, SABINA BETHEA 466.0 ACUTE BRONCHITIS 03/14/2009 RHIANNON BLOCK AND CASE MAKER, KASANDRA T 466.0 ACUTE BRONCHITIS 03/14/2009 RHIANNON [...] Pf Psychic Factors Med Cond 04/23/2009 SABINA BRADHSAW APRN 296.50 MO BIPOLAR I DEPRESSED UNSPECIFIED [...] 316 Pf Psychic Factors Med Cond 04/23/2009 ADNREINA JOHNS MD 296.50 MO BIPOLAR I DEPRESSED [...] KASANDRA JURADO APRN 724.5 BACKACHE UNSPECIFIED 05/14/2009 KASADNRA JURADO APRN 719.41 PAIN IN JOINT INVOLVING [...] 296.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 I MIXED UNSPECIFIED 07/04/2009 [facility] PHD, IVY Huynh 296.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 I [...] MO BIPOLAR I MIXED UNSPECIFIED 07/04/2009 AUGUSTINE BLOCK AND CASE MAKER, SABINA BETHEA 296.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 I MIXED UNSPECIFIED 07/04/2009 REILLY BLOCK [employer] CASE MAKER, PEPE R 296.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 I MIXED UNSPECIFIED 07/04/2009 ANDREINA JOHNS MD 296.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 I MIXED UNSPECIFIED 07/04/2009 ANDREINA JOHNS MD 296.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 I MIXED UNSPECIFIED 07/04/2009 AUGUSTINE SEGOVIA, SABINA BETHEA 296.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 I MIXED UNSPECIFIED 07/04/2009 RHIANNON BLOCK AND CASE MAKER, KASANDRA T 296.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 I MIXED [...] BETHEA 296.9 MOOD DIS NOS 08/06/2009 AUGUSTINE BLOCK AND CASE MAKER, SABINA BETHEA 338.4 Chronic Pain Syndrome 08/06/2009 RHIANNON BLOCK AND CASE MAKER, KASANDRA T 296.9 MOOD DIS NOS 08/06/2009 RHIANNON BLOCK AND CASE MAKER, KASANDRA T 338.4 Chronic Pain Syndrome 08/06/2009 RHIANNON BLOCK AND CASE MAKER, KASANDRA T 296.9 MOOD DIS NOS 08/06/2009 RHIANNON BLOCK AND CASE MAKER, KASANDRA T 338.4 Chronic Pain Syndrome 08/06/2009 [...] MD 719.40 Joint Pain, Localized 08/27/2009 BRADSHAW [employer] CASE MAKER, SABINA BETHEA 719.40 Joint Pain, Localized 08/27/2009 REILLY SEGOVIA, PEPE Lopez 719.40 Joint Pain, Localized 08/27/2009 ANDREINA JOHNS MD 719.40 Joint Pain, Localized 08/27/2009 ANDREINA JOHNS MD 719.40 Joint Pain, Localized 08/27/2009 BRADSHAW [employer] CASE MAKER, SABINA BETHEA 719.40 Joint Pain, Localized 08/27/2009 RHIANNON BLOCK AND CASE MAKER, KASANDRA T 719.40 Joint Pain, Localized 08/27/2009 RHIANNON BLOCK AND CASE MAKER, KASANDRA T 719.40 Joint Pain, Localized 08/27/2009 [...] Salgado 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 12/15/2009 BRADSHAW [employer] MAKER, SABINA BETHEA 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 12/15/2009 REILLY BLOCK AND CASE MAKER, PEPE R 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 12/15/2009 ANDREINA JOHNS MD 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 12/15/2009 ANDREINA JOHNS MD 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 12/15/2009 AUGUSTINE BLOCK AND CASE MAKER, SABINA BETHEA 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 12/15/2009 RHIANNON BLOCK AND CASE MAKER, KASANDRA Aaron 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 12/15/2009 [...] 300.01 AN PANIC DIS W/O AGORA 02/12/2010 ADNREINA JOHNS MD 300.01 AN PANIC DIS W/O [...] MD 784.59 Other Speech Disturbance 11/23/2010 BRADSHAW [employer] CASE MAKER, SABINA BETHEA 287.5 Thrombocytopenia Unspecified 11/23/2010 BRADSHAW [employer] CASE MAKER, SABINA BETHEA 784.59 Other Speech Disturbance 11/23/2010 REILLY BLOCK AND CASE MAKER, PEPE R 287.5 Thrombocytopenia Unspecified 11/23/2010 REILLY BLOCK AND CASE MAKER, PEPE R 784.59 Other Speech Disturbance 11/23/2010 ANDREINA JOHNS MD 287.5 Thrombocytopenia Unspecified 11/23/2010 ANDREINA JOHNS MD 784.59 Other Speech Disturbance 11/23/2010 ANDREINA JOHNS MD 287.5 Thrombocytopenia Unspecified 11/23/2010 ANDREINA JOHNS MD 784.59 Other Speech Disturbance 11/23/2010 AUGUSTINE BLOCK [employer] CASE MAKER, SABINA BETHEA 287.5 Thrombocytopenia Unspecified 11/23/2010 BRADSHAW [employer] CASE MAKER, SABINA BETHEA 784.59 Other Speech Disturbance 11/23/2010 [...] CRUZ, ANDREINA 703.0 NAIL INGROWN 02/09/2011 WOOD AGRCIA DO 703.0 NAIL INGROWN 02/09/2011 RODY CRUZ, EM Salgado 703.0 NAIL INGROWN 02/09/2011 NAT CRUZ, ANDREINA 703.0 NAIL INGROWN 02/09/2011 NAT CRUZ, ANDREINA 703.0 NAIL INGROWN 02/09/2011 CHASE BRUNO DO 703.0 NAIL INGROWN 02/09/2011 NAT CRUZ, ANDREINA 703.0 NAIL INGROWN 02/09/2011 RODY CRUZ, EM Salgado 703.0 NAIL INGROWN 02/09/2011 BRADSHAW BLOCK AND CASE MAKER, SABINA TINEOH 703.0 NAIL INGROWN 02/09/2011 REILLY BLOCK AND CASE MAKER, PEPE Lopez 703.0 NAIL INGROWN 02/09/2011 NAT CRUZ, ANDREINA 703.0 NAIL INGROWN 02/09/2011 NAT CRUZ, ANDREINA 703.0 NAIL INGROWN 02/09/2011 BRADSHAW BLOCK AND CASE MAKER, SABINA TINEOH 703.0 NAIL INGROWN 02/09/2011 RHIANNON [...] CELLULITIS AND ABSCESS OF UNSPECIFIED SITES 03/10/2011 CHSAE BRUNO DO 682.9 CELLULITIS AND ABSCESS OF [...] MD 780.2 Syncope And Collapse 05/19/2012 ANDREINA JHONS MD 780.2 Syncope And Collapse 05/19/2012 CHASE [...] PF PSYCHIC FACTORS MED COND 10/02/2012 EM IFNE MD 316 PF PSYCHIC FACTORS MED COND [...] JOHNS MD 296.80 MO BIPOLAR NOS 01/25/2013 ME FINE MD 296.80 MO BIPOLAR NOS 01/25/2013 [...] JOHNS MD 388.70 OTALGIA UNSPECIFIED 06/12/2013 CHASE RBUNO DO 388.70 OTALGIA UNSPECIFIED 06/12/2013 ANDREINA JOHNS [...] URETER 07/11/2013 V58.69 MEDICATION HIGH RISK 07/11/2013 ANDRENIA JOHSN MD V58.69 MEDICATION HIGH RISK 07/11/2013 WOOD GARCIA DO V58.69 MEDICATION HIGH RISK 07/11/2013 ME FINE MD V58.69 MEDICATION HIGH RISK 07/11/2013 [...] MD Ot 305.20 CANNABIS ABUSE-UNSPEC 09/26/2013 EM FIEN MD Ot 308.9 ACUTE STRESS REACT NOS [...] JOHNS MD Ot 564.00 UNSPEC CONSTIPATION 04/24/2014 ANDREIAN JOHNS MD Ot 715.90 OSTEOARTHROS NOS-UNSPEC 04/24/2014 [...] Ot 729.5 04/24/2015 Ot 782.3 04/24/2015 KAVONSANDHYA SALESPERSON RECREATIONAL VEHICLES Ot 611.71 04/24/2015 KAVON SANDHYA Stephenson SALESPERSON RECREATIONAL VEHICLES Ot 611.79 04/24/2015 Ot 280.9 04/24/2015 FENECH DO, MASSIMO S Ot 617.9 04/24/2015 FENECH DO, MASSIMO S Ot 620.2 04/24/2015 FENECH DO, MASSIMO S Ot 625.9 04/24/2015 FENECH DO, MASSIMO S Ot 626.2 04/24/2015 FENECH DO, MASSIMO S Ot V72.63 04/24/2015 FENECH DO, MASSIMO S Ot V74.8 04/24/2015 DOLORES CRUZ, MASSIMO P Ot 717.7 04/24/2015 DOLORES CRUZ, MASSIMO oRca Ot V72.84 04/24/2015 Ot 789.00 04/24/2015 GELLENDER DEANN SANTANA Ot V76.12 04/24/2015 GELLENDER DODEANN Ot 285.9 04/24/2015 GELLENDER EDANN SANTANA Ot 716.90 04/24/2015 GELHERNANDODER DEANN SANTANA [...] FACP CCDS Ot F17.200 10/07/2015 IVELISSE CRUZ [facility], [facility] CCDS Ot F31.9 10/07/2015 IVELISSE CRUZ [facility] Ot I10 10/07/2015 IVELISSE CRUZ [facility] Ot I21.4 12/18/2015 REGINO CRUZ, AGUILAR M Ot L72.9 12/18/2015 REGINO CRUZ, AGUILAR M Ot Z01.818 12/18/2015 REGINO CRUZ, AGUILAR M Ot L72.9 12/18/2015 REGINO CRUZ, AGUILAR M Ot Z01.818 12/19/2015 REGINO CRUZ, AGUILAR M Ot L72.3 SEBACEOUS CYST 08/30/2016 Ot 729.5 PAIN IN LIMB 08/30/2016 Ot 782.3 EDEMA 08/30/2016 SANDHYA JACOBSON SALESPERSON RECREATIONAL VEHICLES Ot 611.71 MASTODYNIA 08/30/2016 SANDHYA JACOBSON SALESPERSON RECREATIONAL VEHICLES Ot 611.79 SYMPTOMS IN BREAST NEC 08/30/2016 [...] I10 ESSENTIAL (PRIMARY) HYPERTENSION 08/30/2016 IVELISSE CRUZ [facility] I21.4 NON-ST ELEVATION (NSTEMI) [...] Ot R19.7 DIARRHEA, UNSPECIFIED 04/15/2017 SANDHYA JACOBSON SALESPERSON RECREATIONAL VEHICLES Ot 611.71 MASTODYNIA 04/15/2017 SANDHYA JACOBSON SALESPERSON RECREATIONAL VEHICLES Ot 611.79 SYMPTOMS IN BREAST NEC 04/15/2017 [...] 06/22/2017 MASSIMO BERNAL MD Ot Z79.899 OTHER PENITENTIARY (CURRENT) DRUG THERAPY 06/24/2017 MASSIMO BERNAL MD, Ot I50.9 HEART FAILURE, UNSPECIFIED 06/24/2017 MASSIMO BERNAL MD Ot K21.9 GASTRO-ESOPHAGEAL REFLUX DISEASE WITHOUT 06/24/2017 MASSIMO BERNAL MD Ot M22.41 CHONDROMALACIA PATELLAE, RIGHT KNEE 06/24/2017 MASSIMO BERNAL MD Ot M23.8X1 OTHER INTERNAL DERANGEMENTS OF RIGHT KNE 06/24/2017 MASSIMO BERNAL MD Ot M79.1 MYALGIA 06/24/2017 MASSIMO BERNAL MD Ot Z79.899 OTHER PENITENTIARY (CURRENT) DRUG THERAPY 07/01/2017 DEANN GARCÍA DO [...] DEPRESSIVE DISORDER, RECURRENT, UN 12/22/2017 SANDHYA JACOBSON SALESPERSON RECREATIONAL VEHICLES Ot 611.71 MASTODYNIA 12/22/2017 SANDHYA JACOBSON SALESPERSON RECREATIONAL VEHICLES Ot 611.79 SYMPTOMS IN BREAST NEC 12/22/2017 [...] I10 ESSENTIAL (PRIMARY) HYPERTENSION 12/22/2017 IVELISSE CRUZ [facility], ALI FACP CCDS Ot I21.4 NON-ST ELEVATION [...] LEFT SIDE, SUBS FOR 08/03/2018 SANDHYA JACOBSON SALESPERSON RECREATIONAL VEHICLES Ot 611.71 MASTODYNIA 08/03/2018 SANDHYA JACOBSON SALESPERSON RECREATIONAL VEHICLES Ot 611.79 SYMPTOMS IN BREAST NEC 08/03/2018 [...] LEFT SIDE, SUBS FOR 08/03/2018 SANDHYA JACOBSON SALESPERSON RECREATIONAL VEHICLES Ot 611.71 MASTODYNIA 08/03/2018 SANDHYA JACOBSON SALESPERSON RECREATIONAL VEHICLES Ot 611.79 SYMPTOMS IN BREAST NEC 08/03/2018 [...] DEPRESSIVE DISORDER, RECURRENT, UN 08/03/2018 [facility] DEANN Huynh Ot M81.8 OTHER OSTEOPOROSIS WITHOUT CURRENT PATHO 08/03/[address] [facility]ANN Huynh Ot S99.921A UNSPECIFIED INJURY OF RIGHT FOOT, INITIA 08/03/2018 [facility] DEANN Huynh Ot W19.XXXA UNSPECIFIED FALL, INITIAL ENCOUNTER 08/03/2018 RICKY SANTANA, DEANN Huynh Ot S22.42XD MULTIPLE FX OF RIBS, LEFT SIDE, SUBS FOR 08/04/2018 [facility] DEANN Huynh Ot F12.90 CANNABIS USE, UNSPECIFIED, UNCOMPLICATED 08/04/2018 [facility] DE[facility] Huynh Ot F17.210 NICOTINE DEPENDENCE, CIGARETTES, UNCOMPL 08/04/[address] [facility], DEANN Huynh Ot F31.9 BIPOLAR DISORDER, UNSPECIFIED 08/04/[address] [facility], DEANN Huynh Ot F41.9 ANXIETY DISORDER, UNSPECIFIED 08/04/[address] [facility], DEANN Huynh Ot G43.909 MIGRAINE, UNSP, NOT INTRACTABLE, WITHOUT 08/04/[address] [facility], DEANN Huynh Ot G89.4 CHRONIC PAIN SYNDROME 08/04/[address] [facility], DEANN Huynh Ot I25.2 OLD MYOCARDIAL INFARCTION 08/04/[address] [facility], DEANN Huynh Ot M79.7 FIBROMYALGIA 08/04/[address] [facility], DEANN Huynh Ot R07.9 CHEST PAIN, UNSPECIFIED 08/04/[address] [facility], DEANN Huynh Ot R40.0 SOMNOLENCE 08/04/[address] [facility] Ot R55 SYNCOPE AND COLLAPSE 08/04/[address] [facility] Ot Z86.73 PRSNL HX OF TIA (TIA), AND CEREB INFRC W 08/04/[address] [facility], DEANN Huynh Ot Z98.84 BARIATRIC SURGERY [...] F33.9 MAJOR DEPRESSIVE DISORDER, RECURRENT, UN 12/02/2018 [facility] DO, DEANN Huynh Ot M81.8 OTHER OSTEOPOROSIS WITHOUT CURRENT PATHO 12/02/2018 GELLENDER DO, DEANN Huynh Ot S99.921A UNSPECIFIED INJURY OF RIGHT FOOT, INITIA 12/02/2018 GELLENDER DODEANN Ot W19.XXXA UNSPECIFIED FALL, INITIAL ENCOUNTER 12/02/2018 [facility] DEANN Ot S22.42XD MULTIPLE FX OF [...] FX OF RIBS, LEFT SIDE, SUBS FOR 12/05/2018 IVELISSE CRUZ FACC, ALI FACP CCDS Ot D64.9 ANEMIA, UNSPECIFIED 12/05/2018 IVELISSE CRUZ FAC, ALI FACP CCDS Ot E87.1 HYPO-OSMOLALITY AND HYPONATREMIA 12/05/2018 IVELISSE CRUZ FACC, ALI FACP CCDS Ot F17.210 NICOTINE DEPENDENCE, CIGARETTES, UNCOMPL 12/05/2018 IVELISSE MCFARLANEC, ALI FACP CCDS Ot F31.9 BIPOLAR DISORDER, UNSPECIFIED 12/05/2018 IVELISSE CRUZ [facility], ALI FACP CCDS Ot F41.9 ANXIETY DISORDER, UNSPECIFIED 12/05/2018 IVELISSE CRUZ FACC, ALI FACP CCDS Ot I08.1 RHEUMATIC DISORDERS OF BOTH MITRAL AND T 12/05/2018 IVELISSE MCFARLANEC, ALI FACP CCDS Ot I10 ESSENTIAL (PRIMARY) HYPERTENSION 12/05/2018 IVELISSE CRUZ FACC, ALI FACP CCDS Ot R06.02 SHORTNESS OF BREATH 12/05/2018 IVELISSE CRUZ [facility], ALI FACP CCDS Ot R07.89 OTHER CHEST PAIN 12/05/2018 IVELISSE CRUZ [facility], ALI FACP CCDS Ot Z79.82 FILTER CLEANER (CURRENT) USE OF ASPIRIN 12/05/2018 IVELISSE CRUZ [facility], ALI FACP CCDS Ot Z79.899 OTHER FILTER CLEANER (CURRENT) DRUG THERAPY 12/05/2018 IVELISSE CRUZ [facility], ALI FACP CCDS Ot Z98.84 BARIATRIC SURGERY STATUS 12/06/2018 IVELISSE MCFARLANE, ALI FACP CCDS Ot D64.9 ANEMIA, UNSPECIFIED 12/06/2018 IVELISSE CRUZ [facility], ALI FACP CCDS Ot E87.1 HYPO-OSMOLALITY AND HYPONATREMIA 12/06/2018 IVELISSE CRUZ [facility], ALI FACP CCDS Ot F17.210 NICOTINE DEPENDENCE, CIGARETTES, UNCOMPL 12/06/2018 IVELISSE MCFARLANE, ALI FACP CCDS Ot F31.9 BIPOLAR DISORDER, UNSPECIFIED 12/06/[address], ALI FACP CCDS Ot F41.9 ANXIETY DISORDER, UNSPECIFIED 12/06/2018 IVELISSE MCFARLANEC, ALI FACP CCDS Ot I08.1 RHEUMATIC DISORDERS OF BOTH MITRAL AND T 12/06/2018 IVELISSE MCFARLANEC, ALI FACP CCDS Ot I10 ESSENTIAL (PRIMARY) HYPERTENSION 12/06/2018 IVELISSE CRUZ FACC, ORA FACP CCDS Ot R06.02 SHORTNESS OF BREATH 12/06/2018 IVELISSE CRUZ FACC, ALI FACP CCDS Ot R07.89 OTHER CHEST PAIN 12/06/2018 IVELISSE CRUZ FACC, ALI FACP CCDS Ot Z79.82 FILTER CLEANER (CURRENT) USE OF ASPIRIN 12/06/2018 IVELISSE CRUZ FACC, ALI FACP CCDS Ot Z79.899 OTHER PENITENTIARY (CURRENT) DRUG THERAPY 12/06/2018 IVELISSE CRUZ FACC, ORA FACP CCDS Ot Z98.84 BARIATRIC SURGERY STATUS 12/13/2018 GELLENDER DO, DEANN Huynh Ot K59.00 CONSTIPATION, UNSPECIFIED 12/13/2018 GELLENDER DO, DEANN Huynh Ot R10.9 UNSPECIFIED ABDOMINAL PAIN 12/13/2018 GELLENDER DO, DEANN Huynh Ot Z90.49 ACQUIRED ABSENCE OF OTHER SPECIFIED PART 12/13/2018 GELLENDER DO, DEANN Huynh Ot Z98.890 OTHER SPECIFIED POSTPROCEDURAL STATES 12/20/2018 GELLENDER DO, DEANN Huynh Ot K56.1 INTUSSUSCEPTION 12/20/2018 GELLENDER DO, DEANN Amina Ot Z98.890 OTHER SPECIFIED POSTPROCEDURAL STATES 12/26/2018 GELLENDER DO, DEANN Huynh Ot K59.00 CONSTIPATION, UNSPECIFIED 12/26/2018 GELLENDER DO, DEANN Huynh Ot R10.9 UNSPECIFIED ABDOMINAL PAIN 12/26/2018 GELLENDER DO, DEANN Huynh Ot Z90.49 ACQUIRED ABSENCE OF OTHER SPECIFIED PART 12/26/2018 GELLENDER DO, DEANN Huynh Ot Z98.890 OTHER SPECIFIED POSTPROCEDURAL STATES 01/01/2019 GELLENDER DO, DEANN Huynh Ot K56.1 INTUSSUSCEPTION 01/01/2019 GELLENDER DO, DEANN Amina Ot Z98.890 OTHER SPECIFIED POSTPROCEDURAL STATES Procedures Code Description [place] [address] ROUTINE VENIPUNCTURE 12/14/2012 53694 BMP 12/14/2012 7196613 GFR CALC (RESULT ONLY) 12/14/2012 30011 CBC 12/14/2012 75625 PSYTX PT&/FAMILY 45 MINUTES 01/29/2013 11816 URINE DRUG SCREEN (IN-HOUSE ) 06/25/2013 76733 UA LONG DIP 06/25/2013 69681 ROUTINE VENIPUNCTURE 07/11/2013 45075 URINE DRUG SCREEN (IN-HOUSE ) 07/11/2013 09121 CBC 07/11/2013 18658 CMP 07/11/2013 [id number] GFR CALC (RESULT ONLY) 07/11/2013 74141 VALPROIC ACID / DEPAKOTE 07/11/2013 37.22 LEFT HEART CARDIAC CATH 07/30/2013 88.53 LT HEART ANGIOCARDIOGRAM 07/30/2013 88.56 CORONAR ARTERIOGR-2 CATH 07/30/2013 Obstetric Jonna Justice 08/20/2013 07034 URINE DRUG SCREEN (IN-HOUSE ) 10/11/2013 23882 INFLUENZA A & B (IN-HOUSE) 11/19/2013 OTOLARYNG MASSIMO FARMER 12/17/2013 83651 STREP A (IN-HOUSE) 07/20/2014 25888 ROUTINE VENIPUNCTURE 10/09/20147815455 GFR CALC (RESULT ONLY) 10/09/2014 44736 CMP 10/09/2014 47228 VALPROIC ACID / DEPAKOTE 10/09/2014 Results Test [...] C DIFFICILE AG + TOXIN A/B. TNP [facility] [id number] - 02/07/17 15:42 Serum or plasma urea [...] i.cardiac measurement (mass/volume) < ng/ mL <0.30 Methicillin resistant Staphylococcus aureus (MRSA) screening culture - 08:15 Methicillin resistant Staphylococcus aureus (MRSA) screening culture NEG NRG Automated blood complete blood count (hemogram) panel - 12/05/18 08:30 Blood leukocytes automated count (number/volume) 4.8 10*3/uL 4.3-11.0 Blood erythrocytes automated count (number/volume) 3.46 10*6/uL 4.35-5.85 Venous blood hemoglobin measurement (mass/volume) 9.6 g/dL 11.5-16.0 Blood hematocrit (volume fraction) 31 % 35-52 Automated erythrocyte mean corpuscular volume 90 [foz_us] 80-99 Automated erythrocyte mean corpuscular hemoglobin (mass per erythrocyte) 28 pg 25-34 Automated erythrocyte mean corpuscular hemoglobin concentration measurement ( mass/volume) 31 g/dL 32-36 Automated erythrocyte distribution width ratio 15.5 % 10.0-14.5 Automated blood platelet count (count/volume) 202 10*3/uL 130-400 Automated blood platelet mean volume measurement 10.0 [foz_us] 7.4-10.4 PT panel in platelet poor plasma by coagulation assay - 12/05/18 08:30 Prothrombin time (PT) in platelet poor plasma by coagulation assay 12.8 s 12.2-14.7 INR in platelet poor plasma or blood by coagulation assay 1.0 0.8-1.4 Activated partial thromboplastin time (aPTT) in platelet poor plasma bycoagulation assay - 12/05/18 08:30 Activated partial thromboplastin time (aPTT) in platelet poor plasma bycoagulation assay 30 s 24-35 Comprehensive metabolic panel - 12/05/18 08:30 Serum or plasma sodium measurement (moles/volume) 140 mmol/L 135-145 Serum or plasma potassium measurement (moles/volume) 5.1 mmol/L 3.6-5.0 Serum or plasma chloride measurement (moles/volume) 102 mmol/L 98-107 Carbon dioxide 28 mmol/L 21-32 Serum or plasma anion gap determination (moles/volume) 10 mmol/L 5-14 Serum or plasma urea nitrogen measurement (mass/volume) 19 mg/dL 7-18 Serum or plasma creatinine measurement (mass/volume) 0.93 mg/dL 0.60-1.30 Serum or plasma urea nitrogen/creatinine mass ratio 20 NRG Serum or plasma creatinine measurement with calculation of estimated glomerular filtration rate > NRG Serum or plasma glucose measurement (mass/volume) 84 mg/dL 70-105 Serum or plasma calcium measurement (mass/volume) 8.6 mg/dL 8.5-10.1 Serum or plasma total bilirubin measurement (mass/volume) 0.3 mg/dL 0.1-1.0 Serum or plasma alkaline phosphatase measurement (enzymatic activity/volume) 67 U/L 40-136 Serum or plasma aspartate aminotransferase measurement (enzymatic activity/ volume) 15 U/L 5-34 Serum or plasma alanine aminotransferase measurement (enzymatic activity/volume ) 10 U/L 0-55 Serum or plasma protein measurement (mass/volume) 5.9 g/dL 6.4-8.2 Serum or plasma albumin measurement (mass/volume) 3.6 g/dL 3.2-4.5 CALCIUM CORRECTED 8.9 mg/dL 8.5-10.1 Lipid 1996 panel - 12/05/18 08:30 Serum or plasma triglyceride measurement (mass/volume) 103 mg/dL <150 Serum or plasma cholesterol measurement (mass/volume) 123 mg/dL < 200 Serum or plasma cholesterol in HDL measurement (mass/volume) 46 mg/ dL 40-60 Cholesterol in LDL [mass/volume] in serum or plasma by direct assay 60 mg/dL 1-129 Serum or plasma cholesterol in VLDL measurement (mass/volume) 21 mg/ dL 5-40 Encounters ACCT No. Visit Date/Time Discharge Status Pt. Type Provider Facility Loc./Unit Complaint [id number] 12/04/2014 15:17:00 12/04/2014 23:59:59 CLS Outpatient HELENA CROWDER APRN [id number] 12/04/2014 15:17:00 12/04/2014 23:59:59 CLS Outpatient CHASE BRUNO DO [id number] 10/09/2014 09:19:00 10/09/2014 23:59:59 CLS Outpatient ANDRIENA JOHNS MD [id number] 07/31/2014 18:09:00 07/31/2014 23:59:59 CLS Outpatient KASANDRA JURADO APRN [id number] 07/20/2014 10:05:00 07/20/2014 23:59:59 CLS Outpatient KASANDRA JURADO APRN [id number] 07/15/2014 11:48:00 07/15/2014 23:59:59 CLS Outpatient AUGUSTINE BLOCK AND CASE MAKER, SABINA BETHEA [id number] 05/16/2014 01:01:00 05/16/2014 23:59:59 CLS Outpatient ANDREINA JOHNS MD [id number] 04/29/2014 14:34:00 04/29/2014 23:59:59 CLS Outpatient ANDREINA JOHNS MD [id number] 04/03/2014 14:49:00 04/03/2014 23:59:59 CLS Outpatient REILLY BLOCK AND CASE MAKERPEPE Fitzgerald [id number] 01/25/2014 09:01:00 01/25/2014 23:59:59 CLS Outpatient AUGUSTINE BLOCK AND CASE MAKER, SABINA BETHEA [id number] 12/24/2013 09:07:00 12/24/2013 23:59:59 CLS Outpatient EM FINE MD [id number] 11/30/2013 10:33:00 11/30/2013 23:59:59 CLS Outpatient ANDREINA JOHNS MD [id number] 11/19/2013 18:19:00 11/19/2013 23:59:59 CLS Outpatient CHASE BRUNO DO [id number] 10/11/2013 11:14:00 10/11/2013 23:59:59 CLS Outpatient ANDREINA JOHNS MD [id number] 08/20/2013 15:30:00 08/20/2013 23:59:59 CLS Outpatient ANDREINA JOHNS MD [id number] 08/14/2013 11:29:00 08/14/2013 23:59:59 CLS Outpatient EM FINE MD [id number] 07/11/2013 10:52:00 07/11/2013 23:59:59 CLS Outpatient WOOD GARCIA DO [id number] 06/25/2013 14:43:00 06/25/2013 23:59:59 CLS Outpatient ANDREINA JOHNS MD [id number] 01/25/2013 15:47:00 01/25/2013 23:59:59 CLS Outpatient IVY SALDAÑA PHD [id number] 01/11/2013 11:27:00 01/11/2013 23:59:59 CLS Outpatient WOOD GARCIA DO [id number] 12/14/2012 11:48:00 12/14/2012 23:59:59 CLS Outpatient WOOD GARCIA DO [id number] 12/14/2012 10:56:00 12/14/2012 23:59:59 CLS Outpatient [id number] 10/02/2012 15:00:00 10/02/2012 23:59:59 CLS Outpatient [id number] 10/02/2012 15:00:00 10/02/2012 23:59:59 [place] [id number] 08/25/2012 15:28:00 08/25/2012 23:59:59 CLS Outpatient ANDREINA JOHNS MD [id number] 07/11/2013 10:52:00 Document Registration [id number] 06/25/2013 14:43:00 Document Registration [id number] 06/12/2013 14:07:00 Document Registration [id number] 02/19/2013 14:31:00 Document Registration [id number] 12/20/2018 08:43:00 12/20/2018 23:59:59 CLS Outpatient SUSANANGELICA DEANN Huynh [facility] RAD ENTEROCENTRIC INTUSSUSCEPTION [id number] 12/13/2018 13:03:00 12/13/2018 23:59:59 CLS Outpatient LILIANEBEN SANTANA DEANN Huynh [facility] RAD ABDOMINAL PAIN [id number] 12/05/2018 07:37:00 12/05/2018 13:15:00 DIS Outpatient IVELISSE CRUZ FACC, ORA COX CCDS [facility] CATH ANGINA,SOB, HTN,PALPITATIONS [id number] 08/03/2018 16:42:00 08/04/2018 11:20:00 DIS Inpatient RICKY SANTANA DEANN Amina [facility] 4TH CHEST PAIN [id number] 05/01/2018 14:29:00 05/01/2018 23:59:59 CLS Outpatient LILIANEBEN SANTANA DEANN Huynh [facility] RAD TRAUMA [id number] 12/22/2017 13:43:00 12/22/2017 23:59:59 CLS Outpatient LILIANEBEN SANTANA DEANN Huynh [facility] RAD FALL HURT RIGHT FOOT [id number] 08/08/2017 17:51:00 08/08/2017 23:59:59 CLS Outpatient RICKY SANTANA DEANN Amina [facility] LAB BIPOLAR,DEPRESSION [id number] 06/27/2017 16:26:00 06/27/2017 23:59:59 CLS Outpatient RICKY SANTANADEANN Amina [facility] RAD BACK TRAUMA PAIN [id number] 06/22/2017 07:00:00 06/22/2017 11:35:00 DIS Outpatient MASSIMO BERNAL MD [facility] RIGHT TORN MEDIAL/ LATERAL MENICUS [id number] 06/16/2017 12:03:00 06/16/2017 12:30:00 DIS Outpatient MASSIMO BERNAL MD [facility] PREOP RIGHT TORN LATERAL/ MEDIAL MENICUS [id number] 06/09/2017 14:46:00 06/09/2017 23:59:59 CLS Outpatient RICKY SANTANA DEANN Amina [facility] RAD PNEUMONIA [id number] 06/01/2017 09:30:00 06/01/2017 23:59:59 CLS Preadmit MASSIMO BERNAL MD [facility] RIGHT KNEE TORN MEDIAL/ LATERAL MENISCUS [id number] 05/23/2017 08:54:00 05/23/2017 23:59:59 CLS Outpatient LILIANEBEN SANTANADEANN Amina [facility] RAD PULMONARY NODULE [id number] 05/19/2017 14:53:00 05/19/2017 23:59:59 CLS Outpatient LILIANEBEN SANTANA DEANN Huynh [facility] RAD COUGH [id number] 05/06/2017 00:13:00 05/06/2017 23:59:59 CLS Preadmit LILIANEBEN SANTANADEANN Amina [facility] LAB DIARRHEA [id number] 02/06/2017 17:07:00 05/05/2017 00:01:00 DIS Outpatient LILIANEBEN SANTANADEANN Amina [facility] LAB DIARRHEA [id number] 05/02/2017 14:57:00 05/02/2017 23:59:59 CLS Outpatient LILIANEBEN SANTANA DEANN Amina [facility] LAB HYPOTHYROID [id number] 04/29/2017 16:13:00 04/29/2017 23:59:59 CLS Outpatient RICKY SANTANA DEANN Amina [facility] LAB TIRED [id number] 04/19/2017 09:30:00 04/19/2017 23:59:59 CLS Outpatient LILIANEDEANN CONTRERAS DO [facility] RAD ABD PAIN [id number] 02/07/2017 15:29:00 02/07/2017 23:59:59 CLS Outpatient SUSANTAVARES DEANN Amina [facility] RAD ABD PAIN [id number] 10/28/2016 10:46:00 10/28/2016 23:59:59 CLS Outpatient DEANN GARCÍA DO [facility] RAD ABD PAIN ON LT SIDE [id number] 08/30/2016 15:09:00 08/30/2016 23:59:59 CLS Outpatient DEANN GARCÍA DO [facility] LAB FEVER,COUGH [id number] 12/19/2015 07:38:00 12/19/2015 11:00:00 DIS Outpatient AGUILAR LACY MD [facility] SDC LESION TOP OF SCALP [id number] 12/18/2015 13:30:00 12/18/2015 23:59:59 CLS Outpatient AGUILAR LACY MD [facility] PREOP LESION TOP OF SCALP [id number] 09/04/2015 07:45:00 09/04/2015 23:59:59 CLS Outpatient IVELISSE CRUZ FACC, ORA COX CCDS [facility] CARD HTN,ANEMIA, NSTEMI [id number] 07/07/2015 07:08:00 07/07/2015 10:15:00 DIS Outpatient AGUILAR LACY MD [facility] SDC NON CARDIAC PAIN; HX GASTRIC BYPASS SURGERY [id number] 07/02/2015 06:17:00 07/02/2015 23:59:59 CLS Outpatient AGUILAR LACY MD [facility] PREOP NON CARDIAC PAIN; HX GASTRIC BYPASS SURGERY [id number] 04/24/2015 15:50:00 04/25/2015 10:25:00 DIS Inpatient DEANN GARCÍA DO [facility] CSD CHEST PAIN [id number] 04/21/2015 06:34:00 04/21/2015 09:00:00 DIS [facility] [id number] 04/17/2015 06:16:00 04/17/2015 23:59:59 CLS Outpatient AGUILAR LACY MD [facility] PREOP HX POLYPS [id number] 04/10/2015 14:04:00 04/10/2015 23:59:59 CLS Outpatient DEANN GARCÍA DO [facility] RAD SCREENING [id number] 03/27/2015 15:10:00 03/27/2015 23:59:59 CLS Outpatient DEANN GARCÍA DO [facility] LAB BUTTERFLY RASH ON NOSE,ANEMIA, [id number] 06/05/2014 12:33:00 06/05/2014 23:59:59 CLS Outpatient [id number] 04/23/2014 18:15:00 04/24/2014 12:00:00 DIS Inpatient NAT CRUZ, ANDREINA English [facility] CSD CHEST PAIN, FACIAL WEAKNESS [id number] 01/30/2014 06:00:00 01/30/2014 10:35:00 DIS Outpatient MASSIMO BERNAL MD [facility] CHONDROMALASIA [id number] 01/29/2014 07:18:00 01/29/2014 23:59:59 CLS Outpatient MASSIMO BERNAL MD [facility] PREOP CHONDROMALSIA [id number] 12/22/2013 09:04:00 12/22/2013 11:28:00 DIS Emergency ENEIDA HINES MD [facility] ER CHEST PAIN [id number] 10/26/2013 11:12:00 10/26/2013 13:13:00 DIS Emergency DENNYS LE MD [facility] ER POST OP VAG PAIN [id number] 10/25/2013 08:25:00 10/25/2013 18:55:00 DIS Outpatient MASSIMO ZAMBRANO DO [facility] PELVIC PAIN [id number] 10/19/2013 09:01:00 10/19/2013 23:59:59 CLS Outpatient MASSIMO ZAMBRANO DO [facility] PREOP PELVIC PAIN [id number] 09/25/2013 13:40:00 09/26/2013 09:54:00 DIS Inpatient RODY CRUZ, EM Salgado [facility] CSD CHEST PAIN,ARM NUMBNESS [id number] 05/28/2013 11:25:00 08/26/2013 00:01:00 DIS Outpatient KRISTI PARKS [facility] ONC OV [id number] 07/30/2013 08:45:00 07/31/2013 10:40:00 DIS Inpatient ANDREINA JOHNS MD [facility] ICU CHEST PAIN [id number] 04/11/2013 12:17:00 04/11/2013 23:59:59 CLS Outpatient SANDHYA JACOBSON [employer]LES [facility] RAD LT BREAST THICKENING [id number] 01/16/2019 18:12:00 ACT Emergency ZULEYKA BOWDEN DO [facility] ER CHEST PAIN [id number] 04/24/2015 15:31:00 Document Registration [id number] 04/24/2015 15:31:00 Document Registration [id number] 04/24/2015 15:31:00 Document Registration [id number] 01/16/2015 15:31:00 Document Registration [id number] 08/27/2013 00:00:00 Document Registration [id number] 01/30/2013 14:45:00 Document Registration [id number] 09/11/2012 10:09:00 Document Registration [id number] 06/26/2012 19:51:00 Document Registration [id number] 06/05/2012 09:29:00 Document Registration [id number] 12/20/2011 08:08:00 Document Registration [id number] 10/15/2011 11:05:00 Document Registration [id number] 10/13/2011 13:01:00 Document Registration [id number] 06/18/2011 14:36:00 Document Registration [id number] 06/17/2011 11:47:00 Document Registration [id number] 05/31/2011 10:13:00 Document Registration [id number] 04/23/2011 10:08:00 Document Registration [id number] 01/20/2011 08:37:00 Document Registration [id number] 01/18/2011 13:17:00 Document Registration [id number] 12/17/2010 08:14:00 Document Registration [id number] 11/24/2010 15:59:00 Document Registration [id number] 11/21/2010 17:05:00 Document Registration [id number] 05/25/2017 13:16:00 05/25/2017 16:57:00 DIS Outpatient [facility] [place] [id number] 11/08/2018 16:00:00 11/08/2018 23:59:59 CLS Outpatient LACEY BRAVO [id number] 07/07/2015 20:57:10 ACT Document Registration
[2019-01-16 18:30] LABS: BASOPHILS # (AUTO) 0.1 10^3/uL (0.0-0.1); BASOPHILS % (AUTO) 2 % (0-10); EOSINOPHILS # (AUTO) 0.2 10^3/uL (0.0-0.3); EOSINOPHILS % (AUTO) 3 % (0-10); HEMATOCRIT 34 % (35-52); HEMOGLOBIN 10.6 G/DL (11.5-16.0); LYMPHOCYTES # (AUTO) 2.9 X 10^3 (1.0-4.0); LYMPHOCYTES % (AUTO) 43 % (12-44); MEAN CORPUSCULAR HEMOGLOBIN 28 PG (25-34); MEAN CORPUSCULAR HGB CONC 31 G/DL (32-36); MEAN CORPUSCULAR VOLUME 88 FL (80-99); MEAN PLATELET VOLUME 10.6 FL (7.4-10.4); MONOCYTES # (AUTO) 0.5 X 10^3 (0.0-1.0); MONOCYTES % (AUTO) 7 % (0-12); NEUTROPHILS # (AUTO) 3.1 X 10^3 (1.8-7.8); NEUTROPHILS % (AUTO) 45 % (42-75); PLATELET COUNT 240 10^3/uL (130-400); RED CELL DISTRIBUTION WIDTH 15.2 % (10.0-14.5); WHITE BLOOD COUNT 6.8 10^3/uL (4.3-11.0)
--- NOTE | 2019-01-16 18:37 | ED Chest Pain ---
General Chief Complaint: Chest Pain Stated Complaint: CHEST PAIN Source: patient, old records History of Present Illness Date Seen by Provider: Jan 16, 2019 Time Seen by Provider: 18:13 Initial Comments PT ARRIVES VIA POV, WANTING WHEELCHAIR ON ARRIVAL PT C/O CHEST PAIN FOR A COUPLE OF DAYS OFF AND ON RATES PAIN 05/16 NOW PAIN RADIATES TO RIGHT ARM AND RIGHT JAW AND EAR HAS HAD INTERMITTENT SHORTNESS OF BREATH TODAY STATES SHE "PASSED OUT" FOR 20 MINUTES TWICE TODAY--STATES SHE WAS LAYING DOWN BOTH TIMES WHEN SHE "PASSED OUT" AND THEN "WOKE UP" --NO SEIZURE ACTIVITY, NO INCONTINENCE STATES "I HAD TROUBLE BREATHING BEFORE I PASSED OUT" HAS HISTORY OF SAME, BUT HAS NOT HAD RADIATION OF PAIN BEFORE STATES "IT HURTS LIKE ANXIETY" STATES SHE TOOK KLONOPIN AND TRAMADOL AND IT HELPED--LAST DOSE OF EACH WAS AN HOUR AGO STATES SHE HAS HAD A "CHEST COLD" FOR THE LAST 2-3 DAYS WITH NON-PRODUCTIVE COUGH AND SUBJECTIVE FEVER/SWEATS/CHILLS NO SWELLING IN LEGS/FEET OR PAIN IN CALVES PT HAS HX OF NSTEMI, BUT HAS HAD NEGATIVE CARDIAC CATHS X 3--LAST ONE 12/05/18. PCP: DR. 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 Allergies and Home Medications Allergies Coded Allergies: No Known Drug Allergies (Unverified , 10/26/13) Home Medications Acetaminophen/Diphenhydramine 1 Each Tablet, 2 TAB PO HS PRN for SLEEP, ( Reported) Albuterol Sulfate 18 Gm Hfa.aer.ad, 2 PUFF INH TID PRN for WHEEZING, (Reported) Aspirin 81 Mg Tablet.dr, 81 MG PO HS, (Reported) Clonazepam 1 Mg Tablet, 1 MG PO TID PRN for ANXIETY, (Reported) Cyclobenzaprine HCl 10 Mg Tablet, 10 MG PO TID PRN for MUSCLE SPASMS, (Reported) Divalproex Sodium 250 Mg Tablet.dr, 250 MG PO 1300, (Reported) Divalproex Sodium 500 Mg Tab.er.24h, 500 MG PO BID, (Reported) Escitalopram Oxalate 10 Mg Tablet, 10 MG PO DAILY, (Reported) Gabapentin 300 Mg Capsule, 300 MG PO BID, (Reported) Pantoprazole Sodium 40 Mg Tablet.dr, 40 MG PO DAILY, (Reported) Propranolol HCl 20 Mg Tablet, 20 MG PO TID, (Reported) Tramadol HCl 50 Mg Tablet, 50 MG PO BID PRN for PAIN-MODERATE, (Reported) Patient Home Medication List Home Medication List Reviewed: Yes Review of Systems Review of Systems Constitutional: see HPI, chills, diaphoresis, dizziness, fever, malaise, weakness EENTM: Nose Congestion Respiratory: See HPI, Cough, Shortness of Air; Denies Wheezing Cardiovascular: See HPI, Chest Pain; Denies Edema, Denies Irregular Heart Rate ; Lightheadedness; Denies Palpitations; Syncope Gastrointestinal: No Symptoms Reported; Denies Abdominal Pain, Denies Vomiting Genitourinary: No Symptoms Reported Musculoskeletal: see HPI Skin: no symptoms reported Psychiatric/Neurological: No Symptoms Reported; Denies Headache, Denies Numbness, Denies Paresthesia, Denies Seizure, Denies Weakness Endocrine: No Symptoms Reported Hematologic/Lymphatic: No Symptoms Reported Past Jhjjmrp-Lvjngr-Dpprbj Hx Patient Social History Alcohol Use: Denies Use Alcohol Beverage of Choice: Wine Recreational Drug Use: Yes Drug of Choice: THC Smoking Status: Current Everyday Smoker (1 PPD) Type Used: Cigarettes 2nd Hand Smoke Exposure: No Recent Foreign Travel: No Contact w/Someone Who Travel: No Recent Hopitalizations: Yes Immunizations Up To Date Tetanus Booster (TDap): Unknown Date of Pneumonia Vaccine: Sep 17, 2014 Date of Influenza Vaccine: Jul 19, 2018 Seasonal Allergies Seasonal Allergies: No Past Medical History Surgeries: Yes (GASTRIC BYPASS; RIGHT KNEE SCOPES x4; SEBACEOUS CYST FROM SCALP; BREAST LUMPECTOMY; HIATAL HERNIA REPAIR/SAMIR FUNDOPLICATION; CARDIAC CATHS X 2--NO INTERVENTION; D&C) Abdominal, Appendectomy, Cardiac, Gallbladder, Hysterectomy, Orthopedic, Tubal Ligation Respiratory: Yes (USES INHALER PRN) Currently Using CPAP: No Currently Using BIPAP: No Cardiac: Yes (NEGATIVE CARDIAC CATHS X 3--LAST ONE 12/05/18; NSTEMI JUL 2014 AND APRIL 2015) Heart Attack Neurological: Yes (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 CHILDBIRTH IN , OCCASIONAL MEMORY LOSS) Headaches /Migraines Reproductive Disorders: No 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 Genitourinary: No Gastrointestinal: Yes (GASTRIC BYPASS-"DUMPING SYNDROME" ) Gastroesophageal Reflux, Hiatal Hernia Musculoskeletal: Yes (CHRONIC GENERALIZED PAIN) Degenerate Disk Disease, Arthritis, Fibromyalgia, Chronic Back Pain Endocrine: No HEENT: No Loss of Vision: Bilateral Hearing Impairment: Denies Cancer: No Psychosocial: Yes Anxiety, Bipolar, Depression Integumentary: No Blood Disorders: Yes ("MEDITERRANEAN"--"IRON TRANSFUSION" Q 3 MONTHS, NONE FOR 6 YR) Adverse Reaction/Blood Tranf: No Family Medical History Cancer 03 MOTHER Chest pain 03 FATHER Congestive heart failure 03 MOTHER 09 SISTER Family history: Arthritis 09 SISTER Family history: Cardiovascular disease 03 FATHER 03 MOTHER Family history: Diabetes mellitus 03 FATHER Heart disease 03 MOTHER History of - respiratory disease 03 MOTHER History of drug abuse 03 FATHER Kidney disease 03 FATHER 03 MOTHER 09 SISTER Myocardial infarction 03 FATHER Psychotic disorder 03 FATHER 09 SISTER Heart Disease, CAD Over 55 Years Old Physical Exam Vital Signs Vital Signs - First Documented 01/16/19 18:10 Temp 98.6 Pulse 73 Resp 19 B/P (MAP) 142/91 (108) Pulse Ox 100 Capillary Refill : Height, Weight, BMI Height: 5'3.00" Weight: 133lbs. 0.0oz. 60.241688fn; 23.6 BMI Method:Stated General Appearance: No Apparent Distress, WD/WN, Other (RAMBLES ON NON-STOP YET HAS A VERY FLAT AFFECT, SOMEWHAT DRAMATIC. THEN TEARFUL WITH MULTIPLE OTHER FAMILY MEMBERS IN ROOM) Neck: Full Range of Motion, Normal Inspection, Non Tender, Supple Respiratory: Normal Breath Sounds, No Accessory Muscle Use, No Respiratory Distress, Other (CHEST TENDER TO PALPATION-REPRODUCES PAIN ) Cardiovascular: Regular Rate, Rhythm, No Edema, No JVD, No Murmur, Normal Peripheral Pulses Gastrointestinal: Normal Bowel Sounds, No Organomegaly, No Pulsatile Mass, Non Tender, Soft Extremity: Normal Capillary Refill, Normal Inspection, Normal Range of Motion, Non Tender, No Calf Tenderness, No Pedal Edema Neurologic/Psychiatric: Alert, Oriented x3, No Motor/Sensory Deficits, feather trimmer II- XII Norm as Tested Skin: Normal Color, Warm/Dry, Tattoos/Piercings (MULTIPLE TATTOOS) Progress/Results/Core Measures Results/Orders Lab Results Laboratory Tests Test 01/16/19 18:19 01/16/19 18:53 Range/Units White Blood Count 6.8 4.3-11.0 10^3/uL Red Blood Count 3.85 L 4.35-5.85 10^6/uL Hemoglobin 10.6 L 11.5-16.0 G/DL Hematocrit 34 L 35-52 % Mean Corpuscular Volume 88 80-99 FL Mean Corpuscular Hemoglobin 28 25-34 PG Mean Corpuscular Hemoglobin Concent 31 L 32-36 G/DL Red Cell Distribution Width 15.2 H 10.0-14.5 % Platelet Count 240 130-400 10^3/uL Mean Platelet Volume 10.6 H 7.4-10.4 FL Neutrophils (%) (Auto) 45 42-75 % Lymphocytes (%) (Auto) 43 12-44 % Monocytes (%) (Auto) 7 0-12 % Eosinophils (%) (Auto) 3 0-10 % Basophils (%) (Auto) 2 0-10 % Neutrophils # (Auto) 3.1 1.8-7.8 X 10^3 Lymphocytes # (Auto) 2.9 1.0-4.0 X 10^3 Monocytes # (Auto) 0.5 0.0-1.0 X 10^3 Eosinophils # (Auto) 0.2 0.0-0.3 10^3/uL Basophils # (Auto) 0.1 0.0-0.1 10^3/uL Prothrombin Time 12.6 12.2-14.7 SEC INR Comment 1.0 0.8-1.4 Activated Partial Thromboplast Time 29 24-35 SEC Sodium Level 143 135-145 MMOL/L Potassium Level 4.1 3.6-5.0 MMOL/L Chloride Level 104 98-107 MMOL/L Carbon Dioxide Level 29 21-32 MMOL/L Anion Gap 10 5-14 MMOL/L Blood Urea Nitrogen 13 7-18 MG/DL Creatinine 0.99 0.60-1.30 MG/DL Estimat Glomerular Filtration Rate > 60 BUN/Creatinine Ratio 13 Glucose Level 89 70-105 MG/DL Calcium Level 8.9 8.5-10.1 MG/DL Corrected Calcium 8.8 8.5-10.1 MG/DL Magnesium Level 2.3 1.8-2.4 MG/DL Total Bilirubin 0.2 0.1-1.0 MG/DL Aspartate Amino Transf (AST/SGOT) 13 5-34 U/L Alanine Aminotransferase (ALT/SGPT) < 6 0-55 U/L Alkaline Phosphatase 75 40-136 U/L Total Creatine Kinase 58 29-168 U/L Creatine Kinase MB 0.7 <6.6 NG/ML Myoglobin 23.8 10.0-92.0 NG/ML Troponin I < 0.028 <0.028 NG/ML B-Type Natriuretic Peptide 133.0 H <100.0 PG/ML Total Protein 6.7 6.4-8.2 GM/DL Albumin 4.1 3.2-4.5 GM/DL Amylase Level 54 25-125 U/L Lipase 41 8-78 U/L Serum Test, Qualitative NEGATIVE NEGATIVE Serum Alcohol < 10 <10 MG/DL Urine Opiates Screen NEGATIVE NEGATIVE Urine Oxycodone Screen NEGATIVE NEGATIVE Urine Methadone Screen NEGATIVE NEGATIVE Urine Propoxyphene Screen NEGATIVE NEGATIVE Urine Barbiturates Screen NEGATIVE NEGATIVE Ur Tricyclic Antidepressants Screen NEGATIVE NEGATIVE Urine Phencyclidine Screen NEGATIVE NEGATIVE Urine Amphetamines Screen NEGATIVE NEGATIVE Urine Methamphetamines Screen NEGATIVE NEGATIVE Urine Benzodiazepines Screen NEGATIVE NEGATIVE Urine Cocaine Screen NEGATIVE NEGATIVE Urine Cannabinoids Screen POSITIVE H NEGATIVE Micro Results Microbiology 01/16/19 Influenza Types A,B Antigen (JOSELITO) - Final, Complete My Orders Orders - ZULEYKA BOWDEN DO Cbc With Automated Diff (01/16/19 18:13) Magnesium (01/16/19 18:13) Chest 1 View, Ap/Pa Only (01/16/19 18:13) Cardiac Profile 1 (01/16/19 18:13) Comprehensive Metabolic Panel (01/16/19 18:13) Myoglobin Serum (01/16/19 18:13) Protime With Inr (01/16/19 18:13) Partial Thromboplastin Time (01/16/19 18:13) Ekg Tracing (01/16/19 18:13) O2 (01/16/19 18:13) Monitor-Rhythm Ecg Trace Only (01/16/19 18:13) Lipid Panel (01/17/19 06:00) Aspirin Chewable Tablet (Baby Aspirin Ch (01/16/19 18:15) Nitroglycerin 0.4 Mg Btl 25's (Nitrostat (01/16/19 18:15) Saline Lock/Iv-Start (01/16/19 18:13) Creatine Kinase (01/16/19 18:13) Creatine Kinase Mb (01/16/19 18:13) Lipase (01/16/19 18:13) Amylase (01/16/19 18:13) BNP (01/16/19 18:13) Hcg,Qualitative Serum (01/16/19 18:13) Influenza A And B Antigens (01/16/19 18:21) Alcohol (01/16/19 18:24) Drug Screen Stat (Urine) (01/16/19 18:24) Ct Angio Chest W (01/16/19 19:08) Iohexol Injection (Omnipaque 350 Mg/Ml 1 (01/16/19 19:15) Received Contrast (Contrast Received) (01/16/19 19:15) Ns (Ivpb) (Sodium Chloride 0.9% Ivpb Bag (01/16/19 19:15) Medications Given in ED Current Medications Medications Dose Ordered Sig/Andrew Route Start Time Stop Time Status Last Admin Dose Admin Aspirin 324 mg ONCE ONCE PO 01/16/19 18:15 01/16/19 18:16 DC 01/16/19 18:31 324 MG Iohexol 150 ml ONCE ONCE IV 01/16/19 19:15 01/16/19 19:16 DC 01/16/19 19:24 125 ML Nitroglycerin 0.4 mg UD PRN SL 01/16/19 18:15 01/16/19 18:31 0.4 MG Sodium Chloride 100 ml ONCE ONCE IV 01/16/19 19:15 01/16/19 19:16 DC 01/16/19 19:24 100 ML Vital Signs/I&O 01/16/19 18:10 Temp 98.6 Pulse 73 Resp 19 B/P (MAP) 142/91 (108) Pulse Ox 100 Progress Progress Note : Progress Note PAIN IMPROVED WITH NTG X 1 NO FURTHER COMPLAINTS FOR REMAINDER OF ER STAY PT REPEATS THAT IT'S HER ANXIETY AND GERD Initial ECG Impression Date: Jan 16, 2019 Initial ECG Impression Time: 18:18 Initial ECG Rate: 77 Initial ECG Rhythm: Normal Sinus Initial ECG Impression: Normal Initial ECG Comparisson: Unchanged Diagnostic Imaging Comments CXR--NO ACUTE PROCESS, PER RADIOLOGIST REPORT @ 1914 CT CHEST ANGIOGRAM-NO P.E. OR ACUTE PROCESS, PER RADIOLOGIST REPORT @2009 Reviewed: Reviewed by Me Departure Impression Primary Impression: Chest pain Additional Impressions: Anxiety Chest wall pain Gastroesophageal reflux disease Disposition: HOME, SELF-CARE Condition: Improved Departure-Patient Inst. Referrals: DEANN GARCÍA DO (PCP/Family) Primary Care Physician Patient Instructions: Acid Reflux (Gastroesophageal Reflux Disease), Adult (DC) , Anxiety, Adult (DC), Chest Pain (DC), Costochondritis (DC), Heart Healthy Diet Add. Discharge Instructions: TAKE YOUR TRAMADOL NEEDED FOR PAIN TAKE YOUR CLONAZEPAM NEEDED FOR ANXIETY FOLLOW UP WITH DR. OVIEDO AND DR. GARCÍA THIS WEEK FOR FURTHER CARE All discharge instructions reviewed with patient and/or family. Voiced understanding. Scripts Sucralfate (Carafate) 1 Gm Tablet 1 GM PO WATL, #60 TAB Prov: ZULEYKA BOWDEN DO 01/16/19 ZULEYKA BOWDEN DO Jan 16, 2019 18:37
[2019-01-16 18:44] LABS: PROTHROMBIN TIME PATIENT 12.6 SEC (12.2-14.7)
--- NOTE | 2019-01-16 18:46 | Diagnostic Imaging Report ---
INDICATION: Chest pain. EXAMINATION: Chest 01/16/2019. COMPARISON: 08/03/2018. FINDINGS: The cardiomediastinal silhouette is unremarkable. The pulmonary vasculature is within normal limits. The lungs and pleural spaces are clear. IMPRESSION: No evidence of an acute cardiopulmonary process. Dictated by: Dictated on workstation # [id number]
[2019-01-16 18:55] LABS: ALANINE AMINOTRANSFERASE < 6 U/L (0-55); ALBUMIN 4.1 GM/DL (3.2-4.5); ALKALINE PHOSPHATASE 75 U/L (40-136); AMYLASE 54 U/L (25-125); BILIRUBIN,TOTAL 0.2 MG/DL (0.1-1.0); BUN/CREATININE RATIO 13; CALCIUM 8.9 MG/DL (8.5-10.1); CARBON DIOXIDE 29 MMOL/L (21-32); CHLORIDE 104 MMOL/L (98-107); CREATINE KINASE 58 U/L (29-168); CREATININE SERUM 0.99 MG/DL (0.60-1.30); GFR ESTIMATED > 60; GLUCOSE 89 MG/DL (70-105); LIPASE 41 U/L (8-78); MAGNESIUM 2.3 MG/DL (1.8-2.4); POTASSIUM 4.1 MMOL/L (3.6-5.0); SODIUM 143 MMOL/L (135-145); TOTAL PROTEIN 6.7 GM/DL (6.4-8.2)
[2019-01-16 19:04] LABS: CREATINE KINASE MB 0.7 NG/ML (<6.6); MYOGLOBIN SERUM 23.8 NG/ML (10.0-92.0)
[2019-01-16] MEDS ORDERED: IOHEXOL 350 MG/ML 150 ML (OMNIPAQUE 350) VIAL IV ONE (19:15)
[2019-01-16] MEDS ORDERED: RECEIVED CONTRAST 20 ML VIAL IV SCH (19:15)
[2019-01-16] MEDS ORDERED: NS 100 ML (IVPB) BAG IV ONE (19:15)
[2019-01-16 19:17] LABS: AMPHETAMINE SCREEN, URINE NEGATIVE (NEGATIVE); BARBITURATE SCREEN URINE NEGATIVE (NEGATIVE); BENZODIAZEPINES SCREEN URINE NEGATIVE (NEGATIVE); CANNABINOID SCREEN, URINE POSITIVE (NEGATIVE); COCAINE SCREEN URINE NEGATIVE (NEGATIVE); METHADONE STAT NEGATIVE (NEGATIVE); METHAMPHETAMINE SCREEN URINE S NEGATIVE (NEGATIVE); OPIATE SCREEN URINE NEGATIVE (NEGATIVE); OXYCODONE STAT NEGATIVE (NEGATIVE); PROPOXYPHENE STAT NEGATIVE (NEGATIVE); TRICYCLIC ANTIDEPRESSANTS SCRE NEGATIVE (NEGATIVE)
--- NOTE | 2019-01-16 20:07 | Diagnostic Imaging Report ---
PROCEDURE: CT angiography of the chest with contrast. TECHNIQUE: Multiple contiguous axial images were obtained through the chest after uneventful bolus administration of intravenous contrast. 2D reconstructed CTA MIP acquisitions were also performed. INDICATION: Right jaw pain, right arm pain. Passed out for 20 minutes. EXAMINATION: CT angiogram of the chest dated 01/16/2019 Comparison made to 05/23/2017 FINDINGS: The thoracic aorta unremarkable. The heart is unremarkable as well. No significant pericardial effusion is seen. Pulmonary arteries demonstrate no central or proximal segmental pulmonary emboli. No pleural effusions are seen. Lungs demonstrate a calcified nodule in the anterior left medial lung. There are several calcified lymph nodes within the left hilum. No acute process seen in either lung. Visualized upper abdominal structures demonstrate diffuse fatty infiltration throughout the liver. Evidence of previous cholecystectomy noted. Remaining visualized upper abdominal structures unremarkable. No acute osseous abnormality is seen. IMPRESSION: 1. No acute process within the visualized structures. No evidence for central or proximal segmental pulmonary embolus. Incidental findings as noted. Dictated by: Dictated on workstation # [id number]
[2019-01-16] MEDS ORDERED: SUCR1TAB36 PO (20:15)
[2019-01-16 20:31] VITALS: BP 134/76
== END 2019-01-16 20:31 | disposition home or self-care (01) ==
LOC: EDUNIT# 18:09 → ER 18:12
DX: R07.89 Other chest pain (principal); F41.9 Anxiety disorder, unspecified; K21.9 Gastro-esophageal reflux disease without esophagitis; I25.2 Old myocardial infarction; G43.909 Migraine, unspecified, not intractable, without status migrainosus; F31.9 Bipolar disorder, unspecified; F12.10 Cannabis abuse, uncomplicated; F17.210 Nicotine dependence, cigarettes, uncomplicated; Z98.84 Bariatric surgery status; Z82.49 Family history of ischemic heart disease and other diseases of the circulatory system; Z98.890 Other specified postprocedural states; Z95.9 Presence of cardiac and vascular implant and graft, unspecified; Z90.49 Acquired absence of other specified parts of digestive tract; Z90.710 Acquired absence of both cervix and uterus; Z98.51 Tubal ligation status; Z79.51 Long term (current) use of inhaled steroids; Z79.82 Long term (current) use of aspirin
CPT/HCPCS: 36415; 71045; 71275; 80053; 80306; 80320; 82150; 82550; 82553; 83690; 83735; 83874; 83880; 84484; 84703; 85025; 85610; 85730; 87804; 93005; 93041

== ENCOUNTER 2019-08-29 14:05 | Outpatient (CLI) | payer MEDICARE, MEDICAID ==
[~2019-08-29] VITALS: Ht 160 cm; Wt 60.5 kg
[~2019-08-29 14:05] MED LIST changes: +OMEP20CA13 PO
== END 2019-08-29 14:28 | disposition home or self-care (01) ==
LOC: PREOP 14:05
PROVIDERS: ATTEND Surgery
DX: Z01.818 Encounter for other preprocedural examination (principal)

== ENCOUNTER → 2020-08-22 | Outpatient (CLI) | payer MEDICARE, MEDICAID ==
[~2020-08-22] MED LIST changes: -ACET-2469 PO; +ACET-3075 PO; +ASPI-1238 PO; -ASPI-983 PO; -OMEP20CA13 PO; +OMEP20CA18 PO; -PANT40TA3 PO; +PANT40TA52 PO
[2020-08-22 15:29] LABS: ALBUMIN 3.9 GM/DL (3.2-4.5)
[2020-08-22 15:30] LABS: POTASSIUM 4.3 MMOL/L (3.6-5.0)
[2020-08-22 15:31] LABS: CALCIUM 8.7 MG/DL (8.5-10.1)
[2020-08-22 15:32] LABS: TOTAL PROTEIN 6.7 GM/DL (6.4-8.2)
[2020-08-22 15:34] LABS: BILIRUBIN,TOTAL 0.2 MG/DL (0.1-1.0)
[2020-08-22 15:36] LABS: CREATININE SERUM 1.13 MG/DL (0.60-1.30)
[2020-08-22 15:42] LABS: HEMOGLOBIN 10.3 g/dL (11.5-16.0); MEAN PLATELET VOLUME 10.8 fL (9.0-12.2); WHITE BLOOD COUNT 5.8 10^3/uL (4.3-11.0)
== END ==
LOC: LAB 14:58
PROVIDERS: ATTEND Family Medicine
DX: R10.9 Unspecified abdominal pain (principal)
CPT/HCPCS: 36415; 80053; 85027

== ENCOUNTER → 2020-09-01 | Outpatient (CLI) | payer MEDICARE, MEDICAID ==
--- NOTE | 2020-09-01 15:09 | Diagnostic Imaging Report ---
EXAMINATION: CT Abdomen Pelvis without contrast. TECHNIQUE: Multiple contiguous axial images were obtained through the abdomen and pelvis without the use of intravenous contrast. All CT scans use one or more of the following dose optimizing techniques: automated exposure control, MA and/or KvP adjustment based on a patient size and exam type, or iterative reconstruction. HISTORY: Abdominal pain. COMPARISON: 12/13/2018 FINDINGS: Limited views of the lower thorax are unremarkable. The liver is normal without focal lesion. There is no biliary ductal dilation. Gallbladder is surgically absent. Pancreas is normal. Spleen is normal. Adrenal glands are normal. The kidneys are normal. There is no hydronephrosis. Urinary bladder is normal. Visualized bowel is normal in caliber without obstruction or inflammation. There has been a gastric bypass. No free fluid or air. No abdominal or pelvic lymphadenopathy. Aorta is normal in caliber without aneurysm. There are no suspicious osseous lesions. There is a stable mild L1 compression fracture. IMPRESSION: 1. No acute abnormality in the abdomen or pelvis. Dictated by: Dictated on workstation # [id number]
== END ==
LOC: RAD 13:45
PROVIDERS: ATTEND Family Medicine
DX: R10.9 Unspecified abdominal pain (principal)
CPT/HCPCS: 74176

== ENCOUNTER 2020-11-14 05:31 | Outpatient (RCR) | payer MEDICARE, MEDICAID ==
[~2020-11-14] VITALS: Ht 160 cm; Wt 80.0 kg
== END 2020-11-14 11:05 | disposition home or self-care (01) ==
LOC: PREOP 05:31
PROVIDERS: ATTEND Surgery
DX: Z01.812 Encounter for preprocedural laboratory examination (principal); K21.9 Gastro-esophageal reflux disease without esophagitis; R19.4 Change in bowel habit; Z20.822 Contact with and (suspected) exposure to COVID-19; Z86.010 Personal history of colon polyps
CPT/HCPCS: 87635

== ENCOUNTER → 2020-11-21 | Outpatient (CLI) | payer MEDICARE, MEDICAID ==
[~2020-11-21] MED LIST changes: +ASPI81TA16 PO; +CLON0.5T4 PO; +GABA-490 PO
== END ==
LOC: LABNPT 05:47
PROVIDERS: ATTEND Surgery
DX: Z53.8 Procedure and treatment not carried out for other reasons (principal)

== ENCOUNTER 2020-11-25 11:00 | Day surgery (SDC) | payer MEDICARE, MEDICAID ==
[~2020-11-25] VITALS: Ht 162.6 cm; Wt 65.8 kg
[~2020-11-25 11:00] MED LIST changes: -ASPI81TA16 PO; -CLON0.5T4 PO; -ESCI10TA55 PO; +ESCI10TA64 PO; -GABA-490 PO
[2020-11-25] MEDS ORDERED: LACTATED RINGERS 1,000 ML IV ONE (11:04)
[2020-11-25] MEDS ORDERED: LACTATED RINGERS 1,000 ML IV STA (11:09)
[2020-11-25 11:15] VITALS: BP 133/76
[2020-11-25] MEDS ORDERED: HURRICAINE EXT TUBE (BENZOCAINE) XX PRN (11:15)
--- NOTE | 2020-11-25 11:23 | Progress Note-Pre Operative ---
Pre-Operative Progress Note H&P Reviewed The H&P was reviewed, patient examined and no changes noted. Date Seen by Provider: Nov 25, 2020 Time Seen by Provider: 11: Date H&P Reviewed: Nov 25, 2020 Time H&P Reviewed: :22 Pre-Operative Diagnosis: gerd, hx polyps of colon, altered bowel function, constipation ROXIE RAMIREZ DO Nov 25, 2020 11:23
[2020-11-25] MEDS ORDERED: ASPI81TA16 PO (11:39)
[2020-11-25] MEDS ORDERED: GABA-490 PO (11:39)
[2020-11-25] MEDS ORDERED: ESCI10TA64 PO (11:39)
[2020-11-25] MEDS ORDERED: CYCL10TA9 PO (11:39)
[2020-11-25] MEDS ORDERED: CLON0.5T4 PO (11:39)
[2020-11-25] MEDS ORDERED: PROP20TA5 PO (11:39)
[2020-11-25] MEDS ORDERED: OMEP20CA18 PO (11:39)
[2020-11-25] MEDS ORDERED: DIVA500T15 PO (11:39)
[2020-11-25] MEDS ORDERED: PROPOFOL INJECTION 50 ML IV ONE (11:40)
[2020-11-25] MEDS ORDERED: MIDAZOLAM 2 MG/2 ML (VERSED) VIAL ONE (11:40)
[2020-11-25] MEDS ORDERED: HURRICAINE EXT TUBE (BENZOCAINE) ONE (12:31)
--- NOTE | 2020-11-25 12:45 | Progress Note-Post Operative ---
Post-Operative Progess Note Surgeon (s)/Operating Room Coordinator (s) Surgeon ROXIE RAMIREZ DO Operating Room Coordinator: na Pre-Operative Diagnosis gerd, hx polyps of colon, altered bowel function, constipation Post-Operative Diagnosis hiatal hernia, normal colon Procedure & Operative Findings Date of Procedure 11/25/20 Procedure Performed/Findings EGJ c biopsy, Colonoscopy Anesthesia Type per pie filling mixer Estimated Blood Loss Estimated blood loss (mL): none Specimens/Packing Specimens Removed ge ROXIE RAMIREZ DO Nov 25, 2020 12:45
--- NOTE | 2020-11-25 12:46 | Discharge Inst-Simple/Standard ---
Discharge Inst-Standard Patient Instructions/Follow Up Plan of Care/Instructions/FU: 2-3 weeks Arina Activity as Tolerated: Yes Discharge Diet: Regular Diet ROXIE RAMIREZ DO Nov 25, 2020 12:46
[2020-11-25 12:52] VITALS: BP 86/51
--- NOTE | 2020-11-25 12:55 | Anesthesia-General Post-Op ---
MAC Patient Condition Mental Status/LOC: Same as Preop Cardiovascular: Satisfactory Nausea/Vomiting: Absent Respiratory: Satisfactory Pain: Controlled Complications: Absent Post Op Complications Complications None Follow Up Care/Instructions Patient Instructions None needed. Anesthesiology Discharge Order Discharge Order Patient is doing well, no complaints, stable vital signs, no apparent adverse anesthesia problems. No complications reported per nursing. JEROD DOMINGUEZ CRNA Nov 25, 2020 12:55
[2020-11-25 12:57] VITALS: BP 111/62
[2020-11-25 13:00] VITALS: BP 134/71
[2020-11-25 13:30] VITALS: BP 129/77
[2020-11-25 13:50] VITALS: BP 129/77
--- NOTE | 2020-11-25 19:32 | OPERATIVE REPORT ---
DATE OF SERVICE: 11/25/2020 PREOPERATIVE DIAGNOSES: Gastroesophageal reflux disease, history of colon polyps, altered bowel function, constipation. POSTOPERATIVE DIAGNOSES: Hiatal hernia, normal colon. PROCEDURE: Esophagogastrojejunoscopy with biopsy and colonoscopy. SURGEON: Roxie Santa DO ANESTHESIA: Per CASE MANAGEMENT ASSOCIATE. ESTIMATED BLOOD LOSS: None. COMPLICATIONS: None. SPECIMENS: GE junction. INDICATIONS: The patient is a 45-year-old female with GERD, history of polyps and altered bowel function with constipation. She understands risks and benefits of procedure and wished to proceed with procedure. Consent was signed in the chart. DESCRIPTION OF PROCEDURE: The patient was taken to the endoscopy suite, placed in left lateral recumbent position. Timeout was performed. Scope was inserted in mouth, down the esophagus and into the stomach pouch. Anastomosis had normal appearance. The scope was inserted down the jejunal limb, which had normal appearance. Scope was retracted back into the pouch. No other pathology noted. No erythematous changes. No polyps, masses or ulcerations. Scope was retroflexed noting a small hiatal hernia, no other pathology noted. Scope was returned to its normal position, slowly withdrawn to distal esophagus. Slight erythematous changes. Biopsy of the GE junction was obtained. No polyps, masses or ulcerations. Scope was retracted until completely removed. Digital rectal exam was then performed. No palpable polyps, masses or ulcerations. Scope was inserted in the rectum and advanced all the way to cecum with minimal difficulty. Prep was adequate. Scope was then slowly retracted back. No polyps, masses or ulcerations within the cecum, ascending, transverse, descending and sigmoid colon. Once in the rectum, scope was retroflexed noting no other pathology. Scope was returned to its normal position, slowly withdrawn until completely removed. The patient tolerated procedure well without any complications. She was taken to recovery room in stable condition. RECOMMENDATIONS: The patient will follow up on biopsies in 2-3 weeks. She understands . We will continue on current medications she is on omeprazole. She does have a history of polyps, so we would repeat colonoscopy in five years. The patient will follow up in the office to discuss pathology and see how her symptoms are doing. Job ID: [id number] DocumentID: [id number] Dictated Date: 11/25/2020 12:49:00 Plate Mounter Date: 11/25/2020 19:30:43 Dictated By: ROXIE SANTA DO
== END 2020-11-25 13:50 | disposition home or self-care (01) ==
LOC: ENDO 11:00
PROVIDERS: ATTEND Surgery
DX: K29.50 Unspecified chronic gastritis without bleeding (principal); K21.00 Gastro-esophageal reflux disease with esophagitis, without bleeding; K44.9 Diaphragmatic hernia without obstruction or gangrene; F41.9 Anxiety disorder, unspecified; F32.9 Major depressive disorder, single episode, unspecified; J45.909 Unspecified asthma, uncomplicated; G43.909 Migraine, unspecified, not intractable, without status migrainosus; D64.9 Anemia, unspecified; E66.9 Obesity, unspecified; Z68.24 Body mass index [BMI] 24.0-24.9, adult; Z79.82 Long term (current) use of aspirin; Z79.51 Long term (current) use of inhaled steroids; Z79.899 Other long term (current) drug therapy; Z88.5 Allergy status to narcotic agent; Z86.010 Personal history of colon polyps; Z20.828 Contact with and (suspected) exposure to other viral communicable diseases
CPT/HCPCS: 43239; 45378; 88305; U0002; 87635

== ENCOUNTER → 2022-03-16 | Outpatient (CLI) | payer MEDICARE, MEDICAID ==
[~2022-03-16] MED LIST changes: +ASPI81TA16 PO; +CLON0.5T4 PO; +CYCL10TA25 PO; -CYCL10TA9 PO; +ESCI-2 PO; -ESCI10TA64 PO; +GABA-490 PO; +OMEP20TA56 PO; -OMEP20TA7 PO
--- NOTE | 2022-03-16 15:51 | Diagnostic Imaging Report ---
INDICATION: Status post trauma. Pain EXAMINATION: Right knee 03/16/2022. COMPARISON: 02/06/2010 FINDINGS: 3 views of the knee. There is diffuse osteopenia greater than expected for patient's age. Multiple linear sclerotic lines within the tibia and visualized femur, chronic in appearance. There is moderate to severe medial and lateral joint space narrowing with associated spurring. There is mild/moderate patellofemoral narrowing and spurring as well. Loose bodies noted within Hoffa's fat pad. No acute fractures or dislocations appreciated. IMPRESSION: 1. Marked osteopenia greater than expected for patient's age with sclerotic lines chronic in appearance however given pain a superimposed insufficiency fracture would be difficult to exclude but felt to be less likely. If pain persists MRI could evaluate for edema. 2. Tricompartmental degenerative disease. Dictated by: Dictated on workstation # [id number]
== END ==
LOC: RAD 13:20
PROVIDERS: ATTEND Family Medicine
DX: M17.11 Unilateral primary osteoarthritis, right knee (principal); M85.88 Other specified disorders of bone density and structure, other site
CPT/HCPCS: 73562